=== PATIENT | female | born 1980 | race Two or more races ===

== ENCOUNTER 2022-11-22 09:43 | Outpatient (REF) | payer OTHER, SELFPAY ==
--- NOTE | ~2022-11-22 | XR_ITS ---
EXAMINATION: XR KNEE, LEFT CLINICAL INFORMATION: Left knee pain COMPARISON: None available. TECHNIQUE: Four views of the left knee. FINDINGS: No fracture or joint effusion. Alignment is anatomic. Joint spaces are maintained. No abnormal soft tissue calcification. XR/XR knee LT 3V IMPRESSION: Normal left knee.
--- NOTE | ~2022-11-22 | XR_ITS ---
EXAMINATION: XR KNEE, RIGHT CLINICAL INFORMATION: Chronic bilateral knee pain, history of arthritis in a patient with cerebral palsy COMPARISON: None available. TECHNIQUE: Three views of the right knee. FINDINGS: No fracture or joint effusion. Alignment is anatomic. Joint spaces are maintained. No abnormal soft tissue calcification. XR/XR knee RT 3V IMPRESSION: Normal right knee.
[2022-11-22 11:26] LABS: MANUAL DIFF FLAG NO
[2022-11-22 11:39] LABS: Basophils Percent Auto 0.8 % (0-2); Eosinophils Absolute Auto 0.3 X10*3/uL (0.0-0.4); Eosinophils Percent Auto 5.8 % (0-4); Hematocrit 38.8 % (37.0-47.0); Hemoglobin 13.1 g/dl (12.0-16.0); Imm Gran Abs Auto 0.01 X10*3/uL (0.00-0.03); Imm Gran Pct Auto 0.2 % (0.0-0.4); Lymphocytes Absolute Auto 1.4 X10*3/uL (1.2-4.9); Lymphocytes Percent Auto 27.9 % (20-40); Mean Corpuscular HGB Conc 33.8 g/dl (31.0-35.0); Mean Corpuscular Hemoglobin 29.8 pg (27.0-33.0); Mean Corpuscular Volume 88.4 fL (80.0-98.0); Mean Platelet Volume 9.8 fL (9.4-12.3); Monocytes Absolute Auto 0.4 X10*3/uL (0.1-1.2); Monocytes Percent Auto 8.8 % (2-11); Neutrophils Absolute Auto 2.8 x10*3/uL (2.0-8.3); Neutrophils Percent Auto 56.5 % (45-73); Platelet Count 329 X10*3/uL (160-400); Red Blood Count 4.39 X10*6/uL (4.20-5.50); Red Cell Distribution Width 12.2 % (11.0-16.0)
[2022-11-22 11:47] LABS: INTERNATIONAL NORM RATIO 1.1 (0.9-1.1)
[2022-11-22 11:51] LABS: Alanine Aminotransferase 7 U/L (0-31); Alkaline Phosphatase 58 U/L (39-117); Anion Gap 10 (12-20); Aspartate Amino Transferase 12 U/L (5-31); Bilirubin Total 0.6 mg/dL (0.0-1.0); Blood Urea Nitrogen 8 mg/dL (9-16); Calcium 9.4 mg/dL (8.4-10.2); Carbon Dioxide 27 mmol/L (22-29); Chloride 104 mmol/L (96-108); Estimated Glomerular Filt Rate > 60; Glucose Random 88 mg/dL (60-115); Sodium 137 mmol/L (135-145); Total Protein 6.9 g/dL (6.5-8.0)
[2022-11-22 12:12] LABS: TSH reflex Free T4 < 0.01 uIU/mL (0.32-4.0)
[2022-11-22 12:26] LABS: Estimated Average Glucose 88 mg/dL; Hemoglobin A1c % 4.7 % (<6.0)
[2022-11-22 12:52] LABS: Free T4 (Free Thyroxine) 1.62 ng/dL (0.71-1.85)
== END 2022-11-22 09:44 | disposition home or self-care (01) ==
LOC: HO.HHCL 09:43
PROVIDERS: Visit Provider General Practice
DX: Z00.00 Encounter for general adult medical examination without abnormal findings (principal); Z13.89 Encounter for screening for other disorder
CPT/HCPCS: 36415; 73562; 80053; 83036; 84439; 84443; 85025; 85610

== ENCOUNTER → 2022-12-01 11:45 | Outpatient (BNV) | payer OTHER, SELFPAY | PROVIDERS: PCP General Practice; Visit Provider Radiology Diagnostic Radiology | DX: Z12.31 Encounter for screening mammogram for malignant neoplasm of breast (principal) | CPT/HCPCS: 77063; 77067 ==

== ENCOUNTER 2022-12-01 11:47 | Outpatient (REF) | payer OTHER, SELFPAY ==
--- NOTE | ~2022-12-01 | MM_ITS ---
EXAMINATION: MM SCREENING DIGITAL BREAST TOMOSYNTHESIS, BILATERAL CLINICAL INFORMATION: Screening. Asymptomatic. The patient has multiple sclerosis. COMPARISON: Mammography: There are no prior mammograms for comparison. TECHNIQUE: Digital breast tomosynthesis is performed in both the craniocaudal and mediolateral oblique views along with computer-aided detection (CAD). Synthesized 2D images are generated from the tomosynthesis. The examination is somewhat limited due to patient motion given her neurologic status. The mammograms performed at the patient seated. FINDINGS: There are scattered areas of fibroglandular density (ACR BI-RADS breast composition Category b). There are no significant masses, abnormal calcifications, or other abnormalities. MM/MM tomosynthesis screening BI IMPRESSION: No mammographic evidence of malignancy. ASSESSMENT: BI-RADS BI-RADS 1 - Negative RECOMMENDATION: Routine annual mammography screening. 1 year F/U This examination should not preclude the clinical evaluation of a suspicious palpable abnormality. This patient's information was entered into a reminder system with a target due date for their next mammogram.
== END 2022-12-01 11:48 | disposition home or self-care (01) ==
LOC: HO.MAMMO 11:47
PROVIDERS: PCP General Practice; Visit Provider General Practice
DX: Z12.31 Encounter for screening mammogram for malignant neoplasm of breast (principal)
CPT/HCPCS: 77063; 77067

== ENCOUNTER 2023-01-15 12:09 | Outpatient (RCR) | payer OTHER, SELFPAY | END 2023-03-06 10:21 | disposition home or self-care (01) | LOC: HO.PT 12:09 | PROVIDERS: PCP General Practice; Visit Provider General Practice | DX: M17.12 Unilateral primary osteoarthritis, left knee (principal); M25.561 Pain in right knee | CPT/HCPCS: 97162 ==

== ENCOUNTER 2023-01-24 17:26 | Outpatient (REF) | payer OTHER, SELFPAY ==
[2023-01-30 03:39] LABS: Trichomonas (NAAT) NOT DETECTED (NOT DETECTED)
[2023-01-30 03:54] LABS: C. trachomatis RNA TMA NOT DETECTED (NOT DETECTED); N. gonorrhoeae RNA TMA NOT DETECTED (NOT DETECTED)
[2023-01-30 05:28] LABS: HPV mRNA E6/E7 rflx Not Detected (Not Detected)
== END 2023-01-24 17:27 | disposition home or self-care (01) ==
LOC: HO.HHCLNP 17:26
PROVIDERS: Visit Provider Advanced Practice Midwife
DX: Z12.4 Encounter for screening for malignant neoplasm of cervix (principal); Z11.51 Encounter for screening for human papillomavirus (HPV); Z20.2 Contact with and (suspected) exposure to infections with a predominantly sexual mode of transmission
CPT/HCPCS: 36415; 87491; 87591; 87624; 87661; 88142

== ENCOUNTER 2023-11-05 12:01 | Outpatient (REF) | payer OTHER, SELFPAY ==
[2023-11-05 13:52] LABS: Alanine Aminotransferase 10 U/L (0-31); Alkaline Phosphatase 67 U/L (39-117); Anion Gap 11 (12-20); Aspartate Amino Transferase 12 U/L (5-31); Bilirubin Total 0.2 mg/dL (0.0-1.0); Blood Urea Nitrogen 10 mg/dL (9-16); Calcium 9.3 mg/dL (8.4-10.2); Carbon Dioxide 23 mmol/L (22-29); Chloride 109 mmol/L (96-108); Estimated Glomerular Filt Rate > 60; Glucose Random 79 mg/dL (60-115); Potassium 4.3 mmol/L (3.3-5.1); Sodium 139 mmol/L (135-145)
[2023-11-05 14:11] LABS: TSH reflex Free T4 19.67 uIU/mL (0.32-4.0)
[2023-11-05 14:32] LABS: Estimated Average Glucose 103 mg/dL; Hemoglobin A1c % 5.2 % (<6.0)
[2023-11-05 15:28] LABS: Free T4 (Free Thyroxine) 0.71 ng/dL (0.71-1.85)
== END 2023-11-05 12:02 | disposition home or self-care (01) ==
LOC: HO.HHCL 12:01
PROVIDERS: Visit Provider General Practice
DX: E89.0 Postprocedural hypothyroidism (principal); E66.3 Overweight; Z13.1 Encounter for screening for diabetes mellitus
CPT/HCPCS: 36415; 80053; 83036; 84439; 84443

== ENCOUNTER 2023-11-14 11:19 | Outpatient (REF) | payer OTHER, SELFPAY ==
--- NOTE | ~2023-11-14 | US_ITS ---
EXAMINATION: US PELVIS COMPLETE CLINICAL INFORMATION: long menstrual cycles, 11 days, evaluate for fibroid COMPARISON: None TECHNIQUE: Transabdominal and transvaginal imaging was performed. FINDINGS: The uterus is of normal size and echogenicity measuring 9.3 x 3.8 x 5.4 cm. A regular homogeneous endometrium is identified measuring 0.5 cm. No fibroids identified. Intrauterine device in appropriate position. Fluid is noted in the endocervical canal. Both ovaries are of normal size and echogenicity. The right measures 3.2 x 2.5 x 1.9 cm for a volume of 8 mL. The left measures 2.2 x 1.7 x 1.1 cm for a volume of 2.2 mL. Prominent bilateral adnexal myometrial vessels which can be seen in the setting of pelvic venous congestion syndrome in the appropriate clinical setting. There is no pelvic free fluid. US/US pelvic and transvaginal IMPRESSION: 1. No fibroids are identified. Intrauterine device in appropriate position. 2. Prominent bilateral adnexal myometrial vessels which can be seen in the setting of pelvic venous congestion syndrome in the appropriate clinical setting. 3. Fluid is noted in the endocervical canal. Electronically signed by: Maggie Church MD 11/19/2023 07:26 PM EDT
== END 2023-11-14 11:20 | disposition home or self-care (01) ==
LOC: HO.US 11:19
PROVIDERS: PCP General Practice; Visit Provider General Practice
DX: N93.9 Abnormal uterine and vaginal bleeding, unspecified (principal)
CPT/HCPCS: 76830; 76856

== ENCOUNTER 2024-05-05 19:37 | Emergency (ER) | payer OTHER, SELFPAY ==
--- NOTE | ~2024-05-05 | US_ITS ---
CLINICAL HISTORY: vaginal bleeding, pelvic pain US pelvis transabdominal and transvaginal Comparison: US/SR - US PELVIC AND TRANSVAGINAL - 11/14/23 11:25 EDT Findings: Transabdominal scanning performed for overall anatomy. Transvaginal scanning performed for additional detail. Anteverted uterus measures 8.6 cm x 3.8 cm x 3.6 cm. Normal myometrium. Stable IUD in endometrial canal. Right ovary measures 3.5 cm x 2.3 cm x 3 cm and contains a 2 cm x 1.8 cm x 2.2 cm complex cyst with septations and internal echoes. Left ovary measures 2.8 cm x 2 cm x 1.7 cm with punctate echogenicities possibly small calcifications. Normal color Doppler and spectral Doppler in the right ovary. Trace fluid in the cervical canal. No free fluid. IMPRESSION: 1. 2.2 cm complex right ovarian cyst with septations and internal echoes. No evidence of right ovarian torsion. 2. Stable IUD in uterine canal. This document has been electronically signed by: Socorro Valdez MD on 05/05/2024 23:23:02
[2024-05-05 19:59] VITALS: BP 139/78; PULSE 91; RESP 16; TEMP 36.8; O2SAT 97; BMI 30.5
--- NOTE | 2024-05-05 20:07 | ED.FEMALEGU ---
HPI - Female Genitourinary General Chief complaint: Vaginal Bleeding Stated complaint: vaginal bleeding/pelvic pain Time Seen by Provider: 05/06/24 02:24 Source: patient Limitations: no limitations History of Present Illness ED Provider: Yesi Tucker PA-C HPI Narrative: 43-year-old female presents from urgent care given concerns for ectopic . Patient states her last menstrual cycle completed 3/, she developed new onset vaginal bleeding today. Associated right-sided lower abdominal cramping, new vaginal bleeding and generalized myalgias. Denies nausea, vomiting, diarrhea or fever. Denies recent cough or cold symptoms. Related Data Previous Rx's ?Medication ?Instructions ?Recorded ketorolac 10 mg tablet 10 mg PO Q6H PRN pain #20 tabs 05/06/24 Allergies Allergy/AdvReac Type Severity Reaction Status Date / Time No Known Allergies Allergy Verified 05/05/24 20:06 Review of Systems Review of Systems: Yes all other systems are reviewed and are negative Constitutional: Constitutional: Reports fatigue, Denies fever(s) and Reports malaise Cardiovascular: Cardiovascular: Denies chest pain and Denies dyspnea Respiratory: Respiratory: Denies cough and Denies dyspnea Gastrointestinal: Gastrointestinal: Reports abdominal pain, Reports GI cramping, Denies diarrhea, Denies nausea and Denies vomiting Genitourinary: Genitourinary: Reports abnormal vaginal bleeding, Reports pelvic pain and Reports other (Dysfunctional uterine bleeding) Endocrine: Endocrine: Reports fatigue PMFSH Past Medical History Attestation statement: The following information was validated with the patient. Social History Social History Smoked in Last 30 Days: No Use of substances other than those prescribed or required for medical reasons: No Advance Directives: No Advance Directives Information Provided: Yes Do you have a plan to hurt others: No Plan Patient : No Physical Exam Vital Signs: Vital Signs: Last Vital Signs Temp 102.0 F H 05/06/24 03:07 Pulse 93 05/06/24 03:07 Resp 16 05/06/24 03:07 BP 121/86 05/06/24 03:07 Pulse Ox 99 05/06/24 03:07 O2 Del Method Room Air 05/06/24 03:07 BMI result Body Mass Index 30.5 Const: Other: Alert, appears older than stated age Orientation/consciousness: patient oriented x3 Resp: Other: Nonlabored respiration Cardio: Other: Normal peripheral perfusion : Other: Deferred, she is not heavily bleeding, she is having breakthrough bleeding Skin: Other: Warm dry no rash Neuro: General: patient oriented x3, gait normal, no focal motor deficits and CN's II-XI intact bilaterally Psych: Other: Cooperative Course Course Course Narrative: This is a Rapid Medical Examination (RME) performed by Montserrat Sanford PA-C in triage. Full HPI, ROS, assessment and treatment plan per primary provider in the Main ED. 43 yo female , IUD placed 2022, here for eval of pelvic pain and vaginal bleeding x24 hours. her LMP finished 5 days ago. she started to rebleed yesterday, into today. assoc pelvic pain. seen at at 1700 today, they were concerned for ectopic however did no lab/urine testing. no hx ectopic. Plan: labs, UA, preg testing, ultrasound Medications Administered Discontinued Medications Generic Name Dose Route Start Last Admin Trade Name Freq PRN Reason Stop Dose Admin Acetaminophen 975 mg 05/06/24 02:54 05/06/24 03:13 Acetaminophen 325 Mg Tablet PO 05/06/24 02:55 975 mg ONCE ONE Administration Sodium Chloride 1,000 mls @ 999 mls/hr 05/06/24 03:00 05/06/24 03:17 Ns IV 05/06/24 04:00 999 mls/hr .Q1H1M LEANDRO Administration Ketorolac Tromethamine 15 mg 05/06/24 02:25 05/06/24 02:38 Ketorolac Tromethamine 15 Mg/Ml Vial IM 05/06/24 02:26 15 mg ONCE ONE Administration Medical Decision Making Medical Decision Making [facility] Narrative: 43-year-old female presents from urgent care given concerns for ectopic . Patient states her last menstrual cycle completed 3, she developed new onset vaginal bleeding today. Associated right-sided lower abdominal cramping, new vaginal bleeding and generalized myalgias. Denies nausea, vomiting, diarrhea or fever. Denies recent cough or cold symptoms. No chronic issues History: Per patient I have considered the following differential diagnoses: Dysfunctional uterine bleeding, early menopause, ectopic, ovarian cyst, torsion, Plan: The patient bleeding outside of her cycle, it is not excessive is having vaginal bleeding outside of her cycle, it was not excessive or heavy. Screening labs were obtained, she is not , transvaginal ultrasound was obtained as well she has a small ovarian cyst. Incidentally, a viral panel was obtained due to the patient's complaint of generalized myalgias, she is found to be positive for influenza and she is febrile. We will be giving Toradol for fever and pelvic discomfort, Tylenol and a L of fluid. We will be sending the patient with the contact for our gynecology service, she does have an appointment pending in June with a new provider. I have independently reviewed the following tests: Labs: No leukocytosis, not anemic, no electrolyte abnormality, urine not infected, viral panel positive for influenza B TVUS: IMPRESSION: 1. 2.2 cm complex right ovarian cyst with septations and internal echoes. No evidence of right ovarian torsion. 2. Stable IUD in uterine canal. Lab Data 05/05/24 20:18 05/05/24 20:18 Labs: Lab Results 05/05/24 05/06/24 05/06/24 Range/Units 20:18 02:07 02:57 WBC 3.7 L (4.8-10.8) X10*3/uL RBC 4.80 (4.20-5.50) X10*6/uL Hgb 13.5 (12.0-16.0) g/dl Hct 39.7 (37.0-47.0) % MCV 82.7 (80.0-98.0) fL MCH 28.1 (27.0-33.0) pg MCHC 34.0 (31.0-35.0) g/dl RDW 13.2 (11.0-16.0) % Plt Count 299 (160-400) X10*3/uL MPV 9.0 L (9.4-12.3) fL Immature Gran % (Auto) 0.3 (0.0-0.4) % Neut % (Auto) 51.4 (45-73) % Lymph % (Auto) 22.7 (20-40) % Floyd % (Auto) 15.9 H (2-11) % Eos % (Auto) 9.2 H (0-4) % Baso % (Auto) 0.5 (0-2) % Lymph # (Auto) 0.8 L (1.2-4.9) X10*3/uL Floyd # (Auto) 0.6 (0.1-1.2) X10*3/uL Eos # (Auto) 0.3 (0.0-0.4) X10*3/uL Baso # (Auto) 0.0 (0.0-0.2) X10*3/uL Abs Immat Gran (auto) 0.01 (0.00-0.03) X10*3/uL Absolute Neuts (auto) 1.9 L (2.0-8.3) x10*3/uL Absolute Nucleated RBC 0.000 (0.0-0.012) X10*3/uL Nucleated RBC % (auto) 0.0 (0.0-0.2) /100WBC Sodium 136 (135-145) mmol/L Potassium 4.1 (3.3-5.1) mmol/L Chloride 106 (96-108) mmol/L Carbon Dioxide 20 L (22-29) mmol/L Anion Gap 14 (12-20) BUN 10 (9-16) mg/dL Creatinine 0.55 (0.5-1.4) mg/dL Estim Creat Clear Calc 130.4 Estimated GFR > 60 Random Glucose 97 (60-115) mg/dL Calcium 9.0 (8.4-10.2) mg/dL Magnesium 1.9 (1.6-2.6) mg/dL Total Bilirubin 0.3 (0.0-1.0) mg/dL AST 19 (5-31) U/L ALT 14 (0-31) U/L Alkaline Phosphatase 79 (39-117) U/L Total Protein 8.2 H (6.5-8.0) g/dL Albumin 4.2 (3.5-5.0) g/dL Beta HCG, Quant < 2 mIU/mL Urine Color Yellow Urine Appearance Clear Urine pH 5.5 (5.0-9.0) Ur Specific [place] 1.025 (1.005-1.025) Urine Protein Trace (Neg-Trace) mg/dL Urine Glucose (UA) Negative (Negative) mg/dL Urine Ketones 40 (Negative) mg/dL Urine Blood Large (3+) H (Negative) Urine Nitrite Negative (Negative) Ur Leukocyte Esterase Negative (Negative) Urine RBC >20 H (0-2) /HPF Urine WBC 0-5 (0-5) /HPF Ur Squamous Epith Cells 0-2 (0-2) /HPF Urine Bacteria None Seen (None Seen) Hyaline Casts 0-2 (0-2) /LPF Influenza Type A (PCR) NEGATIVE (Negative) Influenza Type B (PCR) POSITIVE A (Negative) RSV RNA Qual (PCR) NEGATIVE (Negative) SARS-CoV-2 RNA (RT-PCR) NEGATIVE (Negative) Discharge Plan Discharge Clinical Impression: Ovarian cyst, Influenza, Dysfunctional uterine bleeding Patient Disposition: Home, Self-Care Instructions: Ovarian Cyst (ED), Influenza (ED) Additional Instructions: You were found to have an ovarian cyst, this could be the cause of your breakthrough bleeding. You could also have dysfunctional uterine bleeding secondary to your age. You need to follow up with a heating element winder, keep your pending appointment. I am also providing you with the contact of our own gynecology service. You also tested positive for influenza. See home care instructions. This is a virus that is self-limiting. You can use [id number] Tylenol 1000 mg taken every 8 hours for body aches, headache and fever. Use the ketorolac, for your pelvic pain, the ketorolac we will also help with body aches, fever and headache. Take it with food. The remaining of your screening labs were normal. Prescriptions: New ketorolac 10 mg tablet 10 mg PO Q6H PRN (Reason: pain) Qty: 20 0RF Rx Instructions: maximum total duration of 5 days from all oral, intranasal, or parenteral formulations. Patient received an IV form of ketorolac here in the emergency department. Referrals: Josep aJckson MD [Physician] - Print Language: Estonian
[2024-05-05 20:23] LABS: MANUAL DIFF FLAG NO
[2024-05-05 20:24] LABS: Basophils Percent Auto 0.5 % (0-2); Eosinophils Absolute Auto 0.3 X10*3/uL (0.0-0.4); Eosinophils Percent Auto 9.2 % (0-4); Hematocrit 39.7 % (37.0-47.0); Hemoglobin 13.5 g/dl (12.0-16.0); Imm Gran Abs Auto 0.01 X10*3/uL (0.00-0.03); Imm Gran Pct Auto 0.3 % (0.0-0.4); Lymphocytes Absolute Auto 0.8 X10*3/uL (1.2-4.9); Lymphocytes Percent Auto 22.7 % (20-40); Mean Corpuscular Hemoglobin 28.1 pg (27.0-33.0); Mean Corpuscular Volume 82.7 fL (80.0-98.0); Monocytes Absolute Auto 0.6 X10*3/uL (0.1-1.2); Monocytes Percent Auto 15.9 % (2-11); Neutrophils Absolute Auto 1.9 x10*3/uL (2.0-8.3); Neutrophils Percent Auto 51.4 % (45-73); Platelet Count 299 X10*3/uL (160-400); Red Cell Distribution Width 13.2 % (11.0-16.0); White Blood Count 3.7 X10*3/uL (4.8-10.8)
[2024-05-05 20:39] LABS: Alanine Aminotransferase 14 U/L (0-31); Albumin Level 4.2 g/dL (3.5-5.0); Alkaline Phosphatase 79 U/L (39-117); Anion Gap 14 (12-20); Aspartate Amino Transferase 19 U/L (5-31); Bilirubin Total 0.3 mg/dL (0.0-1.0); Blood Urea Nitrogen 10 mg/dL (9-16); Carbon Dioxide 20 mmol/L (22-29); Chloride 106 mmol/L (96-108); Creatinine Clr Calc Pharmacy 130.4; Estimated Glomerular Filt Rate > 60; Glucose Random 97 mg/dL (60-115); Magnesium 1.9 mg/dL (1.6-2.6); Potassium 4.1 mmol/L (3.3-5.1); Sodium 136 mmol/L (135-145); Total Protein 8.2 g/dL (6.5-8.0)
[2024-05-05 20:46] LABS: HCG Quantitative < 2 mIU/mL
[2024-05-06 01:52] VITALS: BP 113/70; PULSE 101; RESP 20; TEMP 36.9; O2SAT 99
[2024-05-06] MEDS: Ketorolac Tromethamine 15 MG/ML VIAL IM (02:38)
[2024-05-06 02:49] LABS: Influenza A PCR NEGATIVE (Negative); Influenza B PCR POSITIVE (Negative); Resp Syncy Virus RNA Qual PCR NEGATIVE (Negative); SARS COV2 PCR INHOUSE NEGATIVE (Negative)
[2024-05-06 03:07] VITALS: BP 121/86; PULSE 93; RESP 16; TEMP 38.9; O2SAT 99
[2024-05-06 03:07] LABS: Appearance Urine Clear; Color Urine Yellow; Glucose Urine UA Negative (Negative); Leukocyte Esterase Urine Negative (Negative); Nitrite Urine Negative (Negative); PH 5.5 (5.0-9.0); Specific Gravity - Urine 1.025 (1.005-1.025); UMIC TRIGGER UACC YES; Urine Blood Large (3+) (Negative); Urine Ketones 40 mg/dL (Negative); Urine Protein Trace mg/dL (Neg-Trace)
[2024-05-06 03:09] LABS: Bacteria Urine None Seen (None Seen); Hyaline Casts Urine 0-2 /LPF (0-2); RBC Urine >20 /HPF (0-2); Squamous Epithelial Cell Urine 0-2 /HPF (0-2); WBC Urine 0-5 /HPF (0-5)
[2024-05-06] MEDS: Acetaminophen 325 MG TABLET 975 MG PO (03:13)
[2024-05-06] MEDS: 0.9 % Sodium Chloride 1,000 ML 999 ML IV (03:17)
[2024-05-06 04:26] VITALS: BP 111/74; PULSE 78; RESP 20; TEMP 37.2; O2SAT 98
[2024-05-06 04:27] VITALS: BP 111/74; PULSE 78; RESP 20; TEMP 37.2; O2SAT 98
== END 2024-05-06 04:33 | disposition home or self-care (01) ==
PROVIDERS: Physician Assistant Medical; Emergency Provider Emergency Medicine; PCP General Practice
DX: N83.201 Unspecified ovarian cyst, right side (principal); J10.1 Influenza due to other identified influenza virus with other respiratory manifestations; N93.9 Abnormal uterine and vaginal bleeding, unspecified; R10.2 Pelvic and perineal pain; R10.31 Right lower quadrant pain; N93.8 Other specified abnormal uterine and vaginal bleeding
CPT/HCPCS: 0241U; 36415; 76830; 76856; 80053; 81001; 83735; 84702; 85025; 96372; 99285; J1885

== ENCOUNTER → 2024-05-05 20:49 | Outpatient (BNV) | payer OTHER, SELFPAY | PROVIDERS: PCP General Practice; Visit Provider Specialist | DX: N93.9 Abnormal uterine and vaginal bleeding, unspecified (principal) | CPT/HCPCS: 76830; 76856 ==

== ENCOUNTER 2024-05-12 17:39 | Outpatient (REF) | payer OTHER, SELFPAY ==
[2024-05-13 03:03] LABS: CT PCR NOT DETECTED (Not Detect.); NG PCR NOT DETECTED (Not Detect.)
[2024-05-13 20:23] LABS: Trichomonas vaginalis RNA NOT DETECTED (NOT DETECTED)
== END 2024-05-12 17:40 | disposition home or self-care (01) ==
LOC: HO.HHCLNP 17:39
PROVIDERS: Visit Provider Advanced Practice Midwife
DX: Z11.3 Encounter for screening for infections with a predominantly sexual mode of transmission (principal)
CPT/HCPCS: 87491; 87591; 87661

== ENCOUNTER 2024-06-03 15:13 | Outpatient (REF) | payer OTHER, SELFPAY ==
--- NOTE | ~2024-06-03 | XR_ITS ---
EXAMINATION: XR CHEST CLINICAL INFORMATION: sob, cough, flu pos 05/06/24 COMPARISON: None available. TECHNIQUE: 2 views of the chest were obtained. FINDINGS: The cardiac, hilar, and mediastinal contours are normal. The lungs are clear bilaterally. There is no pneumothorax or pleural effusion. There is no focal osseous or soft tissue abnormality. XR/XR chest 2V IMPRESSION: Normal chest. Electronically signed by: Marc Womack MD 06/03/2024 03:43 PM EDT
--- OUTSIDE RECORDS SUMMARY | 2024-06-03 18:12 | XMS_ITS | Encounter Summary ---
Author Organization [employer] Address [address] [place] [address] [address] [place] [address] Care Team Providers Care Residential Finish Carpenter Name Role Phone Genoveva Vaughn MD Primary Care Provider [phone] Encounter Details Date Type Department Care Team (Late st Contact Info) Description 10/31/2022 Orders Only [facility] [address] [place], [place] [id number] Nisha Partida LPN Social History Tobacco Use Types Packs/Day Years Used Date Smoking Tobacco: Never Passive Smoke Exposure: Never Smokeless Tobacco: Never Comments Unknown Sex and Gender Information Value Date Recorded Sex Assigned at Female 12/26/2021 10:40 AM EDT Legal Sex Female 10:40 AM EDT Gender Identity Female 12/26/2021 10:40 AM EDT Sexual Orientation Straight 12/26/2021 10 :40 AM EDT documented as of this encounter Plan of Treatment Upcoming Encounters Date Type Department Care Team (Late st Contact Info) Description 07/14/2024 10:00 AM EDT Office Visit [address] [address] Jacinta Erwin CNM [address] [place] [phone] 08/12/2024 10:15 AM EDT Office Visit [address] [address] Genoveva Vaughn MD [address] [place] [phone] documented as of this encounter Procedures Procedure Name Priority Date/Time Associated Diagnosis Comments T4, FREE Routine 11/22/2022 9:56 AM EDT documented in this encounter Results * T4, Free (11/22/2022 9:56 AM EDT) Free T4 (Free Thyroxine) 1.62 0.71 - 1.85 ng/dL [facility] 11/22/2022 9:56 AM EDT 11/22/2022 11:22 AM EDT us Genoveva Vaughn MD LAB BLOOD ORDERABLES Final Res ult [facility] [address] [place] [phone] documented in this encounter Visit Diagnoses Not on filedocumented in this encounter Care Teams Residential Finish Carpenter Relationship Specialty Start Date End Date Genoveva Vaughn MD [address] [place] [phone] PCP - General Family Medicine 10/14/21 documented as of this encounter
--- OUTSIDE RECORDS SUMMARY | 2024-06-03 18:12 | XMS_ITS | Encounter Summary ---
Author Organization [employer] Address [address] [facility] 7[address] [place] [address] Care Team Providers Care Certified Diabetes Educator Name Role Phone Genoveva Vaughn MD Primary Care Provider [phone] Encounter Details Date Type Department Care Team (Late st Contact Info) Description 06/03/2024 3:40 PM EDT Office Visit [facility] [address] [place] [address] [phone] Mely Buitrago MD [address] [place], [place] [phone] Viral upper respiratory tract infection with cough Social History Tobacco Use Types Packs/Day Years Used Date Smoking Tobacco: Never Passive Smoke Exposure: Never Smokeless Tobacco: Never Alcohol Use Standard Drinks/Week Comments Never 0 (1 standard drink = 0.6 oz pur e alcohol) Housing Stability Answer Date Recorded What is your housing situation today? I have vanessa sing 10/17/[address] you li ve. Do you have problems with any of the following? None of the above 10/17/2023 Food Insecurity Answer Date Recorded Within the past 12 months, y ou worried that your food would run out before you got money to buy more: Never True 10/17/2023 Within the past 12 months,th e food you bought just didn't last and you didn't have enough money to get more: Never True Transportation Answer Date Recorded In the past 12 months, has l ack of transportation kept you from medical appts, meetings, work or from getting things needed for daily living? No 10/17/2023 Utilities Answer Date Recorded In the past 12 months, has t he [employer], gas, oil or water company threatened to shut off services in your home? No 10/17/2023 Internet Access Answer Date Recorded Internet Access Q1 Yes 10/29/2023 Internet Access Q2 Not on file 10/29/2023 Comments No Sex and Gender Information Value Date Recorded Sex Assigned at Female 12/26/2021 10:40 AM EDT Legal Sex Female 10:40 AM EDT Gender Identity Female 12/26/2021 10:40 AM EDT Sexual Orientation Straight 12/26/2021 10 :40 AM EDT documented as of this encounter Last Filed Vital Signs Vital Sign Reading Time Taken Comments Blood Pressure 129/80 06/03/2024 2:37 PM EDT Pulse 101 06/03/2024 2:46 PM EDT Temperature 37.1 ??C (98.7 ??F) 06/03/2024 2:37 PM ED T Respiratory Rate - - Oxygen Saturation 97% 06/03/2024 2:46 PM EDT RA Inhaled Oxygen Concentration - - Weight - - Height - - Body Mass Index - - documented in this encounter Progress Notes * Mary Lauren RN - 06/03/2024 3:40 PM EDT Pt presents to Walk In reporting runny nose, productive cough with yellow phlegm, SOB with exertion(ambulation and talking), chest tightness and upper back pain since last night. Pt reports she has been using albuterol inhaler, today at 10AM and around 1230PM without effect. Pt and significant other report son, daughter and mother are sick with cold like symptoms. Pt placed on 1L oxygen by Walk In BERNABE Franz for comfort. * Felicitas Reynoso - 06/03/2024 3:40 PM EDT Subjective Patient ID: Janelle Eli is a 43 y.o. female who presents to walk in clinic for No chief complaint on file.. Per triage: Pt presents to Walk In reporting cold symptoms and SOB with exertion. Pt reports she has been using albuterol inhaler, today at 10AM and around 1230PM without effect. Pt placed on 1L oxygen by Walk In BERNABE Franz for comfort. Pt reports cough with yellow sputum, sob with exertion, rhinorrhea and body aches. She notes her son, daughter and mother are sick with cold like symptoms. Pt reports she had the flu 05/06/24 but notes her symptoms have improved, but did not fully resolve. Review of Systems Constitutional: Negative for fever and unexpected weight change. HENT: Positive for rhinorrhea. Respiratory: Positive for cough and shortness of breath. Cardiovascular: Negative for chest pain. Gastrointestinal: Negative for abdominal pain. Genitourinary: Negative for difficulty urinating. Musculoskeletal: Positive for myalgias. Objective Visit Vitals BP 129/80 (BP Location: Right arm, Patient Position: Sitting, BP Cuff Size: Adult) Pulse 101 Temp 98.7 ??F (37.1 ??C) (Temporal) LMP 04/25/2024 (Exact Date) SpO2 97% Comment: RA OB Status Having periods Smoking Status Never Physical Exam Constitutional: Appearance: Normal appearance. Cardiovascular: Rate and Rhythm: Normal rate and regular rhythm. Heart sounds: Normal heart sounds. Pulmonary: Effort: Pulmonary effort is normal. Breath sounds: Normal breath sounds. No wheezing, rhonchi or rales. Musculoskeletal: Cervical back: Normal range of motion and neck supple. Neurological: General: No focal deficit present. Mental Status: She is alert. Psychiatric: Behavior: Behavior normal. Office Visit on 06/03/2024 Component Date Value Influenza A 06/03/2024 Negative Influenza B 06/03/2024 Negative Rapid COVID Ag 06/03/2024 Negative Office Visit on 05/12/[address] PCR 05/12/2024 NOT DETECTED NG PCR 05/12/2024 NOT DETECTED Trichomas vaginalis RNA,* 05/12/2024 NOT DETECTED Orders Only on 05/06/2024 Component Date Value Influenza A PCR 05/06/2024 NEGATIVE Influenza B PCR 05/06/2024 POSITIVE (A) Resp Syncy Virus RNA Kings* 05/06/2024 NEGATIVE SARS COV2 PCR 05/06/2024 NEGATIVE Color Urine 05/06/2024 Yellow Appearance Urine 05/06/2024 Clear PH 05/06/2024 5.5 Glucose Urine UA 05/06/2024 Negative Urine Blood 05/06/2024 Large (3+) (A) Specific Austin - Urine 05/06/2024 1.025 Urine Protein 05/06/2024 Trace Urine Ketones 05/06/2024 40 Nitrite Urine 05/06/2024 Negative Leukocyte Esterase Urine 05/06/2024 Negative RBC Urine 05/06/2024 >20 (A) Urine WBC 05/06/2024 0-5 Urine Squamous Epithelia* 05/06/2024 0-2 Urine Bacteria 05/06/2024 None Seen Hyaline Casts, Urine 05/06/2024 0-2 Problem List Items Addressed This Visit Viral upper respiratory tract infection with cough COVID and Flu negative. No evidence of respiratory distress. Symptoms mild. No evidence of dehydration. Upon checking walking O2 SAT it did drop slightly with exertion to about 96%. At rest goes backup to 98%. -Ordered CXR. -Prescribed predniSONE (Deltasone) 20 MG -Supportive care advised. -Isolation recommendations discussed. Relevant Medications predniSONE (Deltasone) 20 MG tablet Other Relevant Orders Influenza A (ID NOW Rapid Molecular) (Completed) Influenza B (ID NOW Rapid Molecular) (Completed) POCT Rapid COVID Ag (Completed) XR Chest 2 Views -No evidence of acute disease process. Suspect persistent cough with viral URI. Symptoms mild. -Will treat with low lopez steroid an ordered XR. -ER precautions discussed. -Seek medical attention for worsening symptoms. I, Felicitas Reynoso, am serving as a scribe to document services personally performed by Dr. Goode, based on the patient's response to questions by provider and providers statements to me. documented in this encounter Miscellaneous Notes * Assessment & Plan Note - Felicitas Reynoso - 06/03/2024 3:09 PM EDTAssociated Problem(s): Viral upper respiratory tract infection with cough COVID and Flu negative. No evidence of respiratory distress. Symptoms mild. No evidence of dehydration. Upon checking walking O2 SAT it did drop slightly with exertion to about 96%. At rest goes backup to 98%. -Ordered CXR. -Prescribed predniSONE (Deltasone) 20 MG -Supportive care advised. -Isolation recommendations discussed. documented in this encounter Plan of Treatment Upcoming Encounters Date Type Department Care Team (Late st Contact Info) Description 07/14/2024 10:00 AM EDT Office Visit [facility] [address] [place] [address] Jacinta Erwin CNM [address] [place] [address] 08/12/2024 10:15 AM EDT Office Visit [facility] [address] [place] [address] Genoveva Vaughn MD [address] [place] [address] documented as of this encounter Procedures Procedure Name Priority Date/Time Associated Diagnosis Comments XR CHEST 2 VIEWS Routine 06/03/2024 3:13 PM EDT Viral upper respiratory tract infection with cough POCT INFLUENZA B (ID NOW RAPID MOLECULAR) Routine 06/03/2024 2:58 PM EDT Viral upper respiratory tract infection with cough POCT INFLUENZA A (ID NOW RAPID MOLECULAR) Routine 06/03/2024 2:57 PM EDT Viral upper respiratory tract infection with cough POCT RAPID COVID ANTIGEN Routine 06/03/2024 2:52 PM EDT Viral upper respiratory tract infection with cough documented in this encounter Results * XR Chest 2 Views (06/03/2024 3:13 PM EDT) Anatomical Region Laterality Modality Chest Radiographic Lucy ging 06/03/2024 3:13 PM EDT Narrative 06/03/2024 3:45 PM EDT ?[facility] [facility] ?[address] ?[place] [address] ?XRay Report ? Signed ? Patient: Eli,Zoralis ?MR#: [id number] ?? 10 ? : 1980 ?Acct:[id number] ? Age/Sex: 43 / F ?ADM Date: 06/03/24 ? Loc: HO.HHCX ? Attending Dr: Mely Buitrago MD ? Ordering Physician: Mely Buitrago MD ?? Date of Service: 06/03/24 ?? Procedure(s): XR chest 2V ?? Accession Number(s): [id number] ? cc: Mely Buitrago MD ? EXAMINATION: ?? XR CHEST ? CLINICAL INFORMATION: ?? sob, cough, flu pos 05/06/24 ? COMPARISON: ?? None available. ? TECHNIQUE: ?? 2 views of the chest were obtained. ? FINDINGS: ?? The cardiac, hilar, and mediastinal contours are normal. ? The lungs are clear bilaterally. There is no pneumothorax or pleural ?? effusion. ? There is no focal osseous or soft tissue abnormality. ? XR/XR chest 2V ?? IMPRESSION: ?? Normal chest. ? Electronically signed by: ??Marc Womack MD ??06/03/2024 03:43 PM EDT RP ? Dictated By: ?Marc Womack MD ? Signed By: ?<Electronically signed by Marc Womack MD in OV> ?06/03/24 1543 ? DD/ 1513 ? TD/TT: 06/03/24 1520 ? Media Monitor: ? Procedure Note Aguilar, Image - 06/03/2024 [place] [address] XRay Report Signed Patient: Albino Eli#: [id number] 10 : 1980Acct:[id number] Age/Sex: 43 / FADM Date: 06/03/24 Loc: HO.HHCX Attending Dr: Mely Buitrago MD Ordering Physician: Mely Buitrago MD Date of Service: 06/03/24 Procedure(s): XR chest 2V Accession Number(s): [id number] cc: Mely Buitrago MD EXAMINATION: XR CHEST CLINICAL INFORMATION: sob, cough, flu pos 05/06/24 COMPARISON: None available. TECHNIQUE: 2 views of the chest were obtained. FINDINGS: The cardiac, hilar, and mediastinal contours are normal. The lungs are clear bilaterally. There is no pneumothorax or pleural effusion. There is no focal osseous or soft tissue abnormality. XR/XR chest 2V IMPRESSION: Normal chest. Electronically signed by: Marc Womack MD 06/03/2024 03:43 PM EDT Dictated By: Marc Womack MD Signed By: <Electronically signed by Marc Womack MD in OV> 06/03/24 1543 DD/ 1513 TD/TT: 06/03/24 1520 Media Monitor: Mely Buitrago MD IMG XR PROCEDURES Final Re sult * Influenza B (ID NOW Rapid Molecular) (06/03/2024 2:58 PM EDT) [facility] Influenza B Negative Negative, Indeterminate [facility] Swab 06/03/2024 2:58 PM EDT Mely Buitrago MD POINT OF CARE TEST ENTER/E DIT ORDERABLES Final Result Performing Organization Address [facility] Co de Phone Number [facility] [address] [place] [phone] * Influenza A (ID NOW Rapid Molecular) (06/03/2024 2:57 PM EDT) [facility] Influenza A Negative Negative, Indeterminate [facility] Swab 06/03/2024 2:57 PM EDT Mely Buitrago MD POINT OF CARE TEST ENTER/E DIT ORDERABLES Final Result Performing Organization Address [facility] Co de Phone Number [facility] [address] [place] [phone] * POCT Rapid COVID Ag (06/03/2024 2:52 PM EDT) Rapid COVID Ag Negative Swab 06/03/2024 2:52 PM EDT Mely Buitrago MD POINT OF CARE TEST ENTER/E DIT ORDERABLES Final Result documented in this encounter Visit Diagnoses Diagnosis Viral upper respiratory tract infection with cough documented in this encounter Care Teams Certified Diabetes Educator Relationship Specialty Start Date End Date Genoveva Vaughn MD [address] [place] [phone] PCP - General Family Medicine 10/14/21 documented as of this encounter
--- OUTSIDE RECORDS SUMMARY | 2024-06-03 18:12 | XMS_ITS | Encounter Summary ---
Author Organization [employer] Address [address] [place] [address] 7t [place] [address] Care Team Providers Care Confidential Investigator Name Role Phone Genoveva Vaughn MD Primary Care Provider [phone] Reason for Visit * Reason Onset Date Comments requesting a letter 03/03/2022 Encounter Details Date Type Department Care Team ([facility] st Contact Info) Description 03/03/2022 Telephone [facility] [address] [place], [place] [phone] Genoveva Vaughn MD [address] [place], [place] [phone] requesting a letter Social History Tobacco Use Types Packs/Day Years Used Date Smoking Tobacco: Never Assessed Comments Unknown Sex and Gender Information Value Date Recorded Sex Assigned at Female 12/26/2021 10:40 AM EDT Legal Sex Female 10:40 AM EDT Gender Identity Female 12/26/2021 10:40 AM EDT Sexual Orientation Straight 12/26/2021 10 :40 AM EDT documented as of this encounter Miscellaneous Notes * Telephone Encounter - Candie YAMILA Martin - 03/03/2022 3:40 PM EST Span w/ patient, she asked verbally for us to discuss with what we were calling about. 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 PCP informed on request and per spouse they will come Sunday03/06/22 to [facility] to do processing of requests, release so we can do paperwork for them. * Telephone Encounter - Celeste Paulson - 03/03/2022 12:42 PM EST Tc from pt requesting a letter for the DMV . Stating she's capable to take her drivers license . Please call pt to clarify . documented in this encounter Plan of Treatment Upcoming Encounters Date Type Department Care Team (Late st Contact Info) Description 07/14/2024 10:00 AM EDT Office Visit [facility] [address] [place] [address] Jacinta Erwin CNM [address] [place] [address] 08/12/2024 10:15 AM EDT Office Visit [facility] [address] [place] [address] Genoveva Vaughn MD [address] [place] [address] documented as of this encounter Visit Diagnoses Not on filedocumented in this encounter Care Teams Confidential Investigator Relationship Specialty Start Date End Date Genoveva Vaughn MD [address] [place] [phone] PCP - General Family Medicine 10/14/21 documented as of this encounter
--- OUTSIDE RECORDS SUMMARY | 2024-06-03 18:12 | XMS_ITS | Encounter Summary ---
Author Organization [employer] Address [address] [place] [address] 7t [place] [address] Care Team Providers Care Assembler [employer] Electrical Name Role Phone Genoveva Vaughn MD Primary Care Provider [phone] Encounter Details Date Type Department Care Team (Late st Contact Info) Description 11/28/2022 Orders Only [facility] [address] [place] [phone] Genoveva Vaughn MD [address] [place] [phone] Chronic pain of both knees (Primary Dx) Social History Tobacco Use Types Packs/Day Years Used Date Smoking Tobacco: Never Passive Smoke Exposure: Never Smokeless Tobacco: Never Alcohol Use Standard Drinks/Week Comments Never 0 (1 standard drink = 0.6 oz pur e alcohol) Comments Unknown Sex and Gender Information Value [...] Description 07/14/2024 10:00 AM EDT Office Visit [facility] [address] [place] [phone] Jacinta Erwin CNM [address] [place] [address] 08/12/2024 10:15 AM EDT Office Visit [facility] [address] [place] [address] Genoveva Vaugnh MD [address] [facility] [place] [phone] documented as of this encounter Procedures Procedure Name Priority Date/Time Associated Diagnosis Comments BI MAMMOGRAM SCREENING TOMOSYNTHESIS BILATERAL Routine 12/01/2022 12:10 PM EDT documented in this encounter Results * BI Mammogram Screening Tomosynthesis Bilateral (12/01/2022 12:10 PM EDT) Anatomical Region Laterality Modality Breast Bilateral Mammography 12/01/2022 12:1 0 PM EDT Narrative 12/21/2022 1:52 PM EDT ? [facility] ? [address] ?[place] [address] ? Mammography Report ? Signed ? Patient: Eli,Zoralis ?MR#: [id number] ?? 10 ? : 1980 ?Acct:[id number] ? Age/Sex: 42 / F ?ADM Date: 12/01/22 ? Loc: HO.MAMMO ? Attending Dr: Genoveva Vaughn MD ? Ordering Physician: Genoveva Vaughn ?Results: 1Negative ? Date of Service: 12/01/22 ?Follow Up: 1 Year From Orig ?? inal Mammogram ? Procedure(s): MM tomosynthesis screening BI ?? Accession Number(s): [id number] ? cc: Genoveva Vaughn ? EXAMINATION: ?? MM SCREENING DIGITAL BREAST TOMOSYNTHESIS, BILATERAL ? CLINICAL INFORMATION: ? Screening. Asymptomatic. ? The patient has multiple sclerosis. ? COMPARISON: ?? Mammography: There are no prior mammograms for comparison. ? TECHNIQUE: ?? Digital breast tomosynthesis is performed in both the craniocaudal and ?? mediolateral oblique views along with computer-aided detection (CAD). ?? Synthesized 2D images are generated from the tomosynthesis. ?? The examination is somewhat limited due to patient motion given her ?? neurologic status. The mammograms performed at the patient seated. ? FINDINGS: ?? There are scattered areas of fibroglandular density (ACR BI-RADS breast ?? composition Category b). ? There are no significant masses, abnormal calcifications, or other ?? abnormalities. ? MM/MM tomosynthesis screening BI ?? IMPRESSION: ?? No mammographic evidence of malignancy. ? ASSESSMENT: ? BI-RADS BI-RADS 1 - Negative ? RECOMMENDATION: ?? Routine annual mammography screening. ? 1 year F/U ? This examination should not preclude the clinical evaluation of a ?? suspicious palpable abnormality. ? This patient's information was entered into a reminder system with a ?? target due date for their next mammogram. ? Dictated By: ?Katy Tate MD ? Signed By: ?<Electronically signed by Katy Tate MD in OV> ? 12/21/22 1348 ? DD/ 1210 ? TD/TT: ? Director Banking: ? Procedure Note Aguilar, Image - 12/21/2022 [facility] [address] [place] [address] [place] [address] Mammography Report Signed Patient: Albino Eli#: [id number] 10 : 1980Acct:[id number] Age/Sex: 42 / FADM Date: 12/01/22 Loc: DEVI Attending Dr: Genoveva Vaughn MD Ordering Physician: Mauricio Vaughnults: 1Negative Date of Service: 12/01/22Follow Up: 1 Year From Orig inal Mammogram Procedure(s): MM tomosynthesis screening BI Accession Number(s): [id number] cc: Genoveva Vaughn EXAMINATION: MM SCREENING DIGITAL BREAST TOMOSYNTHESIS, BILATERAL CLINICAL INFORMATION: Screening. Asymptomatic. The patient has multiple sclerosis. COMPARISON: Mammography: There are no prior mammograms for comparison. TECHNIQUE: Digital breast tomosynthesis is performed in both the craniocaudal and mediolateral oblique views along with computer-aided detection (CAD). Synthesized 2D images are generated from the tomosynthesis. The examination is somewhat limited due to patient motion given her neurologic status. The mammograms performed at the patient seated. FINDINGS: There are scattered areas of fibroglandular density (ACR BI-RADS breast composition Category b). There are no significant masses, abnormal calcifications, or other abnormalities. MM/MM tomosynthesis screening BI IMPRESSION: No mammographic evidence of malignancy. ASSESSMENT: BI-RADS BI-RADS 1 - Negative RECOMMENDATION: Routine annual mammography screening. 1 year F/U This examination should not preclude the clinical evaluation of a suspicious palpable abnormality. This patient's information was entered into a reminder system with a target due date for their next mammogram. Dictated By: Katy Tate MD Signed By: <Electronically signed by Katy Tate MD in OV> 12/21/22 1348 DD/ 1210 TD/TT: Director Banking: Genoveva Vaughn MD IMG BI PROCEDURES Final Result documented in this encounter Visit Diagnoses Diagnosis Chronic pain of both knees- Primary documented in this encounter Care Teams Assembler [employer] Electrical Relationship Specialty Start Date End Date Genoveva Vaughn MD [address] [place] [phone] PCP - General Family Medicine 10/14/21 documented as of this encounter
--- OUTSIDE RECORDS SUMMARY | 2024-06-03 18:12 | XMS_ITS | Clinical Summary ---
Author Organization ? Cooperative Address [address] [place] [address] [address] [place] [address] Care Team Providers Care Hydrogeology Professor Name Role Phone Genoveva Vaughn MD Primary Care Provider [phone] Allergies No known active allergies Medications Acetaminophen Extra Strength 500 MG tablet TAKE 2 TABLET BY MOUTH EVERY 6 HOURS NEEDED NEEDED FOR PAIN 160 tablet 10/05/19 23 Active ibuprofen 400 MG tablet Take 400 mg by mouth every 6 (six) hours if needed. 12/17/19 22 Active cetirizine (ZyrTEC) 10 MG tablet Take 1 tablet (10 mg) by mouth in the morning. 30 tablet 11 12/20/19 23 Active fexofenadine (Khushboo) 180 MG tabletIndication s:Atopic dermatitis, unspecified type Take 1 tablet (180 mg) by mouth if needed each day (Allergies). 90 tablet 2 01/06/20 23 Active triamcinolone (Kenalog) 0.1 % creamIndications :Atopic dermatitis, unspecified type Mix with Cerave and apply after showers 80 g 2 01/06/20 23 Active Calcium Polycarbophil (fiber) 625 MG tablet Take 1 tablet (625 mg) by mouth in the morning. 90 tablet 3 05/01/19 24 Active Zinc Sulfate 220 (50 Zn) MG tablet TAKE 1 TABLET BY MOUTH EVERY DAY IN THE MORNING 90 tablet 3 05/02/19 24 Active topiramate (Topamax) 25 MG tablet Take 1 tablet (25 mg) by mouth Once per day. 90 tablet 3 11/05/19 24 025 Active metFORMIN (Glucophage) 500 MG tablet Take 0.5 tablets (250 mg) by mouth with breakfast. 45 tablet 3 11/05/19 24 025 Active levothyroxine (Synthroid) 25 MCG tablet Take 1 tab (25mcg) WITH 200mcg daily before breakfast 90 tablet 3 11/09/19 24 Active levothyroxine (Synthroid, Levoxyl) 200 MCG tablet TAKE 1 TABLET BY MOUTH EVERY DAY 90 tablet 3 01/28/20 24 Active fluticasone (Flonase) 50 MCG/ACT nasal spray USE 1 SPRAY INTO EACH NOSTRIL ONCE DAILY 32 mL 3 04/18/19 25 Active D-1000 Extra Strength 25 MCG (1000 UT) tablet TAKE 1 TABLET (25 MCG) BY MOUTH IN THE MORNING 90 tablet 3 05/17/19 25 Active norethindrone (Ortho Micronor) 0.35 MG tablet Take 1 tablet (0.35 mg) by mouth Once per day. 28 tablet 12 05/20/19 25 026 Active predniSONE (Deltasone) 20 MG tabletIndication s:Viral upper respiratory tract infection with cough 2 tabs po daily for 5 days 10 tablet 06/04/19 25 Active albuterol 108 (90 Base) MCG/ACT inhaler Inhale 2 puffs every 4 (four) hours if needed for wheezing or shortness of breath. 18 g 06/04/19 25 Active albuterol 108 (90 Base) MCG/ACT inhaler Inhale 2 puffs every 4 (four) hours if needed for wheezing or shortness of breath. 18 g 12/20/19 23 025 Discontinued(R eorder (will not trigger notification to Pharmacy)) cholecalciferol (Vitamin D-3) 25 MCG (1000 UT) tablet Take 1 tablet (25 mcg) by mouth in the morning. 90 tablet 3 05/01/19 24 025 Discontinued Drospirenone (Slynd) 4 MG tablet Take 1 tablet by mouth Once per day. 28 tablet 11 05/13/19 25 025 Discontinued(C ost of medication) Active Problems Problem Noted Date Diagnosed Date Viral upper respiratory tract infection with cou gh 06/03/2024 Assessment & Plan (06/03/2024 3:09 PM EDT): COVID and Flu negative. No evidence of respiratory distress. Symptoms mild. No evidence of dehydration. Upon checking walking O2 SAT it did drop slightly with exertion to about 96%. At rest goes back up to 98%. -Ordered CXR. -Prescribed predniSONE (Deltasone) 20 MG -Supportive care advised. -Isolation recommendations discussed. Subacute maxillary sinusitis 03/13/2024 Overview (03/13/2024): augmentin flu next time Assessment & Plan (03/13/2024 1:44 PM EST): Augmentin x 7d Rest (sleep at least 8 hours a night). Hydrate with plenty of water (avoid caffeine and alcohol). Use saline nose drops to loosen mucus + Flonase Take Acetaminophen (Tylenol??)/Ibuprofen as needed to reduce fever, headache, body aches or discomfort Gargle with salt water and use throat sprays/lozenges for throat pain. Use heated, humidified air or take hot showers. Overweight 05/01/2023 Assessment & Plan (05/01/2023 12:40 PM EST): Take fiber daily She had a bad reaction to a compounded weight loss medication in [facility] that caused thyroid damage Gave her handout about weight loss medications as well to consider Topamax, wellbutrin, naltrexone Referral to nutrition Annual physical exam 11/23/2022 Assessment & Plan (11/23/2022 10:56 AM EDT): UTD pap/mammo Will schedule IUD insertion Chronic pain of both knees 11/23/2022 Flexural eczema 11/23/2022 Bruises easily 11/23/2022 Assessment & Plan (11/23/2022 10:56 AM EDT): Labs today Cerebral palsy 10/17/2021 Assessment & Plan (11/05/2023 3:16 PM EDT): Consider neuro referral due to new onset foot spasm Hypothyroidism 10/17/2021 Encounters Date Type Department Care Team Description 06/03/2024 3:40 PM EDT Office Visit [facility] [address] [address] Mely Buitrago MD Viral upper respiratory tract infection with cough 05/19/2024 Orders Only [facility] [address] [place] [phone] Jacinta Erwin CNM 05/19/2024 Telephone [facility] [address] [place] [address] Genoveva Vaughn MD 05/15/2024 Refill [facility] [address] [place] [phone] Genoveva Vaughn MD 05/12/2024 11:30 AM EDT Office Visit [facility] [address] [place] [phone] Jacinta Erwin CNM Abnormal uterine bleeding (Primary Dx); Family planning counseling; Screening examination for venereal disease; Cyst of right ovary 05/12/2024 Travel 05/06/[address] [address] Genoveva Vaughn MD ER Follow-up 05/06/2024 Orders Only GENERIC EXTERNAL DATA DEPARTMENT Provider, Generic External Data 05/05/2024 6:40 PM EDT Office Visit [facility] [address] [address] Ni Estes MD Pelvic pain (Primary Dx); Vaginal bleeding 05/05/2024 Orders Only [facility] External Provider, [facility] 05/05/2024 Telephone [facility] [address] [place] [phone] Genoveva Vaughn MD Nurse Triage 04/17/2024 Refill [facility] [address] [place] [phone] Pura Jurado MD from Last 3 Months Immunizations Name Administration Dates Next Due Influenza Injectable Quadriv alant Preservative Free IIV4 MDCK 10/25/2022 Social History Tobacco Use Types Packs/Day Years Used Date Smoking Tobacco: Never Passive Smoke Exposure: Never Smokeless Tobacco: Never Tobacco Cessation:Counseling Given: Not Answered Alcohol Use Standard Drinks/Week Comments Never 0 [...] the past 12 months, has t he electric, gas, oil or water company threatened to [...] Orientation Straight 12/26/2021 10 :40 AM EDT Last Filed Vital Signs Vital Sign Reading Time Taken Comments Blood Pressure 129/80 06/03/2024 2:37 PM EDT Pulse 101 06/03/2024 2:46 PM EDT Temperature 37.1 ??C (98.7 ??F) 06/03/2024 2:37 PM ED T Respiratory Rate 16 05/12/2024 11:36 AM EDT Oxygen Saturation 97% 06/03/2024 2:46 PM EDT RA Inhaled Oxygen Concentration - - Weight 78.6 kg (173 lb 3.2 oz) 05/12/2024 11:36 AM EDT Height 162.6 cm (5' 4 ) 05/12/2024 11:36 AM EDT Body Mass Index 29.73 05/12/2024 11:36 AM EDT Plan of Treatment Upcoming Encounters Date Type Department Care Team (Late st Contact Info) Description 07/14/2024 10:00 AM EDT Office Visit [facility] [address] [place], [place] [phone] Jacinta Erwin, JESSICA [address] [place], [place] [phone] 08/12/2024 10:15 AM EDT Office Visit [facility] [address] [place], [place] [phone] Genoveva Vaughn MD [address] [place], [place] [phone] Health Maintenance Due Date Last Done Comments Depression Screening 1980 HIV Screening 1980 Alcohol/Substance Use Screening 1992 Hepatitis C Screening 1998 DTaP/Tdap/Td Vaccines (1 - Tdap) 07/08/1999 Hepatitis B Vaccines (1 of 3 - 19+ 3-dose series) 07/08/1999 COVID-19 Vaccine ( - 2023-2 5 season) 2023 Mammogram 12/02/2023 12/01/2022 SDOH Screening 10/16/2024 10/17/2023 Family Planning (PISQ) 05/12/2025 05/12/2024 Tobacco Screening 05/12/2025 05/12/2024 Cervical Cancer Screening 01/25/2028 HPV/Cotest 01/25/2028 01/24/2023 Pap Smear 01/25/2028 01/24/2023, 01/24/2023 Zoster Vaccines (1 of 2) 2030 RSV Patients and Patients Aged 60 years or older (1 - 1-dose 75+ series) 07/08/2055 Influenza Vaccine Completed 03/06/2024, 10/25/2022 HIB Vaccines Aged Out No longer eligi ble based on patient's age to complete this topic HPV Vaccines Aged Out No longer eligi ble based on patient's age to complete this topic Hepatitis A Vaccines Aged Out No long er eligible based on patient's age to complete this topic IPV Vaccines Aged Out No longer eligi ble based on patient's age to complete this topic Meningococcal Vaccine Aged Out No diamante wili eligible based on patient's age to complete this topic Pneumococcal Vaccine: Pediatrics (0 to 5 Years) and At-Risk Patients (6 to 49) Years) Aged Out No longer eligible b ased on patient's age to complete this topic RSV under 20 months Aged Out No longe r eligible based on patient's age to complete this topic Rotavirus Vaccines Aged Out No longer eligible based on patient's age to complete this topic Procedures Procedure Name Priority Date/Time Associated Diagnosis [...] Viral upper respiratory tract infection with cough TRICHOMONAS VAGINALIS RNA, QUALITATIVE, TMA Routine 05/12/2024 12:30 PM EDT Screening examination for venereal disease CHLAMYDIA/N. GONORRHOEAE RNA, TMA, UROGENITAL Routine 05/12/2024 12:30 PM EDT Screening examination for venereal disease URINALYSIS, COMPLETE, WITH REFLEX TO CULTURE Routine 05/06/2024 2:57 AM EDT SARS COV2/INFLUENZA A/B AND RSV RNA QL NAAT Routine 05/06/2024 2:07 AM EDT US PELVIS TRANSVAGINAL Routine 11:23 PM EDT HCG, TOTAL, QN Routine 05/05/2024 8:18 PM EDT MAGNESIUM Routine 05/05/2024 8:18 PM EDT COMPREHENSIVE METABOLIC PANEL Routine 05/05/2024 8:18 PM EDT CBC WITH AUTO DIFFERENTIAL Routine 05/05/2024 8:18 PM EDT HPV MRNA E6/E7 REFLEX TO HPV 16, 18/45 Routine 01/24/2023 10:45 AM EST IMAGE-GUIDED PAP W/AGE BASED SCR,W/CT/NG/TRICH Routine 01/24/2023 10:45 AM EST Encntr screen for infections w sexl mode of transmiss Cervical cancer screening BI MAMMOGRAM SCREENING TOMOSYNTHESIS BILATERAL Routine 12/01/2022 12:10 PM EDT from Last 3 Months or Most Recently Relevant to Health Maintenance Results * XR Chest 2 Views (06/03/2024 3:13 PM EDT) Anatomical Region Laterality Modality Chest Radiographic Lucy ging 06/03/2024 3:13 PM EDT Narrative 06/03/2024 3:45 PM EDT ?[facility] ?[address] ?[place] [address] ?XRay Report ? Signed ? Patient: Janelle Eli ?MR#: [id number] ?? 10 ? : 1980 ?Acct:[id number] ? Age/Sex: 43 / F ?ADM Date: 06/03/24 ? Loc: HO.HHCX ? Attending Dr: Mely Buitrago MD ? Ordering Physician: Mely Buitrago MD ?? Date of Service: 06/03/24 ?? Procedure(s): XR chest 2V ?? Accession Number(s): [id number] ? cc: Mely Buitrago MD ? EXAMINATION: [...] DD/ 1513 ? TD/TT: 06/03/24 1520 ? Lead Retail Sales Associate: ? Procedure Note Donangelito, Quintin - 06/03/[address] [address] XRay Report Signed Patient: Albino Eli#: [id number] 10 : 1980Acct:[id number] Age/Sex: 43 / FADM Date: 06/03/24 Loc: HO.HHCX Attending Dr: Mely Buitrago MD Ordering Physician: Mely Buitrago MD Date of Service: 06/03/24 Procedure(s): XR chest 2V Accession Number(s): [id number] cc: Mely Buitrago MD EXAMINATION: XR CHEST [...] 06/03/24 1543 DD/ 1513 TD/TT: 06/03/24 1520 Lead Retail Sales Associate: Mely Buitrago MD IMG XR PROCEDURES Final Re sult * Influenza B (ID NOW Rapid Molecular) (06/03/2024 2:58 PM EDT) Influenza B Negative Negative, Indeterminate [facility] Swab 06/03/2024 2:58 PM EDT Mely Buitrago MD POINT OF CARE TEST ENTER/E DIT ORDERABLES Final Result Performing Organization Address [facility]/ZIP Co de Phone Number [facility] [address] [place] [phone] * Influenza A (ID NOW Rapid Molecular) (06/03/2024 2:57 PM EDT) Influenza A Negative Negative, Indeterminate [facility] Swab 06/03/2024 2:57 PM EDT Mely Buitrago MD POINT OF CARE TEST ENTER/E DIT ORDERABLES Final Result Performing Organization Address [facility] Co de Phone Number [facility] [address] [place] [phone] * POCT Rapid COVID Ag (06/03/2024 2:52 PM EDT) Rapid COVID Ag Negative Swab 06/03/2024 2:52 PM EDT Mely Buitrago MD POINT OF CARE TEST ENTER/E DIT ORDERABLES Final Result * Trichomonas RNA (Urine/Vaginal) (05/12/2024 12:30 PM EDT) Trichomas vaginalis RNA, QL, TMA NOT DETECTED NOT DETECTED [facility] Comment:For additional infor mation, please refer [email or web address]/faq/Trichomonastma(This link is being provided for informational/educational purposes only.)THIS TEST WAS PERFORMED AT:[facility] [place] [phone] MACK MD Swab 05/12/2024 12:3 0 PM EDT 05/12/2024 5:40 PM EDT Jacinta FUENTES LAB BODY FLUIDS AND STOOL S ORDERABLES Final Result [facility] [address] [place] [phone] * Chlamydia/N. Gonorrhoeae RNA, TMA, Vagina (05/12/2024 12:30 PM EDT) CT PCR NOT DETECTED Not Detect. [facility] Comment:A not detected test result does not exclude the possibilityof infection because test results can be affected byimproper specimen collection, concurrent antibiotic therapy,or the number of organisms in the specimen which may bebelow the sensitivity of the test. As with many diagnostictests, results from the Xpert CT/NG assay should beinterpreted in conjunction with other laboratory andclinical data available to the clinician.Xpert CT/NG performance has not been evaluated in patientsless than 14 years of age. The assay should not be used forthe evaluationof suspected sexual abuse or for other medico-legalindications. Additional testing is recommended in anycircumstance when false positive or false negative resultscould lead to adverse medical, social or psychologicalconsequences. NG PCR NOT DETECTED Not Detect. [facility] Comment:A not detected test result does not exclude the possibilityof infection because test results can be affected byimproper specimen collection, concurrent antibiotic therapy,or the number of organisms in the specimen which may bebelow the sensitivity of the test. As with many diagnostictests, results from the Xpert CT/NG assay should beinterpreted in conjunction with other laboratory andclinical data available to the clinician.Xpert CT/NG performance has not been evaluated in patientsless than 14 years of age. The assay should not be used forthe evaluationof suspected sexual abuse or for other medico-legalindications. Additional testing is recommended in anycircumstance when false positive or false negative resultscould lead to adverse medical, social or psychologicalconsequences. Swab Vaginal structure / Unknown 05/12/2024 12:30 PM EDT 05/12/2024 6:53 PM EDT Narrative [facility] - 05/13/2024 3:04 AM EDT Vaginal us Jacinta Erwin CNM LAB MICROBIOLOGY - GENERA L ORDERABLES Final Result Performing Organization Address City/[facility]/ZIP Co de Phone Number [facility] [address] [place] [phone] [phone] * (ABNORMAL) Urinalysis, Complete, with Reflex to Culture (05/06/2024 2:57 AM EDT) Color Urine Yellow [facility] Appearance Urine Clear [facility] PH 5.5 5.0 - 9.0 [facility] Glucose Urine UA Negative Negative mg/dL [facility] Urine Blood Large (3+)(A) Negative [facility] Specific Gattman - Urine 1.025 1.005 - 1.025 [facility] Urine Protein Trace Neg-Trace mg/dL [facility] Urine Ketones 40 Negative mg/dL [facility] Nitrite Urine Negative Negative [facility] Leukocyte Esterase Urine Negative Negative [facility] RBC Urine >20(A) 0 - 2 /HPF [facility] Urine WBC 0-5 0 - 5 /HPF [facility] Urine Squamous Epithelial Cell 0-2 0 - 2 /HPF [facility] Urine Bacteria None Seen None Seen [facility] Hyaline Casts, Urine 0-2 0 - 2 /LPF [facility] 05/06/2024 2:57 AM EDT 05/06/2024 3:00 AM EDT Narrative [facility] - 05/06/2024 3:10 AM EDT Urine, Clean Catch us Generic External Data Provider LAB URINE ORDERAB LES Final Result Performing Organization Address City/[facility]/ZIP Co de Phone Number [facility] [address] [place] [phone] * (ABNORMAL) SARS-CoV-2 RNA, Influenza A/B, and RSV RNA, Ql NAAT (05/06/2024 2:07 AM EDT) Influenza A PCR NEGATIVE Negative [facility] Influenza B PCR POSITIVE(A) Negative [facility] Resp Syncy Virus RNA Qual PCR NEGATIVE Negative [facility] SARS COV2 PCR NEGATIVE Negative [facility] Comment:All test results mus t be correlated with clinical findings.Negative results do not preclude SARS-CoV2, influenza Avirus, influenza B virus and/or RSV infectionand should not be used as the sole basis for treatment orother patient management decisions. Negative results must becombined with clinical observations, patient history, andepidemiological information.This test has not been evaluated for monitoring treatment ofinfection.This test has been authorized by the FDA under an EmergencyUse Authorization (EUA) for use by authorized laboratories.Testing performed on the [employer] GeneXpert utilizingreal-time RT-PCR.All SARS CoV2 and positive influenza A/B results arereported to [facility]. 05/06/2024 2:07 AM EDT 05/06/2024 2:09 AM EDT us Generic External Data Provider LAB MICROBIOLOGY - GENERAL ORDERABLES Final Result Performing Organization Address City/State/[facility] Co de Phone Number [facility] [address] [place] [phone] * US Pelvis Transvaginal (05/05/2024 11:23 PM EDT) Anatomical Region Laterality Modality Pelvis Ultrasound 05/05/2024 11:2 3 PM EDT Narrative 05/05/2024 11:25 PM EDT ? [facility] ?[address] ?[place] [address] ? Ultrasound Report ? Signed ? Patient: Eli,Zoralis ?MR#: [id number] ?? 10 ? : 1980 ?Acct:[id number] ? Age/Sex: 43 / F ?ADM Date: 03/10/25 ? Loc: HO.ED ? Attending Dr: ? Ordering Physician: Sunshine Sanford ?? Date of Service: 05/05/24 ?? Procedure(s): US pelvic and transvaginal ?? Accession Number(s): [id number] ? cc: Genoveva Vaughn; Sunshine Sanford ? CLINICAL HISTORY: vaginal bleeding, pelvic pain ? US pelvis transabdominal and transvaginal ? Comparison: US/SR - US PELVIC AND TRANSVAGINAL - 11/14/23 11:25 EDT ? Findings: ?? Transabdominal scanning performed for overall anatomy. Transvaginal ?? scanning performed for additional detail. ? Anteverted uterus measures 8.6 cm x 3.8 cm x 3.6 cm. ?? Normal myometrium. ?? Stable IUD in endometrial canal. ? Right ovary measures 3.5 cm x 2.3 cm x 3 cm and contains a 2 cm x 1.8 cm x ?? 2.2 cm complex cyst with septations and internal echoes. ?? Left ovary measures 2.8 cm x 2 cm x 1.7 cm with punctate echogenicities ?? possibly small calcifications. ?? Normal color Doppler and spectral Doppler in the right ovary. ?? Trace fluid in the cervical canal. ?? No free fluid. ? IMPRESSION: ?? 1. 2.2 cm complex right ovarian cyst with septations and internal echoes. ?? No evidence of right ovarian torsion. ? 2. Stable IUD in uterine canal. ? This document has been electronically signed by: Socorro Valdez MD on ?? 05/05/2024 23:23:02 ? Dictated By: ?Socorro Valdez MD ? Signed By: ?<Electronically signed by Socorro Valdez MD in OV> ? 05/05/24 2324 ? DD/ 2323 ? TD/TT: 05/05/24 2323 ? Lead Retail Sales Associate: ? Procedure Note Quintin Sheikh - 05/05/[address] [address] Ultrasound Report Signed Patient: Albino Eli#: [id number] 10 : 1980Acct:[id number] Age/Sex: 43 / FADM Date: 05/05/24 Loc: HO.ED Attending Dr: Ordering Physician: Sunshine Sanford Date of Service: 05/05/24 Procedure(s): US pelvic and transvaginal Accession Number(s): [id number] cc: Genoveva Vaughn; Sunshine Sanford CLINICAL HISTORY: vaginal bleeding, pelvic pain US pelvis transabdominal and transvaginal Comparison: US/SR - US PELVIC AND TRANSVAGINAL - 11/14/23 11:25 EDT Findings: Transabdominal scanning performed for overall anatomy. Transvaginal scanning performed for additional detail. Anteverted uterus measures 8.6 cm x 3.8 cm x 3.6 cm. Normal myometrium. Stable IUD in endometrial canal. Right ovary measures 3.5 cm x 2.3 cm x 3 cm and contains a 2 cm x 1.8 cm x 2.2 cm complex cyst with septations and internal echoes. Left ovary measures 2.8 cm x 2 cm x 1.7 cm with punctate echogenicities possibly small calcifications. Normal color Doppler and spectral Doppler in the right ovary. Trace fluid in the cervical canal. No free fluid. IMPRESSION: 1. 2.2 cm complex right ovarian cyst with septations and internal echoes. No evidence of right ovarian torsion. 2. Stable IUD in uterine canal. This document has been electronically signed by: Socorro Valdez MD on 05/05/2024 23:23:02 Dictated By: Socorro Valdez MD Signed By: <Electronically signed by Socorro Valdez MD in OV> 05/05/242323 DD/ 22 TD/TT: 05/05/242322 Lead Retail Sales Associate: us [facility] External Provider IMG US PROCEDURES Edited Result - Final * (ABNORMAL) CBC auto differential (05/05/2024 8:18 PM EDT) White Blood Count 3.7(L) 4.8 - 10.8 X10*3/uL [facility] Red Blood Count 4.80 4.20 - 5.50 X10*6/uL [facility] Hemoglobin 13.5 12.0 - 16.0 g/dl [facility] Hematocrit 39.7 37.0 - 47.0 % [facility] Mean Corpuscular Volume 82.7 80.0 - 98.0 fL [facility] Mean Corpuscular Hemoglobin 28.1 27.0 - 33.0 pg [facility] Mean Corpuscular HGB Conc 34.0 31.0 - 35.0 g/dl [facility] Red Cell Distribution Width 13.2 11.0 - 16.0 % [facility] Platelet Count 299 160 - 400 X10*3/uL [facility] Mean Platelet Volume 9.0(L) 9.4 - 12.3 fL [facility] Neutrophils Percent Auto 51.4 45 - 73 % [facility] Imm Gran Pct Auto 0.3 0.0 - 0.4 % [facility] Lymphocytes Percent Auto 22.7 20 - 40 % [facility] Monocytes Percent Auto 15.9(H) 2 - 11 % [facility] Eosinophils Percent Auto 9.2(H) 0 - 4 % [facility] Basophils Percent Auto 0.5 0 - 2 % [facility] NRBC Pct Auto 0.0 0.0 - 0.2 /100WBC [facility] Neutrophils Absolute Auto 1.9(L) 2.0 - 8.3 x10*3/uL [facility] Imm Gran Abs Auto 0.01 0.00 - 0.03 X10*3/uL [facility] Lymphocytes Absolute Auto 0.8(L) 1.2 - 4.9 X10*3/uL [facility] Monocytes Absolute Auto 0.6 0.1 - 1.2 X10*3/uL [facility] Eosinophils Absolute Auto 0.3 0.0 - 0.4 X10*3/uL [facility] Basophils Absolute Auto 0.0 0.0 - 0.2 X10*3/uL [facility] NRBC Abs Auto 0.000 0.0 - 0.012 X10*3/uL [facility] 05/05/2024 8:18 PM EDT 05/05/2024 8:21 PM EDT us Generic External Data Provider LAB BLOOD ORDERAB LES Final Result Performing Organization Address [facility] Co de Phone Number [facility] [address] [place] [phone] [phone] * hCG, Total, Quantitative (05/05/2024 8:18 PM EDT) HCG Quantitative <2 mIU/mL [facility] Comment:Weeks post LMP Appro ximate hCG(Last Menstrual Period) Range (mIU/ml)3 - 4 weeks 9 - 1304 - 5 weeks 75 - 2,6005 - 6 weeks 850 - 20,8006 - 7 weeks 4000 - 100,2007 - 12 weeks 11,500 - 289,06378 - 16 weeks 18,300 - 137,15776 - 29 weeks (2nd trimester) 1,400 - 53,12598 - 41 weeks (3rd trimester) 940 - 60,000The Aguirre B- hCG assay is used for the early detection ofpregnancy; it cannot be used to diagnose any conditionunrelated to . If a B-hCG level is not supportedby the clinical evidence, results should be confirmed by analternative method (qualitative urine hCG, for example). 05/05/2024 8:18 PM EDT 05/05/2024 8:21 PM EDT us Generic External Data Provider LAB BLOOD ORDERAB LES Final Result Performing Organization Address [facility] Co de Phone Number [facility] [address] [place] [phone] * Magnesium (05/05/2024 8:18 PM EDT) Magnesium 1.9 1.6 - 2.6 mg/dL [facility] 05/05/2024 8:18 PM EDT 05/05/2024 8:21 PM EDT Generic External Data Provider LAB BLOOD ORDERAB LES Final Result Performing Organization Address [facility] Co de Phone Number [facility] [address] [place] [address] [phone] * (ABNORMAL) Comprehensive Metabolic Panel (05/05/2024 8:18 PM EDT) Sodium 136 135 - 145 mmol/L [facility] Potassium 4.1 3.3 - 5.1 mmol/L [facility] Chloride 106 96 - 108 mmol/L [facility] Carbon Dioxide 20(L) 22 - 29 mmol/L [facility] Anion Gap 14 12 - 20 [facility] Urea Nitrogen (BUN) 10 9 - 16 mg/dL [facility] Creatinine, Serum 0.55 0.5 - 1.4 mg/dL [facility] Creatinine Clr Calc Pharmacy 130.4 [facility] Comment:Provided height and weight: 160.02 cm,78 kg.eGFR (calculated from the MDRD study equation) and eCrCl(calculated from the Cockcroft-Gault equation) are based ondifferent parameters and may not yield comparable results.If eCrCl result is absurd, please check patient'sheight/weight. Estimated Glomerular Filt Rate >60 [facility] Comment:Chronic Kidney Disea se: Estimated GFR < 60 mL/min/1.42l1Iqgynb Kidney Disease: Estimated GFR < 15 mL/min/1.73m2 Glucose 97 60 - 115 mg/dL [facility] Calcium 9.0 8.4 - 10.2 mg/dL [facility] Bilirubin, Total 0.3 0.0 - 1.0 mg/dL [facility] Aspartate Amino Transferase 19 5 - 31 U/L [facility] Alanine Aminotransferase 14 0 - 31 U/L [facility] Total Protein 8.2(H) 6.5 - 8.0 g/dL [facility] Albumin Level 4.2 3.5 - 5.0 g/dL [facility] Alkaline Phosphatase 79 39 - 117 U/L [facility] 05/05/2024 8:18 PM EDT 05/05/2024 8:21 PM EDT us Generic External Data Provider LAB BLOOD ORDERAB LES Final Result [facility] [address] [place] [address] [phone] * Image-Guided Pap with Age-Based Screening??with CT/NG,??Trichomonas (01/24/2023 10:45 AM EST) Trichomonas (NAAT) NOT DETECTED NOT DETECTED [facility] Comment:The analytical perfo rmance characteristics of thisassay have been determined by [employer]. Themodifications have not been cleared or approved bythe FDA. This assay has been validated pursuant to theIA regulations and is used for clinical purposes.For additional information, please refer tohttp://education.[employer]/faq/Trichomonastma(This link is being provided for information/educational purposes only.)THIS TEST WAS PERFORMED AT:[facility] [address] [phone] MACK MD CTNG Ref Lab NOT DETECTED NOT DETECTED [facility] NG Ref Lab NOT DETECTED NOT DETECTED [facility] Pap Vial 01/24/2023 10:4 5 AM EST 01/26/2023 10:52 AM EST Jacinta Erwin [facility] CYTOLOGY ORDERABLES F inal Result Performing Organization Address [facility] Co de Phone Number [facility] [address] [place] [address] [phone] * HPV mRNA E6/E7 w/Reflex to HPV Genotypes 16, 18/45 (01/24/2023 10:45 AM EST) HPV nRNA E6/E7 Not Detected Not Detected [facility] Comment:Methodology: Transcr iption-Mediated AmplificationThis assay detects E6/E7 viral messenger RNA (mRNA) from 14high-risk HPV types (16,18,31,33,35,39,45,51,52,56,58,59,66,68).Cervical sources are required for HPV testing.If a vaginal source from a patient who has had atotal hysterectomy with removal of cervix wassubmitted, please contact the testing laboratoryfor alternative testing options.For additional information, please refer tohttp://education.[employer]/faq/YXV560u5(This link if provided for information/educational purposes only.)THIS TEST WAS PERFORMED AT:[facility] [place] [phone] MACK MD HPV mRNA E6/E7 TNP [facility] HPV 16 RNA TNP [facility] HPV 18/45 RNA TNP [facility] 01/24/2023 10:4 5 AM EST 01/25/2023 11:00 AM EST us Jacinta Erwin CNM LAB CYTOLOGY ORDERABLES F inal Result [facility] [address] [place] [phone] [phone] * BI Mammogram Screening Tomosynthesis Bilateral (12/01/2022 12:10 PM EDT) Anatomical Region Laterality Modality Breast Bilateral Mammography 12/01/2022 12:1 0 PM EDT Narrative 12/21/2022 1:52 PM EDT ? [facility] [place] ? [address] ?[place] [address] ? Mammography Report ? Signed ? Patient: Eli,Zoralis ?MR#: [id number] ?? 10 ? : 1980 ?Acct:[id number] ? Age/Sex: 42 / F ?ADM Date: 10/06/23 ? Loc: HO.MAMMO ? Attending : Genoveva Vaughn MD ? Ordering Physician: Genoveva Vaughn ?Results: 1Negative ? Date of Service: 12/01/22 ?Follow Up: 1 Year From Orig ?? inal Mammogram ? Procedure(s): MM tomosynthesis screening BI ?? Accession Number(s): [id number] ? cc: Genoveva Vaughn ? EXAMINATION: ?? [...] by Katy Tate MD in OV> ? 10//23 1348 ? DD/ ? TD/TT: ? Lead Retail Sales Associate: ? Procedure Note Donotuseinterpreter, Image - [facility] [address] [place], [place] [address] Mammography Report Signed Patient: Albino Eli#: [id number] 10 : 1980Acct:[id number] Age/Sex: 42 / FADM Date: 12/01/22 Loc: HO.MAMMO Attending Dr: Genoveva Vaughn MD Ordering Physician: Mauricio Vaughnults: 1Negative Date of Service: 12/01/22Follow Up: 1 Year From Orig inal Mammogram Procedure(s): MM tomosynthesis screening BI Accession Number(s): [id number] cc: Genoveva Vaughn EXAMINATION: MM SCREENING DIGITAL [...] in OV> 12/21/22 1348 DD/ 1210 TD/TT: Lead Retail Sales Associate: Genoveva Vaughn MD IMG BI PROCEDURES Final Result from Last 3 Months or Most Recently Relevant to Health Maintenance Insurance [facility] Care Teams Hydrogeology Professor Relationship Specialty Start Date End Date Genoveva Vaughn MD [address] [place] [address] [phone] PCP - General Family Medicine 10/14/21
--- OUTSIDE RECORDS SUMMARY | 2024-06-03 18:12 | XMS_ITS | Encounter Summary ---
Author Organization [employer] Address [address] [place] [address] 7 [place] [address] Care Team Providers Care Meat Grinder Name Role Phone Genoveva Vaughn MD Primary Care Provider [phone] Encounter Details Date Type Department Care Team (Late st Contact Info) Description 09/28/2022 Telephone [facility] [address] [place] [phone] Genoveva Vaughn MD [address] [place] [address] [phone] Social History Tobacco Use Types Packs/Day Years [...] Description 07/14/2024 10:00 AM EDT Office Visit [facility] [address] [place] [phone] Jacinta Erwin CNM [address] [place] [address] [phone] 08/12/2024 10:15 AM EDT Office Visit [facility] [address] [place] [phone] Genoveva Vaughn MD [address] [place] [address] [phone] documented as of this encounter Visit Diagnoses Not on filedocumented in this encounter Care Teams Meat Grinder Relationship Specialty Start Date End Date Genoveva Vaughn MD [address] [place] [address] PCP - General Family Medicine 10/14/21 documented as of this encounter
== END 2024-06-03 15:14 | disposition home or self-care (01) ==
LOC: HO.HHCX 15:13
PROVIDERS: Visit Provider Family Medicine
DX: R05.9 Cough, unspecified (principal)
CPT/HCPCS: 71046

== ENCOUNTER → 2024-06-03 15:13 | Outpatient (BNV) | payer OTHER, SELFPAY | PROVIDERS: Visit Provider Radiology Diagnostic Radiology | DX: R05.9 Cough, unspecified (principal); R06.02 Shortness of breath | CPT/HCPCS: 71046 ==

== ENCOUNTER 2024-06-25 11:15 | Outpatient (REF) | payer OTHER, SELFPAY ==
--- NOTE | ~2024-06-25 | US_ITS ---
EXAMINATION: US PELVIS TRANSABDOMINAL AND TRANSVAGINAL HISTORY: f/u right ovarian cyst 6 wks COMPARISON: Comparison is made with the prior examination dated 05/05/2024. TECHNIQUE: Transabdominal and endovaginal real-time 2D faustin-scale ultrasound was performed. FINDINGS: Uterus: The uterus is normal in size, measuring 9.4 x 3.5 x 4.4 cm. Myometrium has a normal echotexture. No fibroids are identified. Endometrium: The endometrial stripe measures 2 mm in thickness. There is fluid within the cervical canal. The previously noted IUD has been removed. Right ovary: The right ovary measures 1.9 x 2.0 x 1.1 cm. The right ovary is normal in size and echotexture. The previously seen complex cyst is no longer identified. Left ovary: The left ovary measures 4.2 x 3.0 x 3.7 cm. There is a cyst measuring 3.5 x 2.9 x 3.3 cm containing a few low-level internal echoes. Pelvic fluid: none. US/US pelvic and transvaginal IMPRESSION: 1. The previously seen complex right ovarian cyst has resolved. 2. New minimally complex 3.5 x 2.9 x 3.3 cm left ovarian cyst. Follow-up is recommended. 3. Interval removal of the IUD. There is fluid within the cervical canal. Electronically signed by: Barrington Mckeon MD 06/26/2024 07:23 AM EDT
--- OUTSIDE RECORDS SUMMARY | 2024-06-25 12:53 | XMS_ITS | Encounter Summary ---
Author Organization [employer] Address [address] [place] [address] [address] [place] [address] Care Team Providers Care Metal Sheet Roller Operator Name Role Phone Genoveva Vaughn MD Primary Care Provider [phone] Reason for Visit * Reason Onset Date Comments requesting a letter 03/03/2022 Encounter Details Date Type Department Care Team ([facility] st Contact Info) Description 03/03/2022 Telephone [facility] [address] [place], [place] [phone] Genoveva Vaughn MD [address] [place], [place] [phone] requesting a letter Social History Tobacco Use [...] Medical Eval Form after several calls T# [phone] was informed on 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 PCP informed on request and per spouse they will come Sunday03/06/[address] [facility] Records to do processing of requests, release [...] Description 07/14/2024 10:00 AM EDT Office Visit [facility] [address] [place] [phone] Jacinta Erwin CNM [address] [place] [address] 08/12/2024 10:15 AM EDT Office Visit [facility] [address] [place] [phone] Genoveva Vaughn MD [address] [place] [address] documented as of this encounter Visit Diagnoses Not on filedocumented in this encounter Care Teams Metal Sheet Roller Operator Relationship Specialty Start Date End Date Genoveva Vaughn MD [address] [place] [phone] PCP - General Family Medicine 10/14/21 documented as of this encounter
--- OUTSIDE RECORDS SUMMARY | 2024-06-25 12:53 | XMS_ITS | Encounter Summary ---
Author Organization [employer] Address [address] [place] [address] [address] [place] [address] Care Team Providers Care Before And After School Daycare Worker Name Role Phone Genoveva Vaughn MD Primary Care Provider [phone] Reason for Visit * Reason Onset Date Comments Nurse Triage 06/24/2024 Encounter Details Date Type Department Care Team ([facility] st Contact Info) Description 06/24/2024 Telephone [facility] [address], [place] [phone] Genoveva Vaughn MD [address] [place], [place] [phone] Nurse Triage Social History Tobacco Use Types Packs/Day Years [...] the past 12 months, 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 pt states >1 week duration of an itchy rash. pt states fine pinpoint red itchy rash on face and hands. pt denies illness symptoms, newproducts, lip/tongue/throat swelling, fever, or other associated symptoms. advised no available appt to schedule currently, and advised walk in center. given location, hours, and wait times cautions.pt understands and agrees with plan. advised home care: rest, fluids, cool compresses, OTC anti itch cream, and call back if worsening or new concerns. pt understands and agrees with plan. insurance verified. Protocol Used: Rash or Redness - Localized (Adult) Protocol-Based Disposition: See in Office or Video Visit within 3 Days Video visit offer not recorded Positive Triage Question: * Localized rash present > 7 days * All higher-acuity triage questions were negative Care Advice Discussed: * Reassurance and Education - Mild Localized Rash * Avoid the Cause * Wash the Area * Cold Pack for Mild Itching or Mild Pain * Hydrocortisone Cream for Itching * Don't Scratch * Reasons To Call Back - You become worse * Telephone Encounter - Trevor Rosario - 06/24/2024 2:06 PM EDT Symptom: Itching - No Rash Outcome: Schedule an urgent appointment (within 4 hours) or talk to a nurse or provider soon Reason: Severe itching now The caller accepted this outcome. documented in this encounter Plan of Treatment Upcoming Encounters Date Type Department Care Team (Late st Contact Info) Description 07/14/2024 10:00 AM EDT Office Visit [facility] [address] [place] [phone] Jacinta Erwin CNM [address] [place] [address] 08/12/2024 10:15 AM EDT Office Visit [facility] [address] [place] [address] Genoveva Vaughn MD [address] [place] [address] [phone] documented as of this encounter Visit Diagnoses Not on filedocumented in this encounter Care Teams Before And After School Daycare Worker Relationship Specialty Start Date End Date Genoveva Vaughn MD [address] [place] [address] [phone] PCP - General Family Medicine 10/14/21 documented as of this encounter
--- OUTSIDE RECORDS SUMMARY | 2024-06-25 12:53 | XMS_ITS | Encounter Summary ---
Author Organization [employer] Address [address] [place] [address] 7 [place] [address] Care Team Providers Care Seismology Technical Officer Name Role Phone Genoveva Vauhgn MD Primary Care Provider [phone] Encounter Details Date Type Department Care Team (Late st Contact Info) Description 09/28/2022 Telephone [facility] [address] [place] [phone] Genoveva Vaughn MD [address] [place] [address] [phone] Social History Tobacco Use Types Packs/Day Years [...] Description 07/14/2024 10:00 AM EDT Office Visit [facility] [address] [place] [phone] Jacinta Erwin CNM [address] [place] [address] [phone] 08/12/2024 10:15 AM EDT Office Visit [facility] [address] [place] [phone] Genoveva Vaughn MD [address] [place] [address] [phone] documented as of this encounter Visit Diagnoses Not on filedocumented in this encounter Care Teams Seismology Technical Officer Relationship Specialty Start Date End Date Genoveva Vaughn MD [address] [place] [address] PCP - General Family Medicine 10/14/21 documented as of this encounter
--- OUTSIDE RECORDS SUMMARY | 2024-06-25 12:53 | XMS_ITS | Clinical Summary ---
Author Organization [employer] Address [address] [place] [address] 7t [place] [address] Care Team Providers Care Head Of Loss Prevention Name Role Phone Genoveva Vaughn MD Primary Care Provider [phone] Allergies No known active allergies Medications Acetaminophen [...] eorder (will not trigger notification to Pharmacy)) Active Problems Problem Noted Date Diagnosed Date [...] to a compounded weight loss medication in [facility] that caused thyroid damage Gave her [...] Encounters Date Type Department Care Team Description 06/24/2024 Telephone [facility] [address] [place] [address] Genoveva Vaughn MD Nurse Triage 06/03/2024 3:40 PM EDT Office Visit [facility] [address] [place] [address] Mely Buitrago MD Viral upper respiratory tract infection with cough 05/19/2024 Orders Only [facility] [address] [place] [address] Jacinta Erwin CNM 05/19/2024 Telephone [facility] [address] [place] [address] Genoveva Vaughn MD 05/15/2024 Refill [facility] [address] [place] [address] Genoveva Vaughn MD 05/12/2024 11:30 AM EDT Office Visit [address] [address] Jacinta Erwin CNM Abnormal uterine bleeding (Primary Dx); Family planning counseling; Screening examination for venereal disease; Cyst of right ovary 05/12/2024 Travel 05/06/[address] [address] Genoveva Vaughn MD ER Follow-up 05/06/2024 Orders Only GENERIC EXTERNAL DATA DEPARTMENT Provider, Generic External Data 05/05/2024 6:40 PM EDT Office Visit [facility] [address] [address] Ni Estes MD Pelvic pain (Primary Dx); Vaginal bleeding 05/05/2024 Orders Only [facility] External Provider, [facility] 05/05/[address] [address] Genoveva Vaughn MD Nurse Triage 04/17[facility] [address] [address] Pura Jurado MD from Last 3 Months [...] Description 07/14/2024 10:00 AM EDT Office Visit [facility] [address] [place] [address] Jacinta Erwin CNM [address] [place] [address] 08/12/2024 10:15 AM EDT Office Visit [facility] [address] [place] [address] Genoveva Vaughn MD [address] [place], [place] [phone] Health Maintenance Due Date Last Done Comments [...] PM EDT Narrative 06/03/2024 3:45 PM EDT ?[facility] ?[address] ?[place] [address] ?XRay Report ? Signed ? Patient: Sreedhar,Zoralis ?MR#: [id number] ?? 10 ? : 1980 ?Acct:[id number] ? Age/Sex: 43 / F ?ADM Date: 06/03/24 ? Loc: HO.HHCX ? Attending Dr: Mely Buitrago MD ? Ordering Physician: Mely Buitrago MD ?? Date of Service: 06/03/24 ?? Procedure(s): XR chest 2V ?? Accession Number(s): [id number] ? cc: Mely Buitrago MD ? EXAMINATION: [...] DD/ 1513 ? TD/TT: 06/03/24 1520 ? Concert Or Lecture Hall Manager: ? Procedure Note Donotmichelle, Quintin - 06/03/[address] [address] XRay Report Signed Patient: Albino Eli#: [id number] 10 : 1980Acct:[id number] Age/Sex: 43 / FADM Date: 06/03/24 Loc: HO.HHCX Attending Dr: Mely Buitrago MD Ordering Physician: Mely Buitrago MD Date of Service: 06/03/24 Procedure(s): XR chest 2V Accession Number(s): [id number] cc: Mely Buitrago MD EXAMINATION: XR CHEST [...] 06/03/24 1543 DD/ 1513 TD/TT: 06/03/24 1520 Concert Or Lecture Hall Manager: Mely Buitrago MD IMG XR PROCEDURES Final Re sult * Influenza B (ID NOW Rapid Molecular) (06/03/2024 2:58 PM EDT) Influenza B Negative Negative, Indeterminate [facility] Swab 06/03/2024 2:58 PM EDT Mely Buitrago MD POINT OF CARE TEST ENTER/E DIT ORDERABLES Final Result Performing Organization Address [facility] Co de Phone Number [facility] [address] [place] [phone] * Influenza A (ID NOW Rapid Molecular) (06/03/2024 2:57 PM EDT) Influenza A Negative Negative, Indeterminate [facility] Swab 06/03/2024 2:57 PM EDT Mely Buitrago MD POINT OF CARE TEST ENTER/E DIT ORDERABLES Final Result Performing Organization Address [facility] de Phone Number [facility] [address] [place] [phone] * POCT Rapid COVID Ag (06/03/2024 2:52 PM EDT) Rapid COVID Ag Negative Swab 06/03/2024 2:52 PM EDT Mely Buitrago MD POINT OF CARE TEST ENTER/E DIT ORDERABLES Final Result * Trichomonas RNA (Urine/Vaginal) (05/12/2024 12:30 PM EDT) Trichomas vaginalis RNA, QL, TMA NOT DETECTED NOT DETECTED [facility] Comment:For additional infor matvictorino, please refer [email or web address]/[email or web address](This link is being provided for informational/educational purposes only.)THIS TEST WAS PERFORMED AT:[address] [place] [phone] MACK MD Swab 05/12/2024 12:3 0 PM EDT 05/12/2024 5:40 PM EDT Jacinta Erwin CNM LAB BODY FLUIDS AND STOOL S ORDERABLES Final Result Performing Organization Address [facility]/ZIP Co de Phone Number [facility] [address] [place] [address] [phone] * Chlamydia/N. Gonorrhoeae RNA, TMA, Vagina (05/12/2024 12:30 PM EDT) CT PCR NOT DETECTED Not Detect. [facility] Comment:A not detected test result does [...] psychologicalconsequences. NG PCR NOT DETECTED Not Detect. [facility] Comment:A not detected test result does [...] PM EDT 05/12/2024 6:53 PM EDT Narrative [facility] - 05/13/2024 3:04 AM EDT Vaginal us Jacinta FUENTES LAB MICROBIOLOGY - GENERA L ORDERABLES Final Result Performing Organization Address [facility]/ZIP Co de Phone Number [facility] [address] [place] [address] [phone] * (ABNORMAL) Urinalysis, Complete, with Reflex to Culture (05/06/2024 2:57 AM EDT) Color Urine Yellow [facility] Appearance Urine Clear [facility] PH 5.5 5.0 - 9.0 [facility] Glucose Urine UA Negative Negative mg/dL [facility] Urine Blood Large (3+)(A) Negative [facility] Specific [place] - Urine 1.025 1.005 - 1.025 [facility] Urine Protein Trace Neg-Trace mg/dL [facility] Urine Ketones 40 Negative mg/dL [facility] Nitrite Urine Negative Negative [facility] Leukocyte Esterase Urine Negative Negative [facility] RBC Urine >20(A) 0 - 2 /HPF [facility] Urine WBC 0-5 0 - 5 /HPF [facility] Urine Squamous Epithelial Cell 0-2 0 - 2 /HPF [facility] Urine Bacteria None Seen None Seen [facility] Hyaline Casts, Urine 0-2 0 - 2 /LPF [facility] 05/06/2024 2:57 AM EDT 05/06/2024 3:00 AM EDT Narrative [facility] - 05/06/2024 3:10 AM EDT Urine, Clean Catch us Generic External Data Provider LAB URINE ORDERAB LES Final Result Performing Organization Address [facility]/ZIP Co de Phone Number [facility] [address] [place] [address] [phone] * (ABNORMAL) SARS-CoV-2 RNA, Influenza A/B, and RSV RNA, Ql NAAT (05/06/2024 2:07 AM EDT) Influenza A PCR NEGATIVE Negative [facility] Influenza B PCR POSITIVE(A) Negative [facility] Resp Syncy Virus RNA Qual PCR NEGATIVE Negative [facility] SARS COV2 PCR NEGATIVE Negative [facility] Comment:All test results mus t be [...] use by authorized laboratories.Testing performed on the [employer] GeneXpert utilizingreal-time RT-PCR.All SARS CoV2 and positive influenza A/B results arereported to [facility]. 05/06/2024 2:07 AM EDT 05/06/2024 2:09 AM EDT us Generic External Data Provider LAB MICROBIOLOGY - GENERAL ORDERABLES Final Result [facility] [address] [place] [address] [phone] * US Pelvis Transvaginal (05/05/2024 11:23 PM EDT) Anatomical Region Laterality Modality Pelvis Ultrasound 05/05/2024 11:2 3 PM EDT Narrative 05/05/2024 11:25 PM EDT ? [facility] ?[address] [place] [address]. [place] [address] ? Ultrasound Report ? Signed ? Patient: Eli,Zoralis ?MR#: [id number] ?? 10 ? : 1980 ?Acct:[id number] ? Age/Sex: 43 / F ?ADM Date: 03/10/25 ? Loc: HO.ED ? Attending Dr: ? Ordering Physician: Sunshine Sanford ?? Date of Service: 05/05/24 ?? Procedure(s): US pelvic and transvaginal ?? Accession Number(s): [id number] ? cc: Genoveva Vaughn; Sunshine Sanford ? [...] by Socorro Valdez MD in OV> ? 05/05/244 ? DD/ 22 ? TD/TT: 05/05/242322 ? Concert Or Lecture Hall Manager: ? Procedure Note Quintin Sheikh - 05/05/2024 [place] [address] Ultrasound Report Signed Patient: Albino Eli#: [id number] 10 : 1980Acct:[id number] Age/Sex: 43 / FADM Date: 05/05/24 Loc: HO.ED Attending Dr: Ordering Physician: Sunshine Sanford Date of Service: 05/05/24 Procedure(s): US pelvic and transvaginal Accession Number(s): [id number] cc: Genoveva Vaughn; Sunshine Sanford CLINICAL HISTORY: [...] in OV> 05/05/242323 DD/ 22 TD/TT: 05/05/242322 Concert Or Lecture Hall Manager: [facility] External Provider IMG US PROCEDURES Edited Result - Final * (ABNORMAL) CBC auto differential (05/05/2024 8:18 PM EDT) White Blood Count 3.7(L) 4.8 - 10.8 X10*3/uL [facility] Red Blood Count 4.80 4.20 - 5.50 X10*6/uL [facility] Hemoglobin 13.5 12.0 - 16.0 g/dl [facility] Hematocrit 39.7 37.0 - 47.0 % [facility] Mean Corpuscular Volume 82.7 80.0 - 98.0 fL [facility] Mean Corpuscular Hemoglobin 28.1 27.0 - 33.0 pg [facility] Mean Corpuscular HGB Conc 34.0 31.0 - 35.0 g/dl [facility] Red Cell Distribution Width 13.2 11.0 - 16.0 % [facility] Platelet Count 299 160 - 400 X10*3/uL [facility] Mean Platelet Volume 9.0(L) 9.4 - 12.3 fL [facility] Neutrophils Percent Auto 51.4 45 - 73 % [facility] Imm Gran Pct Auto 0.3 0.0 - 0.4 % [facility] Lymphocytes Percent Auto 22.7 20 - 40 % [facility] Monocytes Percent Auto 15.9(H) 2 - 11 % [facility] Eosinophils Percent Auto 9.2(H) 0 - 4 % [facility] Basophils Percent Auto 0.5 0 - 2 % [facility] NRBC Pct Auto 0.0 0.0 - 0.2 /100WBC [facility] Neutrophils Absolute Auto 1.9(L) 2.0 - 8.3 x10*3/uL [facility] Imm Gran Abs Auto 0.01 0.00 - 0.03 X10*3/uL [facility] Lymphocytes Absolute Auto 0.8(L) 1.2 - 4.9 X10*3/uL [facility] Monocytes Absolute Auto 0.6 0.1 - 1.2 X10*3/uL [facility] Eosinophils Absolute Auto 0.3 0.0 - 0.4 X10*3/uL [facility] Basophils Absolute Auto 0.0 0.0 - 0.2 X10*3/uL [facility] NRBC Abs Auto 0.000 0.0 - 0.012 X10*3/uL [facility] 05/05/2024 8:18 PM EDT 05/05/2024 8:21 PM EDT us Generic External Data Provider LAB BLOOD ORDERAB LES Final Result [facility] [address] [place] [address] [phone] * hCG, Total, Quantitative (05/05/2024 8:18 PM EDT) HCG Quantitative <2 mIU/mL [facility] Comment:Weeks post LMP Appro ximate hCG(Last Menstrual Period) Range (mIU/ml)3 - 4 weeks 9 - 1304 - 5 weeks 75 - 2,6005 - 6 weeks 850 - 20,8006 - 7 weeks 4000 - 100,2007 - 12 weeks 11,500 - 289,66431 - 16 weeks 18,300 - 137,88877 - 29 weeks (2nd trimester) 1,400 - 53,50400 - 41 weeks (3rd trimester) 940 - [...] ORDERAB LES Final Result Performing Organization Address [facility] Co de Phone Number [facility] [address] [place] [phone] * Magnesium (05/05/2024 8:18 PM EDT) Pathologist [facility] Magnesium 1.9 1.6 - 2.6 mg/dL [facility] 05/05/2024 8:18 PM EDT 05/05/2024 8:21 PM EDT [employer] External Data Provider LAB BLOOD ORDERAB LES Final Result Performing Organization Address [facility] Co de Phone Number [facility] [address] [place] [phone] * (ABNORMAL) Comprehensive Metabolic Panel (05/05/2024 8:18 PM EDT) Pathologist [facility] Sodium 136 135 - 145 mmol/L [facility] Potassium 4.1 3.3 - 5.1 mmol/L [facility] Chloride 106 96 - 108 mmol/L [facility] Carbon Dioxide 20(L) 22 - 29 mmol/L [facility] Anion Gap 14 12 - 20 [facility] Urea Nitrogen (BUN) 10 9 - 16 mg/dL [facility] Creatinine, Serum 0.55 0.5 - 1.4 mg/dL [facility] Creatinine Clr Calc Pharmacy 130.4 [facility] Comment:Provided height and weight: 160.02 cm,78 kg.eGFR (calculated from the MDRD study equation) and eCrCl(calculated from the Cockcroft-Gault equation) are based ondifferent parameters and may not yield comparable results.If eCrCl result is absurd, please check patient'sheight/weight. Estimated Glomerular Filt Rate >60 [facility] Comment:Chronic Kidney Disea se: Estimated GFR < 60 mL/min/1.92j3Tkweqt Kidney Disease: Estimated GFR < 15 mL/min/1.73m2 Glucose 97 60 - 115 mg/dL [facility] Calcium 9.0 8.4 - 10.2 mg/dL [facility] Bilirubin, Total 0.3 0.0 - 1.0 mg/dL [facility] Aspartate Amino Transferase 19 5 - 31 U/L [facility] Alanine Aminotransferase 14 0 - 31 U/L [facility] Total Protein 8.2(H) 6.5 - 8.0 g/dL [facility] Albumin Level 4.2 3.5 - 5.0 g/dL [facility] Alkaline Phosphatase 79 39 - 117 U/L [facility] 05/05/2024 8:18 PM EDT 05/05/2024 8:21 PM EDT us Generic External Data Provider LAB BLOOD ORDERAB LES Final Result [facility] [address] [place] [address] [phone] * Image-Guided Pap with Age-Based Screening??with CT/NG,??Trichomonas (01/24/2023 10:45 AM EST) Trichomonas (NAAT) NOT DETECTED NOT DETECTED [facility] Comment:The analytical perfo rmance characteristics of thisassay have been determined by [facility]. Themodifications have not been cleared or approved bythe FDA. This assay has been validated pursuant to theCLIA regulations and is used for clinical purposes.For additional information, please refer [email or web address] [email or web address]/faq/[email or web address](This link is being provided for information/educational purposes only.)THIS TEST WAS PERFORMED AT:[address] [place] [phone] MACK MD CTNG Ref Lab NOT DETECTED NOT DETECTED [facility] NG Ref Lab NOT DETECTED NOT DETECTED [facility] Pap Vial 01/24/2023 10:4 5 AM EST 01/26/2023 10:52 AM EST us Jacinta Erwin [facility] CYTOLOGY ORDERABLES F inal Result [facility] [address] [place] [phone] * HPV mRNA E6/E7 w/Reflex to HPV Genotypes 16, 18/45 (01/24/2023 10:45 AM EST) HPV nRNA E6/E7 Not Detected Not Detected [facility] Comment:Methodology: Transcr iption-Mediated AmplificationThis assay detects E6/E7 viral messenger RNA (mRNA) from 14high-risk HPV types (16,18,31,33,35,39,45,51,52,56,58,59,66,68).Cervical sources are required for HPV testing.If a vaginal source from a patient who has had atotal hysterectomy with removal of cervix wassubmitted, please contact the testing laboratoryfor alternative testing options.For additional information, please refer tohttp://education.ZenPayroll/faq/ZKV134b5(This link if provided for information/educational purposes only.)THIS TEST WAS PERFORMED AT:[facility] [address] [phone] MACK MD HPV mRNA E6/E7 TNP [facility] HPV 16 RNA TNP [facility] HPV 18/45 RNA TNP [facility] 01/24/2023 10:4 5 AM EST 01/25/2023 11:00 AM EST us Jacinta Erwin CNM LAB CYTOLOGY ORDERABLES F inal Result [facility] [address] [place] [address] [phone] * BI Mammogram Screening Tomosynthesis Bilateral (12/01/2022 12:10 PM EDT) Anatomical Region Laterality Modality Breast Bilateral Mammography 12/01/2022 12:1 0 PM EDT Narrative 12/21/2022 1:52 PM EDT ? [facility] ? [address] ?[place] [address] ? Mammography Report ? Signed ? Patient: Eli,Zoralis ?MR#: [id number] ?? 10 ? : 1980 ?Acct:[id number] ? Age/Sex: 42 / F ?ADM Date: 12/01/ ? Loc: HO.MAMMO ? Attending Dr: Genoveva Vaughn MD ? Ordering Physician: Genoveva Vaughn ?Results: 1Negative ? Date of Service: 12/01/22 ?Follow Up: 1 Year From Orig ?? inal Mammogram ? Procedure(s): MM tomosynthesis screening BI ?? Accession Number(s): [id number] ? cc: Genoveva Vaughn ? EXAMINATION: ?? [...] by Katy Tate MD in OV> ? 12/21/228 ? DD/ ? TD/TT: ? Concert Or Lecture Hall Manager: ? Procedure Note Aguilar, Image - [facility] [address] [place] [address] Mammography Report Signed Patient: Albino Eli#: [id number] 10 : 1980Acct:[id number] Age/Sex: 42 / FADM Date: 12/01/22 Loc: HO.MAMMO Attending Dr: Genoveva Vaughn MD Ordering Physician: Mauricio Vaughnults: 1Negative Date of Service: 12/01/22Follow Up: 1 Year From Orig inal Mammogram Procedure(s): MM tomosynthesis screening BI Accession Number(s): [id number] cc: Genoveva Vaughn EXAMINATION: MM SCREENING DIGITAL [...] in OV> 12/21/22 1348 DD/ 1210 TD/TT: Concert Or Lecture Hall Manager: Genoveva Vaughn MD IMG BI PROCEDURES Final Result from Last 3 Months or Most Recently Relevant to Health Maintenance Insurance [address] [place], [place] [facility] Care Teams Head Of Loss Prevention Relationship Specialty Start Date End Date Genoveva Vaughn MD [address] [place] [phone] PCP - General Family Medicine 10/14/21
--- OUTSIDE RECORDS SUMMARY | 2024-06-25 12:53 | XMS_ITS | Encounter Summary ---
Author Organization [employer] Address [address] [place] [address] 7t [place] [address] Care Team Providers Care Industrial Relations Analyst Name Role Phone Genoveva Vaughn MD Primary Care Provider [phone] Encounter Details Date Type Department Care Team (Late st Contact Info) Description 11/28/2022 Orders Only [facility] [address] [place] [phone] Genoveva Vaughn MD [address] [place] [phone] Chronic pain of both knees (Primary Dx) [...] Description 07/14/2024 10:00 AM EDT Office Visit [facility] [address] [place] [phone] Jacinta Erwin CNM [address] [place] [address] 08/12/2024 10:15 AM EDT Office Visit [facility] [address] [place] [address] Genoveva Vaughn MD [address] [facility] [place] [address] documented as of this encounter Procedures Procedure Name Priority Date/Time Associated Diagnosis Comments BI MAMMOGRAM SCREENING TOMOSYNTHESIS BILATERAL Routine 12/01/2022 12:10 PM EDT documented in this encounter Results * BI Mammogram Screening Tomosynthesis Bilateral (12/01/2022 12:10 PM EDT) Anatomical Region Laterality Modality Breast Bilateral Mammography 12/01/2022 12:1 0 PM EDT Narrative 12/21/2022 1:52 PM EDT ? [facility] ? [address] ?[place] [address] ? Mammography Report ? Signed ? Patient: Eli,Zoralis ?MR#: [id number] ?? 10 ? : 1980 ?Acct:[id number] ? Age/Sex: 42 / F ?ADM Date: 12/01/22 ? Loc: HO.MAMMO ? Attending Dr: Genoveva Vaughn MD ? Ordering Physician: Genoveva Vaughn ?Results: 1Negative ? Date of Service: 12/01/22 ?Follow Up: 1 Year From Orig ?? inal Mammogram ? Procedure(s): MM tomosynthesis screening BI ?? Accession Number(s): [id number] ? cc: Genoveva Vaughn ? EXAMINATION: ?? [...] 1348 ? DD/ 1210 ? TD/TT: ? Earth Science Professor: ? Procedure Note Aguilar, Image - 12/21/2022 [facility] [address] [place] [address] [place] [address] Mammography Report Signed Patient: Albino Eli#: [id number] 10 : 1980Acct:[id number] Age/Sex: 42 / FADM Date: 12/01/22 Loc: DEVI Attending Dr: Genoveva Vaughn MD Ordering Physician: Mauricio Vaughnults: 1Negative Date of Service: 12/01/22Follow Up: 1 Year From Orig inal Mammogram Procedure(s): MM tomosynthesis screening BI Accession Number(s): [id number] cc: Genoveva Vaughn EXAMINATION: MM SCREENING DIGITAL [...] in OV> 12/21/22 1348 DD/ 1210 TD/TT: Earth Science Professor: Genoveva Vaughn MD IMG BI PROCEDURES Final Result documented in this encounter Visit Diagnoses Diagnosis Chronic pain of both knees- Primary documented in this encounter Care Teams Industrial Relations Analyst Relationship Specialty Start Date End Date Genoveva Vaughn MD [address] [place] [phone] PCP - General Family Medicine 10/14/21 documented as of this encounter
--- OUTSIDE RECORDS SUMMARY | 2024-06-25 12:53 | XMS_ITS | Encounter Summary ---
Author Organization [employer] Address [address] [place] [address] 7 [place] [address] Care Team Providers Care Vehicle Body Maker Name Role Phone Genoveva Vaughn MD Primary Care Provider [phone] Encounter Details Date Type Department Care Team (Late st Contact Info) Description 10/31/2022 Orders Only [facility] [address] [place], [place] [phone] Nisha Partida LPN Social History Tobacco Use [...] Description 07/14/2024 10:00 AM EDT Office Visit [address] [address] Jacinta Erwin CNM [address] [place] [phone] 08/12/2024 10:15 AM EDT Office Visit [address] [address] Genoveva Vaughn MD [address] [place] [phone] documented as of this encounter Procedures Procedure Name Priority Date/Time Associated Diagnosis Comments T4, FREE Routine 11/22/2022 9:56 AM EDT documented in this encounter Results * T4, Free (11/22/2022 9:56 AM EDT) Free T4 (Free Thyroxine) 1.62 0.71 - 1.85 ng/dL [facility] 11/22/2022 9:56 AM EDT 11/22/2022 11:22 AM EDT us Genoveva Vaughn MD LAB BLOOD ORDERABLES Final Res ult [facility] [address] [place] [phone] documented in this encounter Visit Diagnoses Not on filedocumented in this encounter Care Teams Vehicle Body Maker Relationship Specialty Start Date End Date Genoveva Vaughn MD [address] [place] [phone] PCP - General Family Medicine 10/14/21 documented as of this encounter
== END 2024-06-25 11:16 | disposition home or self-care (01) ==
LOC: HO.US 11:15
PROVIDERS: PCP General Practice; Visit Provider Advanced Practice Midwife
DX: N83.201 Unspecified ovarian cyst, right side (principal)
CPT/HCPCS: 76830; 76856

== ENCOUNTER → 2024-06-25 11:17 | Outpatient (BNV) | payer OTHER, SELFPAY | PROVIDERS: PCP General Practice; Visit Provider Radiology Diagnostic Radiology | DX: N83.291 Other ovarian cyst, right side (principal) | CPT/HCPCS: 76830; 76856 ==

== ENCOUNTER 2024-06-26 10:32 | Outpatient (REF) | payer OTHER, SELFPAY ==
[2024-06-26 12:08] LABS: Hematocrit 35.7 % (37.0-47.0); Hemoglobin 12.1 g/dl (12.0-16.0); Mean Corpuscular HGB Conc 33.9 g/dl (31.0-35.0); Mean Corpuscular Hemoglobin 28.3 pg (27.0-33.0); Mean Corpuscular Volume 83.6 fL (80.0-98.0); Mean Platelet Volume 9.5 fL (9.4-12.3); Platelet Count 292 X10*3/uL (160-400); Red Blood Count 4.27 X10*6/uL (4.20-5.50); Red Cell Distribution Width 13.2 % (11.0-16.0); White Blood Count 5.8 X10*3/uL (4.8-10.8)
[2024-06-26 12:55] LABS: HCG Quantitative < 2 mIU/mL; TSH reflex Free T4 < 0.01 uIU/mL (0.32-4.0)
[2024-06-26 14:09] LABS: Free T4 (Free Thyroxine) 1.63 ng/dL (0.71-1.85)
[2024-06-26 15:52] LABS: CT PCR NOT DETECTED (Not Detect.); NG PCR NOT DETECTED (Not Detect.)
== END 2024-06-26 10:33 | disposition home or self-care (01) ==
LOC: HO.LAB 10:32
PROVIDERS: PCP General Practice; Visit Provider Obstetrics & Gynecology
DX: N93.9 Abnormal uterine and vaginal bleeding, unspecified (principal); N83.299 Other ovarian cyst, unspecified side; R79.89 Other specified abnormal findings of blood chemistry
CPT/HCPCS: 36415; 84439; 84443; 84702; 85027; 87491; 87591

== ENCOUNTER 2024-06-26 10:32 | Outpatient (AMB) | payer OTHER, SELFPAY ==
--- NOTE | 2024-06-26 10:34 | A.OFFVIS_ITS ---
Vital Signs 06/26/24 10:59 Height 5 ft 3 in Weight 168 lb BMI 29.8 BP 110/70 Intake Visit Reasons: vaginal bleeding Intake Note: c/o of vaginal bleeding x 6 weeks Flatwork Washer Required: Yes Flatwork Washer Language: Electric Stove Mechanic Services: Flatwork Washer Present (in person) Flatwork Washer Name: Paola TEIXEIRA Information Interpreted: non-clinical & clinical Animal Care Worker: Animal Care Worker Present (Paola Shelton PUNEET) Accompanied by: Self / Same As Patient Allergies No Known Allergies Allergy (Verified 06/26/24 11:01) Is last menstrual period known: Yes HPI Comments Details: Presenting for ER follow-up. The patient went to the emergency room on 05/05/2024 with abnormal uterine bleeding. The following workup was done in the emergency room: 05/05/2024 H&H= 30.5/39.7 11/04 TSH =19.67, free T4 within normal, the patient is on Synthroid last dose of Synthroid was adjusted after this lab/ 05/05/2024 hCG less than 2, GC/CT negative 06/25/2024 pelvic ultrasound showed the following: Uterus: The uterus is normal in size, measuring 9.4 x 3.5 x 4.4 cm. Myometrium has a normal echotexture. No fibroids are identified. Endometrium: The endometrial stripe measures 2 mm in thickness. There is fluid within the cervical canal. The previously noted IUD has been removed. Right ovary: The right ovary measures 1.9 x 2.0 x 1.1 cm. The right ovary is normal in size and echotexture. The previously seen complex cyst is no longer identified. Left ovary: The left ovary measures 4.2 x 3.0 x 3.7 cm. There is a cyst measuring 3.5 x 2.9 x 3.3 cm containing a few low-level internal echoes. Pelvic fluid: none. Last co testing in 01/18 was negative Last mammogram in 12/18 was BI-RADS 1 PFSH Medical History (Updated 06/26/24 @ 11:04 by Paola Peoples CMA) Cerebral palsy Asthma Hypothyroid Surgical History (Updated 06/26/24 @ 11:04 by Paola Peoples CMA) Hx of section History of surgery on lower extremity Family History (Updated 06/26/24 @ 11:06 by Paola Peoples CMA) Father HTN (hypertension) Diabetes Mother HTN (hypertension) Diabetes Maternal Aunt Breast cancer Paternal Grandmother Breast cancer Social History Household Members: Spouse and Children Household Members Other:: mom Housing: Apartment Alcohol intake: current Alcohol intake frequency: holidays/special occasions only Patient Tobacco Use Status: Never used Tobacco Current occupational status: employed Current occupation: [employer] Sexual orientation: Straight/Heterosexual Gender identity: Female Female Reproductive History Menstrual control method: pills Total pregnancies: 2 Full term: 2 Number of Living Children: 2 Review of Systems Const All systems reviewed & are unremarkable except as noted in HPI and below Card Reports as per HPI Resp Reports as per HPI GI Reports as per HPI and Reports no additional complaints Reports as per HPI Physical Exam Vital Signs: BMI result Body Mass Index 29.8 Const General: cooperative, healthy appearing and comfortable Chest Chest palpation & inspection: normal inspection of the chest and normal palpation of entire chest wall Breast/axilla inspection: normal inspection of the breasts and normal inspection of the axillae Breast/axilla palpation: normal palpation of the breasts, normal palpation of the axillae and no axillary lymphadenopathy Resp Effort & Inspection: normal respiratory effort Auscultation: clear to auscultation bilaterally Percussion: percussion normal Cardio Palpation: normal PMI Rate: regular rate Rhythm: regular rhythm Heart sounds: no murmurs and no rubs Peripheral pulses: Peripheral pulses 2+ throughout GI Inspection: Yes normal to inspection Palpation (GI): Soft to palpation, nontender, no guarding, not rigid and No hepatosplenomegaly present Percussion: Yes normal to percussion Auscultation: normal bowel sounds Rectal Exam - Female: deferred General: Yes bladder normal to palpation External Female Exam: No lesion Speculum Exam - Vagina: normal appearance of the vagina, normal palpation, normal vaginal discharge and not erythematous Speculum Exam - Cervix: normal appearance of the cervix and normal palpation Bimanual exam- vagina & uterus: normal bimanual exam, normal palpation, uterine size normal, bladder normal to palpation, consistency normal and normal palpation Bimanual Exam- Adnexa, other: normal adnexae, no masses and no tenderness Assessment & Plan Assessment & Plan (1) Abnormal uterine bleeding (AUB): Code(s): N93.9 - Abnormal uterine and vaginal bleeding, unspecified Category: Medical Plan: GC and chlamydia taken CBC, TSH, HCG, and repeat pelvic ultrasound ordered. Discussed with the patient the different causes of abnormal bleeding including thyroid disorders, uterine and ovarian pathology, endometrial hyperplasia, carcinoma and other potential causes. Discussed with the patient the work up including CBC (to r/o anemia), TSH, pelvic Ultrasound, endometrial biopsy to r/o endometrial pathology. All questions answered and the patient verbalized understanding. Instructed the patient to schedule an appointment for an endometrial biopsy in 2 weeks. (2) Complex ovarian cyst: Code(s): N83.299 - Other ovarian cyst, unspecified side Category: Medical Plan: Discussed with the patient the complex ovarian cyst by ultrasound. Discussed with the patient the Ultrasound findings, the main limitation of transvaginal ultrasonography alone as a diagnostic tool to distinguish benign from malignant masses relates to its lack of specificity and low positive predictive value for cancer. The differential diagnosis discussed with the patient includes the following but not limited to: benign and malignant gynecological and non-gynecological causes. Laboratory evaluation include UPT and GC/CT , serum tumor marker CA 125 . Discussed with the patient options of treatment , including laparoscopy ovarian cystectomy/oophorectomy vs. expectant management with repeat US in repeating pelvic US in 6 weeks from previous US. If the ovarian complex cyst is persistent larger and / or more complex looking, will refer to gynecologic Oncology. All pros, cons, risks and benefits of each approach were discussed with the patient including but not limited to a delay in the diagnosis and treatment of ovarian cancer affecting the prognosis; The patient decided to go ahead with expectant management. Instructions given the patient to schedule a a follow-up pelvic ultrasound appointment. All questions were answered & the patient verbalized understanding and agreed with the plan. (3) Elevated TSH: Code(s): R79.89 - Other specified abnormal findings of blood chemistry Category: Medical Plan: Repeat TSH Orders: Orders US pelvic and transvaginal Today N83.299 - Other ovarian cyst, unspecified side TSH reflex Free T4 Today N93.9 - Abnormal uterine and vaginal bleeding, unspecified HCG Quantitative Today N93.9 - Abnormal uterine and vaginal bleeding, unspecified Complete Blood Count no Diff Today N93.9 - Abnormal uterine and vaginal bleeding, unspecified MM screening mammo BI Today Z12.31 - Encounter for screening mammogram for malignant neoplasm of breast Coding Level of Care Code New Pt Level 3 (34009) Diagnoses Abnormal uterine bleeding (AUB) N93.9 Complex ovarian cyst N83.299 Elevated TSH R79.89
[2024-06-26 10:59] VITALS: BP 110/70; BMI 29.8
--- OUTSIDE RECORDS SUMMARY | 2024-06-26 12:04 | XMS_ITS | Encounter Summary ---
Author Organization [employer] Address [address] [place] [address] [address] [place] [address] Care Team Providers Care Radio Repairer Name Role Phone Genoveva Vaughn MD Primary Care Provider [phone] Reason for Referral * Imaging (Routine) - Authorized Specialty Diagnoses / Procedures Referred By Contac t Referred To Contact Radiology Diagnoses Left ovarian cyst Procedures Us Pelvis complete Jacinta Erwin CNM [address] [place] [address] Phone: tel: fax: [address] Phone: tel: fax: Referral ID Status Reason Start Date Expiration Date V isits Requested Visits Authorized [id number] Authorized 06/26/2024 06/26/2025 1 1 * Imaging (Routine) - Authorized Specialty Diagnoses / Procedures Referred By Contac t Referred To Contact Radiology Diagnoses Left ovarian cyst Procedures US Pelvis Transvaginal Jacinta rEwin CNM [address] [place] [address] Phone: tel: fax: [address] Phone: tel: fax: Referral ID Status Reason Start Date Expiration Date V isits Requested Visits Authorized [id number] Authorized 06/26/2024 06/26/2025 1 1 Encounter Details Date Type Department Care Team ([facility] Contact Info) Description 06/26/2024 Orders Only [facility] [address] [place] [address] Jacinta Erwin CNM [address] [place] [address] Left ovarian cyst (Primary Dx) Social History Tobacco Use Types Packs/Day Years Used Date Smoking Tobacco: Never Passive Smoke Exposure: Never Smokeless Tobacco: Never Alcohol Use Standard Drinks/Week Comments Never 0 (1 standard drink = 0.6 oz pur e alcohol) Housing Stability Answer Date Recorded What is your housing situation today? I have vanessa dover 10/17/[address] you li [...] Encounters Date Type Department Care Team (Late Contact Info) Description 07/14/2024 10:00 AM EDT Office Visit [facility] [address] [place] [phone] Jacinta Erwin CNM [address] [place], [place] [phone] 08/12/2024 10:15 AM EDT Office Visit [address] [phone] Genoveva Vaughn MD [address] [place] [address] [phone] Scheduled Orders Name Type Priority Associated Diagnoses Orde r Schedule US Pelvis Transvaginal Imaging Routine Left ovarian cyst Expected: 07/27/2024, Expires: 06/26/2025 Us Pelvis complete Imaging Routine Left ovarian cyst Expected: 07/27/2024, Expires: 06/26/2025 documented as of this encounter Visit Diagnoses Diagnosis Left ovarian cyst- Primary Other and unspecified ovarian cyst documented in this encounter Care Teams Radio Repairer Relationship Specialty Start Date End Date Genoveva Vaughn MD [address] [place] [phone] PCP - General Family Medicine 10/14/21 documented as of this encounter
--- OUTSIDE RECORDS SUMMARY | 2024-06-26 12:04 | XMS_ITS | Encounter Summary ---
Author Organization [employer] Address [address] [place] [address] 7[address] [place] [address] Care Team Providers Care Dice Dealer Name Role Phone Genoveva Vaughn MD Primary Care Provider [phone] Encounter Details Date Type Department Care Team (Late st Contact Info) Description 11/28/[address] [facility] [address] [place] [phone] Genoveva Vaughn MD [address] [place] [phone] Chronic pain of both knees (Primary Dx) [...] Description 07/14/2024 10:00 AM EDT Office Visit [facility] [address] [place] [phone] Jacinta Erwin CNM [address] [place] [address] 08/12/2024 10:15 AM EDT Office Visit [facility] [address] [place] [address] Genoveva Vaughn MD [address] [facility] [place] [address] documented as of this encounter Procedures Procedure Name Priority Date/Time Associated Diagnosis Comments BI MAMMOGRAM SCREENING TOMOSYNTHESIS BILATERAL Routine 12/01/2022 12:10 PM EDT documented in this encounter Results * BI Mammogram Screening Tomosynthesis Bilateral (12/01/2022 12:10 PM EDT) Anatomical Region Laterality Modality Breast Bilateral Mammography 12/01/2022 12:1 0 PM EDT Narrative 12/21/2022 1:52 PM EDT ? [facility] ? [address] ?[place] [address] ? Mammography Report ? Signed ? Patient: Eli,Zoralis ?MR#: [id number] ?? 10 ? : 1980 ?Acct:[id number] ? Age/Sex: 42 / F ?ADM Date: 12/01/22 ? Loc: HO.MAMMO ? Attending Dr: Genoveva Vaughn MD ? Ordering Physician: Genoveva Vaughn ?Results: 1Negative ? Date of Service: 12/01/22 ?Follow Up: 1 Year From Orig ?? inal Mammogram ? Procedure(s): MM tomosynthesis screening BI ?? Accession Number(s): [id number] ? cc: Genoveva Vaughn ? EXAMINATION: ?? [...] 1348 ? DD/ 1210 ? TD/TT: ? Document Examiner: ? Procedure Note Aguilar, Image - 12/21/2022 [facility] [address] [place] [address] [place] [address] Mammography Report Signed Patient: Albino Eli#: [id number] 10 : 1980Acct:[id number] Age/Sex: 42 / FADM Date: 12/01/22 Loc: DEVI Attending Dr: Genoveva Vaughn MD Ordering Physician: Mauricio Vaughnults: 1Negative Date of Service: 12/01/22Follow Up: 1 Year From Orig inal Mammogram Procedure(s): MM tomosynthesis screening BI Accession Number(s): [id number] cc: Genoveva Vaughn EXAMINATION: MM SCREENING DIGITAL [...] in OV> 12/21/22 1348 DD/ 1210 TD/TT: Document Examiner: Genoveva Vaughn MD IMG BI PROCEDURES Final Result documented in this encounter Visit Diagnoses Diagnosis Chronic pain of both knees- Primary documented in this encounter Care Teams Dice Dealer Relationship Specialty Start Date End Date Genoveva Vaughn MD [address] [place] [phone] PCP - General Family Medicine 10/14/21 documented as of this encounter
--- OUTSIDE RECORDS SUMMARY | 2024-06-26 12:05 | XMS_ITS | Encounter Summary ---
Author Organization [employer] Address [address] [place] [address] 7 [place] [address] Care Team Providers Care Verse Writer Name Role Phone Genoveva Vaughn MD Primary Care Provider [phone] Encounter Details Date Type Department Care Team (Late st Contact Info) Description 09/28/2022 Telephone [facility] MED[facility]INE [address] [place] [phone] Genoveva Vaughn MD [address] [place] [address] [phone] Social History Tobacco Use Types Packs/Day Years [...] Description 07/14/2024 10:00 AM EDT Office Visit [facility] [address] [place] [phone] Jacinta Erwin CNM [address] [place] [address] [phone] 08/12/2024 10:15 AM EDT Office Visit [facility] [address] [place] [phone] Genoveva Vaughn MD [address] [place] [address] [phone] documented as of this encounter Visit Diagnoses Not on filedocumented in this encounter Care Teams Verse Writer Relationship Specialty Start Date End Date Genoveva Vaughn MD [address] [place] [address] PCP - General Family Medicine 10/14/21 documented as of this encounter
--- OUTSIDE RECORDS SUMMARY | 2024-06-26 12:05 | XMS_ITS | Encounter Summary ---
Author Organization [employer] Address [address] [place] [address] 7 [place] [address] Care Team Providers Care Remote Recruiter Name Role Phone Genoveva Vaughn MD Primary Care Provider [phone] Encounter Details Date Type Department Care Team (Late st Contact Info) Description 10/31/2022 Orders Only [facility] [address] [place], [place] [phone] Nisha Partida LPN Social History Tobacco Use [...] Description 07/14/2024 10:00 AM EDT Office Visit [address] [address] Jacinta Erwin CNM [address] [place] [phone] 08/12/2024 10:15 AM EDT Office Visit [address] [address] Genoveva Vaughn MD [address] [place] [phone] documented as of this encounter Procedures Procedure Name Priority Date/Time Associated Diagnosis Comments T4, FREE Routine 11/22/2022 9:56 AM EDT documented in this encounter Results * T4, Free (11/22/2022 9:56 AM EDT) Free T4 (Free Thyroxine) 1.62 0.71 - 1.85 ng/dL [facility] 11/22/2022 9:56 AM EDT 11/22/2022 11:22 AM EDT us Genoveva Vaughn MD LAB BLOOD ORDERABLES Final Res ult [facility] [address] [place] [phone] documented in this encounter Visit Diagnoses Not on filedocumented in this encounter Care Teams Remote Recruiter Relationship Specialty Start Date End Date Genoveva Vaughn MD [address] [place] [phone] PCP - General Family Medicine 10/14/21 documented as of this encounter
--- OUTSIDE RECORDS SUMMARY | 2024-06-26 12:05 | XMS_ITS | Encounter Summary ---
Author Organization [employer] Address [address] [place] [address] 7 [place] [address] Care Team Providers Care Classroom Teacher Name Role Phone Genoveva Vaughn MD Primary Care Provider [phone] Reason for Visit * Reason Onset Date Comments Nurse Triage 06/24/2024 Encounter Details Date Type Department Care Team ([facility] st Contact Info) Description 06/24/2024 Telephone [facility]INE [address] [place], [place] [phone] Genoveva Vaughn MD [address] [place], [place] [phone] Nurse Triage Social History Tobacco Use Types Packs/Day Years Used Date Smoking Tobacco: Never Passive Smoke Exposure: Never Smokeless Tobacco: Never Alcohol Use Standard Drinks/Week Comments Never 0 (1 standard drink = 0.6 oz pur e alcohol) Housing Stability Answer Date Recorded What is your housing situation today? I have vanessa stanislaw 10/17/[address] you li [...] the past 12 months, has t he [employer], oil or water company threatened to shut [...] pt to triage, spoke to pt through [employer].. pt states >1 week duration of an [...] 10:00 AM EDT Office Visit [facility] [address] [place] [address] Jacinta Erwin CNM [address] [place] [address] 08/12/2024 10:15 AM EDT Office Visit [facility] [address] [place] [address] Genoveva Vaughn MD [address] [place] [address] [phone] documented as of this encounter Visit Diagnoses Not on filedocumented in this encounter Care Teams Classroom Teacher Relationship Specialty Start Date End Date Genoveva Vaughn MD [address] [place] [address] [phone] PCP - General Family Medicine 10/14/21 documented as of this encounter
--- OUTSIDE RECORDS SUMMARY | 2024-06-26 12:05 | XMS_ITS | Encounter Summary ---
Author Organization [employer] Address [address] [place] [address] [address] [place] [address] Care Team Providers Care Special Education Educational Assistant Name Role Phone Genoveva Vaughn MD Primary Care Provider [phone] Reason for Visit * Reason Onset Date Comments requesting a letter 03/03/2022 Encounter Details Date Type Department Care Team ([facility] st Contact Info) Description 03/03/2022 Telephone [facility] [address] [place], [place] [phone] Genoveva Vaughn MD [address] [place], [place] [phone] requesting a letter Social History Tobacco Use [...] Medical Eval Form after several calls T# [phone] 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 PCP informed on request and per spouse they will come Sunday03/06/22 to [facility] Records to do processing of requests, [...] Description 07/14/2024 10:00 AM EDT Office Visit [facility] [address] [place] [address] Jacinta Erwin CNM [address] [place] [address] 08/12/2024 10:15 AM EDT Office Visit [facility] [address] [place] [phone] Genoveva Vaughn MD [address] [place] [address] documented as of this encounter Visit Diagnoses Not on filedocumented in this encounter Care Teams Special Education Educational Assistant Relationship Specialty Start Date End Date Genoveva Vaughn MD [address] [place] [phone] PCP - General Family Medicine 10/14/21 documented as of this encounter
--- OUTSIDE RECORDS SUMMARY | 2024-06-26 12:05 | XMS_ITS | Encounter Summary ---
Author Organization [employer] Address [address] [place] [address] [address] [place] [address] Care Team Providers Care Sustainability Purchasing Agent Name Role Phone Genoveva Vaughn MD Primary Care Provider [phone] Reason for Visit * Reason Onset Date Comments Results 06/26/2024 Encounter Details Date Type Department Care Team ([facility] st Contact Info) Description 06/26/2024 Telephone [facility] [address] [place], [place] [phone] Jacinta Erwin CNM [address] [place] [address] Results Social History Tobacco Use Types Packs/Day Years [...] the past 12 months, has t he [employer], gas, oil or water company threatened to [...] encounter Miscellaneous Notes * Telephone Encounter - Sonya Coreas RN - 06/26/2024 10:55 AM EDT Telephone call to pt via [employer] devops engineer [place] #[id number]. Advised pt that recent pelvic ultrasound shows that right cyst resolved however new left cyst now present, recommendation is follow up pelvic ultrasound in 6 weeks (mid July). Informed her that radiology to contact her to set up appt. Pt verbalized understanding, no further questions. * Telephone Encounter - Sonya Coreas RN - 06/26/2024 10:49 AM EDT ----- Message from Jacinta Erwin sent at 06/26/2024 8:07 AM EDT ----- Please let Janelle know previously seen right ovarian cyst has resolved. There is a 3.5 cm cyst in her left ovary which is new. These are common, usually resolve (like last time) but radiologist advised followup ultrasound. Let's get this in 6 wks . I placed order and the radiology office should call her for appt. Let me know if any questions. Thanks! documented in this encounter Plan of Treatment Upcoming Encounters Date Type Department Care Team (Late st Contact Info) Description 07/14/2024 10:00 AM EDT Office Visit [facility] [address] [place] [address] Jacinta Erwin CNM [address] [place] [address] 08/12/2024 10:15 AM EDT Office Visit [facility] [address] [place], [place] [phone] Genoveva Vaughn MD [address] [place] [address] documented as of this encounter Visit Diagnoses Not on filedocumented in this encounter Care Teams Sustainability Purchasing Agent Relationship Specialty Start Date End Date Genoveva Vaughn MD [address] [place] [address] PCP - General Family Medicine 10/14/21 documented as of this encounter
--- OUTSIDE RECORDS SUMMARY | 2024-06-26 12:05 | XMS_ITS | Clinical Summary ---
Author Organization [employer] Address [address] [place] [address] 7[address] [place] [address] Care Team Providers Care Padder Cushion Name Role Phone Genoveva Vaughn MD Primary Care Provider [phone] Allergies No known active allergies Medications Acetaminophen [...] to a compounded weight loss medication in [facility] that caused thyroid damage Gave her handout [...] Encounters Date Type Department Care Team Description 06/26/2024 Telephone [facility] [address] [place] [address] Priyanka Ross CNM Results 06/26/2024 Orders Only [facility] [address] [place] [address] Priyanka Ross CNM Left ovarian cyst (Primary Dx) 06/24/2024 Telephone [facility] [address] [place] [address] Genoveva Vaughn MD Nurse Triage 06/03/2024 3:40 PM EDT Office Visit [facility] [address] [address] Mely Buitrago MD Viral upper respiratory tract infection with cough 05/19/2024 Orders Only [address] [address] Priyanka Ross CNM 05/19/2024 Telephone [facility] [address] [place] [address] Genoveva Vaughn MD 05/15/[address] [address] Genoveva Vaughn MD 05/12/2024 11:30 AM EDT Office Visit [address] [address] Priyanka Ross CNM Abnormal uterine bleeding (Primary Dx); Family planning counseling; Screening examination for venereal disease; Cyst of right ovary 05/12/2024 Travel 05/06/[address] [address] Genoveva Vaughn MD ER Follow-up 05/06/2024 Orders Only GENERIC EXTERNAL DATA DEPARTMENT Provider, Generic External Data 05/05/2024 6:40 PM EDT Office Visit [address] [address] Ni Estes MD Pelvic pain (Primary Dx); Vaginal bleeding 05/05/2024 Orders Only [facility] External Provider, [facility] 05/05/[address] [address] Genoveva Vaughn MD Nurse Triage 04/17/[address] [address] Pura Jurado MD from Last 3 Months [...] Description 07/14/2024 10:00 AM EDT Office Visit [facility] [address] [place], [place] [phone] Priyanka Ross CNM [address] [place] [address] 08/12/2024 10:15 AM EDT Office Visit [facility] [address] [place], [place] [phone] Genoveva Vaughn MD [address] [place], [place] [phone] Health Maintenance Due Date Last Done Comments [...] Procedure Name Priority Date/Time Associated Diagnosis Comments US PELVIS TRANSVAGINAL Routine 11:30 AM EDT Cyst of right ovary XR CHEST 2 VIEWS Routine 06/03/2024 3:13 [...] Recently Relevant to Health Maintenance Results * US Pelvis Transvaginal (06/25/2024 11:30 AM EDT) Only the most recent of2 resultswithin the time period is included. Anatomical Region Laterality Modality Pelvis Ultrasound 06/25/2024 11:3 0 AM EDT Narrative 06/26/2024 7:25 AM EDT ? [facility] ?[address] ?[place] [address] ? Ultrasound Report ? Signed ? Patient: Eli,Zoralis ?MR#: [id number] ?? 10 ? : 1980 ?Acct:[id number] ? Age/Sex: 43 / F ?ADM Date: 04/30/25 ? Loc: HO.US ? Attending Dr: Priyanka Ross CNM ? Ordering Physician: PRIYANKA ROSS CNM ?? Date of Service: 06/25/24 ?? Procedure(s): US pelvic and transvaginal ?? Accession Number(s): [id number] ? cc: Genoveva Vaughn; PRIYANKA ROSS CNM ? EXAMINATION: ??US PELVIS TRANSABDOMINAL AND TRANSVAGINAL ? HISTORY: f/u right ovarian cyst 6 wks ? COMPARISON: Comparison is made with the prior examination dated ?? 05/05/2024. ? TECHNIQUE: ? Transabdominal and endovaginal real-time 2D faustin-scale ultrasound was ?? performed. ? FINDINGS: ? Uterus: ??The uterus is normal in size, measuring 9.4 x 3.5 x 4.4 cm. ? Myometrium has a normal echotexture. ??No fibroids are identified. ? Endometrium: ??The endometrial stripe measures 2 mm in thickness. There ?? is fluid within the cervical canal. The previously noted IUD has been ?? removed. ? Right ovary: ??The right ovary measures 1.9 x 2.0 x 1.1 cm. ??The right ?? ovary is normal in size and echotexture. The previously seen complex ?? cyst is no longer identified. ? Left ovary: ?? The left ovary measures 4.2 x 3.0 x 3.7 cm. ??There is a ?? cyst measuring 3.5 x 2.9 x 3.3 cm containing a few low-level internal ?? echoes. ? Pelvic fluid: none. ? US/US pelvic and transvaginal ?? IMPRESSION: ? 1. The previously seen complex right ovarian cyst has resolved. ? 2. New minimally complex 3.5 x 2.9 x 3.3 cm left ovarian cyst. ?? Follow-up is recommended. ? 3. Interval removal of the IUD. There is fluid within the cervical ?? canal. ? Electronically signed by: ??Barrington Mckeon MD ??06/26/2024 07:23 AM EDT ?? RP ? Dictated By: ?Barrington Mckeon MD ? Signed By: ?<Electronically signed by Barrington Mckeon MD in OV> ?06/26/24 0723 ? DD/ 1130 ? TD/TT: 06/25/24 1200 ? Sales Administrator: ? Procedure Note Aguilar, Image - 06/26/[address] [address] Ultrasound Report Signed Patient: Albino Eli#: [id number] 10 : 1980Acct:[id number] Age/Sex: 43 / FADM Date: 06/25/24 Loc: HO.US Attending Dr: Priyanka Ross CNM Ordering Physician: PRIYANKA ROSS CNM Date of Service: 06/25/24 Procedure(s): US pelvic and transvaginal Accession Number(s): [id number] cc: Genoveva Vaughn; PRIYANKA ROSS CNM EXAMINATION: US PELVIS TRANSABDOMINAL AND TRANSVAGINAL HISTORY: f/u right ovarian cyst 6 wks COMPARISON: Comparison is made with the prior examination dated 05/05/2024. TECHNIQUE: Transabdominal and endovaginal real-time 2D faustin-scale ultrasound was performed. FINDINGS: Uterus: The uterus is normal in size, measuring 9.4 x 3.5 x 4.4 cm. Myometrium has a normal echotexture. No fibroids are identified. Endometrium: The endometrial stripe measures 2 mm in thickness. There is fluid within the cervical canal. The previously noted IUD has been removed. Right ovary: The right ovary measures 1.9 x 2.0 x 1.1 cm. The right ovary is normal in size and echotexture. The previously seen complex cyst is no longer identified. Left ovary: The left ovary measures 4.2 x 3.0 x 3.7 cm. There is a cyst measuring 3.5 x 2.9 x 3.3 cm containing a few low-level internal echoes. Pelvic fluid: none. US/US pelvic and transvaginal IMPRESSION: 1. The previously seen complex right ovarian cyst has resolved. 2. New minimally complex 3.5 x 2.9 x 3.3 cm left ovarian cyst. Follow-up is recommended. 3. Interval removal of the IUD. There is fluid within the cervical canal. Electronically signed by: Barrington Mckeon MD 06/26/2024 07:23 AM EDT RP Dictated By: Barrington Mckeon MD Signed By: <Electronically signed by Barrington Mckeon MD in OV> 06/26/24 0723 DD/ 1130 TD/TT: 06/25/24 1200 Sales Administrator: us Priyanka Phillipssarah CNM IMG US PROCEDURES Final R esult * XR Chest 2 Views (06/03/2024 3:13 PM EDT) Anatomical Region Laterality Modality Chest Radiographic Lucy ging 06/03/2024 3:13 PM EDT Narrative 06/03/2024 3:45 PM EDT ?[facility] ?[address] ?[place] [address] ?XRay Report ? Signed ? Patient: Eli,Zoralis ?MR#: [id number] ?? 10 ? : 1980 ?Acct:[id number] ? Age/Sex: 43 / F ?ADM Date: 06/03/24 ? Loc: HO.HHCX ? Attending Dr: Mely Buitrago MD ? Ordering Physician: Mely Buitrago MD ?? Date of Service: 06/03/24 ?? Procedure(s): XR chest 2V ?? Accession Number(s): [id number] ? cc: Mely Buitrago MD ? EXAMINATION: [...] DD/ 1513 ? TD/TT: 06/03/24 1520 ? Sales Administrator: ? Procedure Note Donangelito, Quintin - 06/03/2024 [facility] [address] [place] [address] XRay Report Signed Patient: Elizabeth EliR#: [id number] 10 : 1980Acct:[id number] Age/Sex: 43 / FADM Date: 06/03/24 Loc: HO.HHCX Attending Dr: Mely Buitrago MD Ordering Physician: Mely Buitrago MD Date of Service: 06/03/24 Procedure(s): XR chest 2V Accession Number(s): [id number] cc: Mely Buitrago MD EXAMINATION: XR CHEST [...] 06/03/24 1543 DD/ 1513 TD/TT: 06/03/24 1520 Sales Administrator: Mely Buitrago MD IMG XR PROCEDURES Final Re sult * Influenza B (ID NOW Rapid Molecular) (06/03/2024 2:58 PM EDT) Influenza B Negative Negative, Indeterminate [facility] Swab 06/03/2024 2:58 PM EDT Mely Buitrago MD POINT OF CARE TEST ENTER/E DIT ORDERABLES Final Result [facility] [address] [place] [phone] * Influenza A (ID NOW Rapid Molecular) (06/03/2024 2:57 PM EDT) Pathologist [facility] Influenza A Negative Negative, Indeterminate [facility] Swab 06/03/2024 2:57 PM EDT Mely Buitrago MD POINT OF CARE TEST ENTER/E DIT ORDERABLES Final Result Performing Organization Address [facility] de Phone Number [facility] [address] [place] [phone] * POCT Rapid COVID Ag (06/03/2024 2:52 PM EDT) Pathologist [facility] Rapid COVID Ag Negative Swab 06/03/2024 2:52 PM EDT Mely Buitrago MD POINT OF CARE TEST ENTER/E DIT ORDERABLES Final Result * Trichomonas RNA (Urine/Vaginal) (05/12/2024 12:30 PM EDT) [facility] Trichomas vaginalis RNA, QL, TMA NOT DETECTED NOT DETECTED [facility] Comment:For additional infor jael, please refer tohttp://[email or web address].Secret/faq/Trichomonastma(This link is being provided for informational/educational purposes only.)THIS TEST WAS PERFORMED AT:[facility] [place] [phone] MACK MD Swab 05/12/2024 12:3 0 PM EDT 05/12/2024 5:40 PM EDT Priyanka Ross CNM LAB BODY FLUIDS AND STOOL S ORDERABLES Final Result Performing Organization Address [facility] Co de Phone Number [facility] [address] [place] [phone] * Chlamydia/N. Gonorrhoeae RNA, TMA, Vagina (05/12/2024 12:30 PM EDT) CT PCR NOT DETECTED Not Detect. [facility] Comment:A not detected test result does [...] psychologicalconsequences. NG PCR NOT DETECTED Not Detect. [facility] Comment:A not detected test result does [...] PM EDT 05/12/2024 6:53 PM EDT Narrative [facility] - 05/13/2024 3:04 AM EDT Vaginal us Priyanka Ross CNM LAB MICROBIOLOGY - GENERA L ORDERABLES Final Result [facility] [address] [place] [address] [phone] * (ABNORMAL) Urinalysis, Complete, with Reflex to Culture (05/06/2024 2:57 AM EDT) Color Urine Yellow [facility] Appearance Urine Clear [facility] PH 5.5 5.0 - 9.0 [facility] Glucose Urine UA Negative Negative mg/dL [facility] Urine Blood Large (3+)(A) Negative [facility] Specific [place] - Urine 1.025 1.005 - 1.025 [facility] Urine Protein Trace Neg-Trace mg/dL [facility] Urine Ketones 40 Negative mg/dL [facility] Nitrite Urine Negative Negative [facility] Leukocyte Esterase Urine Negative Negative [facility] RBC Urine >20(A) 0 - 2 /HPF [facility] Urine WBC 0-5 0 - 5 /HPF [facility] Urine Squamous Epithelial Cell 0-2 0 - 2 /HPF [facility] Urine Bacteria None Seen None Seen [facility] Hyaline Casts, Urine 0-2 0 - 2 /LPF [facility] 05/06/2024 2:57 AM EDT 05/06/2024 3:00 AM EDT Narrative [facility] - 05/06/2024 3:10 AM EDT Urine, Clean Catch us Generic External Data Provider LAB URINE ORDERAB LES Final Result [facility] [address] [place] [address] [phone] * (ABNORMAL) SARS-CoV-2 RNA, Influenza A/B, and RSV RNA, Ql NAAT (05/06/2024 2:07 AM EDT) Influenza A PCR NEGATIVE Negative [facility] Influenza B PCR POSITIVE(A) Negative [facility] Resp Syncy Virus RNA Qual PCR NEGATIVE Negative [facility] SARS COV2 PCR NEGATIVE Negative [facility] Comment:All test results mus t [...] use by authorized laboratories.Testing performed on the [employer] GeneXpert utilizingreal-time RT-PCR.All SARS CoV2 and positive influenza A/B results arereported to [facility]. 05/06/2024 2:07 AM EDT 05/06/2024 2:09 AM EDT us Generic External Data Provider LAB MICROBIOLOGY - GENERAL ORDERABLES Final Result [facility] [address] [place] [address] [phone] * (ABNORMAL) CBC auto differential (05/05/2024 8:18 PM EDT) White Blood Count 3.7(L) 4.8 - 10.8 X10*3/uL [facility] Red Blood Count 4.80 4.20 - 5.50 X10*6/uL [facility] Hemoglobin 13.5 12.0 - 16.0 g/dl [facility] Hematocrit 39.7 37.0 - 47.0 % [facility] Mean Corpuscular Volume 82.7 80.0 - 98.0 fL [facility] Mean Corpuscular Hemoglobin 28.1 27.0 - 33.0 pg [facility] Mean Corpuscular HGB Conc 34.0 31.0 - 35.0 g/dl [facility] Red Cell Distribution Width 13.2 11.0 - 16.0 % [facility] Platelet Count 299 160 - 400 X10*3/uL [facility] Mean Platelet Volume 9.0(L) 9.4 - 12.3 fL [facility] Neutrophils Percent Auto 51.4 45 - 73 % [facility] Imm Gran Pct Auto 0.3 0.0 - 0.4 % [facility] Lymphocytes Percent Auto 22.7 20 - 40 % [facility] Monocytes Percent Auto 15.9(H) 2 - 11 % [facility] Eosinophils Percent Auto 9.2(H) 0 - 4 % [facility] Basophils Percent Auto 0.5 0 - 2 % [facility] NRBC Pct Auto 0.0 0.0 - 0.2 /100WBC [facility] Neutrophils Absolute Auto 1.9(L) 2.0 - 8.3 x10*3/uL [facility] Imm Gran Abs Auto 0.01 0.00 - 0.03 X10*3/uL [facility] Lymphocytes Absolute Auto 0.8(L) 1.2 - 4.9 X10*3/uL [facility] Monocytes Absolute Auto 0.6 0.1 - 1.2 X10*3/uL [facility] Eosinophils Absolute Auto 0.3 0.0 - 0.4 X10*3/uL [facility] Basophils Absolute Auto 0.0 0.0 - 0.2 X10*3/uL [facility] NRBC Abs Auto 0.000 0.0 - 0.012 X10*3/uL [facility] 05/05/2024 8:18 PM EDT 05/05/2024 8:21 PM EDT us Generic External Data Provider LAB BLOOD ORDERAB LES Final Result [facility] [address], [place] [phone] * hCG, Total, Quantitative (05/05/2024 8:18 PM EDT) HCG Quantitative <2 mIU/mL [facility] Comment:Weeks post LMP Appro ximate hCG(Last Menstrual Period) Range (mIU/ml)3 - 4 weeks 9 - 1304 - 5 weeks 75 - 2,6005 - 6 weeks 850 - 20,8006 - 7 weeks 4000 - 100,2007 - 12 weeks 11,500 - 289,61312 - 16 weeks 18,300 - 137,38006 - 29 weeks (2nd trimester) 1,400 - 53,38912 - 41 weeks (3rd trimester) 940 - [...] ORDERAB LES Final Result Performing Organization Address [facility] Co de Phone Number [facility] [address] [place] [phone] * Magnesium (05/05/2024 8:18 PM EDT) Magnesium 1.9 1.6 - 2.6 mg/dL [facility] 05/05/2024 8:18 PM EDT 05/05/2024 8:21 PM EDT Generic External Data Provider LAB BLOOD ORDERAB LES Final Result Performing Organization Address [facility] Co de Phone Number [facility] [address] [place] [phone] * (ABNORMAL) Comprehensive Metabolic Panel (05/05/2024 8:18 PM EDT) Sodium 136 135 - 145 mmol/L [facility] Potassium 4.1 3.3 - 5.1 mmol/L [facility] Chloride 106 96 - 108 mmol/L [facility] Carbon Dioxide 20(L) 22 - 29 mmol/L [facility] Anion Gap 14 12 - 20 [facility] Urea Nitrogen (BUN) 10 9 - 16 mg/dL [facility] Creatinine, Serum 0.55 0.5 - 1.4 mg/dL [facility] Creatinine Clr Calc Pharmacy 130.4 [facility] Comment:Provided height and weight: 160.02 cm,78 kg.eGFR (calculated from the MDRD study equation) and eCrCl(calculated from the Cockcroft-Gault equation) are based ondifferent parameters and may not yield comparable results.If eCrCl result is absurd, please check patient'sheight/weight. Estimated Glomerular Filt Rate >60 [facility] Comment:Chronic Kidney Disea se: Estimated GFR < 60 mL/min/[id number] Kidney Disease: Estimated GFR < 15 mL/min/1.73m2 Glucose 97 60 - 115 mg/dL [facility] Calcium 9.0 8.4 - 10.2 mg/dL [facility] Bilirubin, Total 0.3 0.0 - 1.0 mg/dL [facility] Aspartate Amino Transferase 19 5 - 31 U/L [facility] Alanine Aminotransferase 14 0 - 31 U/L [facility] Total Protein 8.2(H) 6.5 - 8.0 g/dL [facility] Albumin Level 4.2 3.5 - 5.0 g/dL [facility] Alkaline Phosphatase 79 39 - 117 U/L [facility] 05/05/2024 8:18 PM EDT 05/05/2024 8:21 PM EDT us Generic External Data Provider LAB BLOOD ORDERAB LES Final Result [facility] [address] [place] [address] [phone] * Image-Guided Pap with Age-Based Screening??with CT/NG,??Trichomonas (01/24/2023 10:45 AM EST) Trichomonas (NAAT) NOT DETECTED NOT DETECTED [facility] Comment:The analytical perfo rmance characteristics of thisassay have been determined by [employer]. Themodifications have not been cleared or approved bythe FDA. This assay has been validated pursuant to theCLIA regulations and is used for clinical purposes.For additional information, please refer tohttp://[employer].Live Gamer/faq/Trichomonastma(This link is being provided for information/educational purposes only.)THIS TEST WAS PERFORMED AT:[facility] [address] [phone] MACK MD CTNG Ref Lab NOT DETECTED NOT DETECTED [facility] NG Ref Lab NOT DETECTED NOT DETECTED [facility] Pap Vial 01/24/2023 10:4 5 AM EST 01/26/2023 10:52 AM EST Priyanka Ross [facility] CYTOLOGY ORDERABLES F inal Result [facility] [address] [place] [address] [phone] * HPV mRNA E6/E7 w/Reflex to HPV Genotypes 16, 18/45 (01/24/2023 10:45 AM EST) HPV nRNA E6/E7 Not Detected Not Detected [facility] Comment:Methodology: Transcr iption-Mediated AmplificationThis assay detects E6/E7 viral messenger RNA (mRNA) from 14high-risk HPV types (16,18,31,33,35,39,45,51,52,56,58,59,66,68).Cervical sources are required for HPV testing.If a vaginal source from a patient who has had atotal hysterectomy with removal of cervix wassubmitted, please contact the testing laboratoryfor alternative testing options.For additional information, please refer tohttp://[employer].Live Gamer/faq/CUA481w7(This link if provided for information/educational purposes only.)THIS TEST WAS PERFORMED AT:[facility] [address] [phone] MACK MD HPV mRNA E6/E7 TNP [facility] HPV 16 RNA TNP [facility] HPV 18/45 RNA TNP [facility] 01/24/2023 10:4 5 AM EST 01/25/2023 11:00 AM EST us Priyanka Hillsjiaabrahansarah CNM LAB CYTOLOGY ORDERABLES F inal Result [facility] [address] [place] [address] [phone] * BI Mammogram Screening Tomosynthesis Bilateral (12/01/2022 12:10 PM EDT) Anatomical Region Laterality Modality Breast Bilateral Mammography 12/01/2022 12:1 0 PM EDT Narrative 12/21/2022 1:52 PM EDT ? [facility] ? [address] ?[place] [address] ? Mammography Report ? Signed ? Patient: Eli,Zoralis ?MR#: [id number] ?? 10 ? : 1980 ?Acct:[id number] ? Age/Sex: 42 / F ?ADM Date: 12/01/ ? Loc: HO.MAMMO ? Attending Dr: Genoveva Vaughn MD ? Ordering Physician: Genoveva Vaughn ?Results: 1Negative ? Date of Service: 12/01/22 ?Follow Up: 1 Year From Orig ?? inal Mammogram ? Procedure(s): MM tomosynthesis screening BI ?? Accession Number(s): [id number] ? cc: Genoveva Vaughn ? EXAMINATION: ?? [...] 1348 ? DD/ 1210 ? TD/TT: ? Sales Administrator: ? Procedure Note Quintin Sheikh - 12/21/2022 [facility] [address] [place] [address] [place] [address] Mammography Report Signed Patient: Albino Eli#: [id number] 10 : 1980Acct:[id number] Age/Sex: 42 / FADM Date: 12/01/22 Loc: HO.MAMMO Attending Dr: Genoveva Vaughn MD Ordering Physician: Mauricio Vaughnults: 1Negative Date of Service: 12/01/22Follow Up: 1 Year From Orig inal Mammogram Procedure(s): MM tomosynthesis screening BI Accession Number(s): [id number] cc: Genoveva Vaughn EXAMINATION: MM SCREENING DIGITAL [...] in OV> 12/21/22 1348 DD/ 1210 TD/TT: Sales Administrator: Genoveva Vaughn MD IMG BI PROCEDURES Final Result from Last 3 Months or Most Recently Relevant to Health Maintenance Insurance [address] [place] [id number] HSN PARTIAL [facility] Care Teams Padder Cushion Relationship Specialty Start Date End Date Genoveva Vaughn MD [address] [place] [phone] PCP - General Family Medicine 10/14/21
== END 2024-06-26 13:33 | disposition home or self-care (01) ==
LOC: HO.HWS 10:32
PROVIDERS: PCP General Practice; Visit Provider Obstetrics & Gynecology
DX: N93.9 Abnormal uterine and vaginal bleeding, unspecified (principal); N83.299 Other ovarian cyst, unspecified side; R79.89 Other specified abnormal findings of blood chemistry
CPT/HCPCS: 99203

== ENCOUNTER 2024-06-26 12:10 | Outpatient (REF) | payer OTHER, SELFPAY | END 2024-06-26 12:11 | disposition home or self-care (01) | LOC: HO.LNP 12:10 | PROVIDERS: Visit Provider Obstetrics & Gynecology | DX: Z13.89 Encounter for screening for other disorder (principal) ==

== ENCOUNTER 2024-07-17 10:58 | Outpatient (AMB) | payer OTHER, SELFPAY ==
[2024-07-17 11:17] VITALS: BMI 29.8
--- NOTE | 2024-07-17 11:17 | A.OFFVIS_ITS ---
Vital Signs 07/17/24 11:17 Height 5 ft 3 in Weight 168 lb BMI 29.8 Intake Visit Reasons: EMB Telephone Appointment Clerk Required: Yes Telephone Appointment Clerk Language: Prototype Sewer Services: Telephone Appointment Clerk Present (in person) Telephone Appointment Clerk Name: Paola TEIXEIRA Information Interpreted: non-clinical & clinical Pbx Installer: Pbx Installer Present (Paola Shelton JULISSAMario) Accompanied by: Self / Same As Patient Allergies No Known Allergies Allergy (Verified 07/17/24 11:19) HPI Comments Details: Presenting for EMB [facility] Medical History (Updated 06/26/24 @ 11:04 by Paola Peoples CMA) Cerebral palsy Asthma Hypothyroid Surgical History (Updated 06/26/24 @ 11:04 by Paola Peoples CMA) Hx of section History of surgery on lower extremity Family History (Updated 06/26/24 @ 11:06 by Paola Peoples CMA) Father HTN (hypertension) Diabetes Mother HTN (hypertension) Diabetes Maternal Aunt Breast cancer Paternal Grandmother Breast cancer Social History (Updated 06/26/24 @ 11:07 by Paola Peoples CMA) Household Members: Spouse and Children Household Members Other:: mom Housing: Apartment Alcohol intake: current Alcohol intake frequency: holidays/special occasions o nly Patient Tobacco Use Status: Never used Tobacco Current occupational status: employed Current occupation: [employer] Sexual orientation: Straight/Heterosexual Gender identity: Female Review of Systems Const All systems reviewed & are unremarkable except as noted in HPI and below Reports as per HPI and Reports no additional complaints GI Reports no additional complaints Reports no additional complaints Physical Exam Vital Signs: BMI result Body Mass Index 29.8 Office Procedures Endometrial Biopsy Details: The patient was counseled regarding the indication and benefits of endometrial sampling to rule out endometrial pathology including not limited to endometrial hyperplasia or endometrial cancer and others; The alternatives (Either do nothing vs. hysteroscopy D&C) & the risks were discussed with the patient including but not limited: pain, uterine perforation, bleeding, infection, possible injury to bladder, bowel, ureter, possible need for blood transfusion with all its possible risks. The patient verbalized understanding all questions answered and signed consent. Urine test done in the office was negative The patient was placed into the dorsal lithotomy position; a speculum was inserted in the vagina. Using aseptic technique for the procedure, the cervix was cleansed with Betadine. The anterior lip of the cervix was grasped with a single tooth tenaculum. The uterus was sounded to 7 cm with a 4 mm Pipelle was used. Tissues samples were obtained and placed in formalin, in a patient labeled container and sent to the pathology department. At the end of the procedure, there was minimal bleeding noted The patient tolerated the procedure well and was discharged in good condition with the following instructions: Nothing in the vagina until the bleeding stops. No sex until the bleeding stops, to call if any of the following occurs: fever (>100.4), flu-like symptoms, abdominal pain, heavy bleeding, four smelling vaginal discharge. The patient was instructed to schedule a Follow up appointment in 2 weeks to discuss pathology results of the biopsy and treatment options. This note was generated with a voice recognition program. Some errors may have been overlooked during the review of this note. Sometimes these errors may affect the content or meaning of a given sentence. [id number] Biopsy Results AMB Test Urine AMB Test Urine Negative Last Edit by Paola Peoples CMA on 11:33 Results Reviewed Results Reviewed: Laboratory Last Values [facility]st Clinic Negative 07/17/24 11:33 Assessment & Plan Assessment & Plan (1) Abnormal uterine bleeding (AUB): Code(s): N93.9 - Abnormal uterine and vaginal bleeding, unspecified Category: Medical Plan: EMB done, see procedure note Orders: Orders AMB Endometrial Biopsy Today N93.9 - Abnormal uterine and vaginal bleeding, unspecified AMB HCG Urine Test Today Z32.02 - Encounter for test, result negative Coding Level of Care Code Procedure Only Diagnoses Abnormal uterine bleeding (AUB) N93.9 CPT Codes Endometrial Biopsy - CPT: 69387-Odhigoaxsrt Biopsy ([id number])
--- OUTSIDE RECORDS SUMMARY | 2024-07-17 11:40 | XMS_ITS | Encounter Summary ---
Author Organization [employer] Address [address] [place] [address] 7 [place] [address] Care Team Providers Care Mixer Runner Name Role Phone Genoveva Vaughn MD Primary Care Provider Encounter Details Date Type Department Care Team (Late st Contact Info) Description 10/31/2022 Orders Only [facility] PEDS [address] [place], [place] [phone] Nisha Partida LPN Social History Tobacco Use [...] Care Team (Late st Contact Info) Description 07/22/2024 11:30 AM EDT Telemedicine [facility] MEDICINE [address] [place] [phone] Genoveva Vaughn MD [address] [place] [phone] 08/12/2024 10:15 AM EDT Office Visit [address] [address] Genoveva Vaughn MD [address] [place] [address] [phone] documented as of this encounter Procedures Procedure Name Priority Date/Time Associated Diagnosis Comments T4, FREE Routine 11/22/2022 9:56 AM EDT documented in this encounter Results * T4, Free (11/22/2022 9:56 AM EDT) Free T4 (Free Thyroxine) 1.62 0.71 - 1.85 ng/dL [facility] 11/22/2022 9:56 AM EDT 11/22/2022 11:22 AM EDT us Genoveva Vaughn MD LAB BLOOD ORDERABLES Final Res ult [facility] [address] [place] [phone] documented in this encounter Visit Diagnoses Not on filedocumented in this encounter Care Teams Mixer Runner Relationship Specialty Start Date End Date Genoveva Vaughn MD [address] [place] [phone] PCP - General Family Medicine 10/14/21 documented as of this encounter
--- OUTSIDE RECORDS SUMMARY | 2024-07-17 11:40 | XMS_ITS | Encounter Summary ---
Author Organization [employer] Address [address] [place] [address] [address] [place] [address] Care Team Providers Care Plastic Finisher Name Role Phone Genoveva Vaughn MD Primary Care Provider [phone] Encounter Details Date Type Department Care Team (Late st Contact Info) Description 11/28/2022 Orders Only [facility] MEDICINE [address] [place] [address] [phone] Genoveva Vaughn MD [address] [place] [phone] Chronic pain of both knees (Primary Dx) [...] Info) Description 07/22/2024 11:30 AM EDT Telemedicine [facility] MEDICINE [address] [place] [address] [phone] Genoveva Vaughn MD [address] [place] [address] [phone] 08/12/2024 10:15 AM EDT Office Visit [facility] [address] [place] [phone] Genoveva Vaughn MD [address] [facility] [place] [address] documented as of this encounter Procedures Procedure Name Priority Date/Time Associated Diagnosis Comments BI MAMMOGRAM SCREENING TOMOSYNTHESIS BILATERAL Routine 12/01/2022 12:10 PM EDT documented in this encounter Results * BI Mammogram Screening Tomosynthesis Bilateral (12/01/2022 12:10 PM EDT) Anatomical Region Laterality Modality Breast Bilateral Mammography 12/01/2022 12:1 0 PM EDT Narrative 12/21/2022 1:52 PM EDT ? [facility] ? [address] ?[place] [address] ? Mammography Report ? Signed ? Patient: Eli,Zoralis ?MR#: [id number] ?? 10 ? : 1980 ?Acct:[id number] ? Age/Sex: 42 / F ?ADM Date: 12/01/22 ? Loc: HO.MAMMO ? Attending Dr: Genoveva Vaughn MD ? Ordering Physician: Genoveva Vaughn ?Results: 1Negative ? Date of Service: 12/01/22 ?Follow Up: 1 Year From Orig ?? inal Mammogram ? Procedure(s): MM tomosynthesis screening BI ?? Accession Number(s): [id number] ? cc: Genoveva Vaughn ? EXAMINATION: ?? [...] 1348 ? DD/ 1210 ? TD/TT: ? Job Order Clerk: ? Procedure Note Aguilar, Image - 12/21/2022 [facility] [address] [place] [address] [place] [address] Mammography Report Signed Patient: Albino Eli#: [id number] 10 : 1980Acct:[id number] Age/Sex: 42 / FADM Date: 12/01/22 Loc: DEVI Attending Dr: Genoveva Vaughn MD Ordering Physician: Ashland,SophiaResults: 1Negative Date of Service: 12/01/22Follow Up: 1 Year From Orig inal Mammogram Procedure(s): MM tomosynthesis screening BI Accession Number(s): [id number] cc: Genoveva Vaughn EXAMINATION: MM SCREENING DIGITAL [...] in OV> 12/21/22 1348 DD/ 1210 TD/TT: Job Order Clerk: Genoveva Vaughn MD IMG BI PROCEDURES Final Result documented in this encounter Visit Diagnoses Diagnosis Chronic pain of both knees- Primary documented in this encounter Care Teams Plastic Finisher Relationship Specialty Start Date End Date Genoveva Vaughn MD [address] [place] [phone] PCP - General Family Medicine 10/14/21 documented as of this encounter
--- OUTSIDE RECORDS SUMMARY | 2024-07-17 11:40 | XMS_ITS | Clinical Summary ---
Author Organization [employer] Address [address] [place] [address] [address] [place] [address] Care Team Providers Care Countersinker Balance Screw Hole Name Role Phone Genoveva Vaughn MD Primary Care Provider [phone] Allergies No known active allergies Medications Acetaminophen Extra Strength 500 MG tablet TAKE 2 TABLET BY MOUTH EVERY 6 HOURS NEEDED NEEDED FOR PAIN 160 tablet 10/05/19 23 Active ibuprofen 400 MG tablet Take 400 mg by mouth every 6 (six) hours if needed. 12/17/19 22 Active fexofenadine (Khushboo) 180 MG tabletIndications :Atopic dermatitis, unspecified type Take 1 tablet (180 mg) by mouth if needed each day (Allergies). 90 tablet 2 01/06/20 23 Active metFORMIN (Glucophage) 500 MG tablet Take 0.5 tablets (250 mg) by mouth with breakfast. 45 tablet 3 11/05/19 24 2024 Active levothyroxine (Synthroid, Levoxyl) 200 MCG tablet [...] per day. 28 tablet 12 05/20/19 25 2025 Active albuterol 108 (90 Base) MCG/ACT inhaler Inhale 2 puffs every 4 (four) hours if needed for wheezing or shortness of breath. 18 g 06/04/19 25 Active ketorolac (Toradol) 10 MG tabletIndications :Other cerebral palsy (CMS/HCC) TAKE 1 TABLET BY MOUTH EVERY 6 HOURS NEEDED FOR PAIN FOR MAX 5 DAYS 05/08/19 25 Active ondansetron ODT (Zofran-ODT) 8 MG disintegrating tabletIndications :Other cerebral palsy (CMS/HCC) Take 8 mg by mouth every 8 (eight) hours if needed. 02/19/20 24 Active naltrexone (Depade) 50 MG tabletIndications :Overweight Take 0.5 tablets (25 mg) by mouth Once per day. Take one half tablet at night 45 tablet 3 07/05/19 25 2025 Active triamcinolone (Kenalog) 0.1 % creamIndications: Atopic dermatitis, unspecified type Mix with Cerave and apply in thin layer over cheeks for 10 days 80 g 2 07/05/19 25 Active cetirizine (ZyrTEC) 10 MG tablet Take 1 tablet (10 mg) by mouth in the morning. 30 tablet 11 12/20/19 23 2024 Discontinued(T herapy completed) triamcinolone (Kenalog) 0.1 % creamIndications: Atopic dermatitis, unspecified type Mix with Cerave and apply after showers 80 g 2 01/06/20 23 2024 Discontinued(R eorder (will not trigger notification to Pharmacy)) Calcium Polycarbophil (fiber) 625 MG tablet Take 1 tablet (625 mg) by mouth in the morning. 90 tablet 3 05/01/19 24 2024 Discontinued(T herapy completed) Zinc Sulfate 220 (50 Zn) MG tablet TAKE 1 TABLET BY MOUTH EVERY DAY IN THE MORNING 90 tablet 3 05/02/19 24 2024 Discontinued(T herapy completed) topiramate (Topamax) 25 MG tablet Take 1 tablet (25 mg) by mouth Once per day. 90 tablet 3 11/05/19 24 2024 Discontinued(T herapy completed) levothyroxine (Synthroid) 25 MCG tablet Take 1 tab (25mcg) WITH 200mcg daily before breakfast 90 tablet 3 11/09/19 24 2024 Discontinued predniSONE (Deltasone) 20 MG tabletIndications :Viral upper respiratory tract infection with cough 2 tabs po daily for 5 days 10 tablet 06/04/19 25 2024 Discontinued(T herapy completed) Active Problems Problem Noted Date Diagnosed Date Subacute maxillary sinusitis 03/13/2024 Overview (03/13/2024): augmentin [...] hot showers. Overweight 05/01/2023 Assessment & Plan (07/09/2024 11:33 AM EDT): Take fiber daily She had a bad reaction to a compounded weight loss medication in [facility] that caused thyroid damage Taking Metformin 500mg daily, trialed Topimax for 6 months (could not tolerate due to nervous sensation/tingling in body) Referral to nutrition Add Naltrexone 25mg nightly for weight loss and pain Assessment & Plan (05/01/2023 12:40 PM EST): Take fiber daily She had a bad reaction to a compounded weight loss medication in [facility] that caused thyroid damage Gave [...] today Cerebral palsy 10/17/2021 Assessment & Plan (07/09/2024 11:33 AM EDT): Add Naltrexone 25mg daily for pain Assessment & Plan (11/05/2023 3:16 PM EDT): Consider neuro referral due to new onset foot spasm Hypothyroidism 10/17/2021 Assessment & Plan (07/09/2024 11:34 AM EDT): Post-surgical hypothryoidism Difficult to keep in TSH 2-3 range Downtitrated from 225 to 200mcg due to symptomatic over-repletion Will check TSH and symptoms (tachycardia, rash, anxiety) in 6-8 weeks Use emollient and thin layer triamcinolone cream for 7-10 days on cheeks, nose, and chin Resolved Problems Problem Noted Date Diagnosed Date Resolved Date Viral upper respiratory trac t infection with cough 06/03/2024 07/04/2024 Assessment & Plan (06/03/2024 3:09 PM EDT): COVID and Flu negative. No evidence of respiratory distress. Symptoms mild. No evidence of dehydration. Upon checking walking O2 SAT it did drop slightly with exertion to about 96%. At rest goes back up to 98%. -Ordered CXR. -Prescribed predniSONE (Deltasone) 20 MG -Supportive care advised. -Isolation recommendations discussed. Encounters Date Type Department Care Team Description 07/04/2024 11:30 AM EDT Office Visit [address] [address] Genoveva Vaughn MD Postoperative hypothyroidism (Primary Dx); Other cerebral palsy (CMS/HCC); Dietary counseling; Exercise counseling; Overweight; Atopic dermatitis, unspecified type; Screening mammogram for breast cancer 07/04/2024 Travel 07/03/[address] [address] Genoveva Vaughn MD Chart Prep 06/30/[address] [address] Genoveva Vaughn MD FYI 06/29/2024 Orders Only [address] [address] Genoveva Vaughn MD 06/26/[address] [address] Priyanka Ross CNM Results 06/26/2024 Orders Only [address] [address] Priyanka Ross CNM Left ovarian cyst (Primary Dx) 06/24/[address] [address] Genoveva Vaughn MD Nurse Triage 06/03/2024 3:40 PM EDT [facility] [address] [address] Mely Buitrago MD Viral upper respiratory tract infection with cough 05/19/2024 Orders Only [address] [address] Priyanka Ross CNM 05/19/2024 Telephone [facility] [address] [place] [address] Genoveva Vaughn MD 05/15/[address] [address] Genoveva Vaughn MD 05/12/2024 11:30 AM EDT Office Visit [address] [address] Priyanka Ross CNM Abnormal uterine bleeding (Primary Dx); Family planning counseling; Screening examination for venereal disease; Cyst of right ovary 05/12/2024 Travel 05/06/[address] [address] Genoveva Vaughn MD ER Follow-up 05/06/2024 Orders Only GENERIC EXTERNAL DATA DEPARTMENT Provider, Generic External Data 05/05/2024 6:40 PM EDT [facility] [address] [address] Ni Estes MD Pelvic pain (Primary Dx); Vaginal bleeding 05/05/2024 Orders Only [facility] External Provider, [facility] 05/05/2024 Telephone [facility] [address] [place], [place] [phone] Genoveva Vaughn MD Nurse Triage from Last 3 Months Immunizations Immunization Administration Dates Next Due Influenza Injectable Quadriv alant Preservative Free IIV4 MDCK 10/25/2022 Influenza, Injectable, MDCK, preservative free 0 03/06/2024 Social History Tobacco Use Types Packs/Day Years Used Date Smoking Tobacco: Never Passive Smoke Exposure: Never Smokeless Tobacco: Never Tobacco Cessation:Counseling Given: Not Answered Alcohol Use Standard Drinks/Week Comments Never 0 (1 standard drink = 0.6 oz pur e alcohol) Depression Answer Date Recorded Patient Health Questionnaire-9 Score 0 07/04/2024 Patient Health Questionnaire-9 Score 0 07/04/2024 Last PHQ-9: Questionnaire Data Not on file 0 07/04/2024 Housing Stability Answer Date Recorded What is [...] t he electric, gas, oil or water [employer] threatened to shut off services in your home? No 10/17/2023 Depression Answer Date Recorded Patient Health Questionnaire-2 Score 0 07/04/2024 Internet Access Answer Date Recorded Internet Access Q1 Yes 10/29/2023 Internet Access Q2 Not on file 10/29/2023 Comments No Intention Date Recorded No desire to become (finding) 0 05/12/2024 Sex and Gender Information Value Date Recorded Sex Assigned at Female 12/26/2021 10:40 AM EDT Legal Sex Female 10:40 AM EDT Gender Identity Female 12/26/2021 10:40 AM EDT Sexual Orientation Straight 12/26/2021 10 :40 AM EDT Last Filed Vital Signs Vital Sign Reading Time Taken Comments Blood Pressure 129/74 07/04/2024 11:44 AM EDT Pulse 86 07/04/2024 11:44 AM EDT Temperature 36.5 ??C (97.7 ??F) 07/04/2024 11:44 AM E DT Respiratory Rate 20 07/04/2024 11:44 AM EDT Oxygen Saturation 99% 07/04/2024 11:44 AM EDT Inhaled Oxygen Concentration - - Weight 80.7 kg (178 lb) 07/04/2024 11:44 AM EDT Height 162.6 cm (5' 4 ) 07/04/2024 11:44 AM EDT Body Mass Index 30.55 07/04/2024 11:44 AM EDT Plan of Treatment Upcoming Encounters Date Type Department Care Team (Late st Contact Info) Description 07/22/2024 11:30 AM EDT Telemedicine [facility] [address] [place] [phone] Genoveva Vaughn MD [address] [place] [phone] 08/12/2024 10:15 AM EDT Office Visit [facility] [address] [place] [phone] Genoveva Vaughn MD [address] [place] [phone] Health Maintenance Due Date Last Done Comments HIV Screening 1980 Disability Screening 1980 Alcohol/Substance Use Screening 1992 Hepatitis C Screening 1998 DTaP/Tdap/Td Vaccines (1 - Tdap) 07/08/1999 Hepatitis B Vaccines (1 of 3 - 19+ 3-dose series) 07/08/1999 COVID-19 Vaccine ( - 2023-2 5 season) 2023 Mammogram 12/02/2023 12/01/2022 SDOH Screening 10/16/2024 10/17/2023 Family Planning (PISQ) 05/12/2025 05/12/2024 Depression Screening 07/04/2025 07/04/2024, 07/04/2024 Tobacco Screening 07/08/2025 07/08/2024 Cervical Cancer Screening 01/25/2028 HPV/Cotest 01/25/2028 01/24/2023 [...] patient's age to complete this topic Meningococcal B Vaccine Aged Out No l onger eligible based on patient's age to complete [...] Date/Time Associated Diagnosis Comments T4, FREE Routine 06/26/2024 11:50 AM EDT Left ovarian cyst HCG, TOTAL, QN Routine 06/26/2024 11:50 AM EDT Left ovarian cyst TSH W/REFLEX TO FT4 Routine 06/26/2024 1 1:50 AM EDT Left ovarian cyst CBC Routine 06/26/2024 11:50 AM EDT Left ovarian cyst CHLAMYDIA/N. GONORRHOEAE RNA, TMA, UROGENITAL Routine 06/26/2024 10:32 AM EDT Left ovarian cyst US PELVIS TRANSVAGINAL Routine 11:30 AM EDT [...] Recently Relevant to Health Maintenance Results * (ABNORMAL) TSH with Reflex to Free T4 (06/26/2024 11:50 AM EDT) TSH reflex Free T4 <0.01(L) 0.32 - 4.0 uIU/mL [facility] 06/26/2024 11:5 0 AM EDT 06/26/2024 11:50 AM EDT us Generic External Data Provider LAB BLOOD ORDERAB LES Final Result [facility] [address] [place] [phone] * (ABNORMAL) CBC (06/26/2024 11:50 AM EDT) Pathologist [facility] White Blood Count 5.8 4.8 - 10.8 X10*3/uL [facility] Red Blood Count 4.27 4.20 - 5.50 X10*6/uL [facility] Hemoglobin 12.1 12.0 - 16.0 g/dl [facility] Hematocrit 35.7(L) 37.0 - 47.0 % [facility] Mean Corpuscular Volume 83.6 80.0 - 98.0 fL [facility] Mean Corpuscular Hemoglobin 28.3 27.0 - 33.0 pg [facility] Mean Corpuscular HGB Conc 33.9 31.0 - 35.0 g/dl [facility] Red Cell Distribution Width 13.2 11.0 - 16.0 % [facility] Platelet Count 292 160 - 400 X10*3/uL [facility] Mean Platelet Volume 9.5 9.4 - 12.3 fL [facility] NRBC Pct Auto 0.0 0.0 - 0.2 /100WBC [facility] NRBC Abs Auto 0.000 0.0 - 0.012 X10*3/uL [facility] 06/26/2024 11:5 0 AM EDT 06/26/2024 11:50 AM EDT us Generic External Data Provider LAB BLOOD ORDERAB LES Final Result [facility] [address] [place] [phone] * hCG, Total, Quantitative (06/26/2024 11:50 AM EDT) Only the most recent of2 resultswithin the time period is included. HCG Quantitative <2 mIU/mL [facility] Comment:Weeks post LMP Appro ximate hCG(Last Menstrual Period) Range (mIU/ml)3 - 4 weeks 9 - 1304 - 5 weeks 75 - 2,6005 - 6 weeks 850 - 20,8006 - 7 weeks 4000 - 100,2007 - 12 weeks 11,500 - 289,60030 - 16 weeks 18,300 - 137,15730 - 29 weeks (2nd trimester) 1,400 - 53,72934 - 41 weeks (3rd trimester) 940 - 60,000The Aguirre B- hCG assay is used for the early detection ofpregnancy; it cannot be used to diagnose any conditionunrelated to . If a B-hCG level is not supportedby the clinical evidence, results should be confirmed by analternative method (qualitative urine hCG, for example). 06/26/2024 11:5 0 AM EDT 06/26/2024 11:50 AM EDT Generic External Data Provider LAB BLOOD ORDERAB LES Final Result Performing Organization Address City/[facility]/ZIP Co de Phone Number [facility] [address] [place] [phone] [phone] * T4, Free (06/26/2024 11:50 AM EDT) Free T4 (Free Thyroxine) 1.63 0.71 - 1.85 ng/dL [facility] 06/26/2024 11:5 0 AM EDT 06/26/2024 11:50 AM EDT Generic External Data Provider LAB BLOOD ORDERAB LES Final Result Performing Organization Address [facility] Co de Phone Number [facility] [address] [place] [phone] * Chlamydia/N. Gonorrhoeae RNA, TMA, Urogenitial (06/26/2024 10:32 AM EDT) Only the most recent of2 resultswithin the time period is included. [facility] CT PCR NOT DETECTED Not Detect. [facility] Comment:A not detected test result [...] psychologicalconsequences. NG PCR NOT DETECTED Not Detect. [facility] Comment:A not detected test result [...] lead to adverse medical, social or psychologicalconsequences. 06/26/2024 10:3 2 AM EDT 06/26/2024 1:38 PM EDT Narrative [facility] - 06/26/2024 3:52 PM EDT Vaginal us Generic External Data Provider LAB MICROBIOLOGY - GENERAL ORDERABLES Final Result [facility] [address] [place] [phone] * US Pelvis Transvaginal (06/25/2024 11:30 AM EDT) Only the most recent of2 resultswithin the time period is included. Anatomical Region Laterality Modality Pelvis Ultrasound 06/25/2024 11:3 0 AM EDT Narrative 06/26/2024 7:25 AM EDT ? [facility] ?[address] ?[place] [address] ? Ultrasound Report ? Signed ? Patient: Eli,Zoralis ?MR#: [id number] ?? 10 ? : 1980 ?Acct:[id number] ? Age/Sex: 43 / F ?ADM Date: 04/30/25 ? Loc: HO.US ? Attending Dr: Priyanka Ross CNM ? Ordering Physician: PRIYANKA ROSS CNM ?? Date of Service: 06/25/24 ?? Procedure(s): US pelvic and transvaginal ?? Accession Number(s): [id number] ? cc: Genoveva Vaughn; PRIYANKA ROSS CNM [...] ?? echoes. ? Pelvic fluid: none. ? US/ pelvic and transvaginal ?? IMPRESSION: ? 1. [...] DD/ 1130 ? TD/TT: 06/25/24 1200 ? Registered Nurse Step Down: ? Procedure Marcus Sheikh, Quintin - 06/26/[address] [address] Ultrasound Report Signed Patient: Albino Eli#: [id number] 10 : 1980Acct:[id number] Age/Sex: 43 / FADM Date: 06/25/24 Loc: HO.US Attending Dr: Priyanka Ross CNM Ordering Physician: PRIYANKA ROSS CNM Date of Service: 06/25/24 Procedure(s): US pelvic and transvaginal Accession Number(s): [id number] cc: Genoveva Vaughn; PRIYANKA ROSS CNM EXAMINATION: [...] 06/26/24 0723 DD/ 1130 TD/TT: 06/25/24 1200 Registered Nurse Step Down: us Priyanka oRss CNM IMG US PROCEDURES Final R esult * XR Chest 2 Views (06/03/2024 3:13 PM EDT) Anatomical Region Laterality Modality Chest Radiographic Lucy ging 06/03/2024 3:13 PM EDT Narrative 06/03/2024 3:45 PM EDT ?[facility] ?[address] ?[place] [address] ?XRay Report ? Signed ? Patient: Eli,Zoralis ?MR#: [id number] ?? 10 ? : 1980 ?Acct:[id number] ? Age/Sex: 43 / F ?ADM Date: 06/03/24 ? Loc: HO.HHCX ? Attending Dr: Mely Buitrago MD ? Ordering Physician: Mely Buitrago MD ?? Date of Service: 06/03/24 ?? Procedure(s): XR chest 2V ?? Accession Number(s): [id number] ? cc: Mely Buitrago MD ? EXAMINATION: [...] DD/ 1513 ? TD/TT: 06/03/24 1520 ? Registered Nurse Step Down: ? Procedure Note Donotheiditer, Image - 06/03/2024 [facility] [address] [place] [address] XRay Report Signed Patient: Albino Eli#: [id number] 10 : 1980Acct:[id number] Age/Sex: 43 / FADM Date: 06/03/24 Loc: .HHCX Attending Dr: Mely Buitrago MD Ordering Physician: Mely Buitrago MD Date of Service: 06/03/24 Procedure(s): XR chest 2V Accession Number(s): [id number] cc: Mely Buitrago MD EXAMINATION: XR CHEST [...] 06/03/24 1543 DD/ 1513 TD/TT: 06/03/24 1520 Registered Nurse Step Down: Mely Buitrago MD IMG XR PROCEDURES Final Re sult * Influenza B (ID NOW Rapid Molecular) (06/03/2024 2:58 PM EDT) Influenza B Negative Negative, Indeterminate [facility] Swab 06/03/2024 2:58 PM EDT Mely Buitrago MD POINT OF CARE TEST ENTER/E DIT ORDERABLES Final Result [facility] [address] [place] [address] [phone] * Influenza A (ID NOW Rapid Molecular) (06/03/2024 2:57 PM EDT) Pathologist [facility] Influenza A Negative Negative, Indeterminate [facility] Swab 06/03/2024 2:57 PM EDT Mely Buitrago MD POINT OF CARE TEST ENTER/E DIT ORDERABLES Final Result Performing Organization Address [facility] Co de Phone Number [facility] [address] [place] [phone] * POCT Rapid COVID Ag (06/03/2024 2:52 PM EDT) Pathologist [facility] Rapid COVID Ag Negative Swab 06/03/2024 2:52 PM EDT Mely Buitrago MD POINT OF CARE TEST ENTER/E DIT ORDERABLES Final Result * Trichomonas RNA (Urine/Vaginal) (05/12/2024 12:30 PM EDT) Pathologist [facility] Trichomas vaginalis RNA, QL, TMA NOT DETECTED NOT DETECTED [facility] Comment:For additional infor jael, please refer [email or web address]/faq/[email or web address](This link is being provided for informational/educational purposes only.)THIS TEST WAS PERFORMED AT:[facility] [place] [phone] MACK MD Swab 05/12/2024 12:3 0 PM EDT 05/12/2024 5:40 PM EDT Priyanka Ross CNM LAB BODY FLUIDS AND STOOL S ORDERABLES Final Result Performing Organization Address [facility] Co de Phone Number [facility] [address] [place] [phone] * (ABNORMAL) Urinalysis, Complete, with Reflex to Culture (05/06/2024 2:57 AM EDT) Color Urine Yellow [facility] Appearance Urine Clear [facility] PH 5.5 5.0 - 9.0 [facility] Glucose Urine UA Negative Negative mg/dL [facility] Urine Blood Large (3+)(A) Negative [facility] Specific Dorsey - Urine 1.025 1.005 - 1.025 [facility] Urine Protein Trace Neg-Trace mg/dL [facility] Urine Ketones 40 Negative mg/dL [facility] Nitrite Urine Negative Negative [facility] Leukocyte Esterase Urine Negative Negative [facility] RBC Urine >20(A) 0 - 2 /HPF [facility] Urine WBC 0-5 0 - 5 /HPF [facility] Urine Squamous Epithelial Cell 0-2 0 - 2 /HPF [facility] Urine Bacteria None Seen None Seen [facility] Hyaline Casts, Urine 0-2 0 - 2 /LPF [facility] 05/06/2024 2:57 AM EDT 05/06/2024 3:00 AM EDT Narrative [facility] - 05/06/2024 3:10 AM EDT Urine, Clean Catch us Generic External Data Provider LAB URINE ORDERAB LES Final Result [facility] [address] [place] [phone] * (ABNORMAL) SARS-CoV-2 RNA, Influenza A/B, and RSV RNA, Ql NAAT (05/06/2024 2:07 AM EDT) Influenza A PCR NEGATIVE Negative [facility] Influenza B PCR POSITIVE(A) Negative [facility] Resp Syncy Virus RNA Qual PCR NEGATIVE Negative [facility] SARS COV2 PCR NEGATIVE Negative [facility] Comment:All test results mus t [...] use by authorized laboratories.Testing performed on the [place] [employer] [place] GeneXpert utilizingreal-time RT-PCR.All SARS CoV2 and positive influenza A/B results arereported to [facility]. 05/06/2024 2:07 AM EDT 05/06/2024 2:09 AM EDT us Generic External Data Provider LAB MICROBIOLOGY - GENERAL ORDERABLES Final Result [facility] [address] [place] [phone] * (ABNORMAL) CBC auto differential (05/05/2024 8:18 PM EDT) White Blood Count 3.7(L) 4.8 - 10.8 X10*3/uL [facility] Red Blood Count 4.80 4.20 - 5.50 X10*6/uL [facility] Hemoglobin 13.5 12.0 - 16.0 g/dl [facility] Hematocrit 39.7 37.0 - 47.0 % [facility] Mean Corpuscular Volume 82.7 80.0 - 98.0 fL [facility] Mean Corpuscular Hemoglobin 28.1 27.0 - 33.0 pg [facility] Mean Corpuscular HGB Conc 34.0 31.0 - 35.0 g/dl [facility] Red Cell Distribution Width 13.2 11.0 - 16.0 % [facility] Platelet Count 299 160 - 400 X10*3/uL [facility] Mean Platelet Volume 9.0(L) 9.4 - 12.3 fL [facility] Neutrophils Percent Auto 51.4 45 - 73 % [facility] Imm Gran Pct Auto 0.3 0.0 - 0.4 % [facility] Lymphocytes Percent Auto 22.7 20 - 40 % [facility] Monocytes Percent Auto 15.9(H) 2 - 11 % [facility] Eosinophils Percent Auto 9.2(H) 0 - 4 % [facility] Basophils Percent Auto 0.5 0 - 2 % [facility] NRBC Pct Auto 0.0 0.0 - 0.2 /100WBC [facility] Neutrophils Absolute Auto 1.9(L) 2.0 - 8.3 x10*3/uL [facility] Imm Gran Abs Auto 0.01 0.00 - 0.03 X10*3/uL [facility] Lymphocytes Absolute Auto 0.8(L) 1.2 - 4.9 X10*3/uL [facility] Monocytes Absolute Auto 0.6 0.1 - 1.2 X10*3/uL [facility] Eosinophils Absolute Auto 0.3 0.0 - 0.4 X10*3/uL [facility] Basophils Absolute Auto 0.0 0.0 - 0.2 X10*3/uL [facility] NRBC Abs Auto 0.000 0.0 - 0.012 X10*3/uL [facility] 05/05/2024 8:18 PM EDT 05/05/2024 8:21 PM EDT us Generic External Data Provider LAB BLOOD ORDERAB LES Final Result [facility] [address] [place], [place] [phone] * Magnesium (05/05/2024 8:18 PM EDT) Magnesium 1.9 1.6 - 2.6 mg/dL [facility] 05/05/2024 8:18 PM EDT 05/05/2024 8:21 PM EDT us Generic External Data Provider LAB BLOOD ORDERAB LES Final Result [facility] [address] [place] [address] [phone] * (ABNORMAL) Comprehensive Metabolic Panel (05/05/2024 8:18 PM EDT) Sodium 136 135 - 145 mmol/L [facility] Potassium 4.1 3.3 - 5.1 mmol/L [facility] Chloride 106 96 - 108 mmol/L [facility] Carbon Dioxide 20(L) 22 - 29 mmol/L [facility] Anion Gap 14 12 - 20 [facility] Urea Nitrogen (BUN) 10 9 - 16 mg/dL [facility] Creatinine, Serum 0.55 0.5 - 1.4 mg/dL [facility] Creatinine Clr Calc Pharmacy 130.4 [facility] Comment:Provided height and weight: 160.02 cm,78 kg.eGFR (calculated from the MDRD study equation) and eCrCl(calculated from the Cockcroft-Gault equation) are based ondifferent parameters and may not yield comparable results.If eCrCl result is absurd, please check patient'sheight/weight. Estimated Glomerular Filt Rate >60 [facility] Comment:Chronic Kidney Disea se: Estimated GFR < 60 mL/min/1.42a9Gffcrc Kidney Disease: Estimated GFR < 15 mL/min/1.73m2 Glucose 97 60 - 115 mg/dL [facility] Calcium 9.0 8.4 - 10.2 mg/dL [facility] Bilirubin, Total 0.3 0.0 - 1.0 mg/dL [facility] Aspartate Amino Transferase 19 5 - 31 U/L [facility] Alanine Aminotransferase 14 0 - 31 U/L [facility] Total Protein 8.2(H) 6.5 - 8.0 g/dL [facility] Albumin Level 4.2 3.5 - 5.0 g/dL [facility] Alkaline Phosphatase 79 39 - 117 U/L [facility] 05/05/2024 8:18 PM EDT 05/05/2024 8:21 PM EDT Generic External Data Provider LAB BLOOD ORDERAB LES Final Result Performing Organization Address [facility] Co de Phone Number [facility] [address] [place] [address] [phone] * Image-Guided Pap with Age-Based Screening??with CT/NG,??Trichomonas (01/24/2023 10:45 AM EST) Pathologist [facility] Trichomonas (NAAT) NOT DETECTED NOT DETECTED [facility] Comment:The analytical perfo rmance characteristics of thisassay have been determined by [facility]. Themodifications have not been cleared or approved bythe FDA. This assay has been validated pursuant to theCLIA regulations and is used for clinical purposes.For additional information, please refer tohttp://education.[employer]/faq/Trichomonastma(This link is being provided for information/educational purposes only.)THIS TEST WAS PERFORMED AT:[facility] [place] [phone] MACK MD CTNG Ref Lab NOT DETECTED NOT DETECTED [facility] NG Ref Lab NOT DETECTED NOT DETECTED [facility] Pap Vial 01/24/2023 10:4 5 AM EST 01/26/2023 10:52 AM EST us Priyanka FUENTES LAB CYTOLOGY ORDERABLES F inal Result Performing Organization Address [facility] Co de Phone Number [facility] [address] [place] [address] [phone] * HPV mRNA E6/E7 w/Reflex to HPV Genotypes 16, 18/45 (01/24/2023 10:45 AM EST) HPV nRNA E6/E7 Not Detected Not Detected [facility] Comment:Methodology: Transcr iption-Mediated AmplificationThis assay detects E6/E7 viral messenger RNA (mRNA) from 14high-risk HPV types (16,18,31,33,35,39,45,51,52,56,58,59,66,68).Cervical sources are required for HPV testing.If a vaginal source from a patient who has had atotal hysterectomy with removal of cervix wassubmitted, please contact the testing laboratoryfor alternative testing options.For additional information, please refer tohttp://education.[employer]/faq/OID946f7(This link if provided for information/educational purposes only.)THIS TEST WAS PERFORMED AT:[facility] [place] [phone] MACK MD HPV mRNA E6/E7 [facility] HPV 16 RNA [facility] HPV 18/45 RNA [facility] 01/24/2023 10:4 5 AM EST 01/25/2023 11:00 AM EST us Priyanka Ross CN LAB CYTOLOGY ORDERABLES F inal Result [facility] [address] [place] [address] [phone] * BI Mammogram Screening Tomosynthesis Bilateral (12/01/2022 12:10 PM EDT) Anatomical Region Laterality Modality Breast Bilateral Mammography 12/01/2022 12:1 0 PM EDT Narrative 12/21/2022 1:52 PM EDT ? [facility] [place] ? [address] ?[place] [address] ? Mammography Report ? Signed ? Patient: Eli,Zoralis ?MR#: [id number] ?? 10 ? : 1980 ?Acct:[id number] ? Age/Sex: 42 / F ?ADM Date: 10/06/23 ? Loc: HO.MAMMO ? Attending Dr: Genoveva Vaughn MD ? Ordering Physician: Genoveva Vaughn ?Results: 1Negative ? Date of Service: 12/01/22 ?Follow Up: 1 Year From Orig ?? inal Mammogram ? Procedure(s): MM tomosynthesis screening BI ?? Accession Number(s): [id number] ? cc: Genoveva Vaughn ? EXAMINATION: ?? [...] by Katy Tate MD in OV> ? 10// 1348 ? DD/ 1210 ? TD/TT: ? Registered Nurse Step Down: ? Procedure Note Donotzackinterpreter, Image - 12/21/2022 [facility] [address] [place] [address] Mammography Report Signed Patient: Albino Eli#: [id number] 10 : 1980Acct:[id number] Age/Sex: 42 / FADM Date: 12/01/22 Loc: MAMMO Attending Dr: Genoveva Vaughn MD Ordering Physician: Mauricio Vaughnults: 1Negative Date of Service: 12/01/22Follow Up: 1 Year From Orig inal Mammogram Procedure(s): MM tomosynthesis screening BI Accession Number(s): [id number] cc: Genoveva Vaughn EXAMINATION: MM SCREENING DIGITAL [...] in OV> 12/21/22 1348 DD/ 1210 TD/TT: Registered Nurse Step Down: Genoveva Vaughn MD IMG BI PROCEDURES Final Result from Last 3 Months or Most Recently Relevant to Health Maintenance Insurance [facility] , [address] [place] [address] Care Teams Countersinker Balance Screw Hole Relationship Specialty Start Date End Date Genoveva Vaughn MD [address] [place] [phone] PCP - General Family Medicine 10/14/21
--- OUTSIDE RECORDS SUMMARY | 2024-07-17 11:40 | XMS_ITS | Encounter Summary ---
Author Organization [employer] Address [address] [place] [address] 7 [place] [address] Care Team Providers Care Ice Rink Attendant Name Role Phone Genoveva Vaughn MD Primary Care Provider [phone] Encounter Details Date Type Department Care Team ([facility] st Contact Info) Description 06/29/2024 Orders Only [facility] [address] [place], [place] [phone] Genoveva Vaughn MD [address] [place], [place] [phone] Social History Tobacco Use Types Packs/Day Years Used Date Smoking Tobacco: Never Passive Smoke Exposure: Never Smokeless Tobacco: Never Alcohol Use Standard Drinks/Week Comments Never 0 (1 standard drink = 0.6 oz pur e alcohol) Housing Stability Answer Date Recorded What is your housing situation today? I have vanessarafael dover 10/17/[address] you [...] Info) Description 07/22/2024 11:30 AM EDT Telemedicine [facility] [address] [place] [phone] Genoveva Vaughn MD [address] [place] [phone] 08/12/2024 10:15 AM EDT Office Visit [facility] [address] [place] [phone] Genoveva Vaughn MD [address] [place] [phone] documented as of this encounter Visit Diagnoses Not on filedocumented in this encounter Care Teams Ice Rink Attendant Relationship Specialty Start Date End Date Genoveva Vaughn MD [address] [place] [phone] PCP - General Family Medicine 10/14/21 documented as of this encounter
--- OUTSIDE RECORDS SUMMARY | 2024-07-17 11:40 | XMS_ITS | Encounter Summary ---
Author Organization [employer] [facility] Address [address] [place] [address] [address] [place] [address] Care Team Providers Care Application Specialist Name Role Phone Genoveva Vaughn MD Primary Care Provider [phone] Encounter Details Date Type Department Care Team (Late Contact Info) Description 09/28/2022 Telephone [facility] [address] [place] [phone] Genoveva Vaughn MD [address] [place] [phone] Social History Tobacco Use Types Packs/Day Years [...] Department Care Team (Late Contact Info) Description 07/22/2024 11:30 AM EDT Telemedicine [facility] [address] [place] [phone] Genoveva Vaughn MD [address] [place] [address] [phone] 08/12/2024 10:15 AM EDT Office Visit [facility] [address] [place] [phone] Genoveva Vaughn MD [address] [place] [phone] documented as of this encounter Visit Diagnoses Not on filedocumented in this encounter Care Teams Application Specialist Relationship Specialty Start Date End Date Genoveva Vaughn MD [address] [place] [phone] PCP - General Family Medicine 10/14/21 documented as of this encounter
--- OUTSIDE RECORDS SUMMARY | 2024-07-17 11:41 | XMS_ITS | Encounter Summary ---
Author Organization [employer] Address [address] [place] [address] [address] [place] [address] Care Team Providers Care Lead Massage Therapist Name Role Phone Genoveva Vaughn MD Primary Care Provider [phone] Reason for Visit * Reason Onset Date Comments requesting a letter 03/03/2022 Encounter Details Date Type Department Care Team ([facility] st Contact Info) Description 03/03/2022 Telephone [facility] [address] [place], [place] [phone] Genoveva Vaughn MD [address] [place], [place] [phone] requesting a letter Social History Tobacco Use [...] Medical Eval Form after several calls T# [phone] was informed on 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 PCP informed on request and per spouse they will come Sunday03/06/22 to Med Records to do processing of requests, release [...] Info) Description 07/22/2024 11:30 AM EDT Telemedicine [facility] [address] [place] [phone] Genoveva Vaughn MD [address] [place] [phone] 08/12/2024 10:15 AM EDT Office Visit [facility] [address] [place] [phone] Genoveva Vaughn MD [address] [place] [phone] documented as of this encounter Visit Diagnoses Not on filedocumented in this encounter Care Teams Lead Massage Therapist Relationship Specialty Start Date End Date Genoveva Vaughn MD [address] [place] [phone] PCP - General Family Medicine 10/14/21 documented as of this encounter
== END 2024-07-17 11:56 | disposition home or self-care (01) ==
LOC: HO.HWS 10:58
PROVIDERS: PCP General Practice; Visit Provider Obstetrics & Gynecology
DX: N93.9 Abnormal uterine and vaginal bleeding, unspecified (principal); Z32.02 Encounter for pregnancy test, result negative
CPT/HCPCS: 58100

== ENCOUNTER 2024-07-17 10:58 | Outpatient (REF) | payer OTHER, SELFPAY ==
--- OUTSIDE RECORDS SUMMARY | 2024-07-17 12:19 | XMS_ITS | Clinical Summary ---
Author Organization [employer] Address [address] [place] [address] 7[address] [place] [address] Care Team Providers Care Speech And Language Tutor Name Role Phone Genoveva Vaughn MD Primary Care Provider [phone] Allergies No known active allergies Medications Acetaminophen [...] to a compounded weight loss medication in [facility] that caused thyroid damage Taking Metformin 500mg daily, trialed Topimax for 6 months (could not tolerate due to nervous sensation/tingling in body) Referral to nutrition Add Naltrexone 25mg nightly for weight loss and pain Assessment & Plan (05/01/2023 12:40 PM EST): Take fiber daily She had a bad reaction to a compounded weight loss medication in [facility] that caused thyroid damage Gave her [...] Description 07/04/2024 11:30 AM EDT Office Visit [address] [address] Genoveva Vaughn MD Postoperative hypothyroidism (Primary Dx); Other cerebral palsy (CMS/HCC); Dietary counseling; Exercise counseling; Overweight; Atopic dermatitis, unspecified type; Screening mammogram for breast cancer 07/04/2024 Travel 07/03/[address] [address] Genoveva Vaughn MD Chart Prep 06/30/[address] [address] Genoveva Vaughn MD FYI 06/29/2024 Orders Only [address] [address] Genoveva Vaughn MD 06/26/[address] [address] Priyanka Ross CNM Results 06/26/2024 Orders Only [address] [address] Priyanka Ross CNM Left ovarian cyst (Primary Dx) 06/24/[address] [address] Genoveva Vaughn MD Nurse Triage 06/03/2024 3:40 PM EDT [facility] [address] [address] Mely Buitrago MD Viral upper respiratory tract infection with cough 05/19/2024 Orders Only [address] [address] Priyanka Ross CNM 05/19/2024 Telephone [facility] [address] [place] [address] Genoveva Vaughn MD 05/15/[address] [address] Genoveva Vaughn MD 05/12/2024 11:30 AM EDT Office Visit [address] [address] Priyanka Ross CNM Abnormal uterine bleeding (Primary Dx); Family planning counseling; Screening examination for venereal disease; Cyst of right ovary 05/12/2024 Travel 05/06/[address] [address] Genoveva Vaughn MD ER Follow-up 05/06/2024 Orders Only GENERIC EXTERNAL DATA DEPARTMENT Provider, Generic External Data 05/05/2024 6:40 PM EDT [facility] [address] [address] Ni Estes MD Pelvic pain (Primary Dx); Vaginal bleeding 05/05/2024 Orders Only [facility] External Provider, [facility] 05/05/2024 Telephone [facility] [address] [place], [place] [phone] Genoveva Vaughn MD Nurse Triage from Last [...] t he electric, gas, oil or water [email or web address] threatened to shut off services in your [...] 07/22/2024 11:30 AM EDT Telemedicine [facility] [address] [place] [phone] Genoveva Vaughn MD [address] [place] [address] 08/12/2024 10:15 AM EDT Office Visit [facility] [address] [place] [address] Genoveva Vaughn MD [address] [place] [address] Health Maintenance Due Date Last Done Comments [...] Free T4 <0.01(L) 0.32 - 4.0 uIU/mL [facility] 06/26/2024 11:5 0 AM EDT 06/26/2024 11:50 AM EDT us Generic External Data Provider LAB BLOOD ORDERAB LES Final Result [facility] [address] [place] [phone] * (ABNORMAL) CBC (06/26/2024 11:50 AM EDT) Pathologist [facility] White Blood Count 5.8 4.8 - 10.8 X10*3/uL [facility] Red Blood Count 4.27 4.20 - 5.50 X10*6/uL [facility] Hemoglobin 12.1 12.0 - 16.0 g/dl [facility] Hematocrit 35.7(L) 37.0 - 47.0 % [facility] Mean Corpuscular Volume 83.6 80.0 - 98.0 fL [facility] Mean Corpuscular Hemoglobin 28.3 27.0 - 33.0 pg [facility] Mean Corpuscular HGB Conc 33.9 31.0 - 35.0 g/dl [facility] Red Cell Distribution Width 13.2 11.0 - 16.0 % [facility] Platelet Count 292 160 - 400 X10*3/uL [facility] Mean Platelet Volume 9.5 9.4 - 12.3 fL [facility] NRBC Pct Auto 0.0 0.0 - 0.2 /100WBC [facility] NRBC Abs Auto 0.000 0.0 - 0.012 X10*3/uL [facility] 06/26/2024 11:5 0 AM EDT 06/26/2024 11:50 AM EDT us Generic External Data Provider LAB BLOOD ORDERAB LES Final Result [facility] [address] [place] [phone] * hCG, Total, Quantitative (06/26/2024 11:50 AM EDT) Only the most recent of2 resultswithin the time period is included. HCG Quantitative <2 mIU/mL [facility] Comment:Weeks post LMP Appro ximate hCG(Last Menstrual Period) Range (mIU/ml)3 - 4 weeks 9 - 1304 - 5 weeks 75 - 2,6005 - 6 weeks 850 - 20,8006 - 7 weeks 4000 - 100,2007 - 12 weeks 11,500 - 289,48291 - 16 weeks 18,300 - 137,66217 - 29 weeks (2nd trimester) 1,400 - 53,27558 - 41 weeks (3rd trimester) 940 - [...] ORDERAB LES Final Result Performing Organization Address City/[facility]/ZIP Co de Phone Number [facility] [address] [place] [address] [phone] * T4, Free (06/26/2024 11:50 AM EDT) Free T4 (Free Thyroxine) 1.63 0.71 - 1.85 ng/dL [facility] 06/26/2024 11:5 0 AM EDT 06/26/2024 11:50 AM EDT Generic External Data Provider LAB BLOOD ORDERAB LES Final Result Performing Organization Address [facility] Co de Phone Number [facility] [address] [place] [phone] * Chlamydia/N. Gonorrhoeae RNA, TMA, Urogenitial (06/26/2024 10:32 AM EDT) Only the most recent of2 resultswithin the time period is included. [facility] CT PCR NOT DETECTED Not Detect. [facility] Comment:A not detected test result [...] psychologicalconsequences. NG PCR NOT DETECTED Not Detect. [facility] Comment:A not detected test result [...] AM EDT 06/26/2024 1:38 PM EDT Narrative [facility] - 06/26/2024 3:52 PM EDT Vaginal us Generic External Data Provider LAB MICROBIOLOGY - GENERAL ORDERABLES Final Result [facility] [address] [place] [phone] * US Pelvis Transvaginal (06/25/2024 11:30 AM EDT) Only the most recent of2 resultswithin the time period is included. Anatomical Region Laterality Modality Pelvis Ultrasound 06/25/2024 11:3 0 AM EDT Narrative 06/26/2024 7:25 AM EDT ? [facility] ?[address] ?[place] [address] ? Ultrasound Report ? Signed ? Patient: Eli,Zoralis ?MR#: [id number] ?? 10 ? : 1980 ?Acct:[id number] ? Age/Sex: 43 / F ?ADM Date: 04/30/25 ? Loc: HO.US ? Attending Dr: Priyanka Ross CNM ? Ordering Physician: PRIYANKA ROSS CNM ?? Date of Service: 06/25/24 ?? Procedure(s): US pelvic and transvaginal ?? Accession Number(s): [id number] ? cc: Genoveva Vaughn; PRIYANKA ROSS CNM [...] DD/ 1130 ? TD/TT: 06/25/24 1200 ? Professor Of Archaeology: ? Procedure Marcus Sheikh, Quintin - 06/26/[address] [address] Ultrasound Report Signed Patient: Albino Eli#: [id number] 10 : 1980Acct:[id number] Age/Sex: 43 / FADM Date: 06/25/24 Loc: HO.US Attending Dr: Priyanka Ross CNM Ordering Physician: PRIYANKA ROSS CNM Date of Service: 06/25/24 Procedure(s): US pelvic and transvaginal Accession Number(s): [id number] cc: Genoveva Vaughn; PRIYANKA ROSS CNM EXAMINATION: [...] 06/26/24 0723 DD/ 1130 TD/TT: 06/25/24 1200 Professor Of Archaeology: us Priyanka Ross CNM IMG US PROCEDURES Final R esult * XR Chest 2 Views (06/03/2024 3:13 PM EDT) Anatomical Region Laterality Modality Chest Radiographic Lucy ging 06/03/2024 3:13 PM EDT Narrative 06/03/2024 3:45 PM EDT ?[facility] ?[address] ?[place] [address] ?XRay Report ? Signed ? Patient: Eli,Zoralis ?MR#: [id number] ?? 10 ? : 1980 ?Acct:[id number] ? Age/Sex: 43 / F ?ADM Date: 06/03/24 ? Loc: HO.HHCX ? Attending Dr: Mely Buitrago MD ? Ordering Physician: Mely Buitrago MD ?? Date of Service: 06/03/24 ?? Procedure(s): XR chest 2V ?? Accession Number(s): [id number] ? cc: Mely Buitrago MD ? EXAMINATION: [...] DD/ 1513 ? TD/TT: 06/03/24 1520 ? Professor Of Archaeology: ? Procedure Note Donotheiditer, Image - 06/03/2024 [facility] [address] [place] [address] XRay Report Signed Patient: Albino Eli#: [id number] 10 : 1980Acct:[id number] Age/Sex: 43 / FADM Date: 06/03/24 Loc: .HHCX Attending Dr: Mely Buitrago MD Ordering Physician: Mely Buitrago MD Date of Service: 06/03/24 Procedure(s): XR chest 2V Accession Number(s): [id number] cc: Mely Buitrago MD EXAMINATION: XR CHEST [...] 06/03/24 1543 DD/ 1513 TD/TT: 06/03/24 1520 Professor Of Archaeology: Mely Buitrago MD IMG XR PROCEDURES Final Re sult * Influenza B (ID NOW Rapid Molecular) (06/03/2024 2:58 PM EDT) Influenza B Negative Negative, Indeterminate [facility] Swab 06/03/2024 2:58 PM EDT Mely Buitrago MD POINT OF CARE TEST ENTER/E DIT ORDERABLES Final Result [facility] [address] [place] [address] [phone] * Influenza A (ID NOW Rapid Molecular) (06/03/2024 2:57 PM EDT) Pathologist [facility] Influenza A Negative Negative, Indeterminate [facility] Swab 06/03/2024 2:57 PM EDT Mely Buitrago MD POINT OF CARE TEST ENTER/E DIT ORDERABLES Final Result Performing Organization Address [facility] Co de Phone Number [facility] [address] [place] [phone] * POCT Rapid COVID Ag (06/03/2024 2:52 PM EDT) Pathologist [facility] Rapid COVID Ag Negative Swab 06/03/2024 2:52 PM EDT Mely Buitrago MD POINT OF CARE TEST ENTER/E DIT ORDERABLES Final Result * Trichomonas RNA (Urine/Vaginal) (05/12/2024 12:30 PM EDT) Pathologist [facility] Trichomas vaginalis RNA, QL, TMA NOT DETECTED NOT DETECTED [facility] Comment:For additional infor jael, please refer tohttp://[email or web address] [email or web address]/faq/Trichomonastma(This link is being provided for informational/educational purposes only.)THIS TEST WAS PERFORMED AT:[employer] [place] [phone] MACK MD Swab 05/12/2024 12:3 0 PM EDT 05/12/2024 5:40 PM EDT Priyanka Ross CNM LAB BODY FLUIDS AND STOOL S ORDERABLES Final Result Performing Organization Address [facility] Co de Phone Number [facility] [address] [place] [phone] * (ABNORMAL) Urinalysis, Complete, with Reflex to Culture (05/06/2024 2:57 AM EDT) Color Urine Yellow [facility] Appearance Urine Clear [facility] PH 5.5 5.0 - 9.0 [facility] Glucose Urine UA Negative Negative mg/dL [facility] Urine Blood Large (3+)(A) Negative [facility] Specific [place] - Urine 1.025 1.005 - 1.025 [facility] Urine Protein Trace Neg-Trace mg/dL [facility] Urine Ketones 40 Negative mg/dL [facility] Nitrite Urine Negative Negative [facility] Leukocyte Esterase Urine Negative Negative [facility] RBC Urine >20(A) 0 - 2 /HPF [facility] Urine WBC 0-5 0 - 5 /HPF [facility] Urine Squamous Epithelial Cell 0-2 0 - 2 /HPF [facility] Urine Bacteria None Seen None Seen [facility] Hyaline Casts, Urine 0-2 0 - 2 /LPF [facility] 05/06/2024 2:57 AM EDT 05/06/2024 3:00 AM EDT Narrative [facility] - 05/06/2024 3:10 AM EDT Urine, Clean Catch us Generic External Data Provider LAB URINE ORDERAB LES Final Result [facility] [address] [place] [phone] * (ABNORMAL) SARS-CoV-2 RNA, Influenza A/B, and RSV RNA, Ql NAAT (05/06/2024 2:07 AM EDT) Influenza A PCR NEGATIVE Negative [facility] Influenza B PCR POSITIVE(A) Negative [facility] Resp Syncy Virus RNA Qual PCR NEGATIVE Negative [facility] SARS COV2 PCR NEGATIVE Negative [facility] Comment:All test results mus t [...] use by authorized laboratories.Testing performed on the [facility] GeneXpert utilizingreal-time RT-PCR.All SARS CoV2 and positive influenza A/B results arereported to [facility]. 05/06/2024 2:07 AM EDT 05/06/2024 2:09 AM EDT us Generic External Data Provider LAB MICROBIOLOGY - GENERAL ORDERABLES Final Result [facility] [address] [place] [phone] * (ABNORMAL) CBC auto differential (05/05/2024 8:18 PM EDT) White Blood Count 3.7(L) 4.8 - 10.8 X10*3/uL [facility] Red Blood Count 4.80 4.20 - 5.50 X10*6/uL [facility] Hemoglobin 13.5 12.0 - 16.0 g/dl [facility] Hematocrit 39.7 37.0 - 47.0 % [facility] Mean Corpuscular Volume 82.7 80.0 - 98.0 fL [facility] Mean Corpuscular Hemoglobin 28.1 27.0 - 33.0 pg [facility] Mean Corpuscular HGB Conc 34.0 31.0 - 35.0 g/dl [facility] Red Cell Distribution Width 13.2 11.0 - 16.0 % [facility] Platelet Count 299 160 - 400 X10*3/uL [facility] Mean Platelet Volume 9.0(L) 9.4 - 12.3 fL [facility] Neutrophils Percent Auto 51.4 45 - 73 % [facility] Imm Gran Pct Auto 0.3 0.0 - 0.4 % [facility] Lymphocytes Percent Auto 22.7 20 - 40 % [facility] Monocytes Percent Auto 15.9(H) 2 - 11 % [facility] Eosinophils Percent Auto 9.2(H) 0 - 4 % [facility] Basophils Percent Auto 0.5 0 - 2 % [facility] NRBC Pct Auto 0.0 0.0 - 0.2 /100WBC [facility] Neutrophils Absolute Auto 1.9(L) 2.0 - 8.3 x10*3/uL [facility] Imm Gran Abs Auto 0.01 0.00 - 0.03 X10*3/uL [facility] Lymphocytes Absolute Auto 0.8(L) 1.2 - 4.9 X10*3/uL [facility] Monocytes Absolute Auto 0.6 0.1 - 1.2 X10*3/uL [facility] Eosinophils Absolute Auto 0.3 0.0 - 0.4 X10*3/uL [facility] Basophils Absolute Auto 0.0 0.0 - 0.2 X10*3/uL [facility] NRBC Abs Auto 0.000 0.0 - 0.012 X10*3/uL [facility] 05/05/2024 8:18 PM EDT 05/05/2024 8:21 PM EDT us Generic External Data Provider LAB BLOOD ORDERAB LES Final Result [facility] [address] [place], [place] [phone] * Magnesium (05/05/2024 8:18 PM EDT) Magnesium 1.9 1.6 - 2.6 mg/dL [facility] 05/05/2024 8:18 PM EDT 05/05/2024 8:21 PM EDT us Generic External Data Provider LAB BLOOD ORDERAB LES Final Result [facility] [address] [place] [address] [phone] * (ABNORMAL) Comprehensive Metabolic Panel (05/05/2024 8:18 PM EDT) Sodium 136 135 - 145 mmol/L [facility] Potassium 4.1 3.3 - 5.1 mmol/L [facility] Chloride 106 96 - 108 mmol/L [facility] Carbon Dioxide 20(L) 22 - 29 mmol/L [facility] Anion Gap 14 12 - 20 [facility] Urea Nitrogen (BUN) 10 9 - 16 mg/dL [facility] Creatinine, Serum 0.55 0.5 - 1.4 mg/dL [facility] Creatinine Clr Calc Pharmacy 130.4 [facility] Comment:Provided height and weight: 160.02 cm,78 kg.eGFR (calculated from the MDRD study equation) and eCrCl(calculated from the Cockcroft-Gault equation) are based ondifferent parameters and may not yield comparable results.If eCrCl result is absurd, please check patient'sheight/weight. Estimated Glomerular Filt Rate >60 [facility] Comment:Chronic Kidney Disea se: Estimated GFR < 60 mL/min/1.92v7Oweumh Kidney Disease: Estimated GFR < 15 mL/min/1.73m2 Glucose 97 60 - 115 mg/dL [facility] Calcium 9.0 8.4 - 10.2 mg/dL [facility] Bilirubin, Total 0.3 0.0 - 1.0 mg/dL [facility] Aspartate Amino Transferase 19 5 - 31 U/L [facility] Alanine Aminotransferase 14 0 - 31 U/L [facility] Total Protein 8.2(H) 6.5 - 8.0 g/dL [facility] Albumin Level 4.2 3.5 - 5.0 g/dL [facility] Alkaline Phosphatase 79 39 - 117 U/L [facility] 05/05/2024 8:18 PM EDT 05/05/2024 8:21 PM EDT Generic External Data Provider LAB BLOOD ORDERAB LES Final Result Performing Organization Address [facility] Co de Phone Number [facility] [address] [place] [address] [phone] * Image-Guided Pap with Age-Based Screening??with CT/NG,??Trichomonas (01/24/2023 10:45 AM EST) Pathologist [facility] Trichomonas (NAAT) NOT DETECTED NOT DETECTED [facility] Comment:The analytical perfo rmance characteristics of thisassay have been determined by [employer]. Themodifications have not been cleared or approved bythe FDA. This assay has been validated pursuant to theCLIA regulations and is used for clinical purposes.For additional information, please refer tohttp://education.[employer]enbox/faq/Trichomonastma(This link is being provided for information/educational purposes only.)THIS TEST WAS PERFORMED AT:[employer] [place] [phone] MACK MD CTNG Ref Lab NOT DETECTED NOT DETECTED [facility] NG Ref Lab NOT DETECTED NOT DETECTED [facility] Pap Vial 01/24/2023 10:4 5 AM EST 01/26/2023 10:52 AM EST us Priyanka FUENTES LAB CYTOLOGY ORDERABLES F inal Result Performing Organization Address [facility] Co de Phone Number [facility] [address] [place] [address] [phone] * HPV mRNA E6/E7 w/Reflex to HPV Genotypes 16, 18/45 (01/24/2023 10:45 AM EST) HPV nRNA E6/E7 Not Detected Not Detected [facility] Comment:Methodology: Transcr iption-Mediated AmplificationThis assay detects E6/E7 viral messenger RNA (mRNA) from 14high-risk HPV types (16,18,31,33,35,39,45,51,52,56,58,59,66,68).Cervical sources are required for HPV testing.If a vaginal source from a patient who has had atotal hysterectomy with removal of cervix wassubmitted, please contact the testing laboratoryfor alternative testing options.For additional information, please refer tohttp://education.Zenbox/faq/HOJ984q0(This link if provided for information/educational purposes only.)THIS TEST WAS PERFORMED AT:[facility] [place] [phone] MACK MD HPV mRNA E6/E7 [facility] HPV 16 RNA [facility] HPV 18/45 RNA [facility] 01/24/2023 10:4 5 AM EST 01/25/2023 11:00 AM EST us Priyanka Ross CN LAB CYTOLOGY ORDERABLES F inal Result [facility] [address] [place] [phone] [phone] * BI Mammogram Screening Tomosynthesis Bilateral (12/01/2022 12:10 PM EDT) Anatomical Region Laterality Modality Breast Bilateral Mammography 12/01/2022 12:1 0 PM EDT Narrative 12/21/2022 1:52 PM EDT ? [facility] [place] ? [address] ?[place] [address] ? Mammography Report ? Signed ? Patient: Eli,Zoralis ?MR#: [id number] ?? 10 ? : 1980 ?Acct:[id number] ? Age/Sex: 42 / F ?ADM Date: 10/06/23 ? Loc: HO.MAMMO ? Attending Dr: Genoveva Vaughn MD ? Ordering Physician: Genoveva Vaughn ?Results: 1Negative ? Date of Service: 12/01/22 ?Follow Up: 1 Year From Orig ?? inal Mammogram ? Procedure(s): MM tomosynthesis screening BI ?? Accession Number(s): [id number] ? cc: Genoveva Vaughn ? EXAMINATION: ?? [...] 1348 ? DD/ 1210 ? TD/TT: ? Professor Of Archaeology: ? Procedure Note Donotzackinterpreter, Image - [facility] [address] [place] [address] Mammography Report Signed Patient: Albino Eli#: [id number] 10 : 1980Acct:[id number] Age/Sex: 42 / FADM Date: 12/01/22 Loc: MAMMO Attending Dr: Genoveva Vaughn MD Ordering Physician: Mauricio Vaughnults: 1Negative Date of Service: 12/01/22Follow Up: 1 Year From Orig inal Mammogram Procedure(s): MM tomosynthesis screening BI Accession Number(s): [id number] cc: Genoveva Vaughn EXAMINATION: MM SCREENING DIGITAL [...] in OV> 12/21/22 1348 DD/ 1210 TD/TT: Professor Of Archaeology: Genoveva Vaughn MD IMG BI PROCEDURES Final Result from Last 3 Months or Most Recently Relevant to Health Maintenance Insurance [facility] [address] [place] [address] Care Teams Speech And Language Tutor Relationship Specialty Start Date End Date Genoveva Vaughn MD [address] [place] [phone] PCP - General Family Medicine 10/14/21
--- OUTSIDE RECORDS SUMMARY | 2024-07-17 12:19 | XMS_ITS | Encounter Summary ---
Author Organization [employer] Address [address] [place] [address] 7 [place] [address] Care Team Providers Care Professional Shopper Name Role Phone Genoveva Vaughn MD Primary Care Provider [phone] Reason for Visit * Reason Onset Date Comments requesting a letter 03/03/2022 Encounter Details Date Type Department Care Team ([facility] st Contact Info) Description 03/03/2022 Telephone [facility] [address] [place], [place] [phone] Genoveva Vaughn MD [address] [place], [place] [phone] requesting a letter Social History Tobacco Use [...] Medical Eval Form after several calls T# [phone] 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 [...] Info) Description 07/22/2024 11:30 AM EDT Telemedicine [facility] [address] [place] [phone] Genoveva Vaughn MD [address] [place] [phone] 08/12/2024 10:15 AM EDT Office Visit [facility] [address] [place] [phone] Genoveva Vaughn MD [address] [place] [phone] documented as of this encounter Visit Diagnoses Not on filedocumented in this encounter Care Teams Professional Shopper Relationship Specialty Start Date End Date Genoveva Vaughn MD [address] [place] [phone] PCP - General Family Medicine 10/14/21 documented as of this encounter
--- OUTSIDE RECORDS SUMMARY | 2024-07-17 12:19 | XMS_ITS | Encounter Summary ---
Author Organization [employer] Address [address] [place] [address] [address] [place] [address] Care Team Providers Care Timber Setter Name Role Phone Genoveav Vaughn MD Primary Care Provider [phone] Encounter Details Date Type Department Care Team (Late st Contact Info) Description 10/31/2022 Orders Only [facility] [address] [place], [place] [phone] Nisha Partida LPN Social History Tobacco Use [...] Description 07/22/2024 11:30 AM EDT Telemedicine [facility] [address] [place] [phone] Genoveva Vaughn MD [address] [place] [phone] 08/12/2024 10:15 AM EDT Office Visit [address] [address] Genoveva Vaughn MD [address] [place] [address] [phone] documented as of this encounter Procedures Procedure Name Priority Date/Time Associated Diagnosis Comments T4, FREE Routine 11/22/2022 9:56 AM EDT documented in this encounter Results * T4, Free (11/22/2022 9:56 AM EDT) Free T4 (Free Thyroxine) 1.62 0.71 - 1.85 ng/dL [facility] 11/22/2022 9:56 AM EDT 11/22/2022 11:22 AM EDT us Genoveva Vaughn MD LAB BLOOD ORDERABLES Final Res ult [facility] [address] [place] [phone] documented in this encounter Visit Diagnoses Not on filedocumented in this encounter Care Teams Timber Setter Relationship Specialty Start Date End Date Genoveva Vaughn MD [address] [place] [phone] PCP - General Family Medicine 10/14/21 documented as of this encounter
--- OUTSIDE RECORDS SUMMARY | 2024-07-17 12:19 | XMS_ITS | Encounter Summary ---
Author Organization [employer] [facility] Address [address] [place] [address] 7 [place] [address] Care Team Providers Care Customer Operations Manager Name Role Phone Genoveva Vaughn MD Primary Care Provider [phone] Encounter Details Date Type Department Care Team (Late Contact Info) Description 09/28/2022 Telephone [facility] [address] [place] [address] 54105 Genoveva Vaughn MD [address] [place] [address]957 Social History Tobacco Use Types Packs/Day Years [...] 07/22/2024 11:30 AM EDT Telemedicine [facility] [address] [place] [address] 80805 Genoveva Vaughn MD [address] [place] [address] [phone] 08/12/2024 10:15 AM EDT Office Visit [facility] [address] [place] [address] 17553 Genoveva Vaughn MD [address] [place] [address] 39[address] documented as of this encounter Visit Diagnoses Not on filedocumented in this encounter Care Teams Customer Operations Manager Relationship Specialty Start Date End Date Genoveva Vaughn MD [address] [place] [address] PCP - General Family Medicine 10/14/21 documented as of this encounter
--- OUTSIDE RECORDS SUMMARY | 2024-07-17 12:19 | XMS_ITS | Encounter Summary ---
Author Organization [facility] Address [address] [place] [address] 7 [place] [address] Care Team Providers Care Ip Litigation Associate Name Role Phone Genoveva Vaughn MD Primary Care Provider [phone] Encounter Details Date Type Department Care Team ([facility] st Contact Info) Description 06/29/2024 Orders Only [facility] [address] [place], [place] [phone] Genoveva Vaughn MD [address] [place], [place] [phone] Social History Tobacco Use Types Packs/Day Years [...] Info) Description 07/22/2024 11:30 AM EDT Telemedicine [facility] [address] [place] [address] 15408 Genoveva Vaughn MD [address] [place] [address] 87[address] 08/12/2024 10:15 AM EDT Office Visit [facility] [address] [place] [address] 44648 Genoveva Vaughn MD [address] [place] [address] 31[address] documented as of this encounter Visit Diagnoses Not on filedocumented in this encounter Care Teams Ip Litigation Associate Relationship Specialty Start Date End Date Genoveva Vaughn MD [address] [place] [address] 57[address] PCP - General Family Medicine 10/14/21 documented as of this encounter
--- OUTSIDE RECORDS SUMMARY | 2024-07-17 12:19 | XMS_ITS | Encounter Summary ---
Author Organization [employer] Address [address] [place] [address] 7 [place] [address] Care Team Providers Care Public Speaking Teacher Name Role Phone Genoveva Vaughn MD Primary Care Provider [phone] Encounter Details Date Type Department Care Team (Late st Contact Info) Description 11/28/2022 Orders Only [facility] MEDICINE [address] [place] [address] [phone] Genoveva Vaughn MD [address] [place] [address] Chronic pain of both knees (Primary Dx) [...] Info) Description 07/22/2024 11:30 AM EDT Telemedicine [facility] MED[facility]INE [address] [place] [address] [phone] Genoveva Vaughn MD [address] [place] [address] [phone] 08/12/2024 10:15 AM EDT Office Visit [facility] [address] [place] [address] [phone] Genoveva Vaughn MD [address] [facility] [place] [address] documented as of this encounter Procedures Procedure Name Priority Date/Time Associated Diagnosis Comments BI MAMMOGRAM SCREENING TOMOSYNTHESIS BILATERAL Routine 12/01/2022 12:10 PM EDT documented in this encounter Results * BI Mammogram Screening Tomosynthesis Bilateral (12/01/2022 12:10 PM EDT) Anatomical Region Laterality Modality Breast Bilateral Mammography 12/01/2022 12:1 0 PM EDT Narrative 12/21/2022 1:52 PM EDT ? [facility] ? [address] ?[place] [address] ? Mammography Report ? Signed ? Patient: Eli,Zoralis ?MR#: [id number] ?? 10 ? : 1980 ?Acct:[id number] ? Age/Sex: 42 / F ?ADM Date: 12/01/22 ? Loc: HO.MAMMO ? Attending Dr: Genoveva Vaughn MD ? Ordering Physician: Genoveva Vaughn ?Results: 1Negative ? Date of Service: 12/01/22 ?Follow Up: 1 Year From Orig ?? inal Mammogram ? Procedure(s): MM tomosynthesis screening BI ?? Accession Number(s): [id number] ? cc: Genoveva Vaughn ? EXAMINATION: ?? [...] 1348 ? DD/ 1210 ? TD/TT: ? Piece Hand: ? Procedure Note Aguilar, Image - 12/21/2022 [facility] [address] [place] [address] [place] [address] Mammography Report Signed Patient: Albino Eli#: [id number] 10 : 1980Acct:[id number] Age/Sex: 42 / FADM Date: 12/01/22 Loc: DEVI Attending Dr: Genoveva Vaughn MD Ordering Physician: Davy,SophiaResults: 1Negative Date of Service: 12/01/22Follow Up: 1 Year From Orig inal Mammogram Procedure(s): MM tomosynthesis screening BI Accession Number(s): [id number] cc: Genoveva Vaughn EXAMINATION: MM SCREENING DIGITAL [...] in OV> 12/21/22 1348 DD/ 1210 TD/TT: Piece Hand: Genoveva Vaughn MD IMG BI PROCEDURES Final Result documented in this encounter Visit Diagnoses Diagnosis Chronic pain of both knees- Primary documented in this encounter Care Teams Public Speaking Teacher Relationship Specialty Start Date End Date Genoveva Vaughn MD [address] [place] [phone] PCP - General Family Medicine 10/14/21 documented as of this encounter
== END 2024-07-17 10:59 | disposition home or self-care (01) ==
LOC: HO.LNP 10:58
PROVIDERS: PCP General Practice; Visit Provider Obstetrics & Gynecology
DX: N93.9 Abnormal uterine and vaginal bleeding, unspecified (principal)
CPT/HCPCS: 58100; 81025; 88305

== ENCOUNTER 2024-09-08 10:03 | Outpatient (REF) | payer OTHER, SELFPAY ==
--- OUTSIDE RECORDS SUMMARY | 2024-09-08 10:44 | XMS_ITS | Encounter Summary ---
Author Organization [employer] Address [address] [place] [address] 7 [place] [address] Care Team Providers Care Test Skein Winder Name Role Phone Genoveva Vaughn MD Primary Care Provider [phone] Encounter Details Date Type Department Care Team ([facility] st Contact Info) Description 06/29/2024 Orders Only [facility] MEDICINE [address] [place], [place] [phone] Genoveva Vaughn MD [address] [place], [place] [phone] Social History Tobacco Use Types Packs/Day Years [...] as of this encounter Plan of Treatment Not on file documented as of this encounter Visit Diagnoses Not on filedocumented in this encounter Care Teams Test Skein Winder Relationship Specialty Start Date End Date Genoveva Vaughn MD [address] [place] [phone] PCP - General Family Medicine 10/14/21 documented as of this encounter
== END 2024-09-08 10:04 | disposition home or self-care (01) ==
LOC: HO.MAMMO 10:03
PROVIDERS: PCP General Practice; Visit Provider Obstetrics & Gynecology
DX: Z12.31 Encounter for screening mammogram for malignant neoplasm of breast (principal)
CPT/HCPCS: 77063; 77067

== ENCOUNTER → 2024-09-08 10:15 | Outpatient (BNV) | payer OTHER, SELFPAY | PROVIDERS: PCP General Practice; Visit Provider Internal Medicine | DX: Z12.31 Encounter for screening mammogram for malignant neoplasm of breast (principal) | CPT/HCPCS: 77063; 77067 ==

== ENCOUNTER 2024-09-30 10:17 | Outpatient (REF) | payer OTHER, SELFPAY ==
--- NOTE | ~2024-09-30 | US_ITS ---
CLINICAL HISTORY: N83.299 - Other ovarian cyst, unspecified side Ultrasound of the female pelvis Comparison: US/ME/SR - US PELVIS TRANSABDOMINAL AND TRANSVAGINAL - 06/25/24 11:42 EDT Technique: Grayscale ultrasound with assistance of color Doppler. Transabdominal scanning performed for overall anatomy. Transvaginal scanning performed for better anatomic delineation. Findings: Anteverted uterus measures 9.2 x 3.4 x 3.8 cm. Unremarkable myometrium. No fibroid is visualized. Normal endometrium, 5 mm in thickness. Normal cervix. Normal right ovary, 2.0 x 1.1 x 1.0 cm. No abnormal vascular flow. Left ovary is normal in size, 2.6 x 3.1 x 2.9 cm, simple dominant follicle 2.6 cm, new complex cyst with smooth thick wall and no intralesional vascular flow 1.6 x 1.3 x 1.3 cm. No abnormal vascular flow. No free fluid. Impression: Left ovarian dominant follicle and corpus luteal cyst, previously seen minimally complex cyst is not visualized. This document has been electronically signed by: Sharon Ramírez MD on 09/30/2024 13:35:27
--- OUTSIDE RECORDS SUMMARY | 2024-09-30 10:52 | XMS_ITS | Clinical Summary ---
Author Organization [facility] Address [address] [place] [phone] Phone Care Team Providers Care Pharmacy Manager Name Role Phone Genoveva Vaughn MD Primary Care Provider + Allergies No known active allergies Medications ondansetron (ZOFRAN-ODT) 8 MG disintegrating tablet Take 1 tablet (8 mg total) by mouth every 8 (eight) hours as needed for nausea. 5 tablet Active Social History Tobacco Use Types Packs/Day Years Used Date Smoking Tobacco: Never Assessed Education Answer Date Recorded Are you interested in more education? Not on rosalio e 02/19/2024 Are you concerned about learning? Not on file 02/19/2024 No 02/19/2024 No 02/19/2024 Digital Access Answer Date Recorded No 02/19/2024 No 02/19/2024 Reliable internet access at home? Not on file 02/19/2024 Device with a working camera? Not on file Intimate Partner Violence Answer Date R ecorded Are you denied basic needs s uch as food, clothing, or medical care? No 02/18/2024 In the past 12 months have y ou been in a relationship with a person who hurts, threatens, or tries to control you? No 02/18/2024 Are you denied basic needs s uch as food, clothing, or medical care? No 02/18/2024 In the past 12 months have y ou been in a relationship with a person who hurts, threatens, or tries to control you? No 02/18/2024 Comments Unknown Sex and Gender Information Value Date Recorded Sex Assigned at Female 02/18/2024 11:54 PM EST Legal Sex Female 10:47 PM EST Gender Identity Female 02/18/2024 11:54 PM EST Sexual Orientation Straight 02/18/2024 11 :54 PM EST Last Filed Vital Signs Vital Sign Reading Time Taken Comments Blood Pressure 112/64 02/18/2024 10:53 PM EST Pulse 89 02/18/2024 10:53 PM EST Temperature 35.9 C (96.6 F) 02/18/2024 10:53 PM EST Respiratory Rate 18 02/18/2024 10:53 PM EST Oxygen Saturation 95% 02/18/2024 10:53 PM EST Inhaled Oxygen Concentration - - Weight 75 kg (165 lb 5.5 oz) 02/18/2024 10:53 PM EST Height - - Body Mass Index - - Plan of Treatment Health Maintenance Due Date Last Done Comments Adult Td,Tdap Booster 1980 DEPRESSION SCREENING 1992 SMOKING Hx and SMOKELESS TOB ACCO SCREENING 1993 HEPATITIS C SCREENING 1998 HIV ONE-TIME SCREENING (18-6 5 YEARS) 1998 PAP SMEAR 2001 COVID-19 VACCINE (2023-2 5 season) 2023 MAMMOGRAM 12/01/2024 12/01/2022 HEPATITIS A VACCINES Aged Out No long er eligible based on patient's age to complete this topic HIB VACCINES Aged Out No longer eligi ble based on patient's age to complete this topic MENINGOCOCCAL VACCINES (ACWY) Aged Out No longer eligible based on patient's age to complete this topic MENINGOCOCCAL VACCINES (B) Aged Out N o longer eligible based on patient's age to complete this topic PNEUMOCOCCAL VACCINES (0-49 years) Aged Out No longer eligible based on patient's age to complete this topic Medical Devices Not on file [address] [place] [address] [facility] POS EPO HEALTH SAFETY NET PARTIAL HEALTH SAFETY NET PARTIAL Member Subscriber Plan / Payer (Ef fective 2024-Present) Name:Janelle Eli Relation to Subscriber:Self Name:Janelle Eli Payer ID:Not on file Group ID:Not on file Type:Medicaid Address: [place] [id number] HEALTH SAFETY NET PARTIAL HEALTH SAFETY NET PARTIAL [facility] POS EPO HEALTH SAFETY NET PARTIAL [facility] POS EPO HEALTH SAFETY NET PARTIAL Care Teams Pharmacy Manager Relationship Specialty Start Date End Date Genoveva Vaughn MD PCP - General 02/18/24 Additional Source Comments The information contained in this document represents components of the legal health record. It is not the complete legal health record.[facility]
--- OUTSIDE RECORDS SUMMARY | 2024-09-30 10:52 | XMS_ITS | Encounter Summary ---
Author Organization [employer] Address [address] [place] [address] 7 [place] [address] Care Team Providers Care Ceramics Teacher Name Role Phone Genoveva Vaughn MD Primary Care Provider [phone] Encounter Details Date Type Department Care Team ([facility] st Contact Info) Description 06/29/2024 Orders Only [facility] MEDICINE [address] [place], [place] [phone] Genoveva Vaughn MD [address] [place], [place] [phone] Social History Tobacco Use Types Packs/Day Years [...] on filedocumented in this encounter Care Teams Ceramics Teacher Relationship Specialty Start Date End Date Genoveva Vaughn MD [address] [place] [address] PCP - General Family Medicine 10/14/21 documented as of this encounter
[2024-09-30 13:44] LABS: Free T4 (Free Thyroxine) 1.62 ng/dL (0.71-1.85)
== END 2024-09-30 10:18 | disposition home or self-care (01) ==
LOC: HO.US 10:17
PROVIDERS: PCP General Practice; Visit Provider Obstetrics & Gynecology
DX: N83.291 Other ovarian cyst, right side (principal); E89.0 Postprocedural hypothyroidism
CPT/HCPCS: 36415; 76830; 76856; 84439; 84443

== ENCOUNTER → 2024-09-30 10:19 | Outpatient (BNV) | payer OTHER, SELFPAY | PROVIDERS: PCP General Practice; Visit Provider Radiology Diagnostic Radiology | DX: N83.12 Corpus luteum cyst of left ovary (principal) | CPT/HCPCS: 76830; 76856 ==

== ENCOUNTER 2024-10-23 10:04 | Outpatient (REF) | payer OTHER, SELFPAY ==
[2024-10-23 15:37] LABS: Bacterial Vaginosis PCR NEGATIVE (Negative); Candida Group PCR NOT DETECTED (Not Detect); Candida glab krusei PCR NOT DETECTED (Not Detect); Trichomonas vaginalis PCR NOT DETECTED (Not Detect)
[2024-10-23 16:07] LABS: CT PCR NOT DETECTED (Not Detect.); NG PCR NOT DETECTED (Not Detect.)
== END 2024-10-23 10:05 | disposition home or self-care (01) ==
LOC: HO.LNP 10:04
PROVIDERS: PCP General Practice; Visit Provider Obstetrics & Gynecology
DX: N76.0 Acute vaginitis (principal); N83.299 Other ovarian cyst, unspecified side; N93.9 Abnormal uterine and vaginal bleeding, unspecified
CPT/HCPCS: 81515; 87491; 87591

== ENCOUNTER 2024-10-23 10:04 | Outpatient (AMB) | payer OTHER, SELFPAY ==
--- NOTE | 2024-10-23 10:44 | MHC.OFFVIS ---
Intake Visit Reasons: Ultrasounds Follow up/Emb results Intake Note: vaginal irritation Tube Inspector: Tube Inspector Present Allergies No Known Allergies Allergy (Verified 07/17/24 11:19) Is last menstrual period known: Yes Last menstrual period: 12/25/19 Post menopausal: No Patient : No Do you need a note to return to daycare/school/sports/work: Yes (for surgery on sunday) HPI Comments Details: Presenting for follow-up ultrasound regarding previously seen complex ovarian cyst on ultrasound done in 06/20. Complaining of vulvovaginal itching and burning no foul odor. 10/20 pelvic ultrasound showed the following: Anteverted uterus measures 9.2 x 3.4 x 3.8 cm. Unremarkable myometrium. No fibroid is visualized. Normal endometrium, 5 mm in thickness. Normal cervix. Normal right ovary, 2.0 x 1.1 x 1.0 cm. No abnormal vascular flow. Left ovary is normal in size, 2.6 x 3.1 x 2.9 cm, simple dominant follicle 2.6 cm, new complex cyst with smooth thick wall and no intralesional vascular flow 1.6 x 1.3 x 1.3 cm. No abnormal vascular flow. No free fluid. Impression: Left ovarian dominant follicle and corpus luteal cyst, previously seen minimally complex cyst is not visualized. The following workup was done.: H&H= 12.1/35.7 TSH<0.01, the patient has PCP is adjusting Synthroid dose hCG, GC and chlamydia were negative. Endometrial biopsy pathology showed the following: Endometrium, biopsy: Benign endometrial polyp and fragments of proliferative endometrium with stromal breakdown; negative for atypia, hyperplasia or malignancy Co testing was done in 01/18 was negative. Mammogram was BI-RADS 1 [facility] Medical History Cerebral palsy Asthma Hypothyroid Surgical History Hx of section History of surgery on lower extremity Family History Father HTN (hypertension) Diabetes Mother HTN (hypertension) Diabetes Maternal Aunt Breast cancer Paternal Grandmother Breast cancer Social History Household Members: Spouse and Children Household Members Other:: mom Housing: Apartment Alcohol intake: current Alcohol intake frequency: holidays/special occasions only Patient Tobacco Use Status: Never used Tobacco Current occupational status: employed Current occupation: [employer] Sexual orientation: Straight/Heterosexual Gender identity: Female Female Reproductive History Menstrual Date of last menstrual period: 12/25/19 Total pregnancies: 2 Full term: 2 Review of Systems Const All systems reviewed & are unremarkable except as noted in HPI and below Reports as per HPI and Reports no additional complaints Card Reports as per HPI and Reports no additional complaints Resp Reports as per HPI and Reports no additional complaints GI Reports no additional complaints Reports no additional complaints Physical Exam Const General: cooperative, healthy appearing and comfortable Resp Effort & Inspection: normal respiratory effort Auscultation: clear to auscultation bilaterally Percussion: percussion normal Cardio Palpation: normal PMI Rate: regular rate Rhythm: regular rhythm Heart sounds: no murmurs and no rubs Peripheral pulses: Peripheral pulses 2+ throughout GI Inspection: Yes normal to inspection Palpation (GI): Soft to palpation, nontender, no guarding, not rigid and No hepatosplenomegaly present Percussion: Yes normal to percussion Auscultation: normal bowel sounds Rectal Exam - Female: deferred Assessment & Plan Assessment & Plan (1) Complex ovarian cyst: Code(s): N83.299 - Other ovarian cyst, unspecified side Category: Medical Plan: Discussed with the patient ultrasound findings showing the previously identified complex cyst has resolved. Also discussed with the patient the new finding of a left complex ovarian cyst, colpo luteum cyst. Discussed with the patient the Ultrasound findings, the main limitation of transvaginal ultrasonography alone as a diagnostic tool to distinguish benign from malignant masses relates to its lack of specificity and low positive predictive value for cancer. The differential diagnosis discussed with the patient includes the following but not limited to: benign and malignant gynecological and non-gynecological causes. Discussed with the patient options of treatment including laparoscopy ovarian cystectomy/oophorectomy vs. expectant management with repeat US in repeating pelvic US in 6-12 weeks from previous US. If the ovarian complex cyst is persistent larger and / or more complex looking, will refer to gynecologic Oncology. All pros, cons, risks and benefits of each approach were discussed with the patient including but not limited to a delay in the diagnosis and treatment of ovarian cancer affecting the prognosis; The patient decided to go ahead with expectant management. Instructions given the patient to schedule a 3 months follow-up ultrasound appointment. All questions were answered & the patient verbalized understanding and agreed with the plan. (2) Abnormal uterine bleeding (AUB): Comment: Endometrial polyp on EMB pathology Code(s): N93.9 - Abnormal uterine and vaginal bleeding, unspecified Category: Medical Plan: Discussed with the patient the results the pathology showing fragments of endometrial polyp, recommended hysteroscopy D&C possible polypectomy/myomectomy. Discussed with the patient the procedure , all benefits and risks including but not limited to inability to complete the procedure , insufficient endometrial tissue for a complete evaluation of the endometrial cavity , bleeding, infection, possible need for blood transfusion with all its risk ( HIV,syphilis, Hepatitis, anaphylaxis shock, others..), injury to bladder, rectum, possible need for laparoscopy/laparotomy or hysterectomy. The patient verbalized understanding and signed the consent. Instructions given the patient to stay NPO after midnight the day prior to the procedure and to take only the specific medication (s) discussed the morning of the surgical procedure and to schedule a 2 week postoperative appointment (3) Vulvovaginitis: Code(s): N76.0 - Acute vaginitis Category: Medical Plan: GC/CT, Bacterial Vaginosis panel taken, Terazol 0.8% q.h.s. for 3 days was sent to the patient's pharmacy. The patient was instructed to call if symptoms don't improve in 48 hours. Orders: Orders US pelvic and transvaginal 3 Months N83.299 - Other ovarian cyst, unspecified side Medications: New terconazole 0.8% 1 appful vaginal BEDTIME 20 grams 0RF 3 days Coding Level of Care Code Est Pt Level 3 (24997) Diagnoses Complex ovarian cyst N83.299 Abnormal uterine bleeding (AUB) N93.9 Vulvovaginitis N76.0
--- OUTSIDE RECORDS SUMMARY | 2024-10-23 11:22 | XMS_ITS | Encounter Summary ---
Author Organization [employer] Address [address] [place] [address] 7 [place] [address] Care Team Providers Care Exhibitor Sales Name Role Phone Genoveva Vaughn MD Primary Care Provider [phone] Reason for Visit * Reason Onset Date Comments requesting a letter 03/03/2022 Encounter Details Date Type Department Care Team ([facility] st Contact Info) Description 03/03/2022 Telephone [facility] MEDICINE [address] [place], [place] [phone] Genoveva Vaughn MD [address] [place], [place] [phone] requesting a letter Social History Tobacco Use [...] Medical Eval Form after several calls T# [phone] 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
--- OUTSIDE RECORDS SUMMARY | 2024-10-23 11:22 | XMS_ITS | Encounter Summary ---
Author Organization [employer] Address [address] [place] [address] 7t [place] [address] Care Team Providers Care Solar Photovoltaic Designer Name Role Phone Genoveva Vaughn MD Primary Care Provider [phone] Encounter Details Date Type Department Care Team ([facility] st Contact Info) Description 10/31/2022 Orders Only [facility] [address] [place] [address] Nisha Partida LPN Social History Tobacco Use [...] on file documented as of this encounter Procedures Procedure Name Priority Date/Time Associated Diagnosis Comments T4, FREE Routine 11/22/2022 9:56 AM EDT documented in this encounter Results * T4, Free (11/22/2022 9:56 AM EDT) Free T4 (Free Thyroxine) 1.62 0.71 - 1.85 ng/dL [facility] 11/22/2022 9:56 AM EDT 11/22/2022 11:22 AM EDT us Genoveva Vaughn MD LAB BLOOD ORDERABLES Final Res ult [facility] [address] [place] [address] [phone] documented in this encounter Visit Diagnoses Not on filedocumented in this encounter Care Teams Solar Photovoltaic Designer Relationship Specialty Start Date End Date Genoveva Vaughn MD [address] [place] [address] PCP - General Family Medicine 10/14/21 documented as of this encounter
--- OUTSIDE RECORDS SUMMARY | 2024-10-23 11:22 | XMS_ITS | Encounter Summary ---
Author Organization [facility] Address [address] [place] [address] 7t [place] [address] Care Team Providers Care Senior Clinical Project Manager Name Role Phone Genoveva Vaughn MD Primary Care Provider [phone] Encounter Details Date Type Department Care Team (Late st Contact Info) Description 09/28/2022 Telephone [facility] MEDICINE [address] [place], [place] [phone] Genoveva Vaughn MD [address] [place], [place] [phone] Social History Tobacco Use Types Packs/Day Years [...] on filedocumented in this encounter Care Teams Senior Clinical Project Manager Relationship Specialty Start Date End Date Genoveva Vaughn MD [address] [place], [place] [phone] PCP - General Family Medicine 10/14/21 documented as of this encounter
--- OUTSIDE RECORDS SUMMARY | 2024-10-23 11:22 | XMS_ITS | Clinical Summary ---
Author Organization [employer] Address [address] [place] [address] 7t [place] [address] Care Team Providers Care Assembler Body Name Role Phone Genoveva Vaughn MD Primary Care Provider [phone] Allergies No known active allergies Medications Acetaminophen Extra Strength 500 MG tablet TAKE 2 TABLET BY MOUTH EVERY 6 HOURS NEEDED NEEDED FOR PAIN 160 tablet 3 Active ibuprofen 400 MG tablet Take 400 mg by mouth every 6 (six) hours if needed. 2 Active fexofenadine (Khushboo) 180 MG tabletIndications: Atopic dermatitis, unspecified type Take 1 tablet (180 mg) by mouth if needed each day (Allergies). 90 tablet 2 3 Active metFORMIN (Glucophage) 500 MG tablet Take 0.5 tablets (250 mg) by mouth with breakfast. 45 tablet 3 4 11/05/19 25 Active levothyroxine (Synthroid, Levoxyl) 200 MCG tablet TAKE 1 TABLET BY MOUTH EVERY DAY 90 tablet 3 4 Active fluticasone (Flonase) 50 MCG/ACT nasal spray USE 1 SPRAY INTO EACH NOSTRIL ONCE DAILY 32 mL 3 5 Active D-1000 Extra Strength 25 MCG (1000 UT) tablet TAKE 1 TABLET (25 MCG) BY MOUTH IN THE MORNING 90 tablet 3 5 Active norethindrone (Ortho Micronor) 0.35 MG tablet Take 1 tablet (0.35 mg) by mouth Once per day. 28 tablet 12 5 05/19/19 26 Active albuterol 108 (90 Base) MCG/ACT inhaler Inhale 2 puffs every 4 (four) hours if needed for wheezing or shortness of breath. 18 g 5 Active ketorolac (Toradol) 10 MG tabletIndications: Other cerebral palsy (CMS/HCC) TAKE 1 TABLET BY MOUTH EVERY 6 HOURS NEEDED FOR PAIN FOR MAX 5 DAYS 5 Active ondansetron ODT (Zofran-ODT) 8 MG disintegrating tabletIndications: Other cerebral palsy (CMS/HCC) Take 8 mg by mouth every 8 (eight) hours if needed. 4 Active naltrexone (Depade) 50 MG tabletIndications: Overweight Take 0.5 tablets (25 mg) by mouth Once per day. Take one half tablet at night 45 tablet 3 5 07/05/19 26 Active triamcinolone (Kenalog) 0.1 % creamIndications:A topic dermatitis, unspecified type Mix with Cerave and apply in thin layer over cheeks for 10 days 80 g 2 5 Active Active Problems Problem Noted Date Diagnosed Date Facial rash 07/23/2024 Subacute maxillary sinusitis 03/13/2024 Overview (03/13/2024): augmentin flu next time Assessment & Plan (03/13/2024 1:44 PM EST): Augmentin x 7d Rest (sleep at least 8 hours a night). Hydrate with plenty of water (avoid caffeine and alcohol). Use saline nose drops to loosen mucus + Flonase Take Acetaminophen (Tylenol )/Ibuprofen as needed to reduce fever, headache, body aches or discomfort Gargle with salt water and use throat sprays/lozenges for throat pain. Use heated, humidified air or take hot showers. Overweight 05/01/2023 Assessment & Plan (07/09/2024 11:33 AM EDT): Take fiber daily She had a bad reaction to a compounded weight loss medication in [facility] that caused thyroid damage Taking Metformin 500mg daily, trialed Topimax for 6 months (could not tolerate due to nervous sensation/tingling in body) Referral to nutrition Add Naltrexone 25mg nightly for weight loss and pain Assessment & Plan (05/01/2023 12:40 PM EST): Take fiber daily She had a bad reaction to a compounded [facility] that caused thyroid damage Gave her handout [...] foot spasm Hypothyroidism 10/17/2021 Assessment & Plan (07/23/2024 9:29 AM EDT): Recheck TSH in 4 weeks, after 8-12 weeks total on decreased synthroid dose of 200mcg Assessment & Plan (07/09/2024 11:34 AM EDT): [...] Encounters Date Type Department Care Team Description 09/30/2024 Orders Only [facility] External Provider, [facility] 08/11/2024 Telephone [facility] [address] [place] [address] Genoveva Vaughn MD chart prep 08/04/2024 Patient Outreach [facility] [address] [place] [address] Genoveva Vaughn MD Pre-visit Planning (SDOH screening negative and tobacco screening negative) from Last 3 Months Immunizations Immunization Administration [...] 86 07/04/2024 11:44 AM EDT Temperature 36.5 C (97.7 F) 07/04/2024 11:44 AM EDT Respiratory Rate 20 07/04/2024 11:44 AM EDT Oxygen Saturation 99% 07/04/2024 11:44 AM EDT Inhaled Oxygen Concentration - - Weight 80.7 kg (178 lb) 07/04/2024 11:44 AM EDT Height 162.6 cm (5' 4 ) 07/04/2024 11:44 AM EDT Body Mass Index 30.55 07/04/2024 11:44 AM EDT Plan of Treatment Health Maintenance Due Date Last Done Comments HIV Screening 1980 Disability Screening 1980 Alcohol/Substance Use Screening 1992 HPV Vaccines (1 - 3-dose series) 07/08/1995 Hepatitis C Screening 1998 DTaP/Tdap/Td Vaccines (1 - Tdap) 07/08/1999 Hepatitis B Vaccines (1 of 3 - 19+ 3-dose series) 07/08/1999 COVID-19 Vaccine ( - 2023-2 5 season) 2023 Influenza Vaccine (#1) 2024 , 10/25/2022 Family Planning (PISQ) 05/12/2025 05/12/2024 Depression Screening 07/04/2025 07/04/2024, 07/04/2024 Tobacco Screening 07/22/2025 07/22/2024 SDOH Screening 08/04/2025 08/04/2024 Mammogram 09/08/2025 09/08/2024, 12/01/2022 Cervical Cancer Screening 01/25/2028 HPV/Cotest 01/25/2028 01/24/2023 Pap Smear 01/25/2028 01/24/2023, 01/24/2023 Zoster Vaccines (1 of 2) 2030 RSV Patients and Patients Aged 60 years or older (1 - 1-dose 75+ series) 07/08/2055 HIB Vaccines Aged Out No longer eligi [...] Years) and At-Risk Patients (6 to 49) Years Aged Out No longer eligible b ased on patient's age to complete this topic RSV under 20 months Aged Out No longe r eligible based on patient's age to complete this topic Rotavirus Vaccines Aged Out No longer eligible based on patient's age to complete this topic Procedures Procedure Name Priority Date/Time Associated Diagnosis Comments US PELVIS TRANSVAGINAL Routine 09/30/2024 1:35 PM EDT T4, FREE Routine 09/30/2024 11:51 AM EDT TSH W/REFLEX TO FT4 Routine 09/30/2024 1 1:51 AM EDT Postoperative hypothyroidism BI MAMMOGRAM SCREENING TOMOSYNTHESIS BILATERAL Routine 09/08/2024 10:10 AM EDT Screening mammogram for breast cancer HPV MRNA E6/E7 REFLEX TO HPV 16, 18/45 Routine 01/24/2023 10:45 AM EST IMAGE-GUIDED PAP W/AGE BASED SCR,W/CT/NG/TRICH Routine 01/24/2023 10:45 AM EST Encntr screen for infections w sexl mode of transmiss Cervical cancer screening from Last 3 Months or Most Recently Relevant to Health Maintenance Results * US Pelvis Transvaginal (09/30/2024 1:35 PM EDT) Anatomical Region Laterality Modality Pelvis Ultrasound 09/30/2024 1:35 PM EDT Narrative 09/30/2024 1:37 PM EDT [address] [address] Ultrasound Report Signed Patient: Janelle Eli MR#: [id number] 10 : 1980 Acct:[id number] Age/Sex: 44 / F ADM Date: 09/30/24 Loc: .US Attending Dr: Josep Jackson MD Ordering Physician: Josep Jackson MD Date of Service: 09/30/24 Procedure(s): US pelvic and transvaginal Accession Number(s): [id number] cc: Genoveva Vaughn; Josep Jackson MD CLINICAL HISTORY: N83.299 - Other ovarian cyst, unspecified side Ultrasound of the female pelvis Comparison: US/IA/SR - US PELVIS TRANSABDOMINAL AND TRANSVAGINAL - 06/25/24 11:42 EDT Technique: Grayscale ultrasound with assistance of color Doppler. Transabdominal scanning performed for overall anatomy. Transvaginal scanning performed for better anatomic delineation. Findings: Anteverted uterus measures 9.2 x 3.4 x 3.8 cm. Unremarkable myometrium. No fibroid is visualized. Normal endometrium, 5 mm in thickness. Normal cervix. Normal right ovary, 2.0 x 1.1 x 1.0 cm. No abnormal vascular flow. Left ovary is normal in size, 2.6 x 3.1 x 2.9 cm, simple dominant follicle 2.6 cm, new complex cyst with smooth thick wall and no intralesional vascular flow 1.6 x 1.3 x 1.3 cm. No abnormal vascular flow. No free fluid. Impression: Left ovarian dominant follicle and corpus luteal cyst, previously seen minimally complex cyst is not visualized. This document has been electronically signed by: Sharon Ramírez MD on 09/30/2024 13:35:27 Dictated By: Sharon Ramírez MD Signed By: <Electronically signed by Sharon Ramírez MD in OV> 09/30/24 1336 DD/ 1335 TD/TT: 09/30/24 1335 Supervisor Telephone Answering Service: Procedure Note Donotuseinterpreter, Image - 09/30/2024 [place] [address] Ultrasound Report Signed Patient: Albino Eli#: [id number] 10 : 1980Acct:[id number] Age/Sex: 44 / FADM Date: 09/30/24 Loc: HO.US Attending Dr: Josep Jackson MD Ordering Physician: Josep Jackson MD Date of Service: 09/30/24 Procedure(s): US pelvic and transvaginal Accession Number(s): [id number] cc: Genoveva Vaughn; Josep Jackson MD CLINICAL HISTORY: N83.299 - Other ovarian cyst, unspecified side Ultrasound of the female pelvis Comparison: US/IA/SR - US PELVIS TRANSABDOMINAL AND TRANSVAGINAL - 06/25/24 11:42 EDT Technique: Grayscale ultrasound with assistance of color Doppler. Transabdominal scanning performed for overall anatomy. Transvaginal scanning performed for better anatomic delineation. Findings: Anteverted uterus measures 9.2 x 3.4 x 3.8 cm. Unremarkable myometrium. No fibroid is visualized. Normal endometrium, 5 mm in thickness. Normal cervix. Normal right ovary, 2.0 x 1.1 x 1.0 cm. No abnormal vascular flow. Left ovary is normal in size, 2.6 x 3.1 x 2.9 cm, simple dominant follicle 2.6 cm, new complex cyst with smooth thick wall and no intralesional vascular flow 1.6 x 1.3 x 1.3 cm. No abnormal vascular flow. No free fluid. Impression: Left ovarian dominant follicle and corpus luteal cyst, previously seen minimally complex cyst is not visualized. This document has been electronically signed by: Sharon Ramírez MD on 09/30/2024 13:35:27 Dictated By: Sharon Ramírez MD Signed By: <Electronically signed by Sharon Ramírez MD in OV> 09/30/24 1336 DD/ 1335 TD/TT: 09/30/24 133 Supervisor Telephone Answering Service: [facility] External Provider IMG US PROCEDURES Edited Result - Final * (ABNORMAL) TSH W/Reflex to FT4 (09/30/2024 11:51 AM EDT) TSH reflex Free T4 <0.01(L) 0.32 - 4.0 uIU/mL [facility] Blood Venous blood specimen / Unknown 09/30/2024 11:51 AM EDT 09/30/2024 11:51 AM EDT Result [facility] Genoveva Vaughn MD LAB BLOOD ORDERABLES Final Res ult Performing Organization Address [facility]/ZIP Co de Phone Number [facility] [address] [place] [phone] * T4, Free (09/30/2024 11:51 AM EDT) Free T4 (Free Thyroxine) 1.62 0.71 - 1.85 ng/dL [facility] 09/30/2024 11:5 1 AM EDT 09/30/2024 11:51 AM EDT Result [facility] Genoveva Vaughn MD LAB BLOOD ORDERABLES Final Res ult Performing Organization Address [facility]/ZIP Co de Phone Number [facility] [address] [place] [phone] * BI Mammogram Screening Tomosynthesis Bilateral (09/08/2024 10:10 AM EDT) Anatomical Region Laterality Modality Breast Bilateral Mammography 09/08/2024 10:1 0 AM EDT Narrative 09/19/2024 5:11 PM EDT [facility] [address] [place] [address] Mammography Report Signed Patient: Janelle Eli MR#: [id number] 10 : 1980 Acct:[id number] Age/Sex: 44 / F ADM Date: 09/08/24 Loc: HO.MAMMO Attending Dr: Josep Jackson MD Ordering Physician: Genoveva Vaughn Results: 1Negative Date of Service: 09/08/24 Follow Up: 1 Year From Orig inal Mammogram Procedure(s): MM tomosynthesis screening BI Accession Number(s): [id number] cc: Genoveva Vaughn EXAMINATION: MM SCREENING DIGITAL BREAST TOMOSYNTHESIS, BILATERAL CLINICAL INFORMATION: Screening. Asymptomatic. COMPARISON: Mammography: Comparison is made with available priors TECHNIQUE: Digital breast mammography with tomosynthesis is performed in both the craniocaudal and mediolateral oblique views along with computer-aided detection (CAD). FINDINGS: There are scattered areas of fibroglandular [...] target due date for their next mammogram. Electronically signed by: Ioana Bedolla DO 09/19/2024 05:08 PM EDT Dictated By: Ioana Bedolla DO Signed By: <Electronically signed by Ioana Bedolla DO in OV> 09/19/24 1708 DD/ 1010 TD/TT: 09/08/24 1034 Supervisor Telephone Answering Service: Procedure Note Donotuseinterpreter, Image - 09/19/2024 [facility] [address] [place] [address] Mammography Report Signed Patient: Elizabeth EliR#: [id number] 10 : 1980Acct:[id number] Age/Sex: 44 / FADM Date: 09/08/24 Loc: HO.MAMMO Attending Dr: Josep Jackson MD Ordering Physician: Mauricio Vaughnults: 1Negative Date of Service: 09/08/24Follow Up: 1 Year From Orig ina Mammogram Procedure(s): MM tomosynthesis screening BI Accession Number(s): [id number] cc: Genoveva Vaughn EXAMINATION: MM SCREENING DIGITAL BREAST TOMOSYNTHESIS, BILATERAL CLINICAL INFORMATION: Screening. Asymptomatic. COMPARISON: Mammography: Comparison is made with available priors TECHNIQUE: Digital breast mammography with tomosynthesis is performed in both the craniocaudal and mediolateral oblique views along with computer-aided detection (CAD). FINDINGS: There are scattered areas of fibroglandular [...] target due date for their next mammogram. Electronically signed by: Ioana Bedolla DO 09/19/2024 05:08 PM EDT Dictated By: Ioana Bedolla DO Signed By: <Electronically signed by Ioana Bedolla DO in OV> 09/19/24 1708 DD/ 1010 TD/TT: 09/08/24 1034 Supervisor Telephone Answering Service: us Genoveva Vaughn MD IMG BI PROCEDURES Edited Resul t - Final * Image-Guided Pap with Age-Based Screening??with CT/NG,??Trichomonas (01/24/2023 10:45 AM EST) Trichomonas (NAAT) NOT DETECTED NOT DETECTED [facility] Comment:The analytical perfo rmance characteristics of thisassay have been determined by [employer]. Themodifications have not been cleared or approved bythe FDA. This assay has been validated pursuant to theIA regulations and is used for clinical purposes.For additional information, please refer [email or web address]/faq/Trichomonastma(This link is being provided for information/educational purposes only.)THIS TEST WAS PERFORMED AT:[employer] [address] [phone] MACK MD CTNG Ref Lab NOT DETECTED NOT DETECTED [facility] NG Ref Lab NOT DETECTED NOT DETECTED [facility] Pap Vial 01/24/2023 10:4 5 AM EST 01/26/2023 10:52 AM EST Jacinta Erwin [facility] CYTOLOGY ORDERABLES F inal Result [facility] [address] [place] [phone] * HPV mRNA E6/E7 w/Reflex to HPV Genotypes 16, 18/45 (01/24/2023 10:45 AM EST) HPV nRNA E6/E7 Not Detected Not Detected [facility] Comment:Methodology: Transcr iption-Mediated AmplificationThis assay detects E6/E7 viral messenger RNA (mRNA) from 14high-risk HPV types (16,18,31,33,35,39,45,51,52,56,58,59,66,68).Cervical sources are required for HPV testing.If a vaginal source from a patient who has had atotal hysterectomy with removal of cervix wassubmitted, please contact the testing laboratoryfor alternative testing options.For additional information, please refer [email or web address]/faq/HFI838j8(This link if provided for information/educational purposes only.)THIS TEST WAS PERFORMED AT:[employer] [address] [id number] MACK MD HPV mRNA E6/E7 TNP [facility] HPV 16 RNA TNP [facility] HPV 18/45 RNA TNP [facility] 01/24/2023 10:4 5 AM EST 01/25/2023 11:00 AM EST us Jacinta Erwin CN LAB CYTOLOGY ORDERABLES F inal Result [facility] [address] [place] [phone] from Last 3 Months or Most Recently Relevant to Health Maintenance Insurance [facility] , [address] [place] [phone] Care Teams Assembler Body Relationship Specialty Start Date End Date Genoveva Vaughn MD [address] [place] [address] PCP - General Family Medicine 10/14/21
--- OUTSIDE RECORDS SUMMARY | 2024-10-23 11:22 | XMS_ITS | Encounter Summary ---
Author Organization [employer] Address [address] [place] [address] [address] [place] [address] Care Team Providers Care Metal Sprayer Protective Coating Name Role Phone Genoveva Vaughn MD Primary Care Provider [phone] Encounter Details Date Type Department Care Team (Late st Contact Info) Description 11/28/2022 Orders Only [facility] [address] [place], [place] [phone] Genoveva Vaughn MD [address] [place] [address] Chronic pain of both knees (Primary Dx) [...] PM EDT Narrative 12/21/2022 1:52 PM EDT [address] [place] [address] Mammography Report Signed Patient: Janelle Eli MR#: [id number] 10 : 1980 Acct:[id number] Age/Sex: 42 / F ADM Date: 12/01/22 Loc: .MAMMO Attending Dr: Genoveva Vaughn MD Ordering Physician: Genoveva Vaughn Results: 1Negative Date of Service: 12/01/22 Follow Up: 1 Year From Orig [facility] Mammogram Procedure(s): MM tomosynthesis screening BI Accession Number(s): [id number] cc: Genoveva Vaughn EXAMINATION: MM SCREENING DIGITAL [...] in OV> 12/21/22 1348 DD/ 1210 TD/TT: Career Development Engineer: Procedure Note Donotuseinterpreter, Image - 12/21/[address] [place] [address] Mammography Report Signed Patient: Albino Eli#: [id number] 10 : 1980Acct:[id number] Age/Sex: 42 / FADM Date: 12/01/22 Loc: [facility]EN[facility]ionJ[facility] Attending Dr: Genoveva Vaughn MD Ordering Physician: Mauricio Vaughnults: 1Negative Date of Service: 12/01/22Follow Up: 1 Year From Orig inal Mammogram Procedure(s): MM tomosynthesis screening BI Accession Number(s): [id number] cc: Genoveva Vaughn EXAMINATION: MM SCREENING DIGITAL [...] in OV> 12/21/22 1348 DD/ 1210 TD/TT: Career Development Engineer: Genoveva Vaughn MD IMG BI PROCEDURES Final Result documented in this encounter Visit Diagnoses Diagnosis Chronic pain of both knees- Primary documented in this encounter Care Teams Metal Sprayer Protective Coating Relationship Specialty Start Date End Date Genoveva Vaughn MD [address] [place] [phone] PCP - General Family Medicine 10/14/21 documented as of this encounter
--- OUTSIDE RECORDS SUMMARY | 2024-10-23 11:22 | XMS_ITS | Encounter Summary ---
Author Organization [employer] Address [address] [place] [address] [address] [place] [address] Care Team Providers Care Grain Broker Name Role Phone Genoveva Vaughn MD Primary Care Provider [phone] Encounter Details Date Type Department Care Team ([facility] st Contact Info) Description 06/29/2024 Orders Only [facility] [address] [place], [place] [phone] Genoveva Vaughn MD [address] [place], [place] [phone] Social History Tobacco Use Types Packs/Day Years [...] on filedocumented in this encounter Care Teams Grain Broker Relationship Specialty Start Date End Date Genoveva Vaughn MD [address] [place] [phone] PCP - General Family Medicine 10/14/21 documented as of this encounter
--- OUTSIDE RECORDS SUMMARY | 2024-10-23 11:22 | XMS_ITS | Clinical Summary ---
Author Organization [facility] Address [address] [facility] [address] [place] [phone] Phone Care Team Providers Care International Trade Specialist Name Role Phone Genoveva Vaughn MD [...] 2001 COVID-19 VACCINE (2023-2 5 season) 2023 INFLUENZA VACCINE (#1) 2024 MAMMOGRAM 12/01/2024 12/01/2022 HEPATITIS A VACCINES Aged [...] topic Medical Devices Not on file [facility] HEALTH SAFETY NET PARTIAL HEALTH SAFETY NET PARTIAL [employer] POS EPO HEALTH SAFETY NET PARTIAL O POS EPO [facility] SAFET[facility] NET PARTIAL [facility] E[facility] HEALTH SAFETY NET PARTIAL [facility] POS EPO HEALTH SAFETY NET PARTIAL Care Teams International Trade Specialist Relationship Specialty Start Date End Date Genoveva Vaughn MD PCP - General 02/18/24 Additional Source Comments The information contained in this document represents components of the legal health record. It is not the complete legal health record.[facility]
== END 2024-10-23 11:24 | disposition home or self-care (01) ==
LOC: HO.HWS 10:05
PROVIDERS: PCP General Practice; Visit Provider Obstetrics & Gynecology
DX: N83.299 Other ovarian cyst, unspecified side (principal); N93.9 Abnormal uterine and vaginal bleeding, unspecified; N76.0 Acute vaginitis
CPT/HCPCS: 99213

== ENCOUNTER 2024-11-14 08:46 | Day surgery (SDC) | payer OTHER, SELFPAY ==
[2024-11-12 11:00] VITALS: BMI 29.8
--- NOTE | 2024-11-12 11:21 | P.CONAN_ITS ---
Documented by User: Berna Ny NP 11/12/24 11:22 HPI - Anesthesia Eval Consult details Narrative: 44 yr old female for D&C Hysteroscopy,possible myomectomy,possible polypectomy PMFSH Active Problems Active Problems: All Active Problems (Updated 10/23/24 @ 11:10 by Josep Jackson MD) Vulvovaginitis (Acute) Elevated TSH (Acute) Complex ovarian cyst (Acute) Abnormal uterine bleeding (AUB) (Acute) Past Medical History Medical History Cerebral palsy Asthma Hypothyroid Family History Family History Father HTN (hypertension) Diabetes Mother HTN (hypertension) Diabetes Maternal Aunt Breast cancer Paternal Grandmother Breast cancer Surgical History Surgical History Hx of section History of surgery on lower extremity Social History Social History Household Members: Spouse and Children Household Members Other:: mom Housing: Apartment Are you a primary career technology teacher to a significant other at home: No Do you presently have visiting nurse or other home services: No Alcohol intake: current Alcohol intake frequency: holidays/special occasions only Patient Tobacco Use Status: Never used Tobacco Have you been hit, kicked, punched, or otherwise hurt by someone within the past year? If so, by whom?: No Are you DNR?: No Advance Directives: No Advance Directives Information Provided: Yes FDLMP: last week Poor oral hygiene: No Current occupational status: employed Current occupation: [employer] Sexual orientation: Straight/Heterosexual Gender identity: Female Meds Allergies Allergy/AdvReac Type Severity Reaction Status Date / Time No Known Allergies Allergy Verified 11/14/24 09:12 Home Medications ?Medication ?Instructions ?Recorded ?Confirmed ?Last Taken ?Type albuterol sulfate 90 mcg/actuation inhalation 06/26/24 Unknown History aerosol inhaler cetirizine 10 mg tablet 10 mg PO QAM 06/26/24 Unknown History cholecalciferol (vitamin D3) 25 25 mcg PO QAM 06/26/24 11/14/24 Unknown History mcg (1,000 unit) tablet (Vitamin D3) fluticasone propionate 50 1 spray intranasal DAILY 03/2211/14/24 Unknown History mcg/actuation nasal spray,suspension levothyroxine 200 mcg tablet 200 mcg PO DAILY 06/26/24 11/14/24 Unknown History levothyroxine 25 mcg tablet 25 mcg PO DAILY 06/26/24 0 11/14/24 Unknown History metformin 500 mg tablet mg PO 06/26/24 Unknown Hist ory Exam Height,Weight and Vital Signs: Height 5 ft 3 in Weight 76.204 kg Documented by User: Kallie Dubon MD 11/14/24 10:40 PMFSH Past Medical History Medical History Cerebral palsy Asthma Hypothyroid Family History Family History Father HTN (hypertension) Diabetes Mother HTN (hypertension) Diabetes Maternal Aunt Breast cancer Paternal Grandmother Breast cancer Surgical History Surgical History Hx of section History of surgery on lower extremity History of Problems with Anesthesia: No Social History Social History Household Members: Spouse and Children Household Members Other:: mom Housing: Apartment Are you a primary career technology teacher to a significant other at home: No Do you presently have visiting nurse or other home services: No Alcohol intake: current Alcohol intake frequency: holidays/special occasions only Patient Tobacco Use Status: Never used Tobacco Have you been hit, kicked, punched, or otherwise hurt by someone within the past year? If so, by whom?: No Are you DNR?: No Advance Directives: No Advance Directives Information Provided: Yes FDLMP: last week Poor oral hygiene: No Current occupational status: employed Current occupation: [employer] Sexual orientation: Straight/Heterosexual Gender identity: Female Meds Allergies Allergy/AdvReac Type Severity Reaction Status Date / Time No Known Allergies Allergy Verified 11/14/24 09:12 Home Medications ?Medication ?Instructions ?Recorded ?Confirmed ?Last Taken ?Type albuterol sulfate 90 mcg/actuation inhalation 06/26/24 Unknown History aerosol inhaler cetirizine 10 mg tablet 10 mg PO QAM 06/26/24 Unknown History cholecalciferol (vitamin D3) 25 25 mcg PO QAM 06/26/24 11/14/24 Unknown History mcg (1,000 unit) tablet (Vitamin D3) fluticasone propionate 50 1 spray intranasal DAILY 03/2211/14/24 Unknown History mcg/actuation nasal spray,suspension levothyroxine 200 mcg tablet 200 mcg PO DAILY 06/26/24 11/14/24 Unknown History levothyroxine 25 mcg tablet 25 mcg PO DAILY 06/26/24 0 11/14/24 Unknown History metformin 500 mg tablet mg PO 06/26/24 Unknown Hist ory Exam Airway Mallampati Class: II TM Dist: >3cm Neck ROM: Limited Loose/Missing/Broken Teeth: No Heart: RRR Lungs: CTA Assessment and Plan Assessment Anesthesia Assessment: Anesthesia Plan Discussed and Chart Reviewed Final Anesthetic Review History of Problems with Anesthesia: No NPO: Yes ASA Class: II Final Preanesthetic Review: Meds/Allgs Chart Reviewed, Consent Obtained/Reviewed and Anes Risks/Benef Reviewed Patient Risk: Low Procedure Risk: Low Anesthetic Plan Anesthetic Plan: GA Disposition: Standard PACU
[2024-11-14 09:09] VITALS: BMI 31.8
[2024-11-14 09:28] LABS: UPreg QC Valid YES
[2024-11-14] MEDS: Lactated Ringers 1,000 ML 100 ML IVCONT (09:46)
[2024-11-14 09:47] VITALS: BP 112/58; PULSE 74; RESP 18; TEMP 36.7; O2SAT 98
--- NOTE | 2024-11-14 10:25 | MHC.SHP ---
Pre-Procedural Eval Section A - 24 Hr Update-Section A only Date of Service: 11/14/24 The patient is an INPATIENT: No Changes since office visit: No Cold of Flu in the past 2 weeks, No New Medical Problems, No Changes in Medication and No Patient answered all questions The patient has been examined within 24 hours of the surgical procedure. The History & Physical has been completed within 30 days and I have reviewed it.: Yes Section B - Complete if H&P > 30 days Chief Complaint: Abnormal uterine and vaginal bleeding, unspecified Allergies: Allergies Allergy/AdvReac Type Severity Reaction Status Date / Time No Known Allergies Allergy Verified 11/14/24 09:12 Plan Diagnosis/Plan: Unchanged I have reviewed the history and physical and performed a pertinent physical examination on my patient. No changes have occurred unless specified. Time Spent With Patient Time: Total time managing care of this patient today ____ minutes.
--- NOTE | 2024-11-14 11:13 | P.BOP_ITS ---
Brief Operative Note Date of Service: 11/14/24 Pre-op diagnosis: AUB, endometrial polyp on EMB pathology Post-op diagnosis: same Procedure: Hysteroscopy D&C Surgeon: Josep Jackson MD Anesthesia: GLMA Was an Assisted Living Executive Director used for this Procedure?: No Estimated blood loss (mL): 0 Pathology: other (Endometrial Scrapping) Condition: stable Disposition: PACU
--- NOTE | 2024-11-14 11:13 | W.PM.OPN ---
Operative Note Operative Note Date of Service: 11/14/24 Narrative: Preop Diagnosis: Abnormal uterine bleeding, endometrial polyp on EMB pathology Operation: Diagnostic Hysteroscopy, Dilataion & Curettage Post Op Diagnosis: Normal endometrial and endocervical cavity, no evidence of pathology QBL: Minimal Anesthesia: GLMA Surgeon: Josep Jackson MD Fiberglass Machine Operator: None Complication: None Pathology: Endometrial Scrapings Procedure: The patient was put in the dorsal lithotomy position, scrubbed, and draped in the usual manner. A sterile speculum was inserted in the patient's vagina. The anterior lip of the cervix was grasped with a single tooth tenaculum. The cervix was dilated up to 5 mm, then the scope was inserted in the patient's uterus. Inspection revealed normal endocervical & endometrial cavity with no evidence of pathology. The scope was taken out of the uterine cavity , then sharp curetting was carried on with no complications. At the end of the procedure, all instruments were taken out of the patient uterine and vaginal cavity. The single tooth tenaculum was removed and homeostasis was assured using pressure. The patient tolerated the procedure well and was transferred to the PACU in a stable condition.
[2024-11-14 11:15] VITALS: BP 117/62; PULSE 73; RESP 18; TEMP 36.2; O2SAT 99
[2024-11-14 11:20] VITALS: BP 119/75; PULSE 61; RESP 14; O2SAT 100
[2024-11-14 11:25] VITALS: BP 119/75; PULSE 58; RESP 11; O2SAT 100
[2024-11-14 11:30] VITALS: BP 122/75; PULSE 60; RESP 14; O2SAT 99
[2024-11-14 11:45] VITALS: BP 127/78; PULSE 75; RESP 16; TEMP 36.4; O2SAT 99
== END 2024-11-14 12:33 | disposition home or self-care (01) ==
PROVIDERS: Nurse Practitioner; PCP General Practice; Visit Provider Obstetrics & Gynecology
PROC: 0UDB8ZZ Extraction of Endometrium, Via Natural or Artificial Opening Endoscopic (ICD-10-PCS; CPT 58558; principal; 2024-11-14 11:10)
DX: N93.9 Abnormal uterine and vaginal bleeding, unspecified (principal); N76.0 Acute vaginitis; N83.12 Corpus luteum cyst of left ovary; G80.9 Cerebral palsy, unspecified; J45.909 Unspecified asthma, uncomplicated; E03.9 Hypothyroidism, unspecified; Z98.890 Other specified postprocedural states
CPT/HCPCS: 58558; 81025; 88305

== ENCOUNTER → 2024-11-14 08:46 | Outpatient (BNV) | payer OTHER, SELFPAY | PROVIDERS: PCP General Practice; Visit Provider Obstetrics & Gynecology | DX: N93.9 Abnormal uterine and vaginal bleeding, unspecified (principal) | CPT/HCPCS: 58558 ==

== ENCOUNTER 2024-11-25 09:37 | Outpatient (AMB) | payer OTHER, SELFPAY ==
[2024-11-25 09:41] VITALS: BP 122/76
--- NOTE | 2024-11-25 09:41 | MHC.OFFVIS ---
Vital Signs 11/25/24 09:41 BP 122/76 Intake Visit Reasons: post op Bulldozer Engineer Required: Yes Information Interpreted: clinical only Allergies No Known Allergies Allergy (Verified 11/25/24 09:42) HPI Comments Details: The patient is presenting post hysteroscopy D&C no complaints minimal vaginal bleeding no feverishness chills or abdominal pain. The pathology showed the following: Endometrium, curettage: Proliferative endometrium; no atypia or hyperplasia identified The following workup was done.: H&H= 12.1/35.7 TSH= 0.01, free T4 within normal, the patient contacted her PCP for further management hCG less than 2 GC and chlamydia were negative. Co testing was done in 01/18 was negative. Mammogram was BI-RADS 1 Pelvic ultrasound showed the following: Anteverted uterus measures 9.2 x 3.4 x 3.8 cm. Unremarkable myometrium. No fibroid is visualized. Normal endometrium, 5 mm in thickness. Normal cervix. Normal right ovary, 2.0 x 1.1 x 1.0 cm. No abnormal vascular flow. Left ovary is normal in size, 2.6 x 3.1 x 2.9 cm, simple dominant follicle 2.6 cm, new complex cyst with smooth thick wall and no intralesional vascular flow 1.6 x 1.3 x 1.3 cm. No abnormal vascular flow. No free fluid. Impression: Left ovarian dominant follicle and corpus luteal cyst, previously seen minimally complex cyst is not visualized. [facility] Medical History Cerebral palsy Asthma Hypothyroid Surgical History Hx of section History of surgery on lower extremity Family History Father HTN (hypertension) Diabetes Mother HTN (hypertension) Diabetes Maternal Aunt Breast cancer Paternal Grandmother Breast cancer Social History Household Members: Spouse and Children Household Members Other:: mom Housing: Apartment Are you a primary care management associate to a significant other at home: No Do you presently have visiting nurse or other home services: No Alcohol intake: current Alcohol intake frequency: holidays/special occasions only Patient Tobacco Use Status: Never used Tobacco Current occupational status: employed Current occupation: [employer] Sexual orientation: Straight/Heterosexual Gender identity: Female Review of Systems Const All systems reviewed & are unremarkable except as noted in HPI and below Reports as per HPI and Reports no additional complaints GI Reports no additional complaints Reports no additional complaints Physical Exam Vital Signs: Last Vital Signs BP 122/76 11/25/24 09:41 Assessment & Plan Assessment & Plan (1) Abnormal uterine bleeding (AUB): Comment: Endometrial polyp on EMB pathology Code(s): N93.9 - Abnormal uterine and vaginal bleeding, unspecified Category: Medical Plan: Discussed with the patient the results of the work up done and options of treatment including Lysteda, BCP's, Mirena IUD, endometrial ablation and hysterectomy. All pros, cons, risks and benefits if each option was discussed with the patient and the patient decided to think about it and get back to us. All questions answered the patient verbalized understanding. (2) Complex ovarian cyst: Code(s): N83.299 - Other ovarian cyst, unspecified side Category: Medical Plan: Discussed with the patient ultrasound findings showing the previously identified complex cyst has resolved. The patient was instructed to call if symptoms recur. All questions were answered the patient verbalized understanding. (3) Low TSH level: Code(s): R79.89 - Other specified abnormal findings of blood chemistry Category: Medical Plan: Discussed with the patient the results of her TSH, recommended to contact her PCP for further management Coding Level of Care Code Est Pt Level 3 (18397) Diagnoses Abnormal uterine bleeding (AUB) N93.9 Complex ovarian cyst N83.299 Low TSH level R79.89
--- OUTSIDE RECORDS SUMMARY | 2024-11-25 10:28 | XMS_ITS | Clinical Summary ---
Author Organization [employer] Address [address] [place] [address] 7t [place] [address] Care Team Providers Care Occupational Therapist Assistants Name Role Phone Genoveva Vaughn MD Primary Care Provider [phone] Allergies No known active allergies Medications Acetaminophen [...] mouth with breakfast. 45 tablet 3 4 Active levothyroxine (Synthroid, Levoxyl) 200 MCG tablet [...] wheezing or shortness of breath. 18 g 04/08/202 5 Active ketorolac (Toradol) 10 MG tabletIndications: Other cerebral palsy (HCC) TAKE 1 TABLET BY MOUTH EVERY 6 HOURS NEEDED FOR PAIN FOR MAX 5 DAYS 5 Active ondansetron ODT (Zofran-ODT) 8 MG disintegrating tabletIndications: Other cerebral palsy (HCC) Take 8 mg by mouth every 8 [...] to a compounded weight loss medication in [facility] that caused thyroid damage Taking Metformin 500mg daily, trialed Topimax for 6 months (could not tolerate due to nervous sensation/tingling in body) Referral to nutrition Add Naltrexone 25mg nightly for weight loss and pain Assessment & Plan (05/01/2023 12:40 PM EST): Take fiber daily She had a bad reaction to a compounded weight loss medication in [facility] that caused thyroid damage Gave her [...] Encounters Date Type Department Care Team Description 11/14/2024 Orders Only GENERIC EXTERNAL DATA DEPARTMENT Provider, Generic External Data 10/27/2024 Results Follow-Up [facility] [address] [place] [address] Genoveva Vaughn MD US Pelvis Transvaginal 10/23/2024 Orders Only GENERIC EXTERNAL DATA DEPARTMENT Provider, Generic External Data 09/30/2024 Orders Only [facility] External Provider, [facility] from Last 3 Months Immunizations Immunization Administration [...] Care Team (Late st Contact Info) Description 02/06/2025 1:30 PM EST Office Visit [facility] [address] [place] [address] Ren Joshi MD [address] [place] [address] Health Maintenance Due Date Last Done Comments HIV Screening 1980 Disability Screening 1980 Alcohol/Substance Use Screening 1992 HPV Vaccines (1 - 3-dose series) 07/08/1995 Hepatitis C Screening 1998 DTaP/Tdap/Td Vaccines (1 - Tdap) 07/08/1999 Hepatitis B Vaccines (1 of 3 - 19+ 3-dose series) 07/08/1999 COVID-19 Vaccine ( - 2023-2 5 season) 2024 Influenza Vaccine (#1) 2024 , 10/25/2022 Family [...] Procedure Name Priority Date/Time Associated Diagnosis Comments HEMATOXYLIN AND EOSIN STAIN Routine 11/14/2024 11:03 AM EDT HCG, QL, URINE Routine 11/14/2024 9:00 AM EDT CHLAMYDIA/N. GONORRHOEAE RNA, TMA, UROGENITAL Routine 10/23/2024 10:04 AM EDT BACTERIAL VAGINOSIS PANEL Routine 10/23/2024 10:04 AM EDT US PELVIS TRANSVAGINAL Routine 09/30/2024 1:35 PM [...] Recently Relevant to Health Maintenance Results * Hematoxylin and Eosin Stain (11/14/2024 11:03 AM EDT) 11/14/2024 11:0 3 AM EDT 11/14/2024 12:15 PM EDT [facility] - 11/18/2024 7:16 AM EDT ----- ------- Name: Richelle Elidajuan Age/Sex: 44/F : 1980 Unit#: [id number] Attend Dr: Josep Jackson MD Re11/14/24 Status: [facility] Location: HO.SSS Disch: ----- ------- SPEC : [id number] RECD: 11/14/24 STATUS: IVIS MONTEJO NUM: [id number] BRITTANEY: 11/14/[address] [facility] [address]: Josep Jackson MD ENTERED: 11/14/24 SP TYPE: Surgical OTHR DR: Genoveva Vaughn ORDERED: HE Stain/2, Gross Micro L4 Diagnosis Endometrium, curettage: Proliferative endometrium; no atypia or hyperplasia identified. Clinical History Pre-Op Dx: Abnormal uterine and vaginal bleeding, unspecified Post-Op Dx: Normal endometrial cavity Microscopic Description Microscopic sections reviewed. Material Received EM Gross Description Received in formalin, on Telfa, labeled EMC are fragments of red-pink soft tissue mixed with mucus and clotted blood forming an aggregate measuring 4.2 x 3.7 x 0.4 cm which is wrapped in lens paper and entirely submitted for microscopic examination, multiple pieces in cassettes A1 through A3. ([facility]) IHC S/NG Disclaimer NOTE: Unless otherwise stated, all tissue is formalin-fixed and paraffin-embedded. Some or all of the immunohistochemical tests reported herein may have been developed and their performance characteristics determined by [facility]. They have not been cleared or approved by the U.S. Food and Drug Administration (FDA). However, the FDA has determined that such clearance or approval is not necessary. This laboratory is certified under the Clinical Laboratory Improvement Amendments of 1988 (CLIA) as qualified to perform high complexity clinical laboratory testing. Copies To: Genoveva Vaughn [address] [place], [place] [id number] Josep Jackson MD [facility] [address] [place] [address] CONTINUED ON NEXT PAGE ----- ------- Name: Janelle Eli Age/Sex: 44/F : 1980 Unit#: [id number] Attend Dr: Josep Jackson MD Re11/14/24 Status: [facility] Location: [facility] Disch: ----- ------- SPEC : [id number] RECD: 11/14/24-1215 STATUS: IVIS MONTEJO NUM: [id number] BRITTANEY: 11/14/24-[address]: Josep Jackson MD ENTERED: 11/14/24-1220 SP TYPE: Surgical OTHR DR: Genoveva Vaughn ORDERED: RAMIRO Stain/2, Gross Micro L4 Copies To: (Continued) [phone] ----- ------- Signed (signature on file) Reinier Ahuja MD 11/18/24 0716 ----- ------- END OF REPORT Generic External Data Provider LAB BLOOD ORDERAB LES Final Result Performing Organization Address [facility] Co de Phone Number [facility] [address] [place] [address] [phone] * HCG, Qualitative, Urine (11/14/2024 9:00 AM EDT) Urine NEGATIVE NEGATIVE [facility] Comment:This test was develo ped to detect early . Falsenegative results may occur after the 5th - 7th week ofpregnancy when using this test method. If clinicallyindicated, consider a serum hCG. 11/14/2024 9:00 AM EDT 11/14/2024 9:23 AM EDT [employer] External Data Provider LAB URINE ORDERAB LES Final Result Performing Organization Address [facility] Co de Phone Number [facility] [address] [place] [address] [phone] * Bacterial Vaginosis (10/23/2024 10:04 AM EDT) Pathologist [facility] TRICHOMONAS VAGINALIS DETECTION BY PCR NOT DETECTED Not Detect [facility] BACTERIAL VAGINOSIS DETECTION BY PCR NEGATIVE Negative [facility] Comment:The BV organism targ ets of the Xpert Xpress MVP test can becommensal in women; Xpert Xpress MVP positive results forbacterial vaginosis should be considered in conjunction withother clinical and patient information to determine thedisease status. Organisms that are not detected by the XpertXpress MVP test have also been reported to be associatedwith BV and aerobic vaginitis.The Xpert Xpress MVP test performance has not been evaluatedin patients under the age of 14. ARLET GROUP DETECTION BY PCR NOT DETECTED Not Detect [facility] Arlet glab krusei PCR NOT DETECTED Not Detect [facility] 10/23/2024 10:0 4 AM EDT 10/23/2024 2:19 PM EDT us Generic External Data Provider LAB MICROBIOLOGY - GENERAL ORDERABLES Final Result [facility] [address] [place] [address] [phone] * Chlamydia/N. Gonorrhoeae RNA, TMA, Urogenitial (10/23/2024 10:04 AM EDT) CT PCR NOT DETECTED Not Detect. [facility] Comment:A not detected test result [...] psychologicalconsequences. NG PCR NOT DETECTED Not Detect. [facility] Comment:A not detected test result [...] lead to adverse medical, social or psychologicalconsequences. 10/23/2024 10:0 4 AM EDT 10/23/2024 2:19 PM EDT us Generic External Data Provider LAB MICROBIOLOGY - GENERAL ORDERABLES Final Result [facility] [address] [place] [phone] * US Pelvis Transvaginal (09/30/2024 1:35 PM EDT) Anatomical Region Laterality Modality Pelvis Ultrasound 09/30/2024 1:35 PM EDT Narrative 09/30/2024 1:37 PM EDT [address] [address] Ultrasound Report Signed Patient: Janelle Eli MR#: [id number] 10 : 1980 Acct:[id number] Age/Sex: 44 / F ADM Date: 09/30/24 Loc: .US Attending Dr: Josep Jackson MD Ordering Physician: Josep Jackson MD Date of Service: 09/30/24 Procedure(s): US pelvic and transvaginal Accession Number(s): [id number] cc: Genoveva Vaughn; Josep Jackson MD CLINICAL HISTORY: N83.299 - Other ovarian cyst, unspecified side Ultrasound of the female pelvis Comparison: US/ME/SR - US PELVIS TRANSABDOMINAL AND TRANSVAGINAL - [...] 09/30/24 1336 DD/ 1335 TD/TT: 09/30/24 1335 Workforce Planner: Procedure Note Donotuseinterpreter, Image - 09/30/2024 [place] [address] Ultrasound Report Signed Patient: Albino Eli#: [id number] 10 : 1980Acct:[id number] Age/Sex: 44 / FADM Date: 09/30/24 Loc: .US Attending Dr: Josep Jackson MD Ordering Physician: Josep Jackson MD Date of Service: 09/30/24 Procedure(s): US pelvic and transvaginal Accession Number(s): [id number] cc: Genoveva Vaughn; Josep Jackson MD CLINICAL HISTORY: N83.299 - Other ovarian cyst, unspecified side Ultrasound of the female pelvis Comparison: US/ME/SR - US PELVIS TRANSABDOMINAL AND TRANSVAGINAL - [...] in OV> 09/30/24 1336 DD/ 1335 TD/TT: 09/30/241334 Workforce Planner: [facility] External Provider IMG US PROCEDURES Edited Result - Final * (ABNORMAL) TSH W/Reflex to FT4 (09/30/2024 11:51 AM EDT) TSH reflex Free T4 <0.01(L) 0.32 - 4.0 uIU/mL [facility] Blood Venous blood specimen / Unknown 09/30/2024 11:51 AM EDT 09/30/2024 11:51 AM EDT Genoveva Vaughn MD LAB BLOOD ORDERABLES Final Res ult Performing Organization Address City/[facility]/ZIP Co de Phone Number [facility] [address] [place] [phone] * T4, Free (09/30/2024 11:51 AM EDT) Free T4 (Free Thyroxine) 1.62 0.71 - 1.85 ng/dL [facility] 09/30/2024 11:5 1 AM EDT 09/30/2024 11:51 AM EDT Genoveva Vaughn MD LAB BLOOD ORDERABLES Final Res ult [facility] [address] [place] [phone] * BI Mammogram Screening Tomosynthesis Bilateral (09/08/2024 10:10 AM EDT) Anatomical Region Laterality Modality Breast Bilateral Mammography 09/08/2024 10:1 0 AM EDT Narrative 09/19/2024 5:11 PM EDT [address] [place] [address] Mammography Report Signed Patient: Janelle Eli MR#: [id number] 10 : 1980 Acct:[id number] Age/Sex: 44 / F ADM Date: 09/08/24 Loc: HO.MAMMO Attending Dr: Josep Jackson MD Ordering Physician: Genoveva Vaughn Results: 1Negative Date of Service: 09/08/24 Follow Up: 1 Year From Orig inal Mammogram Procedure(s): MM tomosynthesis screening BI Accession Number(s): [id number] cc: Genoveva Vaughn EXAMINATION: MM SCREENING DIGITAL [...] 09/19/24 1708 DD/ 1010 TD/TT: 09/08/24 1034 Workforce Planner: Procedure Note Donotuseinterpreter, Image - 09/19/[address] [place] [address] Mammography Report Signed Patient: Sujit EliisMR#: [id number] 10 : 1980Acct:[id number] Age/Sex: 44 / FADM Date: 09/08/24 Loc: HO.MAMMO Attending Dr: Josep Jackson MD Ordering Physician: Mauricio Vaughnults: 1Negative Date of Service: 09/08/24Follow Up: 1 Year From [facility] ina Mammogram Procedure(s): MM tomosynthesis screening BI Accession Number(s): [id number] cc: Genoveva Vaughn EXAMINATION: MM SCREENING DIGITAL [...] 09/19/24 1708 DD/ 1010 TD/TT: 09/08/24 1034 Workforce Planner: us Genoveva Vaughn MD IMG BI PROCEDURES Edited Resul t - Final * Image-Guided Pap with Age-Based Screening??with CT/NG,??Trichomonas (01/24/2023 10:45 AM EST) Trichomonas (NAAT) NOT DETECTED NOT DETECTED [facility] Comment:The analytical perfo rmance characteristics of thisassay have been determined by [facility]. Themodifications have not been cleared or approved bythe FDA. This assay has been validated pursuant to theCLIA regulations and is used for clinical purposes.For additional information, please refer [email or web address]/faq/[email or web address](This link is being provided for information/educational purposes only.)THIS TEST WAS PERFORMED AT:[facility] [address] [id number] MACK MD CTNG Ref Lab NOT DETECTED NOT DETECTED [facility] NG Ref Lab NOT DETECTED NOT DETECTED [facility] Pap Vial 01/24/2023 10:4 5 AM EST 01/26/2023 10:52 AM EST Jacinta Erwin [facility] CYTOLOGY ORDERABLES F inal Result [facility] [address] [place] [phone] * HPV mRNA E6/E7 w/Reflex to HPV Genotypes 16, 18/45 (01/24/2023 10:45 AM EST) HPV nRNA E6/E7 Not Detected Not Detected [facility] Comment:Methodology: Transcr iption-Mediated AmplificationThis assay detects E6/E7 viral messenger RNA (mRNA) from 14high-risk HPV types (16,18,31,33,35,39,45,51,52,56,58,59,66,68).Cervical sources are required for HPV testing.If a vaginal source from a patient who has had atotal hysterectomy with removal of cervix wassubmitted, please contact the testing laboratoryfor alternative testing options.For additional information, please refer tohttp://education.AthleteTrax.Repairy/faq/[email or web address](This link if provided for information/educational purposes only.)THIS TEST WAS PERFORMED AT:[facility] [address] [id number] MACK MD HPV mRNA E6/E7 TNP [facility] HPV 16 RNA TNP [facility] HPV 18/45 RNA TNP [facility] 01/24/2023 10:4 5 AM EST 01/25/2023 11:00 AM EST Jacinta Erwin CN LAB CYTOLOGY ORDERABLES F inal Result [facility] [address] [place] [address] [phone] from Last 3 Months or Most Recently Relevant to Health Maintenance Insurance [facility] Care Teams Occupational Therapist Assistants Relationship Specialty Start Date End Date Genoveva Vaughn MD [address] [place] [address] PCP - General Family Medicine 10/14/21
--- OUTSIDE RECORDS SUMMARY | 2024-11-25 10:28 | XMS_ITS | Encounter Summary ---
Author Organization [facility] Address [address] [place] [address] 7 [place] [address] Care Team Providers Care Principal Technical Specialist Name Role Phone Genoveva Vaughn MD Primary Care Provider [phone] Encounter Details Date Type Department Care Team (Late st Contact Info) Description 09/28/2022 Telephone [facility] [address] [place] [address] [phone] Genoveva Vaughn MD [address] [place] [address] [phone] Social History Tobacco Use Types Packs/Day Years [...] Description 02/06/2025 1:30 PM EST Office Visit [facility] [address] [place] [phone] Ren Joshi MD [address] [place] [address] [phone] documented as of this encounter Visit Diagnoses Not on filedocumented in this encounter Care Teams Principal Technical Specialist Relationship Specialty Start Date End Date Genoveva Vaughn MD [address] [place] [address] [phone] PCP - General Family Medicine 10/14/21 documented as of this encounter
--- OUTSIDE RECORDS SUMMARY | 2024-11-25 10:28 | XMS_ITS | Encounter Summary ---
Author Organization [employer] Address [address] [place] [address] 7 [place] [address] Care Team Providers Care Hemodialysis Lab Technician Name Role Phone Genoveva Vaughn MD Primary Care Provider [phone] Encounter Details Date Type Department Care Team ([facility] st Contact Info) Description 06/29/2024 Orders Only [facility] [address] [place], [place] [phone] Genoveva Vaughn MD [address] [place], [place] [phone] Social History Tobacco Use Types Packs/Day Years [...] Description 02/06/2025 1:30 PM EST Office Visit [facility] [address] [place] [phone] Ren Joshi MD [address] [place] [phone] documented as of this encounter Visit Diagnoses Not on filedocumented in this encounter Care Teams Hemodialysis Lab Technician Relationship Specialty Start Date End Date Genoveva Vaughn MD [address] [place] [phone] PCP - General Family Medicine 10/14/21 documented as of this encounter
--- OUTSIDE RECORDS SUMMARY | 2024-11-25 10:28 | XMS_ITS | Encounter Summary ---
Author Organization [facility] Address [address] [place] [address] 7 [place] [address] Care Team Providers Care Sulphate Tester Name Role Phone Genoveva Vaughn MD Primary Care Provider [phone] Encounter Details Date Type Department Care Team (Late st Contact Info) Description 11/28/2022 Orders Only [facility] [address] [place] [address] [phone] Genoveva Vaughn MD [address] [place] [address] [phone] Chronic pain of both knees (Primary Dx) [...] Description 02/06/2025 1:30 PM EST Office Visit [facility] [address] [place] [address] [phone] Ren Joshi MD [address] [place] [address] [phone] documented as of this encounter Procedures Procedure Name Priority Date/Time Associated Diagnosis Comments BI MAMMOGRAM SCREENING TOMOSYNTHESIS BILATERAL Routine 12/01/2022 12:10 PM EDT documented in this encounter Results * BI Mammogram Screening Tomosynthesis Bilateral (12/01/2022 12:10 PM EDT) Anatomical Region Laterality Modality Breast Bilateral Mammography 12/01/2022 12:1 0 PM EDT Narrative 12/21/2022 1:52 PM EDT [facility] [address] [place] [address] Mammography Report Signed Patient: Janelle Eli MR#: [id number] 10 : 1980 Acct:[id number] Age/Sex: 42 / F ADM Date: 12/01/22 Loc: DEVI Attending Dr: Genoveva Vaughn MD Ordering Physician: Genoveva Vaughn Results: 1Negative Date of Service: 12/01/22 Follow Up: 1 Year From Orig inal Mammogram Procedure(s): MM tomosynthesis screening BI Accession Number(s): [id number] cc: Genoveva Vaughn EXAMINATION: MM SCREENING DIGITAL [...] in OV> 12/21/22 1348 DD/ 1210 TD/TT: Measurement Psychologist: Procedure Note Donotuseinterpreter, Image - 12/21/2022 [facility] [address] [place] [address] Mammography Report Signed Patient: Elizabeth EliR#: [id number] 10 : 1980Acct:[id number] Age/Sex: 42 / FADM Date: 12/01/22 Loc: DEVI Attending Dr: Genoveva Vaughn MD Ordering Physician: Mauricio Vaughnults: 1Negative Date of Service: 12/01/22Follow Up: 1 Year From Orig inal Mammogram Procedure(s): MM tomosynthesis screening BI Accession Number(s): [id number] cc: Genoveva Vaughn EXAMINATION: MM SCREENING DIGITAL [...] in OV> 12/21/22 1348 DD/ 1210 TD/TT: Measurement Psychologist: Genoveva Vaughn MD IMG BI PROCEDURES Final Result documented in this encounter Visit Diagnoses Diagnosis Chronic pain of both knees- Primary documented in this encounter Care Teams Sulphate Tester Relationship Specialty Start Date End Date Genoveva Vaughn MD [address] [place] [address] PCP - General Family Medicine 10/14/21 documented as of this encounter
--- OUTSIDE RECORDS SUMMARY | 2024-11-25 10:28 | XMS_ITS | Encounter Summary ---
Author Organization [employer] Address [address] [place] [address] 7 [place] [address] Care Team Providers Care Balance Wheel Screw Hole Tapper Name Role Phone Genoveva Vaughn MD Primary Care Provider [phone] Reason for Visit * Reason Onset Date Comments requesting a letter 03/03/2022 Encounter Details Date Type Department Care Team ([facility] st Contact Info) Description 03/03/2022 Telephone [facility] [address] [place], [place] [phone] Genoveva Vaughn MD [address] [place], [place] [phone] requesting a letter Social History Tobacco Use [...] Medical Eval Form after several calls T# [phone] 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 PCP informed on request and per spouse they will come Sunday03/06/22 to Med Records to do processing of requests, release so we can do paperwork for them. * Telephone Encounter - Celetse Paulson - 03/03/2022 12:42 PM EST Tc from pt requesting a letter for the DMV . Stating she's capable to take her drivers license . Please call pt to clarify . documented in this encounter Plan of Treatment Upcoming Encounters Date Type Department Care Team (Late st Contact Info) Description 02/06/2025 1:30 PM EST Office Visit [facility] [address] [place] [address] [phone] Ren Joshi MD [address] [place] [address] documented as of this encounter Visit Diagnoses Not on filedocumented in this encounter Care Teams Balance Wheel Screw Hole Tapper Relationship Specialty Start Date End Date Genoveva Vaughn MD [address] [place], [place] [phone] PCP - General Family Medicine 10/14/21 documented as of this encounter
--- OUTSIDE RECORDS SUMMARY | 2024-11-25 10:28 | XMS_ITS | Encounter Summary ---
Author Organization [employer] Address [address] [place] [address] 7t [place] [address] Care Team Providers Care Geodesist Name Role Phone Genoveva Vaughn MD Primary Care Provider [phone] Encounter Details Date Type Department Care Team (Late st Contact Info) Description 10/31/[address] [facility] [address] [place], [place] [phone] Nisha Partida LPN Social History Tobacco Use [...] Description 02/06/2025 1:30 PM EST Office Visit [facility] MED[facility] [address] [place] [address] Ren Joshi MD [address] [place] [address] documented as of this encounter Procedures Procedure Name Priority Date/Time Associated Diagnosis Comments T4, FREE Routine 11/22/2022 9:56 AM EDT documented in this encounter Results * T4, Free (11/22/2022 9:56 AM EDT) Free T4 (Free Thyroxine) 1.62 0.71 - 1.85 ng/dL [facility] 11/22/2022 9:56 AM EDT 11/22/2022 11:22 AM EDT us Genoveva Vaughn MD LAB BLOOD ORDERABLES Final Res ult [facility] [address] [place] [address] [phone] documented in this encounter Visit Diagnoses Not on filedocumented in this encounter Care Teams Geodesist Relationship Specialty Start Date End Date Genoveva Vaughn MD [address] [place] [address] PCP - General Family Medicine 10/14/21 documented as of this encounter
--- OUTSIDE RECORDS SUMMARY | 2024-11-25 10:28 | XMS_ITS | Clinical Summary ---
Author Organization [facility] Address [address] [facility] [address] [place] [phone] Phone Care Team Providers Care Mat Sewer Name Role Phone Genoveva Vaughn MD Primary [...] (18-6 5 YEARS) 1998 PAP SMEAR 2001 INFLUENZA VACCINE (#1) 2024 COVID-19 VACCINE ( - 2023-2 5 season) 2024 MAMMOGRAM 12/01/2024 12/01/2022 HEPATITIS A VACCINES [...] topic Medical Devices Not on file [facility] HEALTH SAFETY NET PARTIAL HEALTH SAFETY NET PARTIAL [employer] POS EPO HEALTH SAFETY NET PARTIAL O POS EPO [facility] SAFET[facility] NET PARTIAL [facility] POS EPO HEALTH SAFETY NET PARTIAL [facility] POS EPO HEALTH SAFETY NET PARTIAL Care Teams Mat Sewer Relationship Specialty Start Date End Date Genoveva Vaughn MD PCP - General 02/18/24 Additional Source Comments The information contained in this document represents components of the legal health record. It is not the complete legal health record.[facility]
== END 2024-11-25 09:55 | disposition home or self-care (01) ==
LOC: HO.HWS 09:38
PROVIDERS: PCP General Practice; Visit Provider Obstetrics & Gynecology
DX: N93.9 Abnormal uterine and vaginal bleeding, unspecified (principal); N83.299 Other ovarian cyst, unspecified side; R79.89 Other specified abnormal findings of blood chemistry
CPT/HCPCS: 99213

== ENCOUNTER 2025-01-16 10:27 | Outpatient (REF) | payer OTHER, SELFPAY ==
--- NOTE | ~2025-01-16 | XR_ITS ---
EXAMINATION: XR HIP, RIGHT CLINICAL INFORMATION: pain in R hip adductors COMPARISON: None available. TECHNIQUE: AP and oblique views of the right hip. FINDINGS: No acute cortical disruption or malalignment. No lytic or blastic lesions. Degenerative changes in the symphysis pubis. No metallic or radiopaque foreign body. No subcutaneous emphysema. XR/XR hip RT min 2V IMPRESSION: No acute fracture or dislocation. Negative x-ray, right hip. Electronically signed by: Delvis Kay MD 01/16/2025 10:47 AM [facility]
--- OUTSIDE RECORDS SUMMARY | 2025-01-16 11:10 | XMS_ITS | Encounter Summary ---
Author Organization [employer] Address [address] [place] [address] 7 [place] [address] Care Team Providers Care Jaw Skinner Name Role Phone Genoveva Vaughn MD Primary Care Provider [phone] Reason for Visit * Reason Onset Date Comments requesting a letter 03/03/2022 Encounter Details Date Type Department Care Team ([facility] st Contact Info) Description 03/03/2022 Telephone [facility] MEDICINE [address] [place], [place] [phone] Genoveva Vaughn MD [address] [place], [place] [phone] requesting a letter Social History Tobacco Use [...] Medical Eval Form after several calls T# [phone] 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
--- OUTSIDE RECORDS SUMMARY | 2025-01-16 11:10 | XMS_ITS | Encounter Summary ---
Author Organization [employer] Address [address] [place] [address] 7 [place] [address] Care Team Providers Care Circuit Breaker Assembler Name Role Phone Genoveva Vaughn MD Primary Care Provider [phone] Encounter Details Date Type Department Care Team ([facility] st Contact Info) Description 12/31/2024 Orders Only [facility] MEDICINE [address] [place], [place] [phone] Genoveva Vaughn MD [address] [place], [place] [phone] Social History Tobacco Use Types Packs/Day Years Used Date Smoking Tobacco: Never Passive Smoke Exposure: Never Smokeless Tobacco: Never Alcohol Use Standard Drinks/Week Comments Never 0 (1 standard drink = 0.6 oz pur e alcohol) Alcohol Answer Date Recorded How often do you have a drink containing alcohol ? 1 12/31/2024 How many drinks containing a lcohol do you have on a typical day when you are drinking? 0 12/31/2024 How often do you have six or more drinks on one occasion? 0 12/31/2024 Depression Answer Date Recorded Patient Health Questionnaire-9 Score 1 12/29/2024 Patient Health Questionnaire-9 Score 1 12/29/2024 Last PHQ-9: Questionnaire Data Not on file 1 02/29/2024 Housing Stability Answer Date Recorded What is [...] Date Recorded Patient Health Questionnaire-2 Score 0 12/29/2024 Internet Access Answer Date Recorded Internet Access Q1 I am not sure 12/31/2024 Internet Access Q2 I do not want or need it 06/2024 Comments No Sex and Gender Information Value [...] Description 02/06/2025 1:30 PM EST Office Visit [facility] [address] [place] [phone] Ren Joshi MD [address] [place] [address] documented as of this encounter Visit Diagnoses Not on filedocumented in this encounter Additional Health Concerns Assessment Noted Time PHQ-9 Depression Total Score: 1 12/30/19 25 1:12 PM EST documented as of this encounter Care Teams Circuit Breaker Assembler Relationship Specialty Start Date End Date Genoveva Vaughn MD [address] [place] [address] [phone] PCP - General Family Medicine 10/14/21 documented as of this encounter
--- OUTSIDE RECORDS SUMMARY | 2025-01-16 11:10 | XMS_ITS | Clinical Summary ---
Author Organization [employer] Address [address] [place] [address] 7t [place] [address] Care Team Providers Care Forensics Team Director Name Role Phone Genoveva Vaughn MD Primary Care Provider Allergies No known active allergies Medications Acetaminophen Extra Strength 500 MG tablet TAKE 2 TABLET BY MOUTH EVERY 6 HOURS NEEDED NEEDED FOR PAIN 160 tablet 10/05/19 23 Active ibuprofen 400 MG tablet Take 400 mg by mouth every 6 (six) hours if needed. 12/17/19 22 Active fluticasone (Flonase) 50 MCG/ACT nasal spray USE 1 SPRAY INTO EACH NOSTRIL ONCE DAILY 32 mL 3 04/18/19 25 Active norethindrone (Ortho Micronor) 0.35 MG tablet Take 1 tablet (0.35 mg) by mouth Once per day. 28 tablet 12 05/20/19 25 2025 Active ondansetron ODT (Zofran-ODT) 8 MG disintegrating tabletIndications :Other cerebral palsy (HCC) Take 8 mg by mouth every 8 (eight) hours if needed. 02/19/20 24 Active triamcinolone (Kenalog) 0.1 % creamIndications: Atopic dermatitis, unspecified type Mix with Cerave and apply in thin layer over cheeks for 10 days 80 g 2 07/05/19 25 Active terconazole (Terazol 3) 0.8 % vaginal cream APPLY VAGINALLY AT BEDTIME FOR 3 DAYS 10/24/19 25 Active levothyroxine (Synthroid) 175 MCG tablet Take 1 tablet (175 mcg) by mouth before breakfast. 90 tablet 3 12/30/19 25 2025 Active metFORMIN (Glucophage) 500 MG tablet Take 0.5 tablets (250 mg) by mouth with breakfast. 45 tablet 3 12/30/19 25 Active naltrexone (Depade) 50 MG tabletIndications :Overweight Take 0.5 tablets (25 mg) by mouth Once per day. Take one half tablet at night 45 tablet 3 12/30/19 25 2025 Active fexofenadine (Khushboo) 180 MG tabletIndications :Atopic dermatitis, unspecified type Take 1 tablet (180 mg) by mouth if needed each day (Allergies). 90 tablet 2 12/30/19 25 Active cholecalciferol (D-1000 Extra Strength) 25 MCG (1000 UT) tablet Take 1 tablet (25 mcg) by mouth Once per day. 90 tablet 3 12/30/19 25 Active albuterol 108 (90 Base) MCG/ACT inhaler Inhale 2 puffs every 4 (four) hours if needed for wheezing or shortness of breath. 18 g 11 12/30/19 25 Active Diclofenac Sodium 1 % gel Apply thin layer by topical route (quantity as directed on package insert) to affected area of pain 3 times daily as needed. 50 g 3 12/30/19 25 Active tiZANidine (Zanaflex) 2 MG tablet Take 2 tablets (4 mg) by mouth every 8 (eight) hours if needed for muscle spasms. 90 tablet 3 01/01/20 25 2024 Active fexofenadine (Khushboo) 180 MG tabletIndications :Atopic dermatitis, unspecified type Take 1 tablet (180 mg) by mouth if needed each day (Allergies). 90 tablet 2 01/06/20 23 2024 Discontinued(R eorder (will not trigger notification to Pharmacy)) levothyroxine (Synthroid, Levoxyl) 200 MCG tablet TAKE 1 TABLET BY MOUTH EVERY DAY 90 tablet 3 01/28/20 24 2024 Discontinued D-1000 Extra Strength 25 MCG (1000 UT) tablet TAKE 1 TABLET (25 MCG) BY MOUTH IN THE MORNING 90 tablet 3 05/17/19 25 2024 Discontinued(R eorder (will not trigger notification to Pharmacy)) albuterol 108 (90 Base) MCG/ACT inhaler Inhale 2 puffs every 4 (four) hours if needed for wheezing or shortness of breath. 18 g 06/04/19 25 2024 Discontinued(R eorder (will not trigger notification to Pharmacy)) ketorolac (Toradol) 10 MG tabletIndications :Other cerebral palsy (HCC) TAKE 1 TABLET BY MOUTH EVERY 6 HOURS NEEDED FOR PAIN FOR MAX 5 DAYS 05/08/19 25 2024 Discontinued(T herapy completed) naltrexone (Depade) 50 MG tabletIndications :Overweight Take 0.5 tablets (25 mg) by mouth Once per day. Take one half tablet at night 45 tablet 3 07/05/19 25 2024 Discontinued(R eorder (will not trigger notification to Pharmacy)) metFORMIN (Glucophage) 500 MG tablet TAKE 1/2 TABLETS (250 MG) BY MOUTH WITH BREAKFAST. 45 tablet 3 12/10/19 25 2024 Discontinued(R eorder (will not trigger notification [...] to a compounded weight loss medication in [facility] that caused thyroid damage Taking Metformin 500mg daily, trialed Topimax for 6 months (could not tolerate due to nervous sensation/tingling in body) Referral to nutrition Add Naltrexone 25mg nightly for weight loss and pain Assessment & Plan (05/01/2023 12:40 PM EST): Take fiber daily She had a bad reaction to a compounded weight loss medication in [facility] that caused thyroid damage Gave [...] Encounters Date Type Department Care Team Description 01/13/2025 Refill [facility] [place] [address] Genoveva Vaughn MD 12/31/2024 Orders Only [address] [address] Genoveva Vaughn MD 12/31/[address] [address] Genoveva Vaughn MD 12/29/2024 1:00 PM EST Office Visit [address] [address] Genoveva Vaughn MD Right hip pain (Primary Dx); Other cerebral palsy (HCC); Overweight; Atopic dermatitis, unspecified type; Postoperative hypothyroidism; Other thyrotoxicosis without thyrotoxic crisis or storm 12/29/2024 Travel 12/26/[address] [address] Gneoveva Vaughn MD Chart Prep 12/22/2024 Patient Outreach [address] [address] Genoveva Vaughn MD Pre-visit Planning (Pre visit planning LVM ) 12/08/[address] [address] Genoveva Vaughn MD 11/14/2024 Orders Only GENERIC EXTERNAL DATA DEPARTMENT Provider, Generic External Data 10/27/2024 Results Follow-Up [address] [address] Genoveva Vaughn MD US Pelvis Transvaginal 10/23/2024 Orders Only GENERIC EXTERNAL DATA DEPARTMENT Provider, Generic External Data from Last 3 Months Immunizations Immunization Administration [...] want or need it 06/2024 Comments No Intention Date Recorded No desire to become (finding) 0 05/12/2024 Sex and Gender Information Value Date Recorded Sex Assigned at Female 12/26/2021 10:40 AM EDT Legal Sex Female 10:40 AM EDT Gender Identity Female 12/26/2021 10:40 AM EDT Sexual Orientation Straight 12/26/2021 10 :40 AM EDT Last Filed Vital Signs Vital Sign Reading Time Taken Comments Blood Pressure 128/80 12/29/2024 1:10 PM EST Pulse 80 12/29/2024 1:10 PM EST Temperature 36.5 C (97.7 F) 07/04/2024 11:44 AM EDT Respiratory Rate 20 12/29/2024 1:10 PM EST Oxygen Saturation 98% 12/29/2024 1:10 PM EST Inhaled Oxygen Concentration - - Weight 73.5 kg (162 lb) 12/29/2024 1:10 PM EST Height 162.6 cm (5' 4 ) 12/29/2024 1:10 PM EST Body Mass Index 27.81 12/29/2024 1:10 PM EST Plan of Treatment Upcoming Encounters Date Type Department Care Team (Late st Contact Info) Description 02/06/2025 1:30 PM EST Office Visit [facility] MEDICINE [address] [place], [place] [phone] Ren Joshi MD [address] [place], [place] [phone] Health Maintenance Due Date Last Done Comments HIV Screening 1980 HPV Vaccines (1 - 3-dose series) 07/08/1995 Hepatitis C Screening 1998 DTaP/Tdap/Td Vaccines (1 - Tdap) 07/08/1999 Hepatitis B Vaccines (1 of 3 - 19+ 3-dose series) 07/08/1999 COVID-19 Vaccine ( - 2024-2 6 season) 2024 Influenza Vaccine (#1) 2024 , 10/25/2022 Family Planning (PISQ) 05/12/2025 05/12/2024 SDOH Screening 08/04/2025 08/04/2024 Mammogram 09/08/2025 09/08/2024, 12/01/2022 Depression Screening 12/29/2025 12/29/2024, 12/29/2024 Disability Screening 12/29/2025 12/29/2024 Tobacco Screening 12/29/2025 12/29/2024 Alcohol/Substance Use Screening 12/31/2025 12/31/2024 Cervical Cancer Screening 01/25/2028 HPV/Cotest 01/25/2028 01/24/2023 [...] Name Priority Date/Time Associated Diagnosis Comments XR HIP 2 OR 3 VIEWS RIGHT Routine 01/16/2025 10:35 AM EST Right hip pain Other cerebral palsy (HCC) HEMATOXYLIN AND EOSIN STAIN Routine 11/14/2024 11:03 AM EDT HCG, QL, URINE Routine 11/14/2024 9:00 AM EDT CHLAMYDIA/N. GONORRHOEAE RNA, TMA, UROGENITAL Routine 10/23/2024 10:04 AM EDT BACTERIAL VAGINOSIS PANEL Routine 10/23/2024 10:04 AM EDT BI MAMMOGRAM SCREENING TOMOSYNTHESIS BILATERAL Routine 09/08/2024 [...] Relevant to Health Maintenance Results * XR Hip 2 or 3 Views Right (01/16/2025 10:35 AM EST) Anatomical Region Laterality Modality Lower Extremities, Hip Right Radiograp hic Imaging 01/16/2025 10:3 5 AM EST Narrative 01/16/2025 10:49 AM EST [address] [address] XRay Report Signed Patient: Janelle Eli MR#: [id number] 10 : 1980 Acct:[id number] Age/Sex: 44 / F ADM Date: 01/16/25 Loc: HO.XRAY Attending Dr: Genoveva Vaughn MD Ordering Physician: Genoveva Vaughn Date of Service: 01/16/25 Procedure(s): XR hip RT min 2V Accession Number(s): [id number] cc: Genoveva Vaughn Reason for Exam: pain in R hip adductors EXAMINATION: XR HIP, RIGHT CLINICAL INFORMATION: pain in R hip adductors COMPARISON: None available. TECHNIQUE: AP and oblique views of the right hip. FINDINGS: No acute cortical disruption or malalignment. No lytic or blastic lesions. Degenerative changes in the symphysis pubis. No metallic or radiopaque foreign body. No subcutaneous emphysema. XR/XR hip RT min 2V IMPRESSION: No acute fracture or dislocation. Negative x-ray, right hip. Electronically signed by: Delvis Kay MD 01/16/2025 10:47 AM EST Dictated By: Delvis Haddad MD Signed By: <Electronically signed by Delvis Tinajero MD in OV> 01/16/25 1047 DD/ 1035 TD/TT: 01/16/25 1040 Vascular Surgery Physician: Procedure Note Donotuseinterpreter, Image - 01/16/[address] [address] XRay Report Signed Patient: Albino Eli#: [id number] 10 : 1980Acct:[id number] Age/Sex: 44 / FADM Date: 01/16/25 Loc: HO.XRAY Attending Dr: Genoveva Vaughn MD Ordering Physician: Genoveva Vaughn Date of Service: 01/16/25 Procedure(s): XR hip RT min 2V Accession Number(s): [id number] cc: Genoveva Vaughn Reason for Exam: pain in R hip adductors EXAMINATION: XR HIP, RIGHT CLINICAL INFORMATION: pain in R hip adductors COMPARISON: None available. TECHNIQUE: AP and oblique views of the right hip. FINDINGS: No acute cortical disruption or malalignment. No lytic or blastic lesions. Degenerative changes in the symphysis pubis. No metallic or radiopaque foreign body. No subcutaneous emphysema. XR/XR hip RT min 2V IMPRESSION: No acute fracture or dislocation. Negative x-ray, right hip. Electronically signed by: Delvis Kay MD 01/16/2025 10:47 AM EST Dictated By: Delvis Haddad MD Signed By: <Electronically signed by Delvis Tinajero MDin OV> 01/16/25 1047 DD/ 1035 TD/TT: 01/16/25 1040 Vascular Surgery Physician: Genoveva Vaughn MD IMG XR PROCEDURES Final Result * Hematoxylin and Eosin Stain (11/14/2024 11:03 AM EDT) 11/14/2024 11:0 3 AM EDT 11/14/2024 12:15 PM EDT [facility] - 11/18/2024 7:16 AM EDT ----- ------- Name: Janelle Eli Age/Sex: 44/F : 1980 [id number] Unit#: [id number] Attend Dr: Josep Jackson MD Re11/14/24 Status: [facility] Location: [facility] Disch: ----- ------- SPEC : [id number] RECD: 11/14/24-1215 STATUS: [facility] NUM: [id number] BRITTANEY: 11/14/24-1103 [facility] DR: Josep Jackson MD ENTERED: 11/14/24-1220 SP TYPE: Surgical OTHR DR: Genoveva Vaughn ORDERED: HE Stain/2, Gross Micro L4 Diagnosis Endometrium, curettage: Proliferative endometrium; no atypia or hyperplasia identified. Clinical History Pre-Op Dx: Abnormal uterine and vaginal bleeding, unspecified Post-Op Dx: Normal endometrial cavity Microscopic Description Microscopic sections reviewed. Material Received EMC Gross Description Received in formalin, on Telfa, labeled EMC are fragments of red-pink soft tissue mixed with mucus and clotted blood forming an aggregate measuring 4.2 x 3.7 x 0.4 cm which is wrapped in lens paper and entirely submitted for microscopic examination, multiple pieces in cassettes A1 through A3. ([facility]) IHC S/NG Disclaimer NOTE: Unless otherwise stated, all tissue is formalin-fixed and paraffin-embedded. Some or all of the immunohistochemical tests reported herein may have been developed and their performance characteristics determined by [facility]. They have not been cleared or approved by the U.S. Food and Drug Administration (FDA). However, the FDA has determined that such clearance or approval is not necessary. This laboratory is certified under the Clinical Laboratory Improvement Amendments of 1988 (CLIA) as qualified to perform high complexity clinical laboratory testing. Copies To: Genoveva Vaughn [address] [place] [address] Josep Jackson MD [facility] [address] [place] [address] CONTINUED ON NEXT PAGE ----- ------- Name: Janelle Eli Age/Sex: 44/F : 1980 Unit#: [id number] Attend Dr: Josep Jackson MD Re11/14/24 Status: [facility] Location: [facility] Disch: ----- ------- SPEC : [id number] RECD: 11/14/24 STATUS: [facility] NUM: [id number] BRITTANEY: 11/14/24-1102 [facility] DR: Josep Jackson MD ENTERED: 11/14/24-1219 SP TYPE: Surgical OTHR DR: Genoveva Vaughn ORDERED: RAMIRO Stain/2, Gross Micro L4 Copies To: (Continued) [phone] ----- ------- Signed (signature on file) Reinier Ahuja MD 11/18/24 0716 ----- ------- END OF REPORT Generic External Data Provider LAB BLOOD ORDERAB LES Final Result Performing Organization Address [facility] Co de Phone Number [facility] [address] [place] [phone] * HCG, Qualitative, Urine (11/14/2024 9:00 AM EDT) Pathologist [facility] Urine NEGATIVE NEGATIVE [facility] Comment:This test was develo ped to detect early . Falsenegative results may occur after the 5th - 7th week ofpregnancy when using this test method. If clinicallyindicated, consider a serum hCG. 11/14/2024 9:00 AM EDT 11/14/2024 9:23 AM EDT [email or web address] External Data Provider LAB URINE ORDERAB LES Final Result Performing Organization Address [facility] Co de Phone Number [facility] [address] [place] [phone] * Bacterial Vaginosis (10/23/2024 10:04 AM EDT) Pathologist [facility] TRICHOMONAS VAGINALIS DETECTION BY PCR NOT DETECTED Not Detect [facility] BACTERIAL VAGINOSIS DETECTION BY PCR NEGATIVE Negative [facility] Comment:The BV organism targ [...] DETECTION BY PCR NOT DETECTED Not Detect [facility] Arlet glab krusei PCR NOT DETECTED Not Detect [facility] 10/23/2024 10:0 4 AM EDT 10/23/2024 2:19 PM EDT us Generic External Data Provider LAB MICROBIOLOGY - GENERAL ORDERABLES Final Result [facility] [address] [place] [phone] * Chlamydia/N. Gonorrhoeae RNA, TMA, Urogenitial (10/23/2024 10:04 AM EDT) CT PCR NOT DETECTED Not Detect. [facility] Comment:A not detected test [...] psychologicalconsequences. NG PCR NOT DETECTED Not Detect. [facility] Comment:A not detected test [...] LAB MICROBIOLOGY - GENERAL ORDERABLES Final Result [facility] [address] [place] [phone] * BI Mammogram Screening Tomosynthesis Bilateral (09/08/2024 10:10 AM EDT) Anatomical Region Laterality Modality Breast Bilateral Mammography 09/08/2024 10:1 0 AM EDT Narrative 09/19/2024 5:11 PM EDT [address] [place] [address] Mammography Report Signed Patient: Janelle Eli MR#: [id number] 10 : 1980 Acct:[id number] Age/Sex: 44 / F ADM Date: 09/08/24 Loc: HO.MAMMO Attending Dr: Josep Jackson MD Ordering Physician: Genoveva Vaughn Results: 1Negative Date of Service: 09/08/24 Follow Up: 1 Year From [facility] Mammogram Procedure(s): MM tomosynthesis screening BI Accession Number(s): [id number] cc: Genoveva Vaughn EXAMINATION: MM SCREENING DIGITAL [...] 09/19/24 1708 DD/ 1010 TD/TT: 09/08/24 1034 Vascular Surgery Physician: Procedure Note Donotuseinterpreter, Image - 09/19/2024 [facility] [address] [place] [address] Mammography Report Signed Patient: Albino Eli#: [id number] 10 : 1980Acct:[id number] Age/Sex: 44 / FADM Date: 09/08/24 Loc: JULIEN.MAMMO Attending Dr: Josep Jackson MD Ordering Physician: Mauricio Vaughnults: 1Negative Date of Service: 09/08/24Follow Up: 1 Year From Orig inal Mammogram Procedure(s): MM tomosynthesis screening BI Accession Number(s): [id number] cc: Genoveva Vaughn EXAMINATION: MM SCREENING DIGITAL [...] Ioana Bedolla DO 09/19/2024 05:08 PM EDT RP Dictated By: Ioana Bedolla DO Signed By: <Electronically signed by Ioana Bedolla DO in OV> 09/19/24 1708 DD/ 1010 TD/TT: 09/08/24 1034 Vascular Surgery Physician: us Genoveva Vaughn MD IMG BI PROCEDURES Edited Resul t - Final * Image-Guided Pap with Age-Based Screening??with CT/NG,??Trichomonas (01/24/2023 10:45 AM EST) Trichomonas (NAAT) NOT DETECTED NOT DETECTED [facility] Comment:The analytical perfo rmance characteristics of thisassay have been determined by [employer]. Themodifications have not been cleared or approved bythe FDA. This assay has been validated pursuant to theCLIA regulations and is used for clinical purposes.For additional information, please refer tohttp://education.Eduora/faq/Trichomonastma(This link is being provided for information/educational purposes only.)THIS TEST WAS PERFORMED AT:[facility] [address] [place] [phone] MACK MD CTNG Ref Lab NOT DETECTED NOT DETECTED [facility] NG Ref Lab NOT DETECTED NOT DETECTED [facility] Pap Vial 01/24/2023 10:4 5 AM EST 01/26/2023 10:52 AM EST us Jacinta FUENTES LAB CYTOLOGY ORDERABLES F inal Result [facility] [address] [place] [phone] * HPV mRNA E6/E7 w/Reflex to HPV Genotypes 16, 18/45 (01/24/2023 10:45 AM EST) HPV nRNA E6/E7 Not Detected Not Detected [facility] Comment:Methodology: Transcr iption-Mediated AmplificationThis assay detects E6/E7 viral messenger RNA (mRNA) from 14high-risk HPV types (16,18,31,33,35,39,45,51,52,56,58,59,66,68).Cervical sources are required for HPV testing.If a vaginal source from a patient who has had atotal hysterectomy with removal of cervix wassubmitted, please contact the testing laboratoryfor alternative testing options.For additional information, please refer tohttp://education.Eduora/faq/OYV050s0(This link if provided for information/educational purposes only.)THIS TEST WAS PERFORMED AT:[facility] [address] [place] [phone] MACK MD HPV mRNA E6/E7 [facility] HPV 16 RNA [facility] HPV 18/45 RNA [facility] 01/24/2023 10:4 5 AM EST 01/25/2023 11:00 AM EST Jacinta Erwin [facility] CYTOLOGY ORDERABLES F inal Result [facility] [address] [place] [address] [phone] from Last 3 Months or Most Recently Relevant to Health Maintenance Insurance [address] [place] [phone] HSN PARTIAL [facility] Care Teams Forensics Team Director Relationship Specialty Start Date End Date Genoveva Vaughn MD [address] [place] [phone] PCP - General Family Medicine 10/14/21
--- OUTSIDE RECORDS SUMMARY | 2025-01-16 11:10 | XMS_ITS | Encounter Summary ---
Author Organization [facility] [facility] Address [address] [place] [address] 7 [place] [address] Care Team Providers Care Freight Router Name Role Phone Genoveva Vaughn MD Primary Care Provider [phone] Encounter Details Date Type Department Care Team (Late st Contact Info) Description 09/28/2022 Telephone [facility] MEDICINE [address] [place] [phone] Genoveva Vaughn MD [address] [place] [address] [phone] Social History Tobacco Use Types Packs/Day Years [...] Description 02/06/2025 1:30 PM EST Office Visit [facility] MEDICINE [address] [place] [phone] Ren Joshi MD [address] [place] [address] [phone] documented as of this encounter Visit Diagnoses Not on filedocumented in this encounter Care Teams Freight Router Relationship Specialty Start Date End Date Genoveva Vaughn MD [address] [place] [address] [phone] PCP - General Family Medicine 10/14/21 documented as of this encounter
--- OUTSIDE RECORDS SUMMARY | 2025-01-16 11:10 | XMS_ITS | Encounter Summary ---
Author Organization [employer] [facility] Address [address] [place] [address] 7 [place] [address] Care Team Providers Care Towboat Captain Name Role Phone Genoveva Vaughn MD Primary Care Provider [phone] Encounter Details Date Type Department Care Team (Late st Contact Info) Description 11/28/2022 Orders Only [facility] [address] [place] [address] [phone] Genoveva Vaughn MD [address] [place] [address] [phone] Chronic pain of both knees (Primary Dx) [...] Description 02/06/2025 1:30 PM EST Office Visit [facility] [address] [place] [address] [phone] Ren Joshi MD [address] [place] [address] [phone] documented as of this encounter Procedures Procedure Name Priority Date/Time Associated Diagnosis Comments BI MAMMOGRAM SCREENING TOMOSYNTHESIS BILATERAL Routine 12/01/2022 12:10 PM EDT documented in this encounter Results * BI Mammogram Screening Tomosynthesis Bilateral (12/01/2022 12:10 PM EDT) Anatomical Region Laterality Modality Breast Bilateral Mammography 12/01/2022 12:1 0 PM EDT Narrative 12/21/2022 1:52 PM EDT [facility] [address] [place] [address] Mammography Report Signed Patient: Janelle Eli MR#: [id number] 10 : 1980 Acct:[id number] Age/Sex: 42 / F ADM Date: 12/01/22 Loc: DEVI Attending Dr: Genoveva Vaughn MD Ordering Physician: Genoveva Vaughn Results: 1Negative Date of Service: 12/01/22 Follow Up: 1 Year From Orig inal Mammogram Procedure(s): MM tomosynthesis screening BI Accession Number(s): [id number] cc: Genoveva Vaughn EXAMINATION: MM SCREENING DIGITAL [...] in OV> 12/21/22 1348 DD/ 1210 TD/TT: Windows Systems Engineer: Procedure Note Donotuseinterpreter, Image - 12/21/2022 [facility]'s [address] [place] [address] Mammography Report Signed Patient: Elizabeth EliR#: [id number] 10 : 1980Acct:[id number] Age/Sex: 42 / FADM Date: 12/01/22 Loc: DEVI Attending Dr: Genoveva Vaughn MD Ordering Physician: Mauricio Vaughnults: 1Negative Date of Service: 12/01/22Follow Up: 1 Year From Orig inal Mammogram Procedure(s): MM tomosynthesis screening BI Accession Number(s): [id number] cc: Genoveva Vaughn EXAMINATION: MM SCREENING DIGITAL [...] in OV> 12/21/22 1348 DD/ 1210 TD/TT: Windows Systems Engineer: Genoveva Vaughn MD IMG BI PROCEDURES Final Result documented in this encounter Visit Diagnoses Diagnosis Chronic pain of both knees- Primary documented in this encounter Care Teams Towboat Captain Relationship Specialty Start Date End Date Genoveva Vaughn MD [address] [place] [address] PCP - General Family Medicine 10/14/21 documented as of this encounter
--- OUTSIDE RECORDS SUMMARY | 2025-01-16 11:10 | XMS_ITS | Clinical Summary ---
Author Organization [facility] Address [address] [facility] [address] [place] [phone] Phone Care Team Providers Care Cutter Wet Machine Name Role Phone Genoveva Vaughn MD Primary [...] VACCINE (#1) 2024 COVID-19 VACCINE ( - 2024-2 6 season) 2024 MAMMOGRAM 12/01/2024 12/01/2022 HEPATITIS A [...] topic Medical Devices Not on file Insurance [facility] POS EPO HEALTH SAFETY NET PARTIAL HEALTH SAFETY NET PARTIAL [employer] POS EPO HEALTH SAFETY NET PARTIAL O POS EPO [facility] NET PARTIAL [facility] POS EPO HEALTH SAFETY NET PARTIAL [facility] POS EPO HEALTH SAFETY NET PARTIAL Care Teams Cutter Wet Machine Relationship Specialty Start Date End Date Genoveva Vaughn MD PCP - General 02/18/24 Additional Source Comments The information contained in this document represents components of the legal health record. It is not the complete legal health record.[facility]
--- OUTSIDE RECORDS SUMMARY | 2025-01-16 11:10 | XMS_ITS | Encounter Summary ---
Author Organization [employer] Address [address] [place] [address] 7t [place] [address] Care Team Providers Care Director Of Pupil Personnel Program Name Role Phone Genoveva Vaughn MD Primary Care Provider [phone] Encounter Details Date Type Department Care Team (Late st Contact Info) Description 10/31/2022 Orders Only [facility] [address] [place], [place] [phone] Nisha Partida LPN Social History Tobacco Use [...] Description 02/06/2025 1:30 PM EST Office Visit [facility] [address] [place] [address] Ren Joshi MD [address] [place] [address] documented as of this encounter Procedures Procedure Name Priority Date/Time Associated Diagnosis Comments T4, FREE Routine 11/22/2022 9:56 AM EDT documented in this encounter Results * T4, Free (11/22/2022 9:56 AM EDT) Free T4 (Free Thyroxine) 1.62 0.71 - 1.85 ng/dL [facility] 11/22/2022 9:56 AM EDT 11/22/2022 11:22 AM EDT us Genoveva Vaughn MD LAB BLOOD ORDERABLES Final Res ult [facility] [address] [place] [address] [phone] documented in this encounter Visit Diagnoses Not on filedocumented in this encounter Care Teams Director Of Pupil Personnel Program Relationship Specialty Start Date End Date Genoveva Vaughn MD [address] [place] [address] PCP - General Family Medicine 10/14/21 documented as of this encounter
--- OUTSIDE RECORDS SUMMARY | 2025-01-16 11:10 | XMS_ITS | Encounter Summary ---
Author Organization [employer] Address [address] [place] [address] 7 [place] [address] Care Team Providers Care Truck Leasing Manager Name Role Phone Genoveva Vaughn MD Primary Care Provider [phone] Encounter Details Date Type Department Care Team ([facility] st Contact Info) Description 06/29/2024 Orders Only [facility] [address] [place], [place] [phone] Genoveva Vaughn MD [address] [place], [place] [phone] Social History Tobacco Use Types Packs/Day Years [...] Description 02/06/2025 1:30 PM EST Office Visit [facility] [address] [place] [phone] Ren Joshi MD [address] [place] [phone] documented as of this encounter Visit Diagnoses Not on filedocumented in this encounter Care Teams Truck Leasing Manager Relationship Specialty Start Date End Date Genoveva Vaughn MD [address] [place] [phone] PCP - General Family Medicine 10/14/21 documented as of this encounter
--- OUTSIDE RECORDS SUMMARY | 2025-01-16 11:11 | XMS_ITS | Encounter Summary ---
Author Organization [employer] Address [address] [place] [address] 7 [place] [address] Care Team Providers Care Civil Engineer Helper Name Role Phone Genoveva Vaughn MD Primary Care Provider [phone] Reason for Visit * Reason Comments Med Change Request Encounter Details Date Type Department Care Team ([facility] st Contact Info) Description 01/13/2025 Refill [facility] [address] [place], [place] [phone] Genoveva Vaughn MD [address] [place], [place] [phone] Social History Tobacco Use Types Packs/Day Years [...] 1:30 PM EST Office Visit [facility] [address] [place] [address] Ren Joshi MD [address] [place] [address] documented as of this encounter Visit Diagnoses Not on filedocumented in this encounter Additional Health Concerns Assessment Noted Time PHQ-9 Depression Total Score: 1 12/30/19 25 1:12 PM EST documented as of this encounter Care Teams Civil Engineer Helper Relationship Specialty Start Date End Date Genoveva Vaughn MD [address] [place], [place] [phone] PCP - General Family Medicine 10/14/21 documented as of this encounter
== END 2025-01-16 10:28 | disposition home or self-care (01) ==
LOC: HO.XRAY 10:27
PROVIDERS: PCP General Practice; Visit Provider General Practice
DX: M25.551 Pain in right hip (principal); G80.8 Other cerebral palsy
CPT/HCPCS: 73502

== ENCOUNTER → 2025-01-16 10:31 | Outpatient (BNV) | payer OTHER, SELFPAY | PROVIDERS: PCP General Practice; Visit Provider Radiology Diagnostic Radiology | DX: M25.551 Pain in right hip (principal) | CPT/HCPCS: 73502 ==

== ENCOUNTER 2025-01-28 11:07 | Outpatient (AMB) | payer OTHER, SELFPAY ==
--- NOTE | 2025-01-28 11:25 | A.OFFVIS_ITS ---
Vital Signs 01/28/25 11:26 Height 5 ft 3 in Weight 180 lb 12.465 oz BMI 32.0 BP 132/74 Position Sitting Pulse 90 Pulse Source Pulse Oximeter Pulse Oximetry (%) 96 Oxygen Delivery Method Room Air Intake Visit Reasons: Uncontrolled hypothyroidism/URGENT Intake Note: NEW Patient presents today to establish care for Uncontrolled Hypothyroidism: Pharmacy Operations Coordinator Required: No Accompanied by: Self / Same As Patient Allergies No Known Allergies Allergy (Verified 11/25/24 09:42) Medication List - Last Reconciled 01/28/25 by Yeset Savita Sutton MD albuterol sulfate 90 mcg/actuation inhalation cetirizine 10 mg PO QAM cholecalciferol (vitamin D3) (Vitamin D3) 25 mcg PO QAM fexofenadine 180 mg PO DAILY PRN fluticasone propionate 50 mcg/actuation 1 spray intranasal DAILY ketorolac 10 mg PO Q6H PRN levothyroxine 175 mcg PO DAILY metformin 500 mg PO terconazole 0.8% 1 appful vaginal BEDTIME 3 days tizanidine 4 mg PO Q8H PRN HPI Comments Details: 44 years old female with past medical history of hypothyroidism, cerebral palsy, sitting in the office for initial evaluation of difficult to control hypothyroidism. She reports that around 8-9 years ago she experienced hyperthyroidism and after unsuccessful medication management, she underwent BERNARDO treatmemt. Per referral notes, patient's medication was changed 225 mcg to 200 mcg on 06/26/2024 due to suppressed TSH, repeat blood work in September showed still suppressed TSH, which prompt to a decreased from 200-175 mcg of levothyroxine. No recent labs after September 2024 available for review in the chart. Per patient, she reports that she has been taking levothyroxine 175 mcg for the last 4 or 5 weeks. She reports that she was taking levothyroxine 225 mcg for a few months prior to the change in dose to 200 mcg in 06/26/24. Prior to the 225 mcg dose, she was on 200 mcg for many years, with stable labs and symptoms. She takes levothyroxine in the am, usually at least 40 mins before any food. She does not take any other medication with use. She also reports that she had a vaginal bleeding a few months ago, that the CLIENT ONBOARDING ANALYST thought could be related to uncontrolled levothyroxine. She reports that she would like to lose weight. ROS Energy: low Weight: gained around 4 kg in the last month, not seem to be related to diet Hair falling, no frail nails, dry skin (has baseline eczema) Reports no diarrhea or constipation No heat or cold intolerance No hand shaking Sporadic palpitations Physical exam: General: Well appearing. Neck/Thyroid: Thyroid not palpable, no nodules. CV: RRR, no murmur. No edema. Resp:Lungs clear to auscultation bilaterally Abdomen: Soft, nontender. nondistended Extremities/Neuro: No weakness or tremor of outstretched hands Labs Laboratory Tests 11/22/22 11/05/23 06/26/24 09:56 12:03 11:50 TSH < 0.01 L 19.67 H < 0.01 L Free T4 1.62 0.71 1.63 09/30/24 11:51 TSH < 0.01 L Free T4 1.62 PFSH Medical History (Updated 01/28/25 @ 11:49 by Ana Sutton MD) Cerebral palsy Asthma Hypothyroid Surgical History Hx of section History of surgery on lower extremity Family History Father HTN (hypertension) Diabetes Mother HTN (hypertension) Diabetes Maternal Aunt Breast cancer Paternal Grandmother Breast cancer Social History Household Members: Spouse and Children Household Members Other:: mom Housing: Apartment Are you a primary child day care teacher to a significant other at home: No Do you presently have visiting nurse or other home services: No Alcohol intake: current Alcohol intake frequency: holidays/special occasions only Patient Tobacco Use Status: Never used Tobacco Current occupational status: employed Current occupation: [employer] Sexual orientation: Straight/Heterosexual Gender identity: Female Physical Exam Vital Signs: Last Vital Signs Pulse 90 01/28/25 11:26 BP 132/74 01/28/25 11:26 Assessment & Plan Assessment & Plan (1) Hypothyroid: Code(s): E03.9 - Hypothyroidism, unspecified Category: Medical Qualifiers: Hypothyroidism type: postablative Qualified Code(s): E89.0 - Postprocedural hypothyroidism Plan: Hypothyroidism secondary to BERNARDO for uncontrolled hyperthyroidism. Unclear etiology for uncontrolled hypothyrodism. She has had similar episodes in the past requiring multiple dose adjustments. She denies any history of GI dysfunction or malabsortion that could explain. She does not take any other medications with levothyroxine. She does uses Minoxidil [facility] which is not reported to have biotin in its compone nts, but is not fully clear if it doesn't. Given that her TSH is suppressed but her FT4 is normal, this prompt me to think in possible assay interference. Plan Advice the patient to stop using hair products for 1 wk Advice to j=have labs drawn after Will adjust levothyroxine dose based on those results Plan 50 minutes spent reviewing previous records, labs, imaging, education and documenting in the chart Orders: Orders TSH reflex Free T4 Today E89.0 - Postprocedural hypothyroidism FT4 by [facility]. 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
[2025-01-28 11:26] VITALS: BP 132/74; PULSE 90; O2SAT 96; BMI 32.0
--- OUTSIDE RECORDS SUMMARY | 2025-01-28 13:15 | XMS_ITS | Encounter Summary ---
Author Organization [employer] Address [address] [place] [address] 7 [place] [address] Care Team Providers Care Emergency Specialist Name Role Phone Genoveva Vaughn MD Primary Care Provider [phone] Reason for Visit * Reason Onset Date Comments Results 01/16/2025 Encounter Details Date Type Department Care Team ([facility] st Contact Info) Description 01/16/2025 Results Follow-Up [facility] [address] [place], [place] [phone] Genoveva Vaughn MD [address] [place] [address] XR Hip 2 or 3 Views Right Social History Tobacco Use Types Packs/Day Years [...] the past 12 months, has t he [employer], gas, oil or water [employer] threatened to shut off services in your [...] encounter Miscellaneous Notes * Telephone Encounter - Nadege Hall RN - 01/16/2025 4:29 PM EST TC placed to patient [phone] to inform of below message. Patient advised of Xray results and reminded to complete BW. Patient is scheduled with ortho on 03/11/25 at 10:45am and endo appointment is still pending. Sending to PCP as KAYLAN. ----- Message from Genoveva Vaughn MD sent at 01/16/2025 3:22 PM EST ----- Please let her know that her R hip xray was read as negative for fracture or dislocation. She stillhas lab orders pending. Is she scheduled with both Ortho and Endo? ----- Message ----- From: Interface, Ris Results In Sent: 01/16/2025 10:49 AM EST To: Genoveva Vaughn MD * Result Encounter Note - Genoveva Vaughn MD - 01/16/2025 3:22 PM EST Please let her know that her R hip xray was read as negative for fracture or dislocation. She stillhas lab orders pending. Is she scheduled with both Ortho and Endo? documented in this encounter Plan of Treatment Upcoming Encounters Date Type Department Care Team (Late st Contact Info) Description 02/06/2025 1:30 PM EST Office Visit [facility] [address] [place], [place] [phone] Ren Jsohi MD [address] [place] [address] documented as of this encounter Visit Diagnoses Not on filedocumented in this encounter Additional Health Concerns Assessment Noted Time PHQ-9 Depression Total Score: 1 12/30/19 25 1:12 PM EST documented as of this encounter Care Teams Emergency Specialist Relationship Specialty Start Date End Date Genoveva Vaughn MD [address] [place] [address] [phone] PCP - General Family Medicine 10/14/21 documented as of this encounter
--- OUTSIDE RECORDS SUMMARY | 2025-01-28 13:15 | XMS_ITS | Encounter Summary ---
Author Organization [employer] [facility] Address [address] [place] [address] 7 [place] [address] Care Team Providers Care Tag Clerk Name Role Phone Genoveva Vaughn MD Primary Care Provider [phone] Encounter Details Date Type Department Care Team (Late st Contact Info) Description 09/28/2022 Telephone [facility] [address] [place] [address] [phone] Genoveva Vaughn MD [address] [place] [address] [phone] Social History Tobacco Use Types Packs/Day Years [...] Description 02/06/2025 1:30 PM EST Office Visit [facility] [address] [place] [phone] Ren Joshi MD [address] [place] [address] [phone] documented as of this encounter Visit Diagnoses Not on filedocumented in this encounter Care Teams Tag Clerk Relationship Specialty Start Date End Date Genoveva Vaughn MD [address] [place] [address] [phone] PCP - General Family Medicine 10/14/21 documented as of this encounter
--- OUTSIDE RECORDS SUMMARY | 2025-01-28 13:15 | XMS_ITS | Encounter Summary ---
Author Organization [facility] [facility] Address [address] [place] [address] 7 [place] [address] Care Team Providers Care Chief Contract Officer Name Role Phone Genoveva Vaughn MD Primary Care Provider [phone] Encounter Details Date Type Department Care Team (Late st Contact Info) Description 11/28/2022 Orders Only [facility] [address] [place] [address] [phone] Genoveva Vaughn MD [address] [place] [address] [phone] Chronic pain of both knees (Primary Dx) [...] Description 02/06/2025 1:30 PM EST Office Visit [facility] [address] [place] [address] [phone] Ren Joshi MD [address] [place] [address] [phone] documented as of this encounter Procedures Procedure Name Priority Date/Time Associated Diagnosis Comments BI MAMMOGRAM SCREENING TOMOSYNTHESIS BILATERAL Routine 12/01/2022 12:10 PM EDT documented in this encounter Results * BI Mammogram Screening Tomosynthesis Bilateral (12/01/2022 12:10 PM EDT) Anatomical Region Laterality Modality Breast Bilateral Mammography 12/01/2022 12:1 0 PM EDT Narrative 12/21/2022 1:52 PM EDT [facility] [address] [place] [address] Mammography Report Signed Patient: Janelle Eli MR#: [id number] 10 : 1980 Acct:[id number] Age/Sex: 42 / F ADM Date: 12/01/22 Loc: DEVI Attending Dr: Genoveva Vaughn MD Ordering Physician: Genoveva Vaughn Results: 1Negative Date of Service: 12/01/22 Follow Up: 1 Year From Orig inal Mammogram Procedure(s): MM tomosynthesis screening BI Accession Number(s): [id number] cc: Genoveva Vaughn EXAMINATION: MM SCREENING DIGITAL [...] in OV> 12/21/22 1348 DD/ 1210 TD/TT: Barn And Property Manager: Procedure Note Donotuseinterpreter, Image - 12/21/2022 [facility] [address] [place] [address] Mammography Report Signed Patient: Elizabeth EliR#: [id number] 10 : 1980Acct:[id number] Age/Sex: 42 / FADM Date: 12/01/22 Loc: DEVI Attending Dr: Genoveva Vaughn MD Ordering Physician: Mauricio Vaughnults: 1Negative Date of Service: 12/01/22Follow Up: 1 Year From Orig inal Mammogram Procedure(s): MM tomosynthesis screening BI Accession Number(s): [id number] cc: Genoveva Vaughn EXAMINATION: MM SCREENING DIGITAL [...] in OV> 12/21/22 1348 DD/ 1210 TD/TT: Barn And Property Manager: Genovvea Vaughn MD IMG BI PROCEDURES Final Result documented in this encounter Visit Diagnoses Diagnosis Chronic pain of both knees- Primary documented in this encounter Care Teams Chief Contract Officer Relationship Specialty Start Date End Date Genoveva Vaughn MD [address] [place] [address] PCP - General Family Medicine 10/14/21 documented as of this encounter
--- OUTSIDE RECORDS SUMMARY | 2025-01-28 13:15 | XMS_ITS | Clinical Summary ---
Author Organization [employer] Address [address] [place] [address] 7t [place] [address] Care Team Providers Care Pe Teacher Name Role Phone Genoveva Vaughn MD Primary Care Provider [phone] Allergies No known active allergies Medications Acetaminophen Extra Strength 500 MG tablet TAKE 2 TABLET BY MOUTH EVERY 6 HOURS NEEDED NEEDED FOR PAIN 160 tablet 3 Active ibuprofen 400 MG tablet Take 400 mg by mouth every 6 (six) hours if needed. 2 Active fluticasone (Flonase) 50 MCG/ACT nasal spray USE 1 SPRAY INTO EACH NOSTRIL ONCE DAILY 32 mL 3 5 Active norethindrone (Ortho Micronor) 0.35 MG tablet Take 1 tablet (0.35 mg) by mouth Once per day. 28 tablet 12 5 05/19/19 26 Active ondansetron ODT (Zofran-ODT) 8 MG disintegrating tabletIndications: Other cerebral palsy (HCC) Take 8 mg by mouth every 8 (eight) hours if needed. 4 Active triamcinolone (Kenalog) 0.1 % creamIndications:A topic dermatitis, unspecified type Mix with Cerave and apply in thin layer over cheeks for 10 days 80 g 2 5 Active terconazole (Terazol 3) 0.8 % vaginal cream APPLY VAGINALLY AT BEDTIME FOR 3 DAYS 5 Active levothyroxine (Synthroid) 175 MCG tablet Take 1 tablet (175 mcg) by mouth before breakfast. 90 tablet 3 5 12/30/19 26 Active metFORMIN (Glucophage) 500 MG tablet Take 0.5 tablets (250 mg) by mouth with breakfast. 45 tablet 3 5 Active naltrexone (Depade) 50 MG tabletIndications: Overweight Take 0.5 tablets (25 mg) by mouth Once per day. Take one half tablet at night 45 tablet 3 5 12/30/19 26 Active fexofenadine (Khushboo) 180 MG tabletIndications: Atopic dermatitis, unspecified type Take 1 tablet (180 mg) by mouth if needed each day (Allergies). 90 tablet 2 5 Active cholecalciferol (D-1000 Extra Strength) 25 MCG (1000 UT) tablet Take 1 tablet (25 mcg) by mouth Once per day. 90 tablet 3 5 Active albuterol 108 (90 Base) MCG/ACT inhaler Inhale 2 puffs every 4 (four) hours if needed for wheezing or shortness of breath. 18 g 11 5 Active Diclofenac Sodium 1 % gel Apply thin layer by topical route (quantity as directed on package insert) to affected area of pain 3 times daily as needed. 50 g 3 5 Active tiZANidine (Zanaflex) 2 MG tablet Take 2 tablets (4 mg) by mouth every 8 (eight) hours if needed for muscle spasms. 90 tablet 3 5 01/31/20 25 Active Active Problems Problem Noted Date Diagnosed [...] to a compounded weight loss medication in [facility] that caused thyroid damage Taking Metformin 500mg daily, trialed Topimax for 6 months (could not tolerate due to nervous sensation/tingling in body) Referral to nutrition Add Naltrexone 25mg nightly for weight loss and pain Assessment & Plan (05/01/2023 12:40 PM EST): Take fiber daily She had a bad reaction to a compounded weight loss medication in [facility] that caused thyroid damage Gave [...] Encounters Date Type Department Care Team Description 01/16/2025 Results Follow-Up [facility] [address] [place] [phone] Genoveva Vaughn MD XR Hip 2 or 3 Views Right 01/13/2025 Refill [facility] [address] [place] [phone] Genoveva Vaughn MD 12/31/2024 Orders Only [facility] [address] [place] [address] Genoveva Vaughn MD 12/31/2024 Telephone [facility] [place] [address] Genoveva Vaughn MD 12/29/2024 1:00 PM EST Office Visit [facility] [address] [place] [address] Genoveva Vaughn MD Right hip pain (Primary Dx); Other cerebral palsy (HCC); Overweight; Atopic dermatitis, unspecified type; Postoperative hypothyroidism; Other thyrotoxicosis without thyrotoxic crisis or storm 12/29/2024 Travel 12/26/2024 Telephone [facility] [address] Genoveva Vaughn MD Chart Prep 12/22/2024 Patient Outreach [address] [address] Genoveva Vaughn MD Pre-visit Planning (Pre visit planning LVM ) 12/08/2024 Refill [facility] [address] [place] [address] Genoveva Vaughn MD 11/14/2024 Orders Only GENERIC [...] Description 02/06/2025 1:30 PM EST Office Visit [facility] [address] [place] [address] Ren Joshi MD [address] [place] [address] Health Maintenance Due Date Last Done Comments [...] QL, URINE Routine 11/14/2024 9:00 AM EDT BI MAMMOGRAM SCREENING TOMOSYNTHESIS BILATERAL [...] AM EST Narrative 01/16/2025 10:49 AM EST [place] [address] XRay Report Signed Patient: Janelle Eli MR#: [id number] 10 : 1980 Acct:[id number] Age/Sex: 44 / F ADM Date: 01/16/25 Loc: HO.XRAY Attending Dr: Genoveva Vaughn MD Ordering Physician: Genoveva Vaughn Date of Service: 01/16/25 Procedure(s): XR hip RT min 2V Accession Number(s): [id number] cc: Genoveva Vaughn Reason for Exam: pain [...] 01/16/25 1047 DD/ 1035 TD/TT: 01/16/25 1040 Hematology Supervisor: Procedure Note Donotuseinterpreter, Image - 11/21/[address] [address] XRay Report Signed Patient: Albino Eli#: [id number] 10 : 1980Acct:[id number] Age/Sex: 44 / FADM Date: 01/16/25 Loc: HO.XRAY Attending Dr: Genoveva Vaughn MD Ordering Physician: Genoveva Vaughn Date of Service: 01/16/25 Procedure(s): XR hip RT min 2V Accession Number(s): [id number] cc: Genoveva Vaughn Reason for Exam: pain [...] 01/16/25 1047 DD/ 1035 TD/TT: 01/16/25 1040 Hematology Supervisor: Genoveva Vaughn MD IMG XR PROCEDURES Final Result * Hematoxylin and Eosin Stain (11/14/2024 11:03 AM EDT) 11/14/2024 11:0 3 AM EDT 11/14/2024 12:15 PM EDT [facility] - 11/18/2024 7:16 AM EDT ----- ------- Name: Janelle lEi Age/Sex: 44/F : 1980 Unit#: [id number] Attend Dr: Josep [place] MD Re11/14/24 Status: [facility] Location: [facility] Disch: ----- ------- SPEC : [id number] RECD: 11/14/24-1215 STATUS: IVIS MONTEJO NUM: [id number] BRITTANEY: 11/14/24-1103 [facility] DR: Josep [place] MD ENTERED: 11/14/24-1220 SP TYPE: Surgical OTHR DR: Genoveva Vaughn ORDERED: HE Stain/2, Gross Micro L4 Diagnosis Endometrium, curettage: Proliferative endometrium; no atypia or hyperplasia identified. Clinical History Pre-Op Dx: Abnormal uterine and vaginal bleeding, unspecified Post-Op Dx: Normal endometrial cavity Microscopic Description Microscopic sections reviewed. Material Received [facility] Gross Description Received in formalin, on Telfa, labeled EMC are fragments of red-pink soft tissue mixed with mucus and clotted blood forming an aggregate measuring 4.2 x 3.7 x 0.4 cm which is wrapped in lens paper and entirely submitted for microscopic examination, multiple pieces in cassettes A1 through A3. ([facility]) IHC S/NG Disclaimer NOTE: Unless otherwise stated, all tissue is formalin-fixed and paraffin-embedded. Some or all of the immunohistochemical tests reported herein may have been developed and their performance characteristics determined by [facility]. They have not been cleared or approved by the U.S. Food and Drug Administration (FDA). However, the FDA has determined that such clearance or approval is not necessary. This laboratory is certified under the Clinical Laboratory Improvement Amendments of 1988 (CLIA) as qualified to perform high complexity clinical laboratory testing. Copies To: Genovvea Vaughn [address] [place], [place] [phone] Josep [place] MD [facility] [address] [place] [address] Drive [address] [place] [address] CONTINUED ON NEXT PAGE ----- ------- Name: Janelle Eli Age/Sex: 44/F : 1980 Unit#: [id number] Attend Dr: Josep [place] MD Re11/14/24 Status: [facility] Location: [facility] Disch: ----- ------- SPEC : [id number] RECD: 11/14/24 STATUS: IVIS MONTEJO NUM: [id number] BRITTANEY: 11/14/24-110 [facility] [address]: Josep [place] MD ENTERED: 11/14/24-122 SP TYPE: Surgical OTHR DR: Genoveva Vaughn ORDERED: HE Stain/2, Gross Micro L4 Copies To: (Continued) [phone] ----- ------- Signed (signature on file) Reinier Ahuja MD 11/18/24 0716 ----- ------- END OF REPORT Generic External Data Provider LAB BLOOD ORDERAB LES Final Result Performing Organization Address City/[facility]/ZIP Co de Phone Number [facility] [address] [place] [address] [phone] * HCG, Qualitative, Urine (11/14/2024 9:00 AM EDT) Pathologist [facility] Urine NEGATIVE NEGATIVE [facility] Comment:This test was develo ped to detect early . Falsenegative results may occur after the 5th - 7th week ofpregnancy when using this test method. If clinicallyindicated, consider a serum hCG. 11/14/2024 9:00 AM EDT 11/14/2024 9:23 AM EDT Generic External Data Provider LAB URINE ORDERAB LES Final Result Performing Organization Address City/[facility]/ZIP Co de Phone Number [facility] [address] [place] [address] [phone] * BI Mammogram Screening Tomosynthesis Bilateral (09/08/2024 10:10 AM EDT) Anatomical Region Laterality Modality Breast Bilateral Mammography 09/08/2024 10:1 0 AM EDT Narrative 09/19/2024 5:11 PM EDT [facility] [address] [place] [address] Mammography Report Signed Patient: Janelle Eli MR#: [id number] 10 : 1980 Acct:[id number] Age/Sex: 44 / F ADM Date: 09/08/24 Loc: HO.MAMMO Attending Dr: Josep [place] MD Ordering Physician: Genoveva Vaughn Results: 1Negative Date of Service: 09/08/24 Follow Up: 1 Year From Orig ina Mammogram Procedure(s): MM tomosynthesis screening BI Accession Number(s): [id number] cc: Genoveva Vaughn EXAMINATION: MM SCREENING DIGITAL [...] 09/19/24 1708 DD/ 1010 TD/TT: 09/08/24 1034 Hematology Supervisor: Procedure Note Aguilar, Image - 09/19/2024 [facility] [address] [place] [address] [place] [address] Mammography Report Signed Patient: Elizabeth EliR#: [id number] 10 : 1980Acct:[id number] Age/Sex: 44 / FADM Date: 09/08/24 Loc: HO.MAMMO Attending Dr: Josep [place] MD Ordering Physician: Mauricio Vaughnults: 1Negative Date of Service: 09/08/24Follow Up: 1 Year From Orig ina Mammogram Procedure(s): MM tomosynthesis screening BI Accession Number(s): [id number] cc: Genoveva Vaughn EXAMINATION: MM SCREENING DIGITAL [...] 09/19/24 1708 DD/ 1010 TD/TT: 09/08/24 1034 Hematology Supervisor: us Genoveva Vaughn MD IMG BI PROCEDURES Edited Resul t - Final * Image-Guided Pap with Age-Based Screening??with CT/NG,??Trichomonas (01/24/2023 10:45 AM EST) Trichomonas (NAAT) NOT DETECTED NOT DETECTED [facility] Comment:The analytical perfo rmance characteristics of thisassay have been determined by [employer]. Themodifications have not been cleared or approved bythe FDA. This assay has been validated pursuant to theIA regulations and is used for clinical purposes.For additional information, please refer tohttp://education.Take the Interview/faq/Trichomonastma(This link is being provided for information/educational purposes only.)THIS TEST WAS PERFORMED AT:[employer] [address] [id number] MACK MD CTNG Ref Lab NOT DETECTED NOT DETECTED [facility] NG Ref Lab NOT DETECTED NOT DETECTED [facility] Pap Vial 01/24/2023 10:4 5 AM EST 01/26/2023 10:52 AM EST Jacinta Erwin [facility] CYTOLOGY ORDERABLES F inal Result [facility] [address] [place] [address] [phone] * HPV mRNA E6/E7 w/Reflex to HPV Genotypes 16, 18/45 (01/24/2023 10:45 AM EST) HPV nRNA E6/E7 Not Detected Not Detected [facility] Comment:Methodology: Transcr iption-Mediated AmplificationThis assay detects E6/E7 viral messenger RNA (mRNA) from 14high-risk HPV types (16,18,31,33,35,39,45,51,52,56,58,59,66,68).Cervical sources are required for HPV testing.If a vaginal source from a patient who has had atotal hysterectomy with removal of cervix wassubmitted, please contact the testing laboratoryfor alternative testing options.For additional information, please refer tohttp://education.[employer]Link.[employer]/faq/WMI795r5(This link if provided for information/educational purposes only.)THIS TEST WAS PERFORMED AT:[facility] [address] [id number] MACK MD HPV mRNA E6/E7 TNP [facility] HPV 16 RNA TNP [facility] HPV 18/45 RNA TNP [facility] 01/24/2023 10:4 5 AM EST 01/25/2023 11:00 AM EST Jacinta Erwin CNM LAB CYTOLOGY ORDERABLES F inal Result [facility] [address] [place] [address] [phone] from Last 3 Months or Most Recently Relevant to Health Maintenance Insurance [facility] , [address] [place] [address] Care Teams Pe Teacher Relationship Specialty Start Date End Date Genoveva Vaughn MD [address] [place] [address] PCP - General Family Medicine 10/14/21
--- OUTSIDE RECORDS SUMMARY | 2025-01-28 13:15 | XMS_ITS | Encounter Summary ---
Author Organization [employer] Address [address] [place] [address] 7 [place] [address] Care Team Providers Care Forming Roll Operator Name Role Phone Genoveva Vaughn MD Primary Care Provider [phone] Encounter Details Date Type Department Care Team ([facility] st Contact Info) Description 12/31/2024 Orders Only [facility] [address] [place], [place] [phone] Genoveva Vaughn MD [address] [place], [place] [phone] Social History Tobacco Use Types Packs/Day Years [...] your housing situation today? I have vanessa doevr 10/17/[address] you li [...] Description 02/06/2025 1:30 PM EST Office Visit [facility] [address] [place] [address] Ren Joshi MD [address] [place] [address] documented as of this encounter Visit Diagnoses Not on filedocumented in this encounter Additional Health Concerns Assessment Noted Time PHQ-9 Depression Total Score: 1 12/30/19 25 1:12 PM EST documented as of this encounter Care Teams Forming Roll Operator Relationship Specialty Start Date End Date Genoveva Vaughn MD [address] [place] [address] [phone] PCP - General Family Medicine 10/14/21 documented as of this encounter
--- OUTSIDE RECORDS SUMMARY | 2025-01-28 13:15 | XMS_ITS | Encounter Summary ---
Author Organization [employer] Address [address] [place] [address] 7 [place] [address] Care Team Providers Care Calciner Operator Name Role Phone Genoveva Vaughn MD Primary Care Provider [phone] Encounter Details Date Type Department Care Team ([facility] st Contact Info) Description 06/29/2024 Orders Only [facility] [address] [place], [place] [phone] Genoveva Vaughn MD [address] [place], [place] [phone] Social History Tobacco Use Types Packs/Day Years [...] Description 02/06/2025 1:30 PM EST Office Visit [facility] [address] [place] [phone] Ren Joshi MD [address] [place] [address] documented as of this encounter Visit Diagnoses Not on filedocumented in this encounter Care Teams Calciner Operator Relationship Specialty Start Date End Date Genoveva Vaughn MD [address] [place] [address] PCP - General Family Medicine 10/14/21 documented as of this encounter
--- OUTSIDE RECORDS SUMMARY | 2025-01-28 13:15 | XMS_ITS | Encounter Summary ---
Author Organization [employer] Address [address] [place] [address] 7 [place] [address] Care Team Providers Care Floor Scraper Name Role Phone Genoveva Vaughn MD Primary Care Provider [phone] Reason for Visit * Reason Onset Date Comments requesting a letter 03/03/2022 Encounter Details Date Type Department Care Team ([facility] st Contact Info) Description 03/03/2022 Telephone [facility] [address] [place], [place] [phone] Genoveva Vaughn MD [address] [place], [place] [phone] requesting a letter Social History Tobacco Use [...] Medical Eval Form after several calls T# [phone] 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
--- OUTSIDE RECORDS SUMMARY | 2025-01-28 13:15 | XMS_ITS | Encounter Summary ---
Author Organization [employer] Address [address] [place] [address] 7 [place] [address] Care Team Providers Care Cooky Machine Operator Name Role Phone Genoveva Vaughn MD Primary Care Provider [phone] Reason for Visit * Reason Comments Med Change Request Encounter Details Date Type Department Care Team ([facility] st Contact Info) Description 01/13/2025 Refill [facility] [address] [place], [place] [phone] Genoveva Vaughn MD [address] [place], [place] [phone] Social History Tobacco Use Types Packs/Day Years [...] Description 02/06/2025 1:30 PM EST Office Visit [facility] [address] [place] [address] Ren Joshi MD [address] [place] [address] documented as of this encounter Visit Diagnoses Not on filedocumented in this encounter Additional Health Concerns Assessment Noted Time PHQ-9 Depression Total Score: 1 12/30/19 25 1:12 PM EST documented as of this encounter Care Teams Cooky Machine Operator Relationship Specialty Start Date End Date Genoveva Vaughn MD [address] [place], [place] [phone] PCP - General Family Medicine 10/14/21 documented as of this encounter
--- OUTSIDE RECORDS SUMMARY | 2025-01-28 13:15 | XMS_ITS | Clinical Summary ---
Author Organization [facility] Address [address] [facility] [address] [place] [phone] Phone Care Team Providers Care Color Technician Name Role Phone Genoveva Vaughn MD [...] topic Medical Devices Not on file Insurance [facility] POS EPO HEALTH SAFETY NET PARTIAL HEALTH SAFETY NET PARTIAL [employer] POS EPO HEALTH SAFETY NET PARTIAL O POS EPO [facility] SAFETY NET PARTIAL [facility] POS EPO HEALTH SAFETY NET PARTIAL [facility] POS EPO HEALTH SAFETY NET PARTIAL Care Teams Color Technician Relationship Specialty Start Date End Date Genoveva Vaughn MD PCP - General 02/18/24 Additional Source Comments The information contained in this document represents components of the legal health record. It is not the complete legal health record.[facility]
--- OUTSIDE RECORDS SUMMARY | 2025-01-28 13:15 | XMS_ITS | Encounter Summary ---
Author Organization [employer] Address [address] [place] [address] 7t [place] [address] Care Team Providers Care Police Specialist Name Role Phone Genoveva Vaughn MD Primary Care Provider [phone] Encounter Details Date Type Department Care Team (Late st Contact Info) Description 10/31/2022 Orders Only [facility] [address] [place], [place] [phone] Nisha Partida LPN Social History Tobacco Use [...] Description 02/06/2025 1:30 PM EST Office Visit [facility] [address] [place] [address] Ren Joshi MD [address] [place] [address] documented as of this encounter Procedures Procedure Name Priority Date/Time Associated Diagnosis Comments T4, FREE Routine 11/22/2022 9:56 AM EDT documented in this encounter Results * T4, Free (11/22/2022 9:56 AM EDT) Free T4 (Free Thyroxine) 1.62 0.71 - 1.85 ng/dL [facility] 11/22/2022 9:56 AM EDT 11/22/2022 11:22 AM EDT us Genoveva Vaughn MD LAB BLOOD ORDERABLES Final Res ult [facility] [address] [place] [address] [phone] documented in this encounter Visit Diagnoses Not on filedocumented in this encounter Care Teams Police Specialist Relationship Specialty Start Date End Date Genoveva Vaughn MD [address] [place] [address] PCP - General Family Medicine 10/14/21 documented as of this encounter
== END 2025-01-28 12:06 | disposition home or self-care (01) ==
LOC: HO.ENCR 11:08
PROVIDERS: Visit Provider Student in an Organized Health Care Education/Training Program
DX: E89.0 Postprocedural hypothyroidism (principal)
CPT/HCPCS: 99204; G2211

== ENCOUNTER 2025-02-06 13:53 | Outpatient (REF) | payer OTHER, SELFPAY ==
--- OUTSIDE RECORDS SUMMARY | 2025-02-06 13:30 | XMS_ITS | Encounter Summary ---
Author Organization [employer] Address [address] [place] [address] 7 [place] [address] Care Team Providers Care Internet Architect Name Role Phone Genoveva Vaughn MD Primary Care Provider [phone] Reason for Referral * Medications - Closed Specialty Diagnoses / Procedures Referred By Mily roa Referred To Contact Diagnoses Ren Mays MD [address] [place] [phone] Phone: tel: fax: Referral ID Status Reason Start Date Expiration Date Visits Re quested Visits Authorized [id number] Closed 1 1 Reason for Visit * Reason Comments derm Encounter Details Date Type Department Care Team ([facility] st Contact Info) Description 02/06/2025 1:30 PM EST Office Visit [facility]INE [address] [place], [place] [phone] Ren Joshi MD [address] [place], [place] [phone] [place] (Primary Dx); Folliculitis Social History Tobacco Use Types Packs/Day Years [...] Sign Reading Time Taken Comments Blood Pressure 118/76 02/06/2025 1:12 PM EST Pulse 72 02/06/2025 1:12 PM EST Temperature 35.9 C (96.6 F) 02/06/2025 1:12 PM EST Respiratory Rate 17 02/06/2025 1:12 PM EST Oxygen Saturation - - Inhaled Oxygen Concentration - - Weight 80.3 kg (177 lb) 02/06/2025 1:12 PM EST Height 161 cm (5' 3.39 ) 02/06/2025 1:12 PM EST Body Mass Index 30.97 02/06/2025 1:12 PM EST documented in this encounter Progress Notes * Ren Joshi MD - 02/06/2025 1:30 PM EST Subjective Patient ID: Janelle Eli is a 44 y.o. female who presents for derm . HPI 44 yr old woman with history of rosacea here today for follow up. She has significant inflammation and pimples on cheeks, nose and chin. Review of Systems Constitutional: Negative for diaphoresis, fatigue and fever. HENT: Negative for ear discharge, ear pain, facial swelling and hearing loss. Respiratory: Negative for cough, choking, chest tightness and shortness of breath. Cardiovascular: Negative for chest pain and leg swelling. Gastrointestinal: Negative for abdominal distention, abdominal pain and anal bleeding. Endocrine: Negative for cold intolerance and heat intolerance. Genitourinary: Negative for enuresis, flank pain and frequency. Musculoskeletal: Negative for arthralgias, back pain and gait problem. Skin: Positive for rash. Neurological: Negative for dizziness, facial asymmetry and headaches. Hematological: Positive for adenopathy. Psychiatric/Behavioral: Negative for agitation, behavioral problems and confusion. Objective Physical Exam Constitutional: Appearance: Normal appearance. HENT: Head: Normocephalic and atraumatic. Nose: Nose normal. Eyes: Pupils: Pupils are equal, round, and reactive to light. Pulmonary: Effort: Pulmonary effort is normal. Musculoskeletal: General: Normal range of motion. Cervical back: Normal range of motion. Skin: Comments: Erythema with inflamed papules and some pustules on cheeks, nose and chin. Neurological: General: No focal deficit present. Mental Status: She is alert. Assessment/Plan Diagnoses and all orders for this visit: Chronic, worsening Previously tried acne treatment not helping much Will treat with Azelaic acid as below Doxycycline to treat underlying inflamed papules and pustules. Gentle face wash RTC in 2-4 weeks Rosacea - azelaic acid (Azelex) 20 % cream; Apply topically 2 times daily. Folliculitis - doxycycline (Vibra-Tabs) 100 MG tablet; Take 1 tablet (100 mg) by mouth 2 times daily. Take with a full glass of water and do not lie down for at least 30 minutes after. documented in this encounter Plan of Treatment Upcoming Encounters Date Type Department Care Team (Late st Contact Info) Description 03/06/2025 9:45 AM EST Office Visit [facility] [address] [place] [address] Ren Joshi MD [address] [place] [address] documented as of this encounter Visit Diagnoses Diagnosis Rosacea- Primary Folliculitis Other specified disease of hair and hair follicles documented in this encounter Additional Health Concerns Assessment Noted Time PHQ-9 Depression Total Score: 1 12/30/19 25 1:12 PM EST documented as of this encounter Care Teams Internet Architect Relationship Specialty Start Date End Date Genoveva Vaughn MD [address] [place] [phone] PCP - General Family Medicine 10/14/21 documented as of this encounter
[2025-02-06 17:59] LABS: Free T4 (Free Thyroxine) 1.69 ng/dL (0.71-1.85)
--- OUTSIDE RECORDS SUMMARY | 2025-02-06 19:18 | XMS_ITS | Encounter Summary ---
Author Organization [employer] [facility] Address [address] [place] [address] 7 [place] [address] Care Team Providers Care Printing Sales Representative Name Role Phone Genoveva Vaughn MD Primary Care Provider [phone] Encounter Details Date Type Department Care Team (Late st Contact Info) Description 11/28/2022 Orders Only [facility] MEDICINE [address] [place] [address] [phone] Genoveva Vaughn MD [address] [place] [address] [phone] Chronic pain of both knees (Primary Dx) [...] Description 03/06/2025 9:45 AM EST Office Visit [facility] MEDICINE [address] [place] [address] [phone] Ren Joshi MD [address] [place] [address] [phone] documented as of this encounter Procedures Procedure Name Priority Date/Time Associated Diagnosis Comments BI MAMMOGRAM SCREENING TOMOSYNTHESIS BILATERAL Routine 12/01/2022 12:10 PM EDT documented in this encounter Results * BI Mammogram Screening Tomosynthesis Bilateral (12/01/2022 12:10 PM EDT) Anatomical Region Laterality Modality Breast Bilateral Mammography 12/01/2022 12:1 0 PM EDT Narrative 12/21/2022 1:52 PM EDT [facility] [address] [place] [address] Mammography Report Signed Patient: Janelle Eli MR#: [id number] 10 : 1980 Acct:[id number] Age/Sex: 42 / F ADM Date: 12/01/22 Loc: [facility] Attending Dr: Genoveva Vaughn MD Ordering Physician: Genoveva Vaughn Results: 1Negative Date of Service: 12/01/22 Follow Up: 1 Year From Orig inal Mammogram Procedure(s): MM tomosynthesis screening BI Accession Number(s): [id number] cc: Genoveva Vaughn EXAMINATION: MM SCREENING DIGITAL [...] in OV> 12/21/22 1348 DD/ 1210 TD/TT: Rough Planer Tender: Procedure Note Donotuseinterpreter, Image - 12/21/2022 [facility] [address] [place] [address] Mammography Report Signed Patient: Elizabeth EliR#: [id number] 10 : 1980Acct:[id number] Age/Sex: 42 / FADM Date: 12/01/22 Loc: [facility] Attending Dr: Genoveva Vaughn MD Ordering Physician: Mauricio Vaughnults: 1Negative Date of Service: 12/01/22Follow Up: 1 Year From Orig inal Mammogram Procedure(s): MM tomosynthesis screening BI Accession Number(s): [id number] cc: Genoveva Vaughn EXAMINATION: MM SCREENING DIGITAL [...] in OV> 12/21/22 1348 DD/ 1210 TD/TT: Rough Planer Tender: Genoveva Vaughn MD IMG BI PROCEDURES Final Result documented in this encounter Visit Diagnoses Diagnosis Chronic pain of both knees- Primary documented in this encounter Care Teams Printing Sales Representative Relationship Specialty Start Date End Date Genoveva Vaughn MD [address] [place] [address] PCP - General Family Medicine 10/14/21 documented as of this encounter
--- OUTSIDE RECORDS SUMMARY | 2025-02-06 19:18 | XMS_ITS | Encounter Summary ---
Author Organization [employer] Address [address] [place] [address] 7 [place] [address] Care Team Providers Care It Sales Consultant Name Role Phone Genoveva Vaughn MD Primary Care Provider [phone] Reason for Visit * Reason Onset Date Comments requesting a letter 03/03/2022 Encounter Details Date Type Department Care Team ([facility] st Contact Info) Description 03/03/2022 Telephone [facility] MED[facility]INE [address] [place], [place] [phone] Genoveva Vaughn MD [address] [place], [place] [phone] requesting a letter Social History Tobacco Use [...] Medical Eval Form after several calls T# [phone] 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
--- OUTSIDE RECORDS SUMMARY | 2025-02-06 19:18 | XMS_ITS | Encounter Summary ---
Author Organization [employer] Address [address] [place] [address] 7 [place] [address] Care Team Providers Care Chief Cook Name Role Phone Geonveva Vaughn MD Primary Care Provider [phone] Encounter Details Date Type Department Care Team (Late st Contact Info) Description 02/06/2025 Orders Only GENERIC EXTERNAL DATA DEPARTMENT Provider, Generic External Data Social History Tobacco Use Types Packs/Day Years [...] Description 03/06/2025 9:45 AM EST Office Visit [facility]ICINE [address] [place] [address] Ren Joshi MD [address] [place] [address] documented as of this encounter Procedures Procedure Name Priority Date/Time Associated Diagnosis Comments TSH W/REFLEX TO FT4 Routine 02/06/2025 2 :09 PM EST T4, FREE Routine 02/06/2025 2:09 PM EST documented in this encounter Results * T4, Free (02/06/2025 2:09 PM EST) Free T4 (Free Thyroxine) 1.69 0.71 - 1.85 ng/dL [facility] 02/06/2025 2:09 PM EST 02/06/2025 4:02 PM EST us Jacinta FUENTES LAB BLOOD ORDERABLES Valentina barnett Result [facility] [address] [place] [address] [phone] * (ABNORMAL) TSH with Reflex to Free T4 (02/06/2025 2:09 PM EST) TSH reflex Free T4 <0.01(L) 0.32 - 4.0 uIU/mL [facility] 02/06/2025 2:09 PM EST 02/06/2025 4:02 PM EST us Generic External Data Provider LAB BLOOD ORDERAB LES Final Result [facility] [address] [place] [address] [phone] documented in this encounter Visit Diagnoses Not on filedocumented in this encounter Additional Health Concerns Assessment Noted Time PHQ-9 Depression Total Score: 1 12/30/19 25 1:12 PM EST documented as of this encounter Care Teams Chief Cook Relationship Specialty Start Date End Date Genoveva Vaughn MD [address] [place] [address] PCP - General Family Medicine 10/14/21 documented as of this encounter
--- OUTSIDE RECORDS SUMMARY | 2025-02-06 19:18 | XMS_ITS | Encounter Summary ---
Author Organization [employer] Address [address] [place] [address] [address] [place] [address] Care Team Providers Care Electrician Control Equipment Name Role Phone Genoveva Vaughn MD Primary Care Provider [phone] Encounter Details Date Type Department Care Team (Latest Contact Info) Description 02/06/2025 Travel Social History Tobacco Use Types Packs/Day Years [...] 03/06/2025 9:45 AM EST Office Visit [facility] MED[facility]INE [address] [place] [address] Ren Joshi MD [address] [place] [address] documented as of this encounter Visit Diagnoses Not on filedocumented in this encounter Additional Health Concerns Assessment Noted Time PHQ-9 Depression Total Score: 1 12/30/19 25 1:12 PM EST documented as of this encounter Care Teams Electrician Control Equipment Relationship Specialty Start Date End Date Genoveva Vaughn MD [address] [place] [phone] PCP - General Family Medicine 10/14/21 documented as of this encounter
--- OUTSIDE RECORDS SUMMARY | 2025-02-06 19:18 | XMS_ITS | Clinical Summary ---
Author Organization [facility] Address [address] [facility] [address] [place] [phone] Phone Care Team Providers Care Speeder Frame Tender Name Role Phone Genoveva Vaughn MD Primary [...] topic Medical Devices Not on file [facility] HEALTH SAFETY NET PARTIAL HEALTH SAFETY NET PARTIAL [employer] POS EPO HEALTH SAFETY NET PARTIAL O POS EPO [facility] SAFETY NET PARTIAL [facility] EPO HEALTH SAFETY NET PARTIAL [facility] POS EPO HEALTH SAFETY NET PARTIAL Care Teams Speeder Frame Tender Relationship Specialty Start Date End Date Genoveva Vaughn MD PCP - General 02/18/24 Additional Source Comments The information contained in this document represents components of the legal health record. It is not the complete legal health record[facility]
--- OUTSIDE RECORDS SUMMARY | 2025-02-06 19:18 | XMS_ITS | Clinical Summary ---
Author Organization [employer] Address [address] [place] [address] 7t [place] [address] Care Team Providers Care Broadcast Field Supervisor Name Role Phone Genoveva Vaughn MD Primary Care Provider [phone] Allergies No known active allergies Medications Acetaminophen [...] for muscle spasms. 90 tablet 3 5 Active azelaic acid (Azelex) 20 % creamIndications:R osacea Apply topically 2 times daily. 50 g 1 5 02/07/20 26 Active doxycycline (Vibra-Tabs) 100 MG tabletIndications: Folliculitis Take 1 tablet (100 mg) by mouth 2 times daily. Take with a full glass of water and do not lie down for at least 30 minutes after. 60 tablet 1 5 04/07/19 26 Active Active Problems Problem Noted Date Diagnosed [...] to a compounded weight loss medication in [facility] that caused thyroid damage Taking Metformin 500mg daily, trialed Topimax for 6 months (could not tolerate due to nervous sensation/tingling in body) Referral to nutrition Add Naltrexone 25mg nightly for weight loss and pain Assessment & Plan (05/01/2023 12:40 PM EST): Take fiber daily She had a bad reaction to a compounded weight loss medication in [facility] that caused thyroid damage Gave her [...] Encounters Date Type Department Care Team Description 02/06/2025 1:30 PM EST Office Visit [facility] [address] [place] [address] Ren Joshi MD Rosacea (Primary Dx); Folliculitis 02/06/2025 Orders Only GENERIC EXTERNAL DATA DEPARTMENT Provider, Generic External Data 02/06/2025 Refill [facility] [address] [place] [address] Ren Joshi MD Rosacea 02/06/2025 Travel 01/16/2025 Results Follow-Up [facility] [address] [place] [address] Genoveva Vaughn MD XR Hip 2 or 3 Views Right 01/13/2025 Refill [facility] [address] [place] [address] Genoveva Vaughn MD 12/31/2024 Orders Only [facility] [address] [place] [address] Genoveva Vaughn MD 12/31/2024 Telephone [facility] [address] [place] [address] Genoveva Vaughn MD 12/29/2024 1:00 PM EST Office Visit [address] [address] Genoveva Vaughn MD Right hip pain (Primary Dx); Other cerebral palsy (HCC); Overweight; Atopic dermatitis, unspecified type; Postoperative hypothyroidism; Other thyrotoxicosis without thyrotoxic crisis or storm 12/29/2024 Travel 12/26/[address] [address] Genoveva Vaughn MD Chart Prep 12/22/2024 Patient Outreach [address] [address] Genoveva Vaughn MD Pre-visit Planning (Pre visit planning LVM ) 12/08/[address] [address] Genoveva Vaughn MD 11/14/2024 Orders Only GENERIC [...] 17 02/06/2025 1:12 PM EST Oxygen Saturation 98% 12/29/2024 1:10 PM EST Inhaled Oxygen Concentration - - Weight 80.3 kg (177 lb) 02/06/2025 1:12 PM EST Height 161 cm (5' 3.39 ) 02/06/2025 1:12 PM EST Body Mass Index 30.97 02/06/2025 1:12 PM EST Plan of Treatment Upcoming Encounters Date Type Department Care Team (Late st Contact Info) Description 03/06/2025 9:45 AM EST Office Visit [facility] [address] [place] [address] Ren Joshi MD [address] [place] [address] Health Maintenance Due Date Last Done Comments [...] 12/29/2025 12/29/2024, 12/29/2024 Disability Screening 12/29/2025 12/29/2024 Alcohol/Substance Use Screening 12/31/2025 12/31/2024 Tobacco Screening 02/06/2026 02/06/2025 Cervical Cancer Screening 01/25/2028 HPV/Cotest 01/25/2028 01/24/2023 [...] Date/Time Associated Diagnosis Comments T4, FREE Routine 02/06/2025 2:09 PM EST TSH W/REFLEX TO FT4 Routine 02/06/2025 2 :09 PM EST C-REACTIVE PROTEIN Routine 02/06/2025 2: 09 PM EST Right hip pain SED RATE BY MODIFIED WESTERGREN Routine 02/06/2025 2:09 PM EST Right hip pain TSH W/REFLEX TO FT4 Routine 02/06/2025 2 :09 PM EST Abnormal uterine bleeding XR HIP 2 OR 3 VIEWS RIGHT [...] to Free T4 (02/06/2025 2:09 PM EST) Only the most recent of2 resultswithin the time period is included. TSH reflex Free T4 <0.01(L) 0.32 - 4.0 uIU/mL [facility] 02/06/2025 2:09 PM EST 02/06/2025 4:02 PM EST Generic External Data Provider LAB BLOOD ORDERAB LES Final Result Performing Organization Address [facility] Co de Phone Number [facility] [address] [place] [phone] * (ABNORMAL) Sed Rate by Modified Angelergren (02/06/2025 2:09 PM EST) [facility] Erythrocyte Sedimentation Rate 34(H) 1 - 20 MM/HR [facility] Comment:Patients with polycy themia and many hemoglobin abnormalitiesmay have depressed sed rates whereas patients with anemiamay have elevated sed rates. Blood Venous blood specimen / Unknown 02/06/2025 2:09 PM EST 02/06/2025 4:02 PM EST Result [facility] Genoveva Vaughn MD LAB BLOOD ORDERABLES Final Res ult Performing Organization Address [facility] de Phone Number [facility] [address] [place] [phone] * C-reactive Protein (02/06/2025 2:09 PM EST) [facility] C Reactive Protein 0.18 < or = 0.50 mg/dL [facility] Blood Venous blood specimen / Unknown 02/06/2025 2:09 PM EST 02/06/2025 4:02 PM EST Genoveva Vaughn MD LAB BLOOD ORDERABLES Final Res ult Performing Organization Address [facility] Co de Phone Number [facility] [address] [place] [phone] * T4, Free (02/06/2025 2:09 PM EST) Free T4 (Free Thyroxine) 1.69 0.71 - 1.85 ng/dL [facility] 02/06/2025 2:09 PM EST 02/06/2025 4:02 PM EST us Jacinta Erwin CNM LAB BLOOD ORDERABLES Valentina l Result Performing Organization Address City/State/[facility] Co de Phone Number [facility] [address] [place] [phone] * XR Hip 2 or 3 Views Right (01/16/2025 10:35 AM EST) Anatomical Region Laterality Modality Lower Extremities, Hip Right Radiograp hic Imaging 01/16/2025 10:3 5 AM EST Narrative 01/16/2025 10:49 AM EST [address] [address] XRay Report Signed Patient: Janelle Eli MR#: [id number] 10 : 1980 Acct:[id number] Age/Sex: 44 / F ADM Date: 01/16/25 Loc: HO.BEE Attending Dr: Genoveva Vaughn MD Ordering Physician: Genoveva Vaughn Date of Service: 01/16/25 Procedure(s): XR hip RT min 2V Accession Number(s): [id number] cc: Genoveva Vaughn Reason for Exam: pain [...] Delvis Kay MD 01/16/2025 10:47 AM EST RP Dictated By: Delvis Haddad MD Signed By: <Electronically signed by Delvis Tinajero MD in OV> 01/16/25 1047 DD/ 1035 TD/TT: 01/16/25 1040 Director Of Sports Performance: Procedure Note Donotuseinterpreter, Image - 01/16/2025 [place] [address] XRay Report Signed Patient: Albino Eli#: [id number] 10 : 1980Acct:[id number] Age/Sex: 44 / FADM Date: 01/16/25 Loc: HO.XRAY Attending Dr: Genoveva Vaughn MD Ordering Physician: Genoveva Vaughn Date of Service: 01/16/25 Procedure(s): XR hip RT min 2V Accession Number(s): [id number] cc: Genoveva Vaughn Reason for Exam: pain [...] 01/16/25 1047 DD/ 1035 TD/TT: 01/16/25 1040 Director Of Sports Performance: Genoveva Vaughn MD IMG XR PROCEDURES Final Result * Hematoxylin and Eosin Stain (11/14/2024 11:03 AM EDT) 11/14/2024 11:0 3 AM EDT 11/14/2024 12:15 PM EDT Narrative [facility] - 11/18/2024 7:16 AM EDT ----- ------- Name: Janelle Eli Age/Sex: 44/F : 1980 Unit#: [id number] Attend Dr: Josep Jackson MD Re11/14/24 Status: [facility] Location: [facility] Disch: ----- ------- SPEC : [id number] RECD: 11/14/24-1215 STATUS: MAYRACatalina NIKIA NUM: [id number] BRITTANEY: 11/14/24-[address] [facility] [address]: Josep Jackson MD ENTERED: 11/14/24-1220 SP [...] multiple pieces in cassettes A1 through A3. ([facility]) IHC S/NG Disclaimer NOTE: Unless otherwise stated, all tissue is formalin-fixed and paraffin-embedded. Some or all of the immunohistochemical tests reported herein may have been developed and their performance characteristics determined by [facility]. They have not been cleared or approved by the U.S. Food and Drug Administration (FDA). However, the FDA has determined that such clearance or approval is not necessary. This laboratory is certified under the Clinical Laboratory Improvement Amendments of 1988 (CLIA) as qualified to perform high complexity clinical laboratory testing. Copies To: Genoveva Vaughn [address] [place] [address] Josep Jackson MD [facility] [address] [place] [address] Drive [address] [place] [address] CONTINUED ON NEXT PAGE ----- ------- Name: Janelle Eli Age/Sex: 44/F : 1980 Unit#: [id number] Attend Dr: Josep Jackson MD Re11/14/24 Status: [facility] Location: [facility] Disch: ----- ------- SPEC : [id number] RECD: 11/14/24-1215 STATUS: IVIS MONTEJO NUM: [id number] BRITTANEY: 11/14/24-[address] [facility] [address]: Josep Jackson MD ENTERED: 11/14/24-1220 SP TYPE: Surgical OTHR DR: Genoveva Vaughn ORDERED: HE Stain/2, Gross Micro L4 Copies To: (Continued) [phone] ----- ------- Signed (signature on file) Reinier Ahuja MD 11/18/24 0716 ----- ------- END OF REPORT [employer] External Data Provider LAB BLOOD ORDERAB LES Final Result Performing Organization Address [facility] de Phone Number [facility] [address] [place] [phone] * HCG, Qualitative, Urine (11/14/2024 9:00 AM EDT) Urine NEGATIVE NEGATIVE [facility] Comment:This test was develo ped to detect early . Falsenegative results may occur after the 5th - 7th week ofpregnancy when using this test method. If clinicallyindicated, consider a serum hCG. 11/14/2024 9:00 AM EDT 11/14/2024 9:23 AM EDT [employer] External Data Provider LAB URINE ORDERAB LES Final Result Performing Organization Address [facility] Co de Phone Number [facility] [address] [place] [phone] * BI Mammogram Screening Tomosynthesis Bilateral (09/08/2024 10:10 AM EDT) Anatomical Region Laterality Modality Breast Bilateral Mammography 09/08/2024 10:1 0 AM EDT Narrative 09/19/2024 5:11 PM EDT [address] [place], [place] [address] Mammography Report Signed Patient: Janelle Eli MR#: [id number] 10 : 1980 Acct:[id number] Age/Sex: 44 / F ADM Date: 09/08/24 Loc: HO.MAMMO Attending Dr: Josep Jackson MD Ordering Physician: Genoveva Vaughn Results: 1Negative Date of Service: 09/08/24 Follow Up: 1 Year From Orig inal Mammogram Procedure(s): MM tomosynthesis screening BI Accession Number(s): [id number] cc: Genoveva Vaughn EXAMINATION: MM SCREENING DIGITAL [...] 09/19/24 1708 DD/ 1010 TD/TT: 09/08/24 1034 Director Of Sports Performance: Procedure Note Donotuseinterpreter, Image - 09/19/[address] [place], [place] [address] Mammography Report Signed Patient: Albino Eli#: [id number] 10 : 1980Acct:[id number] Age/Sex: 44 / FADM Date: 09/08/24 Loc: HO.MAMMO Attending Dr: Josep Jackson MD Ordering Physician: Mauricio Vaughnults: 1Negative Date of Service: 09/08/24Follow Up: 1 Year From Orig ina Mammogram Procedure(s): MM tomosynthesis screening BI Accession Number(s): [id number] cc: Genoveva Vaughn EXAMINATION: MM SCREENING DIGITAL [...] 09/19/24 1708 DD/ 1010 TD/TT: 09/08/24 1034 Director Of Sports Performance: Genoveva Vaughn MD IM BI PROCEDURES Edited Resul t - Final * Image-Guided Pap with Age-Based Screening??with CT/NG,??Trichomonas (01/24/2023 10:45 AM EST) Trichomonas (NAAT) NOT DETECTED NOT DETECTED [facility] Comment:The analytical perfo rmance characteristics of thisassay have been determined by [employer]. Themodifications have not been cleared or approved bythe FDA. This assay has been validated pursuant to theIA regulations and is used for clinical purposes.For additional information, please refer tohttp://[employer].Doctor Evidence/faq/Trichomonastma(This link is being provided for information/educational purposes only.)THIS TEST WAS PERFORMED AT:[employer] [place] [phone] MACK MD CTNG Ref Lab NOT DETECTED NOT DETECTED [facility] NG Ref Lab NOT DETECTED NOT DETECTED [facility] Pap Vial 01/24/2023 10:4 5 AM EST 01/26/2023 10:52 AM EST Jacinta Erwin [facility] CYTOLOGY ORDERABLES F inal Result [facility] [address] [place] [phone] * HPV mRNA E6/E7 w/Reflex to HPV Genotypes 16, 18/45 (01/24/2023 10:45 AM EST) HPV nRNA E6/E7 Not Detected Not Detected [facility] Comment:Methodology: Transcr iption-Mediated AmplificationThis assay detects E6/E7 viral messenger RNA (mRNA) from 14high-risk HPV types (16,18,31,33,35,39,45,51,52,56,58,59,66,68).Cervical sources are required for HPV testing.If a vaginal source from a patient who has had atotal hysterectomy with removal of cervix wassubmitted, please contact the testing laboratoryfor alternative testing options.For additional information, please refer tohttp://[employer].Doctor Evidence/faq/GHK799x4(This link if provided for information/educational purposes only.)THIS TEST WAS PERFORMED AT:[facility] [address] [phone] MACK MD HPV mRNA E6/E7 TNP [facility] HPV 16 RNA TNP [facility] HPV 18/45 RNA [facility] 01/24/2023 10:4 5 AM EST 01/25/2023 11:00 AM EST Jacinta Erwin CN LAB CYTOLOGY ORDERABLES F inal Result [facility] [address] [place] [phone] from Last 3 Months or Most Recently Relevant to Health Maintenance Insurance [facility] Care Teams Broadcast Field Supervisor Relationship Specialty Start Date End Date Genoveva Vaughn MD [address] [place] [phone] PCP - General Family Medicine 10/14/21
--- OUTSIDE RECORDS SUMMARY | 2025-02-06 19:18 | XMS_ITS | Encounter Summary ---
Author Organization [employer] Address [address] [place] [address] 7 [place] [address] Care Team Providers Care Track Laying Machine Operator Name Role Phone Genoveva Vaughn MD Primary Care Provider [phone] Encounter Details Date Type Department Care Team ([facility] st Contact Info) Description 06/29/2024 Orders Only [facility] [address] [place], [place] [phone] Genoveva Vaughn MD [address] [place], [place] [phone] Social History Tobacco Use Types Packs/Day Years [...] Description 03/06/2025 9:45 AM EST Office Visit [facility] [address] [place] [phone] Ren Joshi MD [address] [place] [phone] documented as of this encounter Visit Diagnoses Not on filedocumented in this encounter Care Teams Track Laying Machine Operator Relationship Specialty Start Date End Date Genoveva Vaughn MD [address] [place] [phone] PCP - General Family Medicine 10/14/21 documented as of this encounter
--- OUTSIDE RECORDS SUMMARY | 2025-02-06 19:18 | XMS_ITS | Encounter Summary ---
Author Organization [employer] Address [address] [place] [address] 7 [place] [address] Care Team Providers Care Talent Development Director Name Role Phone Genoveva Vaughn MD Primary Care Provider [phone] Encounter Details Date Type Department Care Team ([facility] st Contact Info) Description 12/31/2024 Orders Only [facility] [address] [place], [place] [phone] Genoveva Vaughn MD [address] [place], [place] [phone] Social History Tobacco Use Types Packs/Day Years [...] Description 03/06/2025 9:45 AM EST Office Visit [facility] [address] [place] [address] Ren Joshi MD [address] [place] [address] documented as of this encounter Visit Diagnoses Not on filedocumented in this encounter Additional Health Concerns Assessment Noted Time PHQ-9 Depression Total Score: 1 12/30/19 25 1:12 PM EST documented as of this encounter Care Teams Talent Development Director Relationship Specialty Start Date End Date Genoveva Vaughn MD [address] [place] [address] [phone] PCP - General Family Medicine 10/14/21 documented as of this encounter
--- OUTSIDE RECORDS SUMMARY | 2025-02-06 19:18 | XMS_ITS | Encounter Summary ---
Author Organization [employer] Address [address] [place] [address] 7 [place] [address] Care Team Providers Care Pharmaceutical Salesperson Name Role Phone Genoveva Vaughn MD Primary Care Provider Reason for Visit * Reason Comments Med Change Request Encounter Details Date Type Department Care Team ([facility] st Contact Info) Description 02/06/2025 Refill [facility] [address] [place], [place] [phone] Ren Joshi MD [address] [place], [place] [phone] Rosacea Social History Tobacco Use Types Packs/Day Years [...] Description 03/06/2025 9:45 AM EST Office Visit [facility] [address] [place] [address] Ren Joshi MD [address] [place] [address] documented as of this encounter Visit Diagnoses Diagnosis Rosacea documented in this encounter Additional Health Concerns Assessment Noted Time PHQ-9 Depression Total Score: 1 12/30/19 25 1:12 PM EST documented as of this encounter Care Teams Pharmaceutical Salesperson Relationship Specialty Start Date End Date Genoveva Vaughn MD [address] [place] [address] [phone] PCP - General Family Medicine 10/14/21 documented as of this encounter
--- OUTSIDE RECORDS SUMMARY | 2025-02-06 19:18 | XMS_ITS | Encounter Summary ---
Author Organization [employer] Address [address] [place] [address] 7 [place] [address] Care Team Providers Care Road Freight Brake Coupler Name Role Phone Genoveva Vaughn MD Primary Care Provider [phone] Reason for Visit * Reason Onset Date Comments Results 01/16/2025 Encounter Details Date Type Department Care Team ([facility] st Contact Info) Description 01/16/2025 Results Follow-Up [facility] [address] [place], [place] [phone] Genoveva Vaughn MD [address] [place] [address] XR Hip 2 or 3 Views Right [...] the past 12 months, has t he [employer], gas, oil or water Em[employer] threatened to shut off services in your [...] 4:29 PM EST TC placed to patient [phone] to inform of below message. Patient advised [...] Description 03/06/2025 9:45 AM EST Office Visit [facility] [address] [place], [place] [phone] Ren Joshi MD [address] [place] [address] documented as of this encounter Visit Diagnoses Not on filedocumented in this encounter Additional Health Concerns Assessment Noted Time PHQ-9 Depression Total Score: 1 12/30/19 25 1:12 PM EST documented as of this encounter Care Teams Road Freight Brake Coupler Relationship Specialty Start Date End Date Genoveva Vaughn MD [address] [place] [address] [phone] PCP - General Family Medicine 10/14/21 documented as of this encounter
--- OUTSIDE RECORDS SUMMARY | 2025-02-06 19:18 | XMS_ITS | Encounter Summary ---
Author Organization [employer] Address [address] [place] [address] 7t [place] [address] Care Team Providers Care Credit Reference Clerk Name Role Phone Genoveva Vaughn MD Primary Care Provider [phone] Encounter Details Date Type Department Care Team (Late st Contact Info) Description 10/31/2022 Orders Only [facility] [address] [place], [place] [phone] Nisha Partida LPN Social History Tobacco Use [...] Description 03/06/2025 9:45 AM EST Office Visit [facility] [address] [place] [address] Ren Joshi MD [address] [place] [address] documented as of this encounter Procedures Procedure Name Priority Date/Time Associated Diagnosis Comments T4, FREE Routine 11/22/2022 9:56 AM EDT documented in this encounter Results * T4, Free (11/22/2022 9:56 AM EDT) Free T4 (Free Thyroxine) 1.62 0.71 - 1.85 ng/dL [facility] 11/22/2022 9:56 AM EDT 11/22/2022 11:22 AM EDT us Genoveva Vaughn MD LAB BLOOD ORDERABLES Final Res ult [facility] [address] [place] [phone] [phone] documented in this encounter Visit Diagnoses Not on filedocumented in this encounter Care Teams Credit Reference Clerk Relationship Specialty Start Date End Date Genoveva Vaughn MD [address] [place] [address] PCP - General Family Medicine 10/14/21 documented as of this encounter
--- OUTSIDE RECORDS SUMMARY | 2025-02-06 19:18 | XMS_ITS | Encounter Summary ---
Author Organization [employer] Address [address] [place] [address] 7 [place] [address] Care Team Providers Care Hog Man Name Role Phone Genoveva Vaughn MD Primary Care Provider [phone] Reason for Visit * Reason Comments Med Change Request Encounter Details Date Type Department Care Team ([facility] st Contact Info) Description 01/13/2025 Refill [facility] [address] [place], [place] [phone] Genoveva Vaughn MD [address] [place], [place] [phone] Social History Tobacco Use Types Packs/Day Years [...] Description 03/06/2025 9:45 AM EST Office Visit [facility] [address] [place] [address] Ren Joshi MD [address] [place] [address] documented as of this encounter Visit Diagnoses Not on filedocumented in this encounter Additional Health Concerns Assessment Noted Time PHQ-9 Depression Total Score: 1 12/30/19 25 1:12 PM EST documented as of this encounter Care Teams Hog Man Relationship Specialty Start Date End Date Genoveva Vaughn MD [address] [place], [place] [phone] PCP - General Family Medicine 10/14/21 documented as of this encounter
--- OUTSIDE RECORDS SUMMARY | 2025-02-06 19:18 | XMS_ITS | Encounter Summary ---
Author Organization [employer] [facility] Address [address] [place] [address] 7 [place] [address] Care Team Providers Care Director Of Valuation Name Role Phone Genoveva Vaughn MD Primary Care Provider [phone] Encounter Details Date Type Department Care Team (Late Contact Info) Description 09/28/2022 Telephone [facility] [address] [place] [address] [phone] Genoveva Vaughn MD [address] [place] [address] [phone] Social History Tobacco Use Types Packs/Day Years [...] Description 03/06/2025 9:45 AM EST Office Visit [facility] [address] [place] [phone] Ren Joshi MD [address] [place] [address] [phone] documented as of this encounter Visit Diagnoses Not on filedocumented in this encounter Care Teams Director Of Valuation Relationship Specialty Start Date End Date Genoveva Vaughn MD [address] [place] [address] [phone] PCP - General Family Medicine 10/14/21 documented as of this encounter
== END 2025-02-06 13:54 | disposition home or self-care (01) ==
LOC: HO.HHCL 13:53
PROVIDERS: Advanced Practice Midwife; PCP General Practice; Referring Provider Student in an Organized Health Care Education/Training Program; Visit Provider General Practice
DX: Z01.84 Encounter for antibody response examination (principal); E05.80 Other thyrotoxicosis without thyrotoxic crisis or storm; N93.9 Abnormal uterine and vaginal bleeding, unspecified; E89.0 Postprocedural hypothyroidism; M25.551 Pain in right hip
CPT/HCPCS: 36415; 83520; 84439; 84443; 84445; 85652; 86038; 86140; 86376